=== PATIENT | female | born 1965 | race Caucasian/White ===

== ENCOUNTER 2018-06-02 18:06 | Outpatient (REF) | payer BC, SELFPAY ==
[2018-06-02 19:55] LABS: Abs Immature Grans 0.02 k/cumm (0.0-0.09); Absolute Basophil Count 0.03 k/cumm (0.0-0.2); Absolute Eosinophil Count 0.09 k/cumm (0.0-0.7); Absolute Lymphocyte Count 2.21 k/cumm (1.2-3.4); Absolute Monocyte Count 0.58 k/cumm (0.11-0.7); Absolute Neutrophil Count 5.49 k/cumm (1.2-6.7); Basophils % 0.4; Eosinophils % 1.1; HCT 37.7 % (36.0-46.0); HGB 12.3 g/dL (12.0-15.5); Immature Grans % 0.2; Lymphocytes % 26.2; Mean Corp. HGB Concentration 32.6 g/dL (32.0-36.0); Mean Corpuscular Hemoglobin 27.7 pg (27.0-33.0); Mean Corpuscular Volume 84.9 fL (80-95); Mean Platelet Volume 10.6 fL (8.0-11.0); Monocytes % 6.9; Neutrophils % 65.2; Platelet Count 277 x1000/uL (130-400); RBC 4.44 m/cumm (4.00-5.20); RBC Distribution Width 13.7 % (11.7-14.6); White Blood Cell Count 8.42 k/cumm (4.4-10.8)
[2018-06-02 20:13] LABS: ALT 19 U/L (12-78); AST 16 U/L (15-37); Albumin 4.1 g/dL (3.4-5.0); Alkaline Phosphatase 86 U/L (46-116); Anion Gap 9.4 mmol/L (3-11); BUN 19 mg/dL (7-18); Bilirubin, Total 0.3 mg/dL (0.2-1.0); CO2 28.6 mmol/L (21.0-32.0); Calcium 9.2 mg/dL (8.5-10.1); Chloride 101 mmol/L (98-107); FREE T4 1.17 ng/dL (0.76-1.46); Glucose 87 mg/dL (70-100); Sodium 139 mmol/L (136-145); TSH 3.06 uIU/mL (0.358-3.74); Total Protein 7.7 g/dL (6.4-8.2)
[2018-06-03 16:48] LABS: T3, Total 110 ng/dl (97-169)
== END 2018-06-02 18:26 ==
LOC: NCHCN 18:06
PROVIDERS: PCP Physician Assistant Medical; Visit Provider Physician Assistant Medical
DX: E04.2 Nontoxic multinodular goiter (principal); R10.32 Left lower quadrant pain
CPT/HCPCS: 80053; 84439; 84443; 84480; 85025

== ENCOUNTER 2018-06-16 01:25 | Outpatient (CLI) | payer BC, SELFPAY ==
--- NOTE | 2018-06-16 16:06 | DI.US_ITS ---
SYMPTOMS/DIAGNOSIS: MULTIPLE THYROID NODULES, E04 THYROID ULTRASOUND: Thyroid ultrasound was performed according to the usual protocol. Right thyroid lobe measures 54 x 20 x 16 mm and left thyroid lobe measures 46 x 23 x 19 mm. The thyroid parenchyma is heterogenous throughout with numerous small nodules. The largest nodule is a 12 mm in greatest diameter mixed echogenicity nodule of the lower pole of the left thyroid lobe. This shows mildly increased vascular flow on Doppler evaluation. Findings consistent with multinodular goiter, largest nodule is a 12 mm left lobe inferior pole nodule. Previous ultrasound of 03/25/17 showed the left lower pole nodule to measure about 18 mm in diameter. CONCLUSION: Stable or decreased size of left thyroid nodule. Follow-up ultrasound recommended in 12 months.
== END 2018-06-16 01:45 ==
PROVIDERS: PCP Physician Assistant Medical; Visit Provider Physician Assistant Medical
DX: E04.2 Nontoxic multinodular goiter (principal)
CPT/HCPCS: 76536

== ENCOUNTER 2018-07-22 16:39 | Outpatient (CLI) | payer BC, SELFPAY ==
--- NOTE | 2018-07-22 14:46 | DI.RAD_ITS ---
SYMPTOMS/DIAGNOSIS: COUGH, R05 PA AND LATERAL CHEST: The heart is normal in size. The lungs are clear. The mediastinal structures and pleura appear intact. CONCLUSION: Normal chest.
== END 2018-07-22 16:59 ==
PROVIDERS: PCP Physician Assistant Medical; Visit Provider Physician Assistant Medical
DX: R05 Cough (principal)
CPT/HCPCS: 71046

== ENCOUNTER 2018-12-13 11:19 | Outpatient (CLI) | payer BC, SELFPAY ==
[2018-12-13 12:22] LABS: CREATININE 0.66 mg/dL (0.55-1.02)
== END 2018-12-13 11:39 ==
PROVIDERS: PCP Physician Assistant Medical; Visit Provider Physician Assistant Medical
DX: R10.9 Unspecified abdominal pain (principal)
CPT/HCPCS: 36415; 82565

== ENCOUNTER 2018-12-15 01:09 | Outpatient (CLI) | payer BC, SELFPAY ==
[2018-12-15] MEDS: Omnipaque 350 MG/ML 50 ML BTL PO (08:21)
[2018-12-15] MEDS: Breeza Beverage 473 ML BTL PO ×2 (08:21→08:22)
[2018-12-15] MEDS: Omnipaque 350 MG/ML 100 ML BTL IJ (09:00)
--- NOTE | 2018-12-15 09:00 | DI.CT_ITS ---
SYMPTOM/DIAGNOSIS: LLQ ABD PAIN, R10.[address]: The study was carried out with an intravenous administration of 100 cc's of Omnipaque 350 and oral ingestion of dilute Omnipaque. The lung bases are unremarkable. The liver is normal. The gallbladder is intact. The pancreas and spleen are normal. The kidneys are unremarkable save for small bilateral renal cysts. The right adrenal is unremarkable. There is a small left adrenal mass measuring approximately 1.4 mm. in diameter which in retrospect was present on the prior examination of 2014 and is unchanged. There is no evidence of bowel obstruction. No localized bowel abnormality is seen. There is no evidence of an acute appendix. There is no evidence of free air or free fluid in the intraperitoneal space. The bladder is intact. The reproductive organs as visualized are intact. There is no evidence of an aortic aneurysm. Mild degenerative changes involving the lumbar spine are identified. SUMMARY: A small left adrenal nodule is demonstrated, apparently unchanged when compared with images dating back to 11/28/2014 and consistent with an adenoma. There are small bilateral renal cysts.
== END 2018-12-15 01:29 ==
PROVIDERS: PCP Physician Assistant Medical; Visit Provider Physician Assistant Medical
DX: R10.32 Left lower quadrant pain (principal); N28.1 Cyst of kidney, acquired; D35.02 Benign neoplasm of left adrenal gland
CPT/HCPCS: 74177; J3490; Q9967

== ENCOUNTER 2019-02-07 02:06 | Outpatient (CLI) | payer BC, SELFPAY ==
[2019-02-07 08:54] LABS: Anion Gap 9.2 mmol/L (3-11); BUN 13 mg/dL (7-18); CO2 28.8 mmol/L (21.0-32.0); CREATININE 0.73 mg/dL (0.55-1.02); Chloride 106 mmol/L (98-107); Glucose 78 mg/dL (70-100); Sodium 144 mmol/L (136-145)
[2019-02-08 17:39] LABS: Adrenocorticotropic Hormone, P 18 pg/mL
[2019-02-09 09:30] LABS: DHEA Sulfate 16 ug/dl (56-283)
[2019-02-09 13:05] LABS: Metanephrine, Free <0.20 nmol/L (<0.50); Normetanephrine, Free 0.42 nmol/L (<0.90)
[2019-02-09 17:17] LABS: Renin Activity, Plasma 1.3 ng/mL/h
== END 2019-02-07 02:26 ==
PROVIDERS: PCP Physician Assistant Medical; Visit Provider Internal Medicine Endocrinology, Diabetes & Metabolism
DX: E27.9 Disorder of adrenal gland, unspecified (principal)
CPT/HCPCS: 36415; 80048; 82533; 82627; 82024; 82088; 83835; 84244

== ENCOUNTER 2019-02-08 01:47 | Outpatient (CLI) | payer BC, SELFPAY ==
[2019-02-08 21:17] LABS: Dexamethasone Suppression 1 ug/dl
== END 2019-02-08 02:07 ==
PROVIDERS: PCP Physician Assistant Medical; Visit Provider Internal Medicine Endocrinology, Diabetes & Metabolism
DX: E27.9 Disorder of adrenal gland, unspecified (principal)
CPT/HCPCS: 36415; 82533

== ENCOUNTER 2019-03-16 15:22 | Outpatient (REF) | payer BC, SELFPAY | END 2019-03-16 15:42 | LOC: NCHCN 15:22 | PROVIDERS: PCP Physician Assistant Medical; Visit Provider Physician Assistant Medical | DX: J02.9 Acute pharyngitis, unspecified (principal); J20.9 Acute bronchitis, unspecified | CPT/HCPCS: 87081 ==

== ENCOUNTER 2019-08-23 01:23 | Outpatient (CLI) | payer BC, SELFPAY ==
--- NOTE | 2019-08-23 13:46 | DI.MAMMO_ITS ---
EXAM: MAMMO SCREENING CLINICAL HISTORY: SCREENING, HEALTH MAINTENANCE EXAM, Z00.8 TECHNIQUE: Mammograms were interpreted according to the usual protocol including computer analysis w [employer] CAD system, tomosynthesis and C-view imaging. COMPARISON: Current examination is compared previous examinations including June 2017 FINDINGS: The breasts are of moderate density with fairly symmetrical distribution of fibroglandular tissue. No dominant mass or clumped microcalcification. Current examination is compared previous examinations including June 2017 and there has been no gross interval change in appearance in comparison with previous studies. IMPRESSION: No specific evidence of malignancy at this time. Routine screening examinations are suggested at yea rly intervals due to the family history of breast carcinoma. Category 1, breast density category B. BI-RADS Cat 1 - Negative Breast Density - Category B - Scattered areas of fibroglandular density
== END 2019-08-23 01:43 ==
PROVIDERS: PCP Physician Assistant Medical; Visit Provider Physician Assistant Medical
DX: Z00.00 Encounter for general adult medical examination without abnormal findings (principal); Z12.31 Encounter for screening mammogram for malignant neoplasm of breast; Z80.3 Family history of malignant neoplasm of breast
CPT/HCPCS: 77063; 77067

== ENCOUNTER 2019-10-24 10:12 | Outpatient (REF) | payer BC, SELFPAY ==
[2019-10-24 20:31] LABS: Hemoglobin A1C 5.6 % (3.8-5.6)
[2019-10-24 20:41] LABS: TSH 2.58 uIU/mL (0.36-3.74)
== END 2019-10-24 10:32 ==
LOC: NCHCN 10:12
PROVIDERS: PCP Physician Assistant Medical; Visit Provider Physician Assistant Medical
DX: E06.3 Autoimmune thyroiditis (principal); Z00.00 Encounter for general adult medical examination without abnormal findings; Z13.1 Encounter for screening for diabetes mellitus
CPT/HCPCS: 83036; 84443

== ENCOUNTER 2019-10-24 10:22 | Outpatient (CLI) | payer BC, SELFPAY ==
--- NOTE | 2019-10-24 | DI.RAD_ITS ---
EXAM: XR WRIST RT COMPL NAVICULAR INDICATION: RT WRIST PAIN, M25.531. COMPARISON: RIGHT HAND COMPLETE from 10/12/2008 XR THUMB RT from 10/24/2019 TECHNIQUE: 2D digital imaging was performed. FINDINGS: There is narrowing at the radial scaphoid joint and mild lateral spurring. A cyst is seen in the sc aphoid. There is mild narrowing at the scaphoid trapezium trapezoid joints. There is mild periartic ular spurring at the interphalangeal joint of the thumb and at the 1st metacarpal phalangeal joint. More advanced degenerative changes are seen in the distal interphalangeal joints of the 2nd through 5th fingers. No bony erosions are seen. IMPRESSION: Nuic-ij-apzokcag degenerative changes. DATA REPOSITORY: RADIATION DOSE DELIVERED:
== END 2019-10-24 10:42 ==
PROVIDERS: PCP Physician Assistant Medical; Visit Provider Physician Assistant Medical
DX: M25.531 Pain in right wrist (principal); M19.031 Primary osteoarthritis, right wrist
CPT/HCPCS: 73110; 73140

== ENCOUNTER 2020-03-07 15:02 | Outpatient (REF) | payer BC, SELFPAY ==
[2020-03-14 02:55] LABS: SARS-CoV-2 RNA Undetected (Undetected); SARS-CoV-2 Specimen Source Nasopharynx
== END 2020-03-07 15:22 ==
LOC: NCHCN 15:02
PROVIDERS: PCP Physician Assistant Medical; Visit Provider Nurse Practitioner Family
DX: Z20.828 Contact with and (suspected) exposure to other viral communicable diseases (principal)
CPT/HCPCS: U0003

== ENCOUNTER 2020-10-24 17:14 | Outpatient (REF) | payer MEDICAID, SELFPAY ==
[2020-10-25 14:48] LABS: COVID-19 RT-PCR UVMMC Result Negative (Negative)
== END 2020-10-24 17:15 | disposition home or self-care (01) ==
LOC: NCHCN 17:14
PROVIDERS: PCP Physician Assistant Medical; Visit Provider Physician Assistant Medical
DX: Z20.822 Contact with and (suspected) exposure to COVID-19 (principal); R05 Cough; J06.9 Acute upper respiratory infection, unspecified
CPT/HCPCS: U0003

== ENCOUNTER 2020-11-08 02:56 | Outpatient (CLI) | payer MEDICAID, SELFPAY ==
[2020-11-08 09:58] LABS: Anion Gap 5.4 mmol/L (3-11); BUN 15 mg/dL (7-18); CO2 28.6 mmol/L (21.0-32.0); CREATININE 0.8 mg/dL (0.55-1.02); Calcium 9.1 mg/dL (8.5-10.1); Calculated LDL 136 mg/dL (<100); Chloride 105 mmol/L (98-107); Cholesterol 211 mg/dL (<200); Glucose 92 mg/dL (74-106); HDL Cholesterol 54 mg/dL (40-60); Potassium 4.5 mmol/L (3.5-5.1); Sodium 139 mmol/L (136-145); TSH 2.85 uIU/mL (0.36-3.74); Triglyceride 107 mg/dL (<150)
== END 2020-11-08 02:57 | disposition home or self-care (01) ==
LOC: LBO 02:56
PROVIDERS: PCP Physician Assistant Medical; Visit Provider Physician Assistant Medical
DX: E06.3 Autoimmune thyroiditis (principal)
CPT/HCPCS: 36415; 80048; 80061; 84443

== ENCOUNTER 2020-11-28 01:36 | Outpatient (CLI) | payer MEDICAID, SELFPAY ==
--- NOTE | 2020-11-28 08:17 | DI.MAMMO_ITS ---
EXAM: MAMMO SCREENING CLINICAL HISTORY: SCREENING, [facility],Z00.00 TECHNIQUE: Mammograms were interpreted according to the usual protocol including computer analysis w [employer] CAD system, tomosynthesis and C-view imaging. COMPARISON: 2013 through 2018 FINDINGS: The breasts are composed of scattered fibroglandular densities, Breast Density category B. No suspicious masses or suspicious microcalcifications are seen. No skin thickening or abnormal axillary lymph nodes are seen. There has been no significant change from prior exams. IMPRESSION: BI-RADS Category 1, Negative mammogram Yearly screening mammography is recommended. Breast Density - Category B, scattered fibroglandular densities. A negative radiographic report should not delay biopsy if a dominant or clinically suspicious mass is present. Up to ten percent of cancers are not identified on mammography. A negative report may reinforce clinical impression. Adenosis and dense breasts may obscure an underlying neoplasm. False positive reports average 6 to 10%. Patient will receive a letter notifying them of these results.
== END 2020-11-28 01:56 ==
PROVIDERS: PCP Physician Assistant Medical; Visit Provider Physician Assistant Medical
DX: Z12.31 Encounter for screening mammogram for malignant neoplasm of breast (principal)
CPT/HCPCS: 77063; 77067

== ENCOUNTER 2021-03-12 04:42 | Emergency (ER) | payer MEDICAID, SELFPAY ==
[2021-03-12] VITALS (7 sets, daily range): BP systolic 129–178; BP diastolic 78–86; PULSE 66–83; RESP 12–21; TEMP 36.2; O2SAT 93–98
--- NOTE | 2021-03-12 04:45 | RT.EKG_ITS ---
APPROVED REPORT Exam: Resting ECG Reason for Exam: sob Patient Location: E HR:70 bpm ECG Measurements Heart Rate 70 AXIS MT 131 P -2 QRSd 100 QRS 46 QT 437 T 56 QTc 473 Conclusion Sinus rhythm...normal P axis, V-rate 60- 99 Rate 70, sinus rhythm, intervals unremarkable, no significant ST elevation or depression. No Q waves . No T wave inversion
--- NOTE | 2021-03-12 04:45 | DI.RAD_ITS ---
Exam(s) XR CHEST 2V PA LATERAL EXAM: XR CHEST 2V PA LATERAL CLINICAL HISTORY: transient shortness of breath TECHNIQUE: 2D digital imaging was performed. COMPARISON: CR XR CHEST 2V PA LATERAL from 07/22/2018 FINDINGS: MEDIASTINUM: Normal. HEART: Normal. PULMONARY VASCULATURE: Normal. LUNGS: Clear. PLEURAL SPACE: No pleural effusion or pneumothorax. BONE:Unremarkable for age. IMPRESSION: No acute abnormality. DATA REPOSITORY: RADIATION DOSE DELIVERED:
--- NOTE | 2021-03-12 04:57 | ED.GENADUL_ITS ---
Discharge Plan Disposition Patient Disposition: HOME Condition: Good Discharge Details Clinical Impression: Shortness of breath Primary Care Provider: Nalini Riddle ED Provider: Juarez Mcconnell Home Meds and New Rx's Prescriptions: Continued levothyroxine 25 MCG tablet 88 mcg PO DAILY RF: 0 venlafaxine 375 mg DAILY RF: 0 venlafaxine 37.5 MG capsule,extended release 24hr 37.5 mg PO DAILY RF: 0 Flovent Diskus 50 MCG blister with device 1 spray Inhalation DAILY PRNRF: 0 venlafaxine [Effexor XR] 75 MG capsule,extended release 24hr 75 mg PO DAILY RF: 0 Otc Estrogen 1 cap PO DAILY RF: 0 Discharge Instructions Instructions: Dyspnea (ED) Additional Instructions: At this time your work-up shows no evidence of popped lung, heart attack, blood clot. I suspect that your symptoms are from a laryngeal spasm as we discussed together. If you notice any worsening of your symptoms, or any new symptoms such as vomiting, diarrhea, fever, chills, shortness of breath, chest pain, numbness, weakness, or fainting , please return immediately to the emergency department for reevaluation. Please follow up with your primary care provider as soon as possible for reassessment and reevaluation. As always, it was a pleasure participating in your medical care today. Referrals: Nalini Riddle PA [Primary Care Provider] - Discharge Data Discharge Date/Time-TO BE ENTERED AT DEPARTURE: 03/12/21 06:09 Medical Decision Making 55-year-old female with a past medical history of depression, endometriosis, asthma, thyroid dysfunction, presents today for evaluation of treated shortness of breath. Patient states that she woke up about 45 minutes prior to arrival with a sudden onset shortness of breath. She felt like she was gasping for air and she could not breathe. Symptoms eventually resolved on their own. Currently she denies any significant shortness of breath but does admit to a very mild chest ache under the left breast. She denies any exertional dyspnea or exertional chest pain. She denies any cough fever or chills. She denies any headache. She denies any tearing or ripping sensation or syncope. She denies any pleuritic chest pain. Denies PE risk factors such as recent long car rides, immobilization, recent surgery, prior history of DVT or PE, family history of PE or DVT, morbid obesity, and smoking, hemoptysis, history of cancer. Physical exam demonstrates no reproducible chest pain. No evidence of shingles. Patient's PERC and Wells score are both low, however she does take exogenous estrogen, and she is over the age of 50. Because of this we will get a D-dimer, evaluate for cardiac abnormality, monitor closely and reassess. I do suspect that the patient's symptoms are likely related to a laryngeal spasm as this would clinically make sense with her sudden onset of feeling like she could not breathe at all, a tight self described wheeze, and then quick resolution shortly thereafter 6 AM Patient's laboratory work-up has returned notably unremarkable. No white count, bandemia or left shift. Normal electrolytes, good renal function. Normal proBNP no evidence of right heart strain. Troponin normal, chest x-ray unremarkable. Patient feels well and has no chest pain whatsoever. No shortness of breath whatsoever. She feels well and feels comfortable going home. Symptoms at this time are inconsistent with PE, dissection, ACS, pneumothorax. Symptoms likely secondary to mild brief laryngeal spasm that o ccurred at night, with no clear evidence of significant sleep apnea or other abnormality. Discussed red flags which to return. Discussed the importance of close PCP follow-up. I have extensively reviewed the treatment plan and discharge instructions with the patient and their family. I have addressed all patient concerns at this time. The patient and family was made aware of what symptoms to monitor for that would warrant a return to the emergency department. Discussed the plan with the patient and family, they demonstrate verbal understanding and agreement with our assessment and plan at this time. The documentation in this chart was dictated using [employer] dictation software. Please excuse any dictation errors. EKG 5: 02 Rate 70, sinus rhythm, intervals unremarkable, no significant ST elevation or depression. No Q waves. No T wave inversion FINDINGS: Lungs: Unremarkable. No consolidation. Pleural spaces: Unremarkable. No pleural effusion. No pneumothorax. Heart/Mediastinum: The cardiomediastinal silhouette is fairly stable in appearance. Bones/joints: Degenerative changes again involve the spine. IMPRESSION: No evidence for acute pulmonary disease. Thank you for allowing us to participate in the care of your patient. Dictated and Authenticated by: Baldomero De Leon MD 03/12/2021 7:39 AM Eastern Time ([place] & [place]) HPI General Date/Time Provider Initiated Documentation: 03/12/21 04:43 . HPI Narrative: 55-year-old female with a past medical history of depression, endometriosis, asthma, thyroid dysfunction, presents today for evaluation of treated shortness of breath. Patient states that she woke up about 45 minutes prior to arrival with a sudden onset shortness of breath. She felt like she was gasping for air and she could not breathe. Symptoms eventually resolved on their own. Currently she denies any significant shortness of breath but does admit to a very mild chest ache under the left breast. She denies any exertional dyspnea or exertional chest pain. She denies any cough fever or chills. She denies any headache. She denies any tearing or ripping sensation or syncope. She denies any pleuritic chest pain. Denies PE risk factors such as recent long car rides, immobilization, recent surgery, prior history of DVT or PE, family history of PE or DVT, morbid obesity, exogenous estrogen and smoking, hemoptysis, history of cancer. Related Data Home Medications Medication Instructions Recorded Confirmed levothyroxine 88 mcg PO DAILY tab-cap 11/28/14 01/08/16 venlafaxine 37.5 mg PO DAILY 12/04/14 03/12/21 Flovent Diskus 1 spray INHALATION DAILY PRN 01/08/16 03/12/21 Otc Estrogen 1 cap PO DAILY 01/08/16 venlafaxine [Effexor XR] 75 mg PO DAILY 01/08/16 03/12/21 Allergies Allergy/AdvReac Type Severity Reaction Status Date / Time cephalexin [Cephalexin] AdvReac Nausea/ GI Unverified 03/12/21 04:55 upset General Stated Complaint: SOB ERNA: 3 Review of Systems All systems reviewed & are unremarkable except as noted in HPI and below PFSH Medical History Endometriosis LLQ pain Ovarian cyst Surgical History Oophrectomy, Left Had enterolisis and removal of endometriosis at the same time Social History Smoking/Tobacco Use Status: Never Smoking risk assessment performed?: Yes Alcohol Intake: never Drug use: Never Substance use type: does not use Do you feel safe at home: Yes Do you feel safe in your relationship?: Yes Exam Narrative Exam Narrative: 1.Const: Well-nourished, Well-developed, appearing stated age 2.Eyes: PERRL, no conjunctival injection, and symmetrical lids. 3.ENT: Atraumatic external nose and ears. Moist MM. Neck: Symmetric, trachea midline, No thyromegaly. 4.CVS: +S1/S2, No murmurs or gallops. Peripheral pulses 2+ and equal in all extremities. Brisk capillary refill in all extremities. No reproducible chest pain on palpation of the chest. 5.RESP: Unlabored respiratory effort. Clear to auscultation bilaterally. No wheezes rales or rhonchi 6.GI: Soft, Nontender/Nondistended, No hepatosplenomegaly. No guarding or rebound. 7.MSK: Normocephalic/Atraumatic, Extremities w/o deformity or ttp No cyanosis or clubbing, Normal movement of all extremities 8.Skin: Warm, Dry. No rashes or lesions. No evidence of shingles under the breast. 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 Sensation grossly intact, no focal neurologic deficits. 10.Psych: (AAO) x3. Appropriate mood and affect Course Vital Signs Vital signs: Vital Signs Temperature 36.2 C L 03/12/21 04:48 Pulse 83 03/12/21 04:48 Respiratory Rate 17 03/12/21 04:48 Blood Pressure 178/86 H 03/12/21 04:48 Pulse Oximetry 98 03/12/21 04:48 Temperature 36.2 C L 03/12/21 04:48 Temperature Source Temporal Artery Scan 03/12/21 04:48 Pulse 83 03/12/21 04:48 Respiratory Rate 17 03/12/21 04:48 Blood Pressure 178/86 H 03/12/21 04:48 Blood Pressure Position Sitting 03/12/21 04:48 Pulse Oximetry 98 03/12/21 04:48 Oxygen Delivery Method Room Air 03/12/21 04:48 Oxygen Flow Rate 0 03/12/21 04:48 Pain Level 0 03/12/21 04:48
[2021-03-12 05:10] LABS: Abs Immature Grans 0.01 10^3/uL (0.0-0.06); Absolute Basophil Count 0.07 10^3/uL (0.0-0.2); Absolute Eosinophil Count 0.18 10^3/uL (0.0-0.7); Absolute Monocyte Count 0.61 10^3/uL (0.1-0.8); Absolute Neutrophil Count 2.52 10^3/uL (1.2-6.7); Basophils % 1.1; Eosinophils % 2.8; HCT 38.1 % (36.0-46.0); Immature Grans % 0.2; Lymphocytes % 46.9; MCH 26.7 pg (27.0-33.0); MCHC 31.5 % (32.0-36.0); MCV 84.7 fL (80-95); MPV 9.6 fL (8.0-11.0); Monocytes % 9.5; Neutrophils % 39.5; Nucleated RBC 0 %; Platelet Count 326 10^3/uL (130-400); RDW 13.4 % (11.7-14.6); RDW-SD 41.6 fL; WBC 6.39 10^3/uL (4.4-10.8)
[2021-03-12 05:23] LABS: ALT 22 U/L (14-59); AST 13 U/L (15-37); Albumin 3.8 g/dL (3.4-5.0); Alkaline Phosphatase 99 U/L (46-116); Anion Gap 6.1 mmol/L (3-11); BUN 14 mg/dL (7-18); Bilirubin, Total 0.3 mg/dL (0.2-1.0); CO2 26.9 mmol/L (21.0-32.0); CREATININE 0.8 mg/dL (0.55-1.02); Calcium 8.7 mg/dL (8.5-10.1); Chloride 106 mmol/L (98-107); Glucose 97 mg/dL (74-106); Potassium 3.8 mmol/L (3.5-5.1); Sodium 139 mmol/L (136-145); Total Protein 7.6 g/dL (6.4-8.2)
[2021-03-12 05:32] LABS: NT-proBNP 84 pg/mL (<300); Troponin I < 0.05 ng/mL (<0.06)
[2021-03-12 05:39] LABS: D-Dimer 395 ng/mlFEU (<500)
--- NOTE | 2021-03-12 07:40 | DI.VRAD_ITS ---
PROCEDURE INFORMATION: Exam: XR Chest Exam date and time: 03/12/2021 4:56 AM Age: 55 years old Clinical indication: Patient HX: Transient shortness of breath TECHNIQUE: Imaging protocol: XR of the chest. Views: 2 views. COMPARISON: CR XR CHEST 2V PA LATERAL 07/22/2018 2:38 PM FINDINGS: Lungs: Unremarkable. No consolidation. Pleural spaces: Unremarkable. No pleural effusion. No pneumothorax. Heart/Mediastinum: The cardiomediastinal silhouette is fairly stable in appearance. Bones/joints: Degenerative changes again involve the spine. IMPRESSION: No evidence for acute pulmonary disease. Dictated and Authenticated by: Baldomero De Leon MD. Ordering:BENNIE Pizarro MD
== END 2021-03-12 06:09 | disposition home or self-care (01) ==
PROVIDERS: Emergency Provider Student in an Organized Health Care Education/Training Program; PCP Physician Assistant Medical
DX: R06.02 Shortness of breath (principal); R07.9 Chest pain, unspecified
CPT/HCPCS: 80053; 93005; 99284; 71046; 83880; 84484; 85025; 85379; 93010

== ENCOUNTER 2021-03-29 02:30 | Outpatient (CLI) | payer MEDICAID, SELFPAY ==
[2021-03-29 10:12] LABS: TSH 3.04 uIU/mL (0.36-3.74)
== END 2021-03-29 02:31 | disposition home or self-care (01) ==
LOC: LBO 02:30
PROVIDERS: PCP Physician Assistant Medical; Visit Provider Physician Assistant Medical
DX: E06.3 Autoimmune thyroiditis (principal)
CPT/HCPCS: 36415; 84443

== ENCOUNTER 2021-04-01 11:20 | Outpatient (REF) | payer MEDICAID, SELFPAY ==
[2021-04-01 20:35] LABS: ESR 28 mm/hr (0-30)
[2021-04-01 20:59] LABS: C-Reactive Protein 0.58 mg/dL (0.0-0.3)
[2021-04-02 16:23] LABS: Rheumatoid Factor <8.6 IU/mL (<12.0)
[2021-04-03 08:56] LABS: Cyclic Citrullinated Peptide <2.5 U/mL (<5.0)
[2021-04-03 13:55] LABS: ANA Interpretation Positive (Negative); ANA Titer Pattern 1:320 Homogeneous
== END 2021-04-01 11:21 | disposition home or self-care (01) ==
LOC: NCHCN 11:20
PROVIDERS: PCP Physician Assistant Medical; Visit Provider Physician Assistant Medical
DX: M25.59 Pain in other specified joint (principal)
CPT/HCPCS: 85652; 86200; 86038; 86140; 86431

== ENCOUNTER 2021-05-01 12:41 | Outpatient (REF) | payer MEDICAID, SELFPAY ==
[2021-05-01 17:11] LABS: Abs Immature Grans 0.01 10^3/uL (0.0-0.06); Absolute Basophil Count 0.06 10^3/uL (0.0-0.2); Absolute Eosinophil Count 0.13 10^3/uL (0.0-0.7); Absolute Lymphocyte Count 2.05 10^3/uL (1.2-3.4); Absolute Monocyte Count 0.48 10^3/uL (0.1-0.8); Absolute Neutrophil Count 2.69 10^3/uL (1.2-6.7); Basophils % 1.1; Eosinophils % 2.4; HCT 38.9 % (36.0-46.0); HGB 11.9 g/dL (11.2-15.7); Immature Grans % 0.2; Lymphocytes % 37.8; MCH 26.4 pg (27.0-33.0); MCHC 30.6 % (32.0-36.0); MCV 86.4 fL (80-95); MPV 10.7 fL (8.0-11.0); Monocytes % 8.9; Neutrophils % 49.6; Nucleated RBC 0 %; Platelet Count 337 10^3/uL (130-400); RDW 13.7 % (11.7-14.6); RDW-SD 43.5 fL; WBC 5.42 10^3/uL (4.4-10.8)
[2021-05-01 17:19] LABS: Uric Acid 3.5 mg/dL (2.6-6.0)
== END 2021-05-01 12:42 | disposition home or self-care (01) ==
LOC: NCHCN 12:41
PROVIDERS: PCP Physician Assistant Medical; Visit Provider Physician Assistant Medical
DX: M79.671 Pain in right foot (principal)
CPT/HCPCS: 84550; 85025

== ENCOUNTER 2021-05-21 08:51 | Outpatient (REF) | payer MEDICAID, SELFPAY ==
[2021-05-21 20:31] LABS: FREE T4 1.19 ng/dL (0.76-1.46); TSH 2.15 uIU/mL (0.36-3.74)
[2021-05-22 17:38] LABS: T3, Total 125 ng/dL (97-169)
[2021-05-22 18:41] LABS: Thyroglobulin Antibody >500 U/mL (<=60); Thyroperoxidase Antibody 180 U/mL (<=60)
== END 2021-05-21 08:52 | disposition home or self-care (01) ==
LOC: NCHCN 08:51
PROVIDERS: PCP Physician Assistant Medical; Visit Provider Physician Assistant Medical
DX: E06.3 Autoimmune thyroiditis (principal)
CPT/HCPCS: 86376; 84439; 84443; 84480

== ENCOUNTER 2021-06-24 02:23 | Outpatient (CLI) | payer MEDICAID, SELFPAY ==
[2021-06-24 11:04] LABS: Source Nasal/Nares
[2021-06-24 13:53] LABS: COVID-19 PCR Negative (Negative)
== END 2021-06-24 02:24 | disposition home or self-care (01) ==
LOC: LBO 02:24
PROVIDERS: PCP Physician Assistant Medical; Visit Provider Surgery
DX: Z20.822 Contact with and (suspected) exposure to COVID-19 (principal)
CPT/HCPCS: 87635

== ENCOUNTER 2021-06-25 00:58 | Outpatient (CLI) | payer MEDICAID, SELFPAY ==
--- NOTE | 2021-06-25 09:15 | DI.US_ITS ---
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 COMPARISON: US US thyroid from 06/16/2018 FINDINGS: Thyroid ultrasound was performed according to the usual protocol. The thyroid parenchyma is diffusel y heterogeneous. Right thyroid lobe measures 5.7 x 1.6 x 2.2 cm. Left thyroid lobe measures 5.3 x 1 .8 x 1.9 cm. Thyroid isthmus is 3 millimeters in thickness. There is an 8 millimeter in diameter hypoechoic nodule of the midportion of the right thyroid lobe wh ich is solid in echogenicity and has smooth margins without echogenic foci. No follow-up recommended . Small extrathyroidal cyst is noted on the right, nonspecific. IMPRESSION: Heterogeneous appearance of thyroid parenchyma, question mild thyromegaly. No suspicious intrathyroi andres lesion. DATA REPOSITORY:
== END 2021-06-25 01:18 ==
PROVIDERS: PCP Physician Assistant Medical; Visit Provider Physician Assistant Medical
DX: E06.3 Autoimmune thyroiditis (principal); E01.0 Iodine-deficiency related diffuse (endemic) goiter; R93.89 Abnormal findings on diagnostic imaging of other specified body structures
CPT/HCPCS: 76536

== ENCOUNTER 2021-06-26 07:57 | Day surgery (SDC) | payer MEDICAID, SELFPAY ==
--- NOTE | 2021-06-26 06:43 | W.PM.ENDDOP ---
Date of service: 06/26/21 Time of Service: 09:21 Endoscopy Report DATE OF PROCEDURE: 06/26/21 PRE-OP DIAGNOSIS: GERD POST-OP DIAGNOSIS: same PROCEDURE: EGD with biopsies SURGEON: Lashonda Cavazos ANESTHESIA TYPE: General:No Airway (Aleksandra Zapata, ARSH) ESTIMATED BLOOD LOSS: 2 PATHOLOGY: other (Antrum bx, GE junction bx) COMPLICATIONS: None DISPOSITION: same day INDICATIONS: Sylvia has a history of reflux. She was having quite a bit of reflux symptoms in February and was started on pantoprazole. This has helped quite a bit. She continues to have the shortness of breath episodes despite him not resolved. She also has a history of H. pylori infection x2 once in 2012 and once in 2015. I do think that her episodes sound more like a reactive airway/laryngeal spasms. The question is why. I feel it is reasonable to start with an upper endoscopy and look at her oropharynx and vocal cords as well as her esophagus, stomach and duodenum. I will do biopsies again for H. pylori. If the upper endoscopy is negative then she may need to be seen either by ENT or pulmonology. I did ask her to bring her albuterol inhaler to the hospital just in case we need to use it. The procedure was explained in detail including the risks, benefits and alternatives. Risks, benefits and complications have been reviewed. Complications include but are not limited to bleeding, pain, perforation, sore throat, aspiration, and adverse reaction to the medications. Questions were entertained and answered to their satisfaction and they wished to proceed. No guarantees were given or implied. Proceed with EGD under sedation and Covid testing FINDINGS: normal PROCEDURE DESCRIPTION: After informed consent was obtained the patient was take to the procedure room and placed in a supine position. Monitors were applied and a time out was done. The patients name, date of , procedure type, allergies to medications and metal in their body was reviewed. A bite block was placed and the patient was sedated. Once sedated and comfortable the gastroscope was advanced through the oropharynx which was grossly normal into the esophagus. The proximal, mid- and distal esophagus were normal. The scope was advanced into the stomach and through the pylorus into the 3rd portion of the duodenum. The duodenum was noted to be normal. The scope was retracted back into the stomach and biopsies were done to rule out H. pylori. The scope was retroflexed. The cardia and fundus were noted to be normal. There was no hiatal hernia noted. The scope was retracted back into the esophagus and biopsies were done of the GE junction to rule out Palomares's. The Z line was regular. The GE junction was at 35 cm. The scope was removed and the patient was woken up and taken back to [facility] in stable condition. Follow up: as needed
--- NOTE | 2021-06-26 06:44 | W.PM.DSUDISC ---
Discharge Plan Disposition Patient Disposition: HOME Condition: Good Discharge Details Reason For Visit: egd Attending Provider: Lashonda Cavazos Primary Care Provider: Nalini Riddle Home Meds and New Rx's Prescriptions: Continued fluticasone propionate 50 mcg/actuation spray,suspension 1 spray intranasal DAILY RF: 0 albuterol sulfate [ProAir HFA] 90 mcg/actuation HFA aerosol inhaler 2 puff inhalation Q6H PRNRF: 0 doxepin 10 mg capsule 10 mg PO QHS RF: 0 pantoprazole 40 mg tablet,delayed release (DR/EC) 40 mg PO DAILY RF: 0 venlafaxine 37.5 MG capsule,extended release 24hr 37.5 mg PO DAILY RF: 0 Flovent Diskus 50 MCG blister with device 1 spray Inhalation DAILY PRNRF: 0 levothyroxine 100 mcg tablet 100 mcg PO DAILY RF: 0 venlafaxine 75 mg Capsule,Extended Release 24hr 75 mg PO RF: 0 Probiotic 15 billion cell Capsule 15 cap PO RF: 0 Discharge Instructions Additional Instructions: Findings: normal appearing. Your reflux is controlled Vocal cords looked normal Follow up: I will discuss your case with pulmonology and see if they want me to do some testing before I refer you Please call if you develop: fevers >101.5 Nausea or Vomiting Abdominal pain that is not transient Rectal bleeding that is more then a tbsp A hard abdomen and inability to pass gas DAY SURGERY UNIT POST ENDOSCOPY INSTRUCTIONS Instructions for everyone who is given Anesthesia: For your safety, please do the following for the next 24 Hours: a. Do not drive or operate dangerous equipment b. Do not drink alcohol beverages or use any recreational drugs for the first 24 hours or while taking pain medications. The medications in your body may have a reaction that can be dangerous. c. Do not make any important decisions or sign any important papers 1. Generally there are no restrictions on your activity after a day or so has gone by, but you may feel a bit fatigued for a few days. 2. After you arrive home you may have a light meal and return to a normal diet as you can tolerate it without feeling sick to your stomach. 3. After surgery, you may feel pain or discomfort. This should be only transient, but if it persists please contact your doctor. 4. If there are any questions regarding the findings of your procedure, please feel free to contact your doctor. 6. If you are unable to contact your doctor with a problem, contact the hospital at [phone]. 7. Continue all your regular medications unless directed otherwise. I understand the above instructions and have no questions. Signature of Patient or Responsible Adult Escort Date/Time Name of Responsible Adult Escort Signature of Nurse Date/Time Activity:: Activity as Tolerated Diet:: As Tolerated Discharge Orders Discharge Orders: Discharge Order (Routine); Ordered 06/26/21 Ordered By: Lashonda Cavazos
[2021-06-26 08:33] VITALS: BP 142/89; PULSE 71; RESP 16; TEMP 36; O2SAT 98
[2021-06-26] MEDS: Lactated Ringers 1,000 ML 80 ML IV (08:45)
--- NOTE | 2021-06-26 08:49 | W.ANESPRE ---
General Info Date of Service Date Performed: 06/26/21 Height: 5 ft 8 in Weight: 93 kg Body Mass Index (BMI): 31.1 Surgical Procedure: Operation Date: 06/26/21 09:35 Proposed Procedures Side Surgeon p Gastroscopy Lashonda Cavazos MD Meds Allergies and Home Medications Allergies Allergy/AdvReac Type Severity Reaction Status Date / Time codeine Allergy Intermediate hypersensitive. Verified 06/26/21 08:25 Can't sleep. feels wired cephalexin [Cephalexin] AdvReac Nausea/ GI Unverified 06/26/21 08:25 upset Home Medication Medication Instructions Recorded venlafaxine 37.5 mg PO DAILY 12/04/14 Flovent Diskus 1 spray INHALATION DAILY PRN 01/08/16 albuterol sulfate 90 mcg/actuation 2 puff INHALATION Q6H PRN 06/04/21 aerosol inhaler doxepin 10 mg capsule 10 mg PO QHS 06/04/21 fluticasone propionate 50 1 spray INTRANASAL DAILY 06/04/21 mcg/actuation nasal spray,suspension pantoprazole 40 mg tablet,delayed 40 mg PO DAILY 06/04/21 release levothyroxine 100 mcg PO DAILY 06/24/21 L. acidophilus-L. rhamnosus 15 cap PO 06/26/21 [Probiotic] venlafaxine 75 mg PO 06/26/21 Current Visit Medications: Current Medications Generic Name Dose Route Start Last Admin Trade Name Freq PRN Reason Stop Dose Admin Hyoscyamine Sulfate 0.125 mg 06/26/21 06:45 Hyoscyamine 0.125 Mg Sl/Oral/Chew SL DIRECTED PRN Ringer's Solution 1,000 mls @ 80 mls/hr 06/26/21 06:00 IV 07/23/21 23:59 INFUSION [facility] IV Miscellaneous Supplies 1 each 06/26/21 06:00 Iv Access IV 07/23/21 23:59 DIRECTED ANGIE Ondansetron HCl 4 mg 06/26/21 06:45 Ondansetron 4 Mg/2 Ml Vial IVP Q4H PRN PRN Nausea / Vomiting Sodium Chloride 0 ml 06/26/21 06:00 Normal Saline Flush 10 Ml Syr IV 07/23/21 23:59 PRN PRN Sodium Chloride 0 ml 06/26/21 06:00 Normal Saline 10 Ml Vial IJ 07/23/21 23:59 DIRECTED PRN Sterile Water 0 ml 06/26/21 06:00 Water,Injection,Sterile 10 Ml Vial IJ 07/23/21 23:59 DIRECTED PRN PFSH Active Problems Active Problems: Problem Status Onset Code Shortness of breath R06.02 GERD (gastroesophageal reflux disease) K21.9 Laryngospasm J38.5 Thyromegaly E01.0 Abnormal cardiovascular stress test R94.39 History of Helicobacter pylori infection Z86.19 Medical History Medical History (Updated 06/26/21 @ 08:32 by Beverly Mota) Anxiety Depression Diverticulosis Endometriosis Sandeep's thyroiditis Hemorrhoids Hx of Hypertension Insomnia LLQ pain Multiple thyroid nodules Ovarian cyst Positive KEITH (antinuclear antibody) Snoring Urinary incontinence Surgical History Surgical History (Updated 06/26/21 @ 08:32 by Beverly Mota) H/O esophagogastroduodenoscopy 2016 History of hysterectomy Hx of foot surgery L big toe Oophrectomy, Left Had enterolisis and removal of endometriosis at the same time S/P colonoscopy Tobacco Smoking/Tobacco Use Status: Never Alcohol Alcohol Intake: former Substance Use Substance use: Never Substance use type: does not use Vital Signs and Lab Results Vital Signs Most Recent Vital Signs in EMR: Most Recent Vital Signs Temp Pulse Resp BP Pulse Ox 36.0 C L 71 16 142/89 H 98 06/26/21 08:33 06/26/21 08:33 06/26/21 08:33 06/26/21 08:33 06/26/21 08:33 Lab Results Blood Type / Crossmatch: No Data to Display Complete Blood Count: No Data to Display Complete Metabolic Panel: No Data to Display Liver Function Panel: No Data to Display Coagulation Panel: No Data to Display Cardiac Panel: No Data to Display Arterial Blood Gas: No Data to Display Venous Blood Gas: No Data to Display Pancreas Panel: No Data to Display Thyroid Panel: No Data to Display Infectious Disease: Coronavirus (COVID-19)(PCR) Negative (Negative) 06/24/21 10:00 06/24/21 Coronavirus 2019 Source Nasal/Nares 06/24/21 10:00 06/24/21 Blood Cultures: No Data to Display Toxicology Panel: No Data to Display Anesthesia Assessment and Plan Anesthesia History Personal History: No History of Anesthesia Complications Family History: No Family History of Anesthesia Complications Exercise Tolerance Exercise Tolerance: Metabolic Equivalents>4 Pertinent Negatives Pertinent Negatives: No Symptoms of GERD (Controlled with med), No Major Cardiovascular Symptoms or Complaints, No Major Pulmonary Symptoms or Complaints and No History of CVA/TIA Cardiac & Pulmonary Exam Cardiac Exam: Normal S1/S2 Heart Sounds Pulmonary Exam: Clear Bilateral Breath Sounds Airway Exam Known Difficult Airway: No Mallampati Class: 3 Mouth Opening: Narrow (< 3cm) Thyromental Distance: Greater than 3 cm Neck Range of Motion: Full ROM Neck Circumference: Normal Teeth Condition: Normal Dentition ASA Classification ASA Score: ASA 2 Emergency Case?: No NPO Status NPO Status: NPO Clears >2 hours, Solids >8 hours Anesthesia Plan Resuscitation Status: Full Code Anesthesia Technique: General Anesthesia Airway Planned: Natural Airway Monitors Used: Standard Monitors
[2021-06-26 08:52] VITALS: BMI 31.1
--- NOTE | 2021-06-26 09:10 | STOM_PTH ---
PATIENT: Sylvia Prince LOC: SUMEET U#:[id number] AGE/SX: 56/F ROOM: RE06/26/[address]: Lashonda Cavazos MD : 1965 BED: DIS: 06/26/2021 SPEC #: [id number] RECD: 06/26/21 12:41 STATUS: KALPANA RE #: [id number] LÓPEZ: 06/26/21 09:[address]: Lashonda Cavazos DEPT: Surgical Specimen RECD BY: Kamille Cordon ENTERED: 06/26/21 12:43 SP TYPE: STOMACH OTHR DR: Nalini Riddle Tissues: 1 - STOMACH BIOPSY 2 - ESOPHAGUS BIOPSY Procedures: GROSS AND MICRO LEVEL 4 Comments: [id number]
[2021-06-26 09:20] VITALS: BP 145/89; PULSE 72; RESP 16; TEMP 36.1; O2SAT 96
--- NOTE | 2021-06-26 09:40 | W.ANESPOSTOP ---
Postoperative Evaluation Date, Time and Location Date Performed: 06/26/21 Time Performed: 09:20 Patient Location: Day Surgery Unit Vital Signs Most Recent Imported Vital Signs: Most Recent Vital Signs Temp Pulse Resp BP Pulse Ox 36.1 C L 72 16 145/89 H 96 06/26/21 09:20 06/26/21 09:20 06/26/21 09:20 06/26/21 09:20 06/26/21 09:20 Pain Score Most Recent Pain Score: Most Recent Pain Score Pain Level 0 06/26/21 09:20 Assessment Mental Status: Awake (Alert & Oriented to Patient Baseline) Airway and Respiratory Function: Patent airway with normal (patient baseline) respiratory exam Cardiovascular Function: Hemodynamically Stable Hydration Status: Adequately Hydrated Nausea & Vomiting: No Nausea or Vomiting Pain: Pt. Denies Any Pain Peripheral Nerve Block: Patient did not receive a nerve block
[2021-06-26 09:43] VITALS: BP 156/88; PULSE 77; RESP 16; TEMP 36.1; O2SAT 98
== END 2021-06-26 10:25 | disposition home or self-care (01) ==
LOC: SUR 07:57
PROVIDERS: PCP Physician Assistant Medical; Visit Provider Surgery
PROC: 0DJ68ZZ Inspection of Stomach, Via Natural or Artificial Opening Endoscopic (ICD-10-PCS; CPT 43235; principal; 2021-06-26 09:30)
DX: K21.9 Gastro-esophageal reflux disease without esophagitis (principal); E01.0 Iodine-deficiency related diffuse (endemic) goiter; K29.50 Unspecified chronic gastritis without bleeding
CPT/HCPCS: 43239; 88305; J2001; J2405; J2704

== ENCOUNTER 2021-07-05 01:56 | Outpatient (CLI) | payer MEDICAID, SELFPAY ==
[2021-07-05] MEDS: Albuterol HFA 18 GM 200 PUFF INH IH (09:10)
[2021-07-05] MEDS: Inhaler, Assist Device 1 EACH MC (09:11)
--- NOTE | 2021-07-05 16:47 | W.PFT ---
Date of service: 07/05/21 Time of Service: 08:05 Pulmonary Function Test Result Requesting Provider Lashonda Cavazos Indications: Dyspnea Interpretation Spirometry: There is no airflow limitation. There is not a significant bronchodilator effect. Lung Volumes: Lung volumes are normal Diffusion Capacity: Diffusion is normal Airway Pressure: Airways resistance is normal Impression Normal pulmonary function testing Note: Of note the respiratory therapist heard a right lower lobe and inspiratory squeak that was present both pre and postbronchodilator. Clinical Correlation therefore is recommended.
== END 2021-07-05 01:57 | disposition home or self-care (01) ==
LOC: RT 01:56
PROVIDERS: PCP Physician Assistant Medical; Visit Provider Surgery
DX: R06.09 Other forms of dyspnea (principal)
CPT/HCPCS: 94060; 94726; 94729

== ENCOUNTER 2021-09-13 14:33 | Outpatient (REF) | payer MEDICAID, SELFPAY ==
--- OUTSIDE RECORDS SUMMARY | 2021-09-13 14:35 | XMS_ITS | Encounter Summary ---
:1965 Author Care Team Providers Name Role Phone Nalini Riddle Primary Care Provider [phone] [facility] Medical Records OTHER [phone] Reason for Visit None recorded. Assessment and Plan 1. Snoring Sylvia has loud snoring, exces sive daytime sleepiness, nocturia, night sweats and nocturnal heartburn with a [place] score of 2/3 indicating a high likelihood of CARISSA. I discussed the pathophysi ology of obstructive sleep apnea and the potential consequences of untreated CARISSA including how it relates to her symptoms and comorbidities. Her uses CPAP so she is familiar with this process. I ordered a polysomnogram and discussed w hat will take place the night of the sleep study. I will see her back to review the results as soon as they are available. Drowsy driving precautions were reviewed. I provided greater than 40 minutes in e care of this patient, more than half the time was spent in [id number] counseling. ? polysomnography, diagnosti c (PROC) ? zolpidem 5 mg tablet 2. Periodic leg movements of sle ep She has leg twitches prior to falling asleep, no RLS symptoms but she may have PLMS contributing to her excessive daytime sleepiness. Will get PSG for further evaluation. Discussion Note: None recorded.Patient educational handouts: No information available. Plan of Care Reminders Provider Appointments Office [address]nes, 11/12/2021 PRESIDENTIAL SUPPORT SPECIALIST 8:30AM Lab None recorded. ? ? Referral None recorded. ? ? Procedures ? Polysomnography, 08/06/2021 Diagnostic (PROC) Surgeries None recorded. ? ? Imaging None recorded. ? ? Medications Name Start Date ? ? Jessica-D 12 Hour 60 mg-120 mg tablet,extended release ? Take 1 tablet twice a day by oral route. Allergy Relief (fluticasone) 50 mcg/actuation nasal sp ray,suspension ? [place] 1 spray every day by intranasal route. doxepin 10 mg capsule ? Take 1 capsule twice a day by oral route as needed. Effexor XR 37.5 mg capsule,extended release ? Take 1 capsule every day by oral route. levothyroxine 100 mcg tablet ? Take 1 tablet every day by oral route. multivitamin ? pantoprazole 40 mg tablet,delayed release ? Take 1 tablet every day by oral route. Proair Digihaler 90 mcg/actuation aerosol powder breat h act, sensor ? Inhale 2 puffs every 4 hours by inhalation route. venlafaxine 75 mg tablet ? Take 1 tablet twice a day by oral route. zolpidem 5 mg tablet ? take 1-2 PO night of sleep study if needed Medications Administered None recorded. Vitals Height Weight BMI Blood Pressure 5 ft 9 in 207 lbs 30.6 kg/m2 120/80 mm[Hg] Results Lab Results None recorded. Allergies Code Code System Name Reaction Severity Onset 2230 RxNorm Cephalexin ? ? ? 2670 RxNorm Codeine ? ? ? 9099628 RxNorm Mint ? ? ? Problems Name Status Onset Date Source ? Multinodular Goiter Active 07/16/2021 ? Sandeep Thyroiditis Active 07/16/2021 ? Obese Active 07/16/2021 ? Mixed Anxiety and Depressive Disorder Active 07/16/2021 ? Insomnia Active 07/16/2021 ? Hemorrhoids Active 07/16/2021 ? Viral Upper Respiratory Tract Infection Active 07/16/20 ? Gastroesophageal Reflux Disease Active 07/16/2021 ? Diverticulitis Active 07/16/2021 ? Menopausal Flushing Active 07/16/2021 ? Skin Lesion Active 07/16/2021 ? Joint Pain Active 07/16/2021 ? Snoring Active 07/16/2021 ? Cough Active 07/16/2021 ? Urinary Incontinence Active 07/16/2021 ? Cardiovascular Stress Test Abnormal Active 07/16/2021 ? Elevated Blood Pressure Active 07/16/2021 ? Pain of Left Hip Joint Active 07/16/2021 ? Oophoropexy Active 07/16/2021 ? Hysterectomy Active 07/16/2021 ? Procedures None recorded. Vaccine List None recorded. Social History Tobacco Smoking Status Never Smoker What is your level of alcohol consumption? None Live alone or with others? with others Are you currently employed? Y What is your level of caffeine consumption? None Do you use any illicit or recreational drugs? N What is your code status? 0 Functional Status Unknown. Past Encounters 08/06/2021 Snoring; Periodic Leg Movements of Sleep Winter Haynes, PRESIDENTIAL SUPPORT SPECIALIST: [address] [place] [address], [place] [address], Ph. History of Present Illness Note: <div>Sylvia Prince is seen in consultation at the request of SHARLENE Peña for evaluation of snoring.</div><div>
</div><div>Sylvia has a medical historyto include anxiety, depression, diverticulitis, GERD, Sandeep's thyroiditis, joint pain, insomnia, obesity, and snoring.</div><div>
</div><div>{{Patient Sylvia #}} feels {{his her*}} biggest problem with sleep is {{snoring waking up a lot not feeling rested loud snoring#}}. {{He She*}} typically goes to bed at {{9 8-9#}}pm. It takes {{5 10-30#}} minutes to fall asleep. {{He She*}} wakes up {{1 2 3 3 or more#}} times a night from {{unknown reason pain bathroom snoring or to urinate#}} and it takes {{ 2-3#}} minutes to get back to sleep. {{He She*}} gets up at {{5 6* 7 8}}am to start {{his her*}} day. {{He She*}} does take naps on the weekends for 1-2 hours.{{He She*}} has ndisturbances to {{his her*}} sleep to include having {{TV lights noise children pets*}} in the bedroom at night. {{He She*}} has never had a sleep study. {{He She*}} sleeps {{alone with someone*}} in a bed.</div><div>
</div><div>SLEEP QUALITY: Feels quality of sleep most nights is {{good okay* poor}}.</div><div>
</div><div >
</div><div>DAYTIME ALERTNESS: Reports level of alertness most days to be {{alert low energy* sleepy very sleepy}}.</div><div>
</div><div>
</div><div>PSYCH SYMPTOMS: {{Has* Has not}} noted worsening memory {{and or but not#}} concentration. {{Does have* Denies current problems with}} irritability {{and* or}} anxiety but denies any current problems with depression. {{Has Has not*}} noted difficulty with calculations.</di v><div>
</div><div>INSOMNIA SYMPTOMS: {{Does have* Does not have}} an active mind at night when trying to sleep. {{Does have* Does not have}} stressful thoughts interfering with sleep. {{Does* Does not}} watch the clock throughout the night. {{Does* Does not}} worry about getting a good night's sleep. </div><div>
</div><div>BREATHING SYMPTOMS: {{Does have* Does not have}} snoring. {{Does have Does not have*}} witnessed apnea. {{Does have Does not have*}} nocturnal choking/gasping/dyspnea.{{Does have* Does not have}} mouth breathing. {{Does have Does not have*}} nasal congestion at night.</div><div>
</div& gt;<div>
</div><div>MOVEMENT SYMPTOMS: {{Does have* Does not have}} tossing & turning. {{Does have* Does not have}} messy sheets in the morning. {{Does have* Does nothave}} leg jerks prior to falling asleep. This is about once a week. {{Does Does not*}} have an aching, restless or crawling feeling in legs at night. {{Does Does not*}} have a hard time keeping legs still when trying to sleep. {{Does Does not*}} have muscle cramps or "Yoandy horses". {{Does Does not*}} have sleep walking or talking.</div><div>
</div><d iv>
</div><div>DREAM SYMPTOMS: {{Does have Does not have*}} nightmares oftenthat affect ability to sleep. {{Does have Does not have*}} dreams of suffocating/drowning. {{Does Does not*}} dream shortly after falling asleep. {{Does Does not*}} see dreams in the room even when awak e.{{Does Does not*}} see or hear things in the room when falling asleep that aren't really there. She has a room at the end of a mobile home and sometimes she thinks she hears a puppy barking or footsteps out side. {{Does Does not*}} see things in the road when driving that aren't reall y there. {{Has Has not*}} had someone see then act our their dreams. {{Has Has not*}} accidentally injured themselves while sleeping due to own movements/behaviors.</div><div>
</ div><div>CATAPLEXY SYMPTOMS: {{Does have Does not have*}} feel limp, lose strength, or fallasleep when very angry, surprised or laughing. {{Does have Does not have*}} leg, arm or face weakness when upset. {{Has Has not*}} had episodes of being unable to move when waking up which is often frig htening.</div><div>
</div><div>DRIVING: {{Has* Has not}} nearly fallen asleep driving. This is very rare but this past weekend she had to get up early and drive a couple of hours away and she was having a hard time staying awake. {{Has had Has not had*}} an accident related to drowsy driving or not paying attention. {{Does* Does not}} forget the last few miles or minutes while driving. {{Has Has not*}} driven out of hi and crossed center line or gone onto shoulder when driving. {{Has* Has not}} had a passenger tell them they look sleepy when driving.</div>&lt ;div>
</div><div>ESS today </div><div>[place] Questionnaire Score /3</div>Review of Systems: ROS as noted in the HPI Review of Systems ? Notes: <div>night sweats, wakes wit h dry mouth, scratchy throat, [place], chest pain when anxious, heartburn (is not w aking with this since starting Protonix but was waking QHS prior to that), n octuria 1-3/night, headaches, numbness and tingling to LUE and RLE, jose nt pain (hips, knees, fingers and toes), claustrophobia, </div> Physical Exam ? Notes: <div>General: A&O, well groo med, answers questions appropriately, {{over weight* obese morbidly obese normal weight thin}}. </div><div>HEAD: normocephalic & atraumatic, {{normal appearing chin* retrognathia}}. </div><div>EYES: non icteric .</div><div>NOSE: open nasal passages, septum midline, no polyps or masses . </div><div>THROAT/MOUTH: moist mucous membranes, modified mallampati score {{ 1 2 3 4*}}, tonsils without hypertrophy. Lateral wall narrowing grade {{1 2* 3}}. Tongue scalloping {{is* is not}} noted.</div><div>NECK: suppl e without palpable lymph nodes. Goiter present</div><div>LUNGS: CTA all gillis. Good air movement.</div><div>CARDIO: RRR without murmur, gallop o r thrill. </div><div>ABDOMEN: soft and non tender with positive bowel s ounds.</div><div>MS: Good ROM of all extremities. No cyanosis, clubbing or yennifer ma.</div><div>NEURO: A&O. Normal gait.</div><div>PSYCH: Sherly l mood and affect.</div><div>CUTANEOUS: no overt lesions or rashes</div>
--- OUTSIDE RECORDS SUMMARY | 2021-09-13 14:35 | XMS_ITS ---
:1965 Author Care Team Providers Name Role Phone RIGOBERTO GRAVES Primary Care Provider [phone] [facility] MED[facility] RECORDS OTHER [phone] Allergies Code Code System Name Reaction Severity Status Onset 2230 RxNorm Cephalexin ? ? Active ? 2670 RxNorm Codeine ? ? Active ? 1084046 RxNorm Mint ? ? Active ? Medications Name Status Start Date Stop Date ? ? Jessica-D 12 Hour 60 mg-120 mg tablet,extended release Active ? Not available Take 1 tablet twice a day by oral route. Allergy Relief (fluticasone) 50 mcg/actuation nasal spray,suspen kei Active ? Not available [place] 1 spray every day by intranasal route. doxepin 10 mg capsule Active ? Not availa ble Take 1 capsule twice a day by oral route as needed. Effexor XR 37.5 mg capsule,extended release Active ? Not available Take 1 capsule every day by oral route. levothyroxine 100 mcg tablet Active ? Not available Take 1 tablet every day by oral route. multivitamin Active ? Not available pantoprazole 40 mg tablet,delayed release Active ? Not available Take 1 tablet every day by oral route. Proair Digihaler 90 mcg/actuation aerosol powder breath act, sen sor Active ? Not available Inhale 2 puffs every 4 hours by inhalation route. venlafaxine 75 mg tablet Active ? Not arnaldo ilable Take 1 tablet twice a day by oral route. zolpidem 5 mg tablet Active ? Not availab le take 1-2 PO night of sleep study if needed Problems Name Status Onset Date Source ? Multinodular Goiter Active 07/16/2021 ? Sandeep Thyroiditis Active 07/16/2021 ? Obese Active 07/16/2021 ? Mixed Anxiety and Depressive Disorder Active 07/16/2021 ? Insomnia Active 07/16/2021 ? Hemorrhoids Active 07/16/2021 ? Viral Upper Respiratory Tract Infection Active 07/16/20 21 ? Gastroesophageal Reflux Disease Active 07/16/2021 ? [...] Hysterectomy Active 07/16/2021 ? Procedures None recorded. Results Lab Results None recorded. Past Encounters 08/06/2021 Snoring; Periodic Leg Movements of Sleep Winter Haynes NP: [address] [place] [phone], Ph. Social History Tobacco Smoking Status Never Smoker Vaccine List None recorded. Plan of Care Reminders Provider Appointments None ? ? recorded. Lab None ? ? recorded. Referral None ? ? recorded. Procedures None ? ? recorded. Surgeries None ? ? recorded. Imaging None ? ? recorded. Vitals Height Weight BMI Blood Pressure 175.26 cm 93.89 kg 30.6 kg/m2 120/80 mm[Hg]
[2021-09-15 15:26] LABS: COVID-19 RT-PCR UVMMC Result Negative (Negative)
== END 2021-09-13 14:34 | disposition home or self-care (01) ==
LOC: LBN 14:33
PROVIDERS: PCP Physician Assistant Medical; Visit Provider Physician Assistant Medical
DX: Z20.822 Contact with and (suspected) exposure to COVID-19 (principal); J02.9 Acute pharyngitis, unspecified
CPT/HCPCS: U0003; 87070

== ENCOUNTER 2021-11-26 05:00 | Outpatient (CLI) | payer MEDICAID, SELFPAY ==
[2021-11-26] MEDS: Methacholine 100 MG VIAL IH (16:58)
[2021-11-26] MEDS: Albuterol HFA 18 GM 200 PUFF INH IH (16:59)
[2021-11-26] MEDS: Inhaler, Assist Device 1 EACH MC (16:59)
== END 2021-11-26 05:01 | disposition home or self-care (01) ==
PROVIDERS: PCP Physician Assistant Medical; Visit Provider Student in an Organized Health Care Education/Training Program
DX: J98.8 Other specified respiratory disorders (principal); R06.09 Other forms of dyspnea; R94.2 Abnormal results of pulmonary function studies
CPT/HCPCS: 94060; 94070; J7674

== ENCOUNTER → 2022-01-11 11:11 | Outpatient (CLI) | payer MEDICAID, SELFPAY ==
--- NOTE | 2022-01-11 | DI.RAD_ITS ---
Exam(s) XR KNEE RT 3V AP,LAT,LC EXAM: XR KNEE RT 3V AP,LAT,LC CLINICAL HISTORY: RT KNEE PAIN.. TECHNIQUE: 2D digital imaging was performed of the right knee. Three views obtained. AP, lateral an d PA tunnel views were obtained. COMPARISON: CR LEFT KNEE LIMITED 1 OR 2 VIEWS from 01/01/2011 FINDINGS: BONES: No acute fracture is present. No bony destructive lesion is seen. JOINTS: The knee is normally aligned. No joint effusion is seen. There is a question of chondrocalcin osis in the femoral tibial joint seen on the lateral view posteriorly. SOFT TISSUE: Normal. IMPRESSION: No acute abnormality. DATA REPOSITORY: RADIATION DOSE DELIVERED:
--- NOTE | 2022-01-11 11:57 | DI.VRAD_ITS ---
PROCEDURE INFORMATION: Exam: XR Right Knee Exam date and time: 01/11/2022 11:38 AM Age: 56 years old Clinical indication: Pain; Knee; Right TECHNIQUE: Imaging protocol: XR Right knee. Views: 3 views. COMPARISON: No relevant prior studies available. FINDINGS: Bones/joints: No acute fracture or dislocation. Joint spaces are maintained. No suprapatellar effusion. Questionable chondrocalcinosis posterior knee joint, only seen on lateral view, versus artifact. Soft tissues: See above. IMPRESSION: No acute osseous abnormality. Questionable chondrocalcinosis posterior knee joint, only seen on lateral view, versus artifact. Dictated and Authenticated by: Padmini Calvillo MD. Ordering:CIPRIANO Barrera MD
== END ==
PROVIDERS: PCP Physician Assistant Medical; Visit Provider Physician Assistant Medical
DX: M25.561 Pain in right knee (principal)
CPT/HCPCS: 73562

== ENCOUNTER → 2022-01-13 14:02 | Outpatient (CLI) | payer MEDICAID, SELFPAY ==
--- NOTE | 2022-01-13 | DI.US_ITS ---
Exam(s) US LOWER EXTREMITY VENOUS RT EXAM: US LOWER EXTREMITY VENOUS RT CLINICAL HISTORY: RT KNEE PAIN, M25.561, PAIN/SWELLING BEHIND RT KNEE, EVAL BAKERS CYST. TECHNIQUE: Lower extremity venous ultrasound performed using grayscale, color-flow, and spectral Do ppler analysis. COMPARISON: No exams were available for comparison FINDINGS: The common femoral, femoral and popliteal veins demonstrate normal compressibility, augmentation, and color Doppler. The posterior tibial veins are patent. No saphenous vein thrombosis or other superfi cial venous thrombosis is seen. No hematoma or Good's cyst is seen. IMPRESSION: Negative lower extremity ultrasound. No evidence of DVT. DATA REPOSITORY:
== END ==
PROVIDERS: PCP Physician Assistant Medical; Visit Provider Physician Assistant Medical
DX: M25.561 Pain in right knee (principal); M79.89 Other specified soft tissue disorders
CPT/HCPCS: 93971

== ENCOUNTER 2022-01-24 17:05 | Outpatient (REF) | payer MEDICAID, SELFPAY ==
[2022-01-26 15:42] LABS: COVID-19 RT-PCR UVMMC Result Negative (Negative)
== END 2022-01-24 17:06 | disposition home or self-care (01) ==
LOC: LBN 17:05
PROVIDERS: PCP Physician Assistant Medical; Visit Provider Physician Assistant Medical
DX: Z20.822 Contact with and (suspected) exposure to COVID-19 (principal)
CPT/HCPCS: U0003

== ENCOUNTER → 2022-02-04 15:43 | Outpatient (CLI) | payer MEDICAID, SELFPAY ==
--- NOTE | 2022-02-04 | DI.RAD_ITS ---
Exam(s) XR LUMBAR SPINE COMPLETE EXAM: XR LUMBAR SPINE COMPLETE CLINICAL HISTORY: RIGHT LEG NUMBNESS--R20.0. TECHNIQUE: 2D digital imaging was performed. COMPARISON: No exams were available for comparison FINDINGS: Five views No evidence of fracture nor listhesis. Moderate scoliosis convex left. Epicenter of this scoliosis is on the right side of L3-4 disc space where there is asymmetric advanced narrowing of the right fco e of this disc space. There is moderate disc space narrowing at L4-5 and L3-4 levels and mild disc space narrowing at L5-S1 and L2-3 levels. No disc space narrowing at T12-L1 and L1-2 levels. There is only mild facet degen erative change throughout the lumbar spine. Sacroiliac joints appear age-appropriate. No osseous le sions. Bone density normal. IMPRESSION: Multilevel degenerative disc disease. Degenerative scoliosis convex left as described above. Mild f acet joint degenerative changes. DATA REPOSITORY: RADIATION DOSE DELIVERED:
--- NOTE | 2022-02-04 | DI.RAD_ITS ---
Exam(s) XR CHEST 2V PA LATERAL EXAM: XR CHEST 2V PA LATERAL CLINICAL HISTORY: COUGH--R05.8, COVID TESTING NEGATIVE 01/24/22. TECHNIQUE: 2D digital imaging was performed. COMPARISON: CR,XR XR CHEST 2V PA LATERAL from 03/12/2021 FINDINGS: 2 views: Heart size is normal. The mediastinum is not widened. Lungs are clear. No infiltrates nor pleural effusions. IMPRESSION: No acute pulmonary findings. DATA REPOSITORY: RADIATION DOSE DELIVERED:
== END ==
PROVIDERS: PCP Physician Assistant Medical; Visit Provider Physician Assistant Medical
DX: R20.0 Anesthesia of skin (principal); M51.36 Other intervertebral disc degeneration, lumbar region; M41.86 Other forms of scoliosis, lumbar region; M47.816 Spondylosis without myelopathy or radiculopathy, lumbar region; R05.9 Cough, unspecified; Z20.822 Contact with and (suspected) exposure to COVID-19
CPT/HCPCS: 71046; 72110

== ENCOUNTER → 2022-04-21 02:24 | Outpatient (CLI) | payer MEDICAID, SELFPAY ==
--- NOTE | 2022-04-21 | DI.MRI_ITS ---
Exam(s) MR LUMBAR SPINE WO EXAM: MR LUMBAR SPINE WO CLINICAL HISTORY: RT LUMBAR RADICULOPATHY,M54.16. TECHNIQUE: Multiplanar multisequence MRI of the Lumbar spine was performed. COMPARISON: CR XR LUMBAR SPINE COMPLETE from 02/04/2022 FINDINGS: Bones: The last intervertebral disc space is designated the L5/S1 level for the numbering purpose of this examination. The vertebral body heights are well maintained. There is a mild left convex curva ture of the lumbar spine. There are endplate degenerative signal changes in the lumbar spine most ma rked at L3-4, L4-5 and L5-S1. Cord: The conus tip ends at the L1 level. It is of normal size and signal intensity. T12-L1: No disc herniations or bulges are present. No central spinal canal or neural foraminal stenos is. L1-2: No disc herniations or bulges are present. No central spinal canal or neural foraminal stenosis . L2-3: There is a mild diffuse disc bulge. No significant central spinal canal stenosis is seen. No significant neural foraminal stenosis is present. L3-4: Mild degenerative changes of the facets are seen. No focal disc herniation is present. There is a mild diffuse disc bulge. There is very mild narrowing of the central spinal canal. There is mi ld right neural foraminal narrowing. No significant left neural foraminal stenosis is present. L4-5: There is a diffuse disc bulge. Hypertrophic changes of the facets are present. Twda-iu-yhosrz te central spinal canal stenosis results. No significant neural foraminal stenosis is present. L5-S1: There is a mild diffuse disc bulge. Mild degenerative changes of the facets are seen. There is no significant central spinal canal stenosis. There is mild left neural foraminal narrowing. No significant right neural foraminal stenosis. Soft tissues: The visualized SI joints and sacrum are well maintained. The paraspinal soft tissues ar e unremarkable. IMPRESSION: Multilevel degenerative changes in the lumbar spine. Please see the above discussion for complete de tails. DATA REPOSITORY:
== END ==
PROVIDERS: PCP Physician Assistant Medical; Visit Provider Physician Assistant Medical
DX: M54.16 Radiculopathy, lumbar region (principal); M51.17 Intervertebral disc disorders with radiculopathy, lumbosacral region; M47.27 Other spondylosis with radiculopathy, lumbosacral region
CPT/HCPCS: 72148

== ENCOUNTER → 2022-06-07 14:51 | Outpatient (CLI) | payer MEDICAID, SELFPAY ==
--- NOTE | 2022-06-07 15:10 | DI.RAD_ITS ---
Exam(s) XR WRIST LT COMPLETE EXAM: XR WRIST LT COMPLETE CLINICAL HISTORY: PAIN IN LEFT WRIST. TECHNIQUE: 2D digital imaging was performed of the left wrist. Three images were obtained. PA, obl ique and lateral views were obtained. COMPARISON: CR XR WRIST RT COMPL NAVICULAR from 10/24/2019 FINDINGS: BONES: No acute fracture is present. No bony destructive lesion is seen. JOINTS: The carpal bones are normally aligned. SOFT TISSUE: Normal. IMPRESSION: Unremarkable radiographs of the left wrist. DATA REPOSITORY: RADIATION DOSE DELIVERED:
--- NOTE | 2022-06-07 15:31 | DI.VRAD_ITS ---
PROCEDURE INFORMATION: Exam: XR Left Wrist Exam date and time: 06/07/2022 3:04 PM Age: 57 years old Clinical indication: Pain; Wrist; Left TECHNIQUE: Imaging protocol: Radiologic exam of the Left wrist. Views: 3 or more views. COMPARISON: No relevant prior studies available. FINDINGS: Bones/joints: There is no evidence of acute fracture. There is no evidence of joint malalignment or dislocation. Soft tissues: No focal soft tissue swelling. IMPRESSION: 1. No evidence of acute fracture. 2. No evidence of acute dislocation. Dictated and Authenticated by: Willard Denny MD. Ordering:YAMILET ABREU MD
== END ==
PROVIDERS: PCP Physician Assistant Medical; Visit Provider Nurse Practitioner Family
DX: M25.532 Pain in left wrist (principal)
CPT/HCPCS: 73110

== ENCOUNTER → 2022-06-20 00:57 | Outpatient (CLI) | payer MEDICAID, SELFPAY ==
--- OUTSIDE RECORDS SUMMARY | 2022-06-20 00:59 | XMS_ITS | Encounter Summary ---
:1965 Author Organization [facility] [place] [address] Care Team Providers Name Role Phone Nalini Riddle Primary Care Provider Reason for Visit Reason Comments Follow-up Encounter Details Date Type Department Care Team Description 10/13/2019 Office Visit Dermatology at Tenzin Devlin MD Verruca vulgaris [place] [address] [facility] [address] [facility] [place] [address] [place], [place] [phone] (Wo rk) [phone] Social History Tobacco Use Types Packs/Day Years Used Date Never Smoker Smokeless Tobacco: Never Used Alcohol Use Standard Drinks/Week Comments Not Currently 0 (1 standard drink = 0.6 oz pure alcoho l) Sex Assigned at Date Recorded Female 08/05/2021 6:15 PM EST documented as of this encounter Progress Notes Tenzin Devlin MD - 10/13/2019 4:30 PM EST Problem: 1. [place] verruca vulgaris left distal second finger, subungual 2. Follow-up paronychia/tinea unguium, left hallux Lizeth follows today and has been doing very well. The wart is almost resolved under the left distal second finger. She comes in today with her grandchildren Tali and Ivis. Physical examination confirms that most of the wart tissue has totally resolved with just a small papule remaining distally. The nail plate is reattaching to the nailbed and growing out. The skin of her left toe remains quite dry there is no paronychia and does appear that the tinea unguium is largelyimproved. Assessment and plan: Verruca vulgaris left distal second finger subungual 1. LN2 x3 applied to site aggressively 2. Patient tolerated well 3. Return to clinic another month for repeat check may cancel if doing well. Tinea unguium left hallux nail 1. Much improved. May hold on thymol applications 2. Continue to allow toenail to grow out so that the lateral corner it is beyond the lateral nail fold and does not again become ingrown 3. Keep the dry skin of the affected toe evaluated to allow the nail plate to grow out without catching. Cc: Nalini SU documented in this encounter Plan of Treatment Not on filedocumented as of this encounter Visit Diagnoses Diagnosis Verruca vulgaris Viral warts, unspecified documented in this encounter Care Teams House Cleaner Supervisor Relationship Specialty Start Date End Date Nalini Riddle PA PCP - General Family Medicine 12/28/18 04/10/20 [address] [place] [address] documented as of this encounter
--- OUTSIDE RECORDS SUMMARY | 2022-06-20 00:59 | XMS_ITS | Clinical Summary ---
:1965 Author Organization [facility] [address] Care Team Providers Name Role Phone Nalini Riddle Primary Care Provider Allergies Active Allergy Reactions Severity Noted Date Comments Cephalosporins Nausea Only 05/13/2017 Codeine Other (See Comments) 05/13/2017 Medications Medication Sig Dispensed Refills Start Date End Date Status levothyroxine 100 mcg. 0 12/14/2018 Activ e (SYNTHROID) 88 mcg Tablet venlafaxine (EFFEXOR-XR) take 1 capsule 0 12/26/2018 Active 75 mg Capsule, Sust. by mouth once Release 24 hr daily venlafaxine (EFFEXOR) 0 12/22/2018 Active 37.5 mg Tablet SHINGRIX, PF, 50 mcg/0.5 0 09/03/2018 Active mL Suspension for Reconstitution injection PROAIR HFA 90 inhale 2 puffs 0 03/28/2019 Active mcg/actuation HFA by mouth every 4 Aerosol Inhaler to 6 hours if needed fluticasone propionate instill 1 spray 0 07/12/2019 Active (FLONASE) 50 into each mcg/actuation [place], nostril daily Suspension doxepin (Sinequan) 10 mg Take by mouth. 0 06/04/2021 Active Capsule pantoprazole EC TAKE 1 TABLET BY 0 04/01/2021 Active (Protonix) 40 mg Tablet, MOUTH EVERY DAY Delayed Release (E.C.) UNABLE TO FIND Plexus bio 0 Acti ve cleanse Immunizations Name Administration Dates Next Due Hepatitis B Vaccine, unspecified formulation 06/09/2006, Influenza Vaccine, Whole 07/09/2005 Td, adult 09/22/2005 Family History Medical History Relation Comments Osteoarthritis Mother Relation Status Comments Mother Social History Tobacco Use Types Packs/Day Years Used Date Never Smoker Smokeless Tobacco: Never Used Alcohol Use Standard Drinks/Week Comments Not Currently 0 (1 standard drink = 0.6 oz pure alcoho l) Sex Assigned at Date Recorded Female 08/05/2021 6:15 PM EST Last Filed Vital Signs Vital Sign Reading Time Taken Comments Blood Pressure 135/78 08/06/2021 1:11 PM EST Pulse 81 08/06/2021 1:11 PM EST Temperature 35.9 ??C (96.7 ??F) 08/06/2021 1:11 PM EST Respiratory Rate 19 01/25/2019 5:40 PM EDT Oxygen Saturation 98% 08/06/2021 1:11 PM EST Inhaled Oxygen Concentration - - Weight 93.6 kg (206 lb 6.4 oz) 08/06/2021 1:11 PM EST Height 175.3 cm (5' 9) 08/06/2021 1:11 PM EST Body Mass Index 30.48 08/06/2021 1:11 PM EST Plan of Treatment Health Maintenance Due Date Last Done Comments Covid-19 Vaccine (#1) 1965 HIV screen 1983 Hepatitis C Screening 1983 Lipid Screening 1983 Tdap adult 1984 HPV test 1995 PAP Smear 1995 Breast Cancer Share Decision Needed 2005 Diabetes Screening (HgbA1C or Glucose) 2005 Breast Cancer screening 2015 Zoster vaccine (1 of 2) 2015 Tetanus vaccine 09/22/2015 09/22/2005 Advance Directive 2020 Influenza (Flu) vaccine (1 of 1 - 04/24/2022 07/09/2005 Influenza standard series) Colonoscopy 01/25/2029 01/25/2019, 01/25/2019 Insurance Payer Benefit Plan / Subscriber ID Effective Dates Phone Addre ss Type Group [place] [id number] 2021-Moi [phone] [address] [facility] [address] [place], [place] [address] [phone] [address] [phone] [place], ([place]) [place] [address] Care Teams Button Spindler Relationship Specialty Start Date End Date Nalini Riddle PA PCP - General Family Medicine 02/26/21 [address] [place], [place] [id number]
--- OUTSIDE RECORDS SUMMARY | 2022-06-20 00:59 | XMS_ITS | Encounter Summary ---
:1965 [place] [address] Care Team Providers Name Role Phone Shannon Bauman MD Primary Care Provider Encounter Details Date Type Department Care Team Description 12/15/2018 Ancillary Procedure Radiology Library at Boogie Kline MD [facility] [place] [address] [place] [id number] [phone] (Wo rk) Social History Tobacco Use Types Packs/Day Years Used Date Never Assessed Sex Assigned at Date Recorded Female 08/05/2021 6:15 PM EST documented as of this encounter Plan of Treatment Not on filedocumented as of this encounter Procedures Procedure Name Priority Date/Time Associated Diagnosis Comme nts FILM LIBRARY Routine 12/15/2018 12:00 AM Results for this STORAGE ONLY CT EDT procedure ar e in ABDOMEN AND PELVIS the resul ts section. documented in this encounter Results Film Library- Storage Only CT Abdomen & Pelvis (12/15/2018 12:00 AM EDT) Specimen (Source) Anatomical Location Collection Method / Collectio n Time Received Time / Laterality Volume Narrative RAD - 01/05/2019 4:52 PM EDT This exam is auto-finalizing. It's purpo se is for storage only. Boogie Kline MD IMG FILM LIBRARY ORDERABLES Performing Organization Address City/State/ZIP Code Phon e Number RAD [place], [place] documented in this encounter Visit Diagnoses Not on filedocumented in this encounter Care Teams Leather Toggler Relationship Specialty Start Date End Date Shannon Bauman MD PCP - General 07/16/10 12/27/18 [address] [place] [address] documented as of this encounter
--- OUTSIDE RECORDS SUMMARY | 2022-06-20 00:59 | XMS_ITS | Encounter Summary ---
:1965 Author Organization [facility] [place] [address] Care Team Providers Name Role Phone Nalini Riddle Primary Care Provider Reason for Visit Consultation (Routine) - Closed Specialty Diagnoses / Procedures Referred By Contact Refer red To Contact Endocrinology Diagnoses Nontoxic multinodular goiter Nalini Riddle, [facility] [address] [address] [place] [address] Referral ID Status Reason Start Date Expiration Date Visits Requ ested Visits Authorized [id number] Closed 04/01/2021 04/01/2022 1 1 Encounter Details Date Type Department Care Team Description 08/06/2021 Office Visit Endocrinology at [facility] C Reilly Braden, Hypothyroidism due to [facility] [place] [address] [facility] [phone] [place] [address] Social History Tobacco Use Types Packs/Day Years Used Date Never Smoker Smokeless Tobacco: Never Used Alcohol Use Standard Drinks/Week Comments Not Currently 0 (1 standard drink = 0.6 oz pure alcoho l) Sex Assigned at Date Recorded Female 08/05/2021 6:15 PM EST documented as of this encounter Last Filed Vital Signs Vital Sign Reading Time Taken Comments Blood Pressure 135/78 08/06/2021 1:11 PM EST Pulse 81 08/06/2021 1:11 PM EST Temperature 35.9 ??C (96.7 ??F) 08/06/2021 1:11 PM EST Respiratory Rate - - Oxygen Saturation 98% 08/06/2021 1:11 PM EST Inhaled Oxygen Concentration - - Weight 93.6 kg (206 lb 6.4 oz) 08/06/2021 1:11 PM EST Height 175.3 cm (5' 9) 08/06/2021 1:11 PM EST Body Mass Index 30.48 08/06/2021 1:11 PM EST documented in this encounter Progress Notes Reilly Braden MD - 08/06/2021 1:30 PM EST Images from the original note were not included. We are seeing this 56 year old woman to follow up on thyroid nodules seen at an outside institution in 2018 From [facility] October 2017 Nodules first noted 2017 No swallow issues No major voice change- sometimes hoarse No neck pain except submandibular nodes PMH 1) thyroid nodules 2) 3) hysterectomy 1999 4) L oophorectomy 2013 5) L foot 6) L wrist 7) hypothyroid Allergies None Does not tolerate codeine and cephalexin Non smoker No etoh Medications 08/06/21 1352 Medication Sig Taking? doxepin (Sinequan) 10 mg Capsule Take by mouth. Yes pantoprazole EC (Protonix) 40 mg Tablet, Delayed Release (E.C.) TAKE 1 TABLET BY MOUTH EVERY DAY Yes UNABLE TO FIND Plexus bio cleanse Yes PROAIR HFA 90 mcg/actuation HFA Aerosol Inhaler inhale 2 puffs by mouth every 4 to 6 hours if neededYes fluticasone propionate (FLONASE) 50 mcg/actuation [place], Suspension instill 1 spray into each nostril daily Yes levothyroxine (SYNTHROID) 88 mcg Tablet 100 mcg. Yes venlafaxine (EFFEXOR-XR) 75 mg Capsule, Sust. 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 Eyes - full eom Thyroid - the isthmus area is prominent, overall size is 1.5 x normal, smooth contour' Neuro - no tremor Outside labs TPO Neg TSI Neg Tg Neg US here (see full report) shows two very small (< 5 mm ) nodules in R lobe, no discrete nodules in L, but the gland is heterogenous and thickened, typical of hashimotos thyroiditis Recent Results (from the past 24 hour(s)) T4, free Result Value Ref Range Free T4 1.44 0.93 - 1.70 ng/dL T3 Total Result Value Ref Range T3, Total 91 75 - 170 ng/dL TSH Result Value Ref Range TSH 2.03 0.27 - 4.20 mcIU/mL 1) Hashimotos thyroiditis- the gland has the typical appearance by US. Replacement levels look good on 88 mcg a day 2) thyroid nodules - her prior reports from 2016, then 2018 from [facility] show more nodules in 2017, then the report from [facility] talks about pseudonodules. Today I see a very heterogeneous gland with no discrete nodules except the two small ones on the right- I think this is a generalized process of scarring without worrisome nodularity. Reilly Braden MD - 08/06/2021 1:30 PM EST Date:.08/06/2021 Indication: goiter Comparison reports from 2016, 2017, 2019 Thyroid US Machine used ___x____ BK 15 mHz Biosound E@saote, 12 mHz Thyroid measurements (in cm) R lobe _5.0____ saggittal long 2.1____ AP deep __2.0___ Transverse wide __x__ heterogenous ___x__ normal vascularity COMMENT: coarse echogenicity Isthmus _0.35____ AP deep COMMENT: L lobe _4.0____ saggittal long _1.4___ AP deep _1.7____ Transverse wide normal echotexure _x___ heterogenous __x___ normal vascularity hypervascular ___Hypovascular COMMENT: coarse echogenicity Nodules Right lobe ____ None #1 ___ superior __x_ Mid-lobe ___ inferior __0.4___ saggittal long _0.35___ AP deep _0.5____ Transverse wide Features: solid ___cystic _x__partially cystic __x_ hypoechoic _x__ smooth margin ____ irregular margin ___ halo margin Blood flow grade _x__ 1 ___ 2 ___ 3 ___ 4 Lymph nodes Right COMMENT: none Left COMMENT: none Central COMMENT: none Diagnostic impression : Hashimotos gland with small R nodule Recommendations: No further regular followup documented in this encounter Plan of Treatment Not on filedocumented as of this encounter Procedures Procedure Name Priority Date/Time Associated Diagnosis Comme nts HC TOTAL T3 Routine 08/06/2021 2:41 Hypothyroidism due to Res ults for this PM EST Sandeep's procedure are i n thyroiditis the results section. HC THYROID Routine 08/06/2021 2:41 Hypothyroidism due to Res ults for this STIMULATING HORMONE, PM EST Sandeep's procedu re are in SERUM thyroiditis the results section. HC VENIPUNCTURE Routine 08/06/2021 2:41 Hypothyroidism due to Results for this PM EST Sandeep's procedure are i n thyroiditis the results section. documented in this encounter Results T4, free (08/06/2021 2:41 PM EST) P athologist Signature Free T4 1.44 0.93 - 1.70 [facility] ng/dL [facility] Comment: Reference Interval (ng/dL): Females: ??First Trimester: 0.97-1.68 ??Second Trimester: 0.77-1.51 ??Third Trimester: 0.77-1.49 Specimen Anatomical Collection Method Collection Time Receive d Time (Source) Location / / Volume Laterality Blood 08/06/2021 2:41 PM 2:53 EST PM EST Resulting Agency Comment Spec In Lab Reilly Braden MD CHEMISTRY ORDERABLES Performing Organization Address City/State/[place] [address] T3 Total (08/06/2021 2:41 PM EST) P athologist Signature T3, Total 91 75 - 170 TEE JACOBSON ng/dL [facility] Specimen Anatomical Collection Method Collection Time Receive d Time (Source) Location / / Volume Laterality Blood 08/06/2021 2:41 PM 1 2:53 EST PM EST Resulting Agency Comment Spec In Lab Reilly Braden MD CHEMISTRY ORDERABLES Performing Organization Address City/[facility] [place] [address] TSH (08/06/2021 2:41 PM EST) P athologist Signature TSH 2.03 0.27 - 4.20 TEE JACOBSON mcIU/mL [facility] Comment: Reference Interval (mcIU/mL): Females: ??First Trimester: 0.23-3.88 ??Second Trimester: 0.22-3.90 ??Third Trimester: 0.44-4.66 Specimen Anatomical Collection Method Collection Time Receive d Time (Source) Location / / Volume Laterality Blood 08/06/2021 2:41 PM 1 2:53 EST PM EST Resulting Agency Comment Spec In Lab Reilly Braden MD CHEMISTRY ORDERABLES Performing Organization Address City/[facility] [place] [address] documented in this encounter Visit Diagnoses Diagnosis 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
--- OUTSIDE RECORDS SUMMARY | 2022-06-20 00:59 | XMS_ITS | Encounter Summary ---
:1965 Author Organization [facility] [place] [address] Care Team Providers Name Role Phone Nalini Riddle Primary Care Provider Reason for Visit Reason Comments Follow-up Skin Check Consultation (Routine) - Specialty Diagnoses / Procedures Referred By Contact Refer red To Contact Dermatology Diagnoses Skin lesion skin lesion Nalini Riddle PA Lit Dermatology Procedures Consult [address] [place] [address] [place] [address] Phone: Referral ID Status Reason Start Date Expiration Date Visits V isits Requested Authorized [id number] Consult, Test 04/13/2019 10/14/2019 6 6 & Treat PCP Updated and/or Approved Encounter Details Date Type Department Care Team Description 07/28/2019 Office Visit Dermatology at Tenzin Devlin [place] (act inic keratosis); Ishmael DENIS Seborrheic keratosis; [address] Verruca vulgaris; [facility] DERMATOLOGY Tinea unguium [place], [place] [phone] [phone] Social History Tobacco Use Types Packs/Day Years Used Date Never Smoker Smokeless Tobacco: Never Used Alcohol Use Standard Drinks/Week Comments Not Currently 0 (1 standard drink = 0.6 oz pure alcoho l) Sex Assigned at Date Recorded Female 08/05/2021 6:15 PM EST documented as of this encounter Progress Notes Tenzin Devlin MD - 07/28/2019 4:00 PM EST Mikel: Skin checkup Sylvia follows up after last seeing me some 12 years ago. 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 She knows number of lesions on her skin that she would like to have checked. 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 Physical examination reveals a pleasant 54-year-old woman who is blue-eyed, freckled and fair skinned who has a number of seborrheic keratoses developing many are light johnson some are flesh tone but somescattered diffusely and quite sparsely over her back and arms and legs. She has 2 actinic keratoses over the right dorsal hands and has moderate solar damage of both dorsal hands. Fortunately examination of the face does not reveal a similar photodamage. She does have a verruca vulgaris of the left second finger subungually, this has been present since the summer. She has tinea unguium of the left distal hallux toenail. Assessment plan: Verruca vulgaris left distal second finger, subungual 1. Discussed diagnosis 2. May have picked it up from working in daycare hard to say 3. Patient and I would both desire treatment and will recommend LN 2 x 3 which was performed today and tolerated well 4. Return to clinic in 1 month repeat check. 5. Patient understands it may take several visits for this to resolve. Tinea unguium subungual left hallux 1. Discussed diagnosis 2. Involvement is only the first millimeter or 2 of toenail so I do think we have a good chance to clear this with topical therapy 3. Begin thymol 3% in ethyl alcohol applying on a twice daily basis for 3 months. Seborrheic keratoses / benign skin examination 1. Patient reassured about benign seborrheic keratoses and benign skin examination 2. No treat necessary 3. Discussed the importance of sun avoidance precautions wearing a broad brimmed hat and use of sunscreen, also for the children who are her charges at daycare. Actinic keratoses right dorsal hand 1. LN 2 x 2 applied each of 2 sites. CC: Nalini SU documented in this encounter Plan of Treatment Not on filedocumented as of this encounter Visit Diagnoses Diagnosis [place] (actinic keratosis) Actinic keratosis Seborrheic keratosis Other seborrheic keratosis Verruca vulgaris Viral warts, unspecified Tinea unguium Dermatophytosis of nail documented in this encounter Care Teams Soils Analyst Relationship Specialty Start Date End Date Nalini Riddle PA PCP - General Family Medicine 12/28/18 04/10/20 [address] [place] [address] documented as of this encounter
--- OUTSIDE RECORDS SUMMARY | 2022-06-20 00:59 | XMS_ITS | Encounter Summary ---
:1965 Author Organization [facility] [place] [address] Care Team Providers Name Role Phone Nalini Riddle Primary Care Provider Reason for Visit Consultation (Routine) - Closed Specialty Diagnoses / Procedures Referred By Contact Refer red To Contact General Surgery Diagnoses LLQ ABDOMINAL PAIN Nalini Riddle, [facility] Gen Surgery 4l [facility] [address] [place] [address] [place] [address] Fax: Referral ID Status Reason Start Date Expiration Date Visits V isits Requested Authorized [id number] Closed Consult, 12/28/2018 12/28/2019 1 1 [facility] Encounter Details Date Type Department Care Team Description 01/10/2019 Office Visit General Surgery at Boogie Kline MD Left lower quadrant [facility] pain [facility] [address] GENERAL SURGERY [place], [place] [phone] Social History Tobacco Use Types Packs/Day Years Used Date Never Smoker Smokeless Tobacco: Never Used Sex Assigned at Date Recorded Female 08/05/2021 6:15 PM EST documented as of this encounter Last Filed Vital Signs Vital Sign Reading Time Taken Comments Blood Pressure 134/81 01/10/2019 7:44 AM EDT Pulse 66 01/10/2019 7:44 AM EDT Temperature 36.6 ??C (97.8 ??F) 01/10/2019 7:44 AM EDT Respiratory Rate 16 01/10/2019 7:44 AM EDT Oxygen Saturation 98% 01/10/2019 7:44 AM EDT Inhaled Oxygen Concentration - - Weight 84.8 kg (187 lb) 01/10/2019 7:44 AM EDT Height 175.3 cm (5' 9) 01/10/2019 7:44 AM EDT Body Mass Index 27.62 01/10/2019 7:44 AM EDT documented in this encounter Progress Notes Boogie Kline MD - 01/10/2019 8:00 AM EDT Sylvia Prince is a 53 y.o. female who presents to my clinic today referred by her PCP Nalini Riddle for evaluation of left lower quadrant pain. Ms. Prince reports that she has had left lower abdominalpain for about a years' time. Initially, she reports that this pain was notable with constipation and improved after bowel movements. However, since around 05/2018, the pain is more frequent and appears to occur any time she has the need to move her bowels though it still seems to improve slightly after defecation. She has been taking citricel for fiber supplementation over the last 3-4 months with at least partial amelioration in constipation - she now moves her bowels 1-2x/day without blood, no diarrhea. She denies any fevers/chills, normal appetite, weight stable. Because of adhesions noted at time of her left oophorectomy for left lower quadrant pain and resolution of the pain after the surgery, there is some concerns that this current pain could represent recurrent adhesive disease. Past Medical History Hypothyroidism Past Surgical History Hysterectomy 2000 Laparoscopic Left Oophorectomy and ALLAN 2013 Medications 01/10/19 0806 Medication Sig Taking? Black Cohosh 540 mg Capsule Take 540 mg by mouth daily. Yes calcium citrate/vitamin D3 (CITRACAL + D ORAL) Take by mouth. Yes multivitamin with minerals tablet Yes eszopiclone (LUNESTA) 3 mg Tablet Take 3 mg by mouth Daily. levothyroxine (SYNTHROID) 88 mcg Tablet venlafaxine (EFFEXOR-XR) 75 mg Capsule, Sust. Release 24 hr take 1 capsule by mouth once daily venlafaxine (EFFEXOR-XR) 37.5 mg Capsule, Sust. Release 24 hr SHINGRIX, PF, 50 mcg/0.5 mL Suspension for Reconstitution injection Allergies Allergen Reactions ??? Cephalosporins Nausea Only ??? Codeine Other (See Comments) Social History Tobacco Use ??? Smoking status: Never Smoker ??? Smokeless tobacco: Never Used Substance Use Topics ??? Alcohol use: Not on file ??? 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 ROS:A comprehensive review of systems was negative. On physical examination today, BP 134/81 (BP Location (NBP): Right arm, Patient Position: Sitting, BP Cuff Sizes: Adult (25-34 cm)) Pulse 66 Temp 36.6 ??C (97.8 ??F) (Oral) Resp 16 Ht 175.3 cm (5' 9) Wt 84.8 kg (187 lb) SpO2 98% BMI 27.62 kg/m?? Body mass index is 27.62 kg/m??. General appearance: alert, appears stated age and cooperative Head: Normocephalic, without obvious abnormality, atraumatic Lungs: clear to auscultation bilaterally Heart: regular rate and rhythm, S1, S2 normal, no murmur, click, rub or gallop Abdomen: soft, non-tender; bowel sounds normal; no masses, no organomegaly; well-healed laparoscopicscars without hernias. Extremities: extremities normal, atraumatic, no cyanosis or edema Skin: Skin color, texture, turgor normal. No rashes or lesions Lymph nodes: Cervical, supraclavicular, and axillary nodes normal. Ancillary Data: CT scan from 12/15/2018 report and images reviewed - right adrenal 1.4cm nodule. Assessment and Plan: Sylvia Prince is a 53 y.o. female. with some chronic constipation now improved with fiber supplementation and pain that is increasingly notable prior to evacuation of her bowels. I've suggested that laparoscopic lysis of adhesions is unlikely to fully resolve this symptoms complex. Instead, I've suggested we pursue colonoscopy to ensure that this constipation, pain isn't due to either neoplasm or IBD. If negative, would arrange GI evaluation thereafter to discuss treatment options for functional bowel disorder. Ms. Prince appears to understand and agree with this plan. She is provided my card. documented in this encounter Plan of Treatment Not on filedocumented as of this encounter Visit Diagnoses Diagnosis Left lower quadrant pain Abdominal pain, left lower quadrant documented in this encounter Care Teams Hosting Engineer Relationship Specialty Start Date End Date Nalini Riddle PA PCP - General Family Medicine 12/28/18 04/10/20 [address] [place] [address] documented as of this encounter
--- OUTSIDE RECORDS SUMMARY | 2022-06-20 00:59 | XMS_ITS | Encounter Summary ---
:1965 Author Organization [facility] [place] [address] Care Team Providers Name Role Phone Nalini Riddle Primary Care Provider Reason for Visit Consultation (Routine) - Closed Specialty Diagnoses / Procedures Referred By Contact Refer red To Contact Rheumatology Diagnoses Raised antibody titer Pain in unspecified joint Nalini Riddle, [facility] PA [address] [address] [place] [address] Referral ID Status Reason Start Date Expiration Date Visits V isits Requested Authorized [id number] Closed Consult, Test 04/02/2021 04/02/2022 12 12 [facility] PCP Updated and/or Approved Encounter Details Date Type Department Care Team Description 06/17/2021 Office Visit Rheumatology at [facility] Rachael Santoro II, DO [facility] [place] [address] Polyarthralgia [facility] Barber Clinton MD [facility] [place] [address] [place] [address] Social History Tobacco Use Types Packs/Day Years Used Date Never Smoker Smokeless Tobacco: Never Used Alcohol Use Standard Drinks/Week Comments Not Currently 0 (1 standard drink = 0.6 oz pure alcoho l) Sex Assigned at Date Recorded Female 08/05/2021 6:15 PM EST documented as of this encounter Last Filed Vital Signs Vital Sign Reading Time Taken Comments Blood Pressure 134/80 06/17/2021 12:04 PM EDT Pulse 86 06/17/2021 12:04 PM EDT Temperature 37.2 ??C (99 ??F) 06/17/2021 12:04 PM EDT Respiratory Rate - - Oxygen Saturation 98% 06/17/2021 12:04 PM EDT Inhaled Oxygen Concentration - - Weight 93.9 kg (207 lb) 06/17/2021 12:04 PM EDT Height 175.3 cm (5' 9.02) 06/17/2021 12:04 PM EDT Body Mass Index 30.55 06/17/2021 12:04 PM EDT documented in this encounter Progress Notes Barber Burton - 06/17/2021 12:30 PM EDT Rheumatology Outpatient Consultation Note Reason for Consult: Sylvia Prince is a 56 y.o. female who we are seeing at the request of Nalini Riddle for evaluation of suspected autoimmune disease in the setting of a positive KEITH. HPI: The patient is a 56 year old female with the PMH of hypothyroidism who has been referred to rheumatology for evaluation of suspected autoimmune disease in the setting of a positive KEITH. She has had pain and aching in her hands and the feet for almost a year now. Since the onset, the pain has been getting worse and is long-lasting nowadays. The right hand is more bothersome with the pain and stiffness. The pain in the hands and feet is worse at the end of the day and it tends to get worse with activity. She also describes feeling of tingling and shooting pain in the median nerve distribution in bothhands, worse on right side and in the night. She has pain in her hips, knees and feet sometimes whenshe has been on her feet for a long time but this is not consistent. She has had hair loss for last couple of years and also describes change in the color of her fingers when exposed to cold and this is something which she noticed in the last year or so. No h/o prolonged morning stiffness, rash, photosensitivity, red/hot/swollen joints, frequent oral/nasal ulceration, thromboembolism or spontaneous miscarriages/abortions. She has gained approximately 15-20 lbs in the last 2 years. Medical History: Past Medical History: Diagnosis Date ??? Thyroid disease Surgical History: Past Surgical History: Procedure Laterality Date ??? PRO COLONOSCOPY, DIAGNOSTIC N/A 01/25/2019 COLONOSCOPY, DIAGNOSTIC performed by Ken Lee MD at [facility] END[facility] Family Hx: Family History Problem Relation Age of Onset ??? Osteoarthritis Mother No family history of RA, SLE, OA, Sjogren's, Scleroderma, or gout Social History: Social History Tobacco Use ??? Smoking status: Never Smoker ??? Smokeless tobacco: Never Used Substance Use Topics ??? Alcohol use: Not Currently ??? Drug use: Never Allergies: Allergies Allergen Reactions ??? Cephalosporins Nausea Only ??? Codeine Other (See Comments) ROS (positive in bold): General: Fever, chills, night sweats, weight gain HEENT: Oral ulcers, dry eyes, dry mouth, red/itchy eyes Card: Chest pain, palpitations Pulm: SOB, cough GI: Abd pain, nausea, vomiting, diarrhea, dysphagia, reflux : Dysuria, urgency, hematuria, genital ulcers MS: Arthritis, arthralgia, muscle aches Neuro: Weakness, numbness, tingling, headache Skin: Raynaud's, rash, hair loss, photosensitivity, hair changes Psych: Depression, anxiety, difficulty sleeping Rheumatic history (x) means positive Iritis Dactylitis Pleuritis Pericarditis Oral / Nasal Ulcers PE/DVT Spontaneous Discoid SLE STD Raynaud???s x Psoriasis Seizures Anemia Leucopenia Thrombocytopenia Psychosis from a medical condition Physical Examination: BP 134/80 Pulse 86 Temp 37.2 ??C (99 ??F) (Temporal) Ht 175.3 cm (5' 9.02) Wt 93.9 kg (207 lb) SpO2 98% BMI 30.55 kg/m?? General: Well appearing, NAD HEENT: Mucous membranes are moist, no oral mucosal ulcerations Neck: Supple, no lymphadenopathy, full range of motion Cardiovascular: RRR, no m/r/g, normal S1/S2, 2+ pulses Lungs: CTA b/l no w/r/r Abdomen: Soft, nontender, nondistended, normal active bowel sounds, no hepatosplenomegaly Back: Nontender over the spine Neuro: Alert and oriented x3. Cranial nerves II through XII grossly intact. Strength 5/5 throughout,Sensation to light touch is grossly normal throughout. Skin: No rashes or lesions noted Nails: No nail pitting Extremities: Shoulders: FROM, non-tender to palpation Elbows:FROM Wrists: FROM, no swelling, non-tender Hands: No synovitis, bilateral Justino and Heberden nodes, no MCP compression tenderness, full clawand fist Hips: FROM, no tenderness Knees: FROM, no effusion, no tenderness Ankles: FROM, non-tender, no effusion Feet: No MTP compression tenderness Laboratory Data: RF and anti-CCP neg, CRP 0.58, ESR 20 Current Immunizations Name Date HEP B 06/09/2006 , 05/11/2006 INFLUENZA 07/09/2005 TD 09/22/2005 Assessment: 56 year old female with the PMH of hypothyroidism who has been referred to rheumatology for evaluation of suspected autoimmune disease in the setting of a positive KEITH. She has had pain and aching in her hands and the feet for almost a year now. Since the onset, the pain has been getting worse and is long-lasting nowadays. The right hand is more bothersome with the pain and stiffness. The pain in thehands and feet is worse at the end of the day and it tends to get worse with activity. She also describes feeling of tingling and shooting pain in the median nerve distribution in both hands, worse on right side and in the night. She has pain in her hips, knees and feet sometimes when she has been on h er feet for a long time but this is not consistent. She has had hair loss for last couple of years and also describes change in the color of her fingers when exposed to cold and this is something whichshe noticed in the last year or so. No h/o prolonged morning stiffness, rash, photosensitivity, red/hot/swollen joints, frequent oral/nasal ulceration, thromboembolism or spontaneous miscarriages/abortions. She has gained approximately 15-20 lbs in the last 2 years. 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 Tinel's is negative but Phalen's is positive on the right side. Her labs done from PCPs office showed negative rheumatoid factor and anti-CCP antibodies. She had mildly elevated CRP but normal ESR and a positive KEITH at 1: 320. Differential diagnosis for patient's clinical presentation includes an inflammatory arthritis such as rheumatoid arthritis or psoriatic arthritis versus osteoarthritis with carpal tunnel syndrome. Patient does not seem to have symptoms related to inflammatory arthritis at this time and her clinical pre sentation fits more with a mechanical etiology, especially osteoarthritis of hands with concomitant carpal tunnel syndrome. It is also possible her hypothyroidism might be making her joint symptoms worse. Presence of positive KEITH in this situation is of little clinical significance and this could be si mply positive and presence of autoimmune thyroid disease. This does not warrant any further work-up at this time, unless she were to develop relevant symptoms in near future. Plan: -Carpal tunnel bracing on right side -Diclofenac gel as needed for pain control. -If not successful, PCP can try scheduled for some time. Follow-up with rheumatology as needed. The patient was seen and discussed with Dr Santoro. Barber Burton MD Rheumatology Fellow Pager: [phone] CC: SHARLENE Tuttle Rachael Santoro II, DO - 06/17/2021 12:30 PM EDT Staff Addendum I have seen the patient and reviewed the above history and physical and I agree with the details as written. The assessment and plan were formulated in discussion with me and I agree with them as documented. Ms. Prince presents today for evaluation of polyarthralgias in the setting of a positive KEITH. On exam,she does not have signs or symptoms of an inflammatory arthritis but has evidence of osteoarthritis in her hands. We discussed trial of bracing, topical diclofenac gel, or scheduled oral nonsteroidals.She does not have signs or symptoms of a rheumatic disease thus the positive KEITH is likely of littleclinical significance at this point. Rachael Santoro DO, MPH Rheumatology Staff documented in this encounter Miscellaneous Notes Addendum Note - Rachael Santoro II, DO - 06/17/2021 12:30 PM EDT Addended by: RACHAEL SANTORO II on: 06/20/2021 04:11 PM Modules accepted: Level of Service documented in this encounter Plan of Treatment Not on filedocumented as of this encounter Visit Diagnoses Diagnosis Polyarthralgia Pain in joint, multiple sites documented in this encounter Care Teams Bar Host/Hostess Relationship Specialty Start Date End Date Nalini Riddle PA PCP - General Family Medicine 02/26/21 [address] [place] [address] documented as of this encounter
--- OUTSIDE RECORDS SUMMARY | 2022-06-20 00:59 | XMS_ITS | Encounter Summary ---
:1965 [place] [address] Care Team Providers Name Role Phone Nalini Riddle Primary Care Provider Encounter Details Date Type Department Care Team Description 01/19/2019 Telephone Gastroenterology at [facility] [place] [phone] Social History Tobacco Use Types Packs/Day Years Used Date Never Smoker Smokeless Tobacco: Never Used Sex Assigned at Date Recorded Female 08/05/2021 6:15 PM EST documented as of this encounter Miscellaneous Notes Telephone Encounter - Otilia Farrell - 01/19/2019 4:28 PM EDT Sylvia Prince [id number] Diagnosis: Pain with bowel movements, hx of polyps 1. Have you ever had a colonoscopy before? [x] YES [] NO If Yes, Date of Last Shock: 12/06/2012 If yes, did you have any problems with the procedure? [] YES [x] NO Explain: What type of sedation was used: IV sedation 2. Do you take any Blood Thinners? [] YES [x] NO If Yes, type: 3. Do you have a Pacemaker or Defibrillator device? [] YES [x] NO If Yes send [employer] message to [facility] END[facility] DEVICE CHECK 4. Are you a diabetic? [] YES [x] NO If yes, controlled by meds or diet? 5. Do you have any Allergies to Eggs, Latex or Medications? [x] YES [] NO If Yes, what: see E-DH 6. Do you take any Oral Iron Supplements (Including multi vitamins)? [x] YES [] NO 7. Do you have a history of three or more abdominal surgeries? [] YES [x] NO 8. Have you had a problem with sedation or anesthesia? [] YES [x] NO 9. Do you have a c-pap machine or oxygen tank? [] C-PAP [x] Oxygen [] NO 10. Do you take prescription narcotic pain medications? [] YES [x] NO 11. You must have a responsible democrat stay at the facility during your procedure and drive you home? [x] YES 12. Is there any other information you would like to give us to aid in scheduling? NO Height: 5'9 Weight 187 BMI: 27.6 Age:53 y.o. documented in this encounter Plan of Treatment Not on filedocumented as of this encounter Visit Diagnoses Not on filedocumented in this encounter Care Teams Teletype Or Varitype Keyboard Operator Relationship Specialty Start Date End Date Nalini Riddle PA PCP - General Family Medicine 12/28/18 04/10/20 [address] [place] [address] documented as of this encounter
--- OUTSIDE RECORDS SUMMARY | 2022-06-20 00:59 | XMS_ITS | Encounter Summary ---
:1965 Author Organization [facility] [place] [address] Care Team Providers Name Role Phone Nalini Riddle Primary Care Provider Reason for Visit Auth/Cert Specialty Diagnoses / Procedures Referred By Contact Refer red To Contact Diagnoses Pain with bowel movements, hx of polyps same day Procedures PRO COLONOSCOPY, DIAGNOSTIC COLONOSCOPY, DIAGNOSTIC Referral ID Status Reason Start Date Expiration Date Visits Requ ested Visits Authorized [id number] 1 1 Encounter Details Date Type Department Care Team Description 01/25/2019 Hospital Encounter Gastroenterology at [facility] Ken Lee, [facility] Sarah velás[place] [address] [facility] [phone] CENTER GASTROENTEROLOGY DEPT. [place], [place] [address] Social History Tobacco Use Types Packs/Day Years Used Date Never Smoker Smokeless Tobacco: Never Used Alcohol Use Standard Drinks/Week Comments Not Currently 0 (1 standard drink = 0.6 oz pure alcoho l) Sex Assigned at Date Recorded Female 08/05/2021 6:15 PM EST documented as of this encounter Last Filed Vital Signs Vital Sign Reading Time Taken Comments Blood Pressure 141/79 01/25/2019 5:40 PM EDT Pulse 62 01/25/2019 5:10 PM EDT Temperature 36.8 ??C (98.2 ??F) 01/25/2019 4:06 PM EDT Respiratory Rate 19 01/25/2019 5:40 PM EDT Oxygen Saturation 97% 01/25/2019 5:40 PM EDT Inhaled Oxygen Concentration - - Weight 84.8 kg (187 lb) 01/25/2019 4:06 PM EDT Height - - Body Mass Index 27.62 01/10/2019 7:44 AM EDT documented in this encounter Discharge Instructions Discharge InstructionsElena Kay RN - 01/25/2019 5:19 PM EDT Please call [phone] before 8pm Mon-Fri with problems, questions or concerns. If you call after 8pm or on weekends, call the Hospital at [phone] and ask to speak to the Mule Developer funeral professional and the pill machine operator will contact that person for you. AttachmentsThe following attachments cannot be sent through Care Everywhere. Colonoscopy: Post-op (Albanian)documented in this encounter Medications at Time of Discharge Medication Sig Dispensed Refills Start Date End Date levothyroxine (SYNTHROID) 100 mcg. 0 12/14/2018 88 mcg Tablet venlafaxine (EFFEXOR-XR) take 1 capsule by 0 12/2018 75 mg Capsule, Sust. mouth once daily Release 24 hr venlafaxine (EFFEXOR) 37.5 0 9 mg Tablet SHINGRIX, PF, 50 mcg/0.5 0 09/03/2018 mL Suspension for Reconstitution injection eszopiclone (LUNESTA) 3 mg Take 3 mg by mouth 0 08/06/2021 Tablet Daily. Black Cohosh 540 mg Take 540 mg by 0 1 10/07/2020 Capsule mouth daily. calcium citrate/vitamin D3 Take by mouth. 0 08/06/2021 (CITRACAL + D ORAL) multivitamin with minerals 0 0 08/06/2021 tablet documented as of this encounter H&P Notes Ken Lee MD - 01/25/2019 4:28 PM EDT Gastroenterology and Hepatology Pre-Procedure History and Physical Exam Procedure: Colonoscopy: Indication: LLQ pain EXAM: HEENT: Airway examined, oropharynx clear Mallampati Score: I (soft palate, uvula, fauces, tonsillar pillars visible) LUNGS: Clear to auscultation HEART: Regular rate and rhythm, normal S1, S2 ABDOMEN: Normal bowel sounds, soft, non tender, non distended, A/P Proceed with the planned endoscopic procedure. ASA 2 - Patient with mild systemic disease with no functional limitations Sedation Plan: moderate (conscious sedation) Risks and benefits of the procedure explained to the patient. Consent signed. documented in this encounter Plan of Treatment Not on filedocumented as of this encounter Procedures Procedure Name Priority Date/Time Associated Comments Diagnosis COLONOSCOPY Routine 01/25/2019 4:34 PM Results f or this EDT procedure are i n the results section. COLONOSCOPY, 01/25/2019 4:34 PM Pain with bowel DIAGNOSTIC EDT movements, hx of polyps same day documented in this encounter Results COLONOSCOPY (01/25/2019 4:34 PM EDT) [facility] Method Time Signature COLONOSCOPY [facility] Endoscopy Procedure Date: 01/25/2019 4:34 PM ? Patient Name: Sylvia Prince ? N: [id number] ? Date of : 1965 ? Age: 53 ? Order #: [id number] ? Instrument Name: [id number] ? Procedure: ? Colonoscopy Indications: ? Abdominal pain in the left lower ? quadrant; history of diminuti ve ? tubular adenoma in the rectum 1998; ? colonoscopies in 2002, 2009, 2015 ? without any polyps seen. Providers: ? Wero Lee MD, Jazmin garcía, ? RN, Mary Ann Pinedo Referring : ?SHRALENE Phillips Brent C. ? MD Eliud Medicines: ? Midazolam 5 mg IV, Fentanyl 225 ? micrograms IV Complications: ? No immediate complications. Procedure: ? Pre-Anesthesia Assessment: ? - Prior to the procedure, a H istory ? and Physical was performed, a nd ? patient medications and aller gies ? were reviewed. The patient is ? competent. The risks and bene fits of ? the procedure and the sedatio n ? options and risks were discus sed with ? the patient. All questions we re ? answered and informed consent was ? obtained. Patient identificat ion and ? proposed procedure were verif ied by ? the physician in the pre-proc edure ? area in the endoscopy suite. Mental ? Status Examination: alert and ? oriented. Airway Examination: normal ? oropharyngeal airway and neck ? mobility. Respiratory Examina tion: ? clear to auscultation. CV ? Examination: normal. ASA Grad e ? Assessment: II - A patient wi th mild ? systemic disease. After revie wing the ? risks and benefits, the patie nt was ? deemed in satisfactory condit ion to ? undergo the procedure. The an esthesia ? plan was to use moderate debbie tion / ? analgesia (conscious sedation ). ? Immediately prior to administ ration ? of medications, the patient w as ? re-assessed for adequacy to r eceive ? sedatives. The heart rate, ? respiratory rate, oxygen satu rations, ? blood pressure, adequacy of p ulmonary ? ventilation, and response to care ? were monitored throughout the ? procedure. The physical statu s of the ? patient was re-assessed after the ? procedure. ? The procedure, indications, b enefits, ? risks and alternatives were e xplained ? to the patient. Specifically ? discussed were potential ? complications including, but not ? limited to, bleeding, perfora tion, ? infection, missing a cancer, and ? adverse medication reactions. The ? patient was placed in the lef t ? lateral decubitus position, a nd a ? digital rectal exam was perfo rmed. ? The Colonoscope was inserted in the ? anus and under direct visuali zation, ? advanced to 5 cm into the ile um. ? Careful inspection was made a s the ? colonoscope was withdrawn. Th e ? colonoscopy was performed jaswinder henry ? difficulty. The patient kinjal ated the ? procedure well. The quality o f the ? bowel preparation was evaluat ed using ? the BBPS ([place] Bowel Prepar ation ? Scale) with scores of: Right Colon = ? 3 (entire mucosa seen well wi th no ? residual staining, small frag ments of ? stool or opaque liquid), Flor sverse ? Colon = 3 (entire mucosa seen well ? with no residual staining, sm all ? fragments of stool or opaque liquid) ? and Left Colon = 3 (entire mu cosa ? seen well with no residual st aining, ? small fragments of stool or o paque ? liquid). The total BBPS score equals ? 9. The quality of the bowel ? preparation was excellent. Sc ope ? withdrawal time was 15 minute s. ? Findings: ? External hemorrhoids were found. The hemorrhoids were ? small. ? The colon (entire examined portion) appeared normal. ? There were no polyps seen and no diverticula noted. ? The terminal ileum appeared normal. ? Moderate Sedation: ? I was present during the intraservice time as ? documented by the sedation RN. Impression: ?- External hemorrhoids. ? - The entire examined colon i s normal. ? - The examined portion of the ileum ? was normal. ? - No specimens collected. ? - Etiology for left lower rajni drant ? pain not seen on this exam. Recommendation: ?- Repeat colonoscopy in 10 years for ? surveillance. ? Attending Participation: ? I personally performed the entire procedure. ? L. Jesus Lee MD 01/25/2019 5:24:20 PM Number of Addenda: 0 Note Initiated On: 01/25/2019 4:34 PM Specimen (Source) Anatomical Collection Method Collection Time Re ceived Time Location / / Volume Laterality 01/25/2019 4:34 PM EDT Unknown GENERAL SURGICAL ORDERABLES Performing Organization Address City/State/ZIP Code Phon e Number PROVATION documented in this encounter Visit Diagnoses Not on filedocumented in this encounter Administered Medications Inactive Administered Medications - up to 3 most recent administrations Medication Order MAR Action Action Date Dose Rate Site lactated ringers infusion New Bag 01/25/2019 4:24 PM EDT 100 mL/hr 100 mL/hr 100 mL/hr, Intravenous, CONTINUOUS, Starting on 01/25/19 at 1630, Until 01/25/19 at 1749, Endoscopy (Day of Procedure) documented in this encounter Active and Recently Administered Medications Times are shown in EDT. Continuous Medication Order 01/23/2019 01/24/2019 01/25/2019 lactated ringers infusion (CANCELED) 1624 (New Bag - Provider: Elena Kay RN) 100 mL/hr, at 100 mL/hr, Intravenous, CO NTINUOUS, Starting 01/25/19 at 1630, Until 01/25/19 at 1749, Endo (Day of Procedure) PRN Medication Order 01/23/2019 01/24/2019 01/25/2019 fentaNYL 50 mcg/mL multi-dose injection (CANCELED) 1640 (Given - Provider: Jazmin Hernandez, ELPIDIO)1643 (Given - Provider: Jazmin Hernandez RN)1646 (Given - Provider: Jazmin Hernandez, ELPIDIO)1649 (Given - Provider: Jazmin Hernandez, RN)1653 (Given - Provider: Jazmin Hernandez, RN) ONCE PRN, Starting 6/4/19 at 1640, U ntil 01/25/19 at 2016, Intra-Operative (Intra-Procedure), Routine midazolam (PF) (VERSED) multi-dose injection (CANCELED) 1640 (Given - Provider: Jazmin Hernandez, ELPIDIO)1643 (Given - Provider: Jazmin Hernandez, ELPIDIO)1646 (Given - Provider: Jazmin Hernandez, RN)1649 (Given - Provider: Jazmin Hernandez, ELPIDIO)1652 (Given - Provider: Jazmin Hernandez, ELPIDIO) ONCE PRN, Starting 01/25/19 at 1640, U ntil 01/25/19 at 2016, Intra-Operative (Intra-Procedure), Routine 1655 (Given - Provider: Jazmin Hernandez, ELPIDIO) documented in this encounter Care Teams Maintenance Superintendent Relationship Specialty Start Date End Date Nalini Riddle PA PCP - General Family Medicine 12/28/18 04/10/20 [address] [place] [address] documented as of this encounter
--- OUTSIDE RECORDS SUMMARY | 2022-06-20 00:59 | XMS_ITS | Encounter Summary ---
:1965 Author Organization [facility] [place] [address] Care Team Providers Name Role Phone Nalini Riddle Primary Care Provider Reason for Visit Auth/Cert Specialty Diagnoses / Procedures Referred By Contact Refer red To Contact Diagnoses Pain with bowel movements, hx of polyps same day Procedures PRO COLONOSCOPY, DIAGNOSTIC COLONOSCOPY, DIAGNOSTIC Referral ID Status Reason Start Date Expiration Date Visits Requ ested Visits Authorized [id number] 1 1 Encounter Details Date Type Department Care Team Description 01/25/2019 Surgery [place] at [facility] Ken Lee, COLONOSCOPY, [facility] Sarah velás[place] [address] [facility] [phone] GASTROENTEROLOGY DEPT. [place], [place] [address] Social History Tobacco Use Types Packs/Day Years Used Date Never Smoker Smokeless Tobacco: Never Used Alcohol Use Standard Drinks/Week Comments Not Currently 0 (1 standard drink = 0.6 oz pure alcoho l) Sex Assigned at Date Recorded Female 08/05/2021 6:15 PM EST documented as of this encounter Last Filed Vital Signs Vital Sign Reading Time Taken Comments Blood Pressure 143/80 01/25/2019 4:45 PM EDT Pulse 73 01/25/2019 4:45 PM EDT Temperature 36.8 ??C (98.2 ??F) 01/25/2019 4:06 PM EDT Respiratory Rate 14 01/25/2019 4:45 PM EDT Oxygen Saturation 100% 01/25/2019 4:45 PM EDT Inhaled Oxygen Concentration - - Weight 84.8 kg (187 lb) 01/25/2019 4:06 PM EDT Height - - Body Mass Index 27.62 01/10/2019 7:44 AM EDT documented in this encounter Discharge Instructions Discharge InstructionsElena Kay RN - 01/25/2019 5:19 PM EDT Please call [phone] before 8pm Mon-Fri with problems, questions or concerns. If you call after 8pm or on weekends, call the Hospital at [phone] and ask to speak to the Automotive Window Tinter testing consultant and the piercing machine operator will contact that person for you. AttachmentsThe following attachments cannot be sent through Care Everywhere. Colonoscopy: Post-op (Chadian)documented in this encounter Medications at Time of [...] encounter Results COLONOSCOPY (01/25/2019 4:34 PM EDT) [facility] gist Method Time Signature COLONOSCOPY [facility] Endoscopy Procedure Date: 01/25/2019 4:34 PM ? Patient Name: Sylvia Prince ? N: [id number] ? Date of : 1965 ? Age: 53 ? Order #: [id number] ? Instrument Name: [id number] ? Procedure: ? Colonoscopy Indications: ? Abdominal pain in the left lower ? quadrant; history of diminuti ve ? tubular adenoma in the rectum 1998; ? colonoscopies in 2002, 2009, 2015 ? without any polyps seen. Providers: ? Wero Lee MD, Jazmin garcía, ? RN, Mary Ann Pinedo Referring : ?SHARLENE Phillips Brent C. ? MD Eliud Medicines: [...] was evaluat ed using ? the BBPS ([place] Bowel Prepar ation ? Scale) with scores [...] MAR Action Action Date Dose Rate Site fentaNYL 50 mcg/mL multi-dose Given 01/25/2019 4:53 PM EDT 25 mc g Right Arm injection ONCE PRN, Starting on Thu01/25/19 at 1640, Until Thu01/25/19 at 2016, Intra-Operative (Intra-Procedure), Routine Given 01/25/2019 4:49 PM EDT 50 mcg Right Arm Given 01/25/2019 4:46 PM EDT 50 mcg Right Arm lactated ringers infusion New Bag 01/25/2019 4:24 PM EDT 100 mL/hr 100 mL/hr 100 mL/hr, Intravenous, CONTINUOUS, Starting on Thu01/25/19 at 1630, Until Thu01/25/19 at 1749, Endoscopy (Day of Procedure) midazolam (PF) (VERSED) multi-dose Given 01/25/2019 4:55 PM EDT 0.5 mg Right Arm injection ONCE PRN, Starting on Thu01/25/19 at 1640, Until Thu01/25/19 at 2016, Intra-Operative (Intra-Procedure), Routine Given 01/25/2019 4:52 PM EDT 0.5 mg Right Arm Given 01/25/2019 4:49 PM EDT 1 mg Right Arm documented in this encounter Active and Recently Administered Medications Times are shown in EDT. Continuous Medication Order 01/23/2019 01/24/2019 01/25/2019 lactated ringers infusion (CANCELED) 1624 (New Bag - Provider: Elena Kay, ELPIDIO) 100 mL/hr, at 100 mL/hr, Intravenous, CO NTINUOUS, Starting 01/25/19 at 1630, Until 01/25/19 at 1749, Endo (Day of Procedure) PRN Medication Order 01/23/2019 01/24/2019 01/25/2019 fentaNYL 50 mcg/mL multi-dose injection (CANCELED) 1640 (Given - Provider: Jazmin Hernandez RN)1643 (Given - Provider: Jazmin Hernandez, ELPIDIO)1646 (Given - Provider: Jazmin Hernandez, ELPIDIO)1649 (Given - Provider: Jazmin Hernandez RN)1653 (Given - Provider: Jazmin Hernandez RN) ONCE PRN, Starting 01/25/19 at 1640, U ntil 01/25/19 at 2016, Intra-Operative (Intra-Procedure), Routine midazolam (PF) (VERSED) multi-dose injection (CANCELED) 1640 (Given - Provider: Jazmin Hernandez, ELPIDIO)1643 (Given - Provider: Jazmin Hernandez, ELPIDIO)1646 (Given - Provider: Jazmin Hernandez, ELPIDIO)1649 (Given - Provider: Jazmin Hernandez, ELPIDIO)1652 (Given - Provider: Jazmin Hernandez, ELPIDOI) ONCE PRN, Starting 01/25/19 at 1640, U ntil 01/25/19 at 2016, Intra-Operative (Intra-Procedure), Routine 1655 (Given - Provider: Jazmin Hernandez, ELPIDIO) documented in this encounter Care Teams General Neurologist Relationship Specialty Start Date End Date Nalini Riddle PA PCP - General Family Medicine 12/28/18 04/10/20 [address] [place] [address] documented as of this encounter
--- OUTSIDE RECORDS SUMMARY | 2022-06-20 01:00 | XMS_ITS | Encounter Summary ---
:1965 Author Organization [facility] Address [address] [place] [address] Care Team Providers Name Role Phone Nalini Riddle PA-C Primary Care Provider [phone] Encounter Details Date Type Department Care Team Description 03/24/2016 Historical Results [facility] - Sarah Riddle Only [facility] Resul jessy Rogers PA-C [address] [place] [address] [place] [phone] Social History Tobacco Use Types Packs/Day Years Used Date Never Assessed Sex Assigned at Date Recorded Not on file documented as of this encounter Plan of Treatment Not on filedocumented as of this encounter Procedures Procedure Name Priority Date/Time Associated Diagnosis Comme nts NM CARD SPECT 03/24/2016 10:53 Results fo r this NUCLEAR STRESS EDT procedure are in the results section. documented in this encounter Results NM CARD SPECT NUCLEAR STRESS (03/24/2016 10:53 EDT) Specimen Narrative [facility] - 03/26/2016 10:25 EDT ? EXAM: NUCLEAR MEDICINE/NUCLEAR STRESS PENNY EX. D/ (1053) ? CLINICAL INFORMATION: ? CHEST PAIN ? *[facility]* ? *[facility]* ? [address] ? [place] [address] ? Myocardial Perfusion Imaging - SP ECT ? Nas protocol ? Date of study: ??03/24/2016 ? *PATIENT PRESENTATION* ? Height: ? 175.3cm ((69i n) ) ? Blood Pressure: ? Weight: ? 80.9kg ((178l b) ) ? BSA: ?2m S 2 ? Ordering physician: Glenda Riddle Pa-C ? Impressions: ? - Normal perfusion by Tc99m Sesta mibi Imaging. ? - Low normal LV function, apparen t anteroseptal HK, suggest Echo ? correlation. ? - Subotimally treated HTN. ? Summary: ? 1. Myocardial perfusion imaging: Left ventricular size is normal. No ?myocardial perfusion defects noted. ? 2. The calculated left ventricula r ejection fraction after stress: ?48%. LV global systolic func tion is low normal. No left ventricular ?regional motion abnormality. There is mild hypokinesis involving ?the basal anteroseptal and m id anteroseptal wall(s) of the left ?ventricle. ? 3. Stress ECG conclusions: The st ress ECG is negative. Rare atrial ?ectopy. ? 4. Stress: There is resting hyper tension with a hypertensive response ?to stress. The patient exper ienced no chest pain during stress. ?Exercise capacity is normal for age. ? Indication: ?? 786.50 Chest Pain, Unspecified. ? History: ??SEEN IN THE ED AT [facility] IN DECEMBER 2015, FOR C/O EXERTIONAL LEFT ? SIDED CHEST PAIN, SOB AND LEFT AR M NUMBNESS. NEGATIVE CARDIAC WORKUP. ? IN JANUARY, A REGULAR STRESS TEST AT [facility] SHOWED ECG CHANGES WITHOUT ? ANGINA. CONTINUES TO HAVE INTERMI TTENT SYMPTOMS WITH EXERTION, 2-3 X A ? WEEK, AND THEY LAST A FEW MINUTES . ? NO PREVIOUS CARDIAC HISTORY. ? PAGE 1 ? Jasmyn d Report ? (CONTINUED) ? Risk factors: ??Hypertension. ? MEDS: LEVOTHYROXINE, EFFEXOR, OME PRAZOLE, LUNESTA, VENLAFAXINE, ? ESTROGEN. ? ALLERGIES: CEPHALEXIN. ? Imaging Technique: ? Protocol: ??Nas protocol. ? Acquisition: ?? Gated SPECT; 1 da y - rest/stress. ?The patient was ? imaged in the supine position. At tenuation correction used. ? Isotope administration: ? - Rest. Tc[99m]-sestamibi. Inject ion to stress time: 00:45. ? - Stress. Tc[99m]-sestamibi. 1-2 min before end of exercise ? Baseline ECG: ??NSR- 65 BPM. ? Stress protocol: ? + ---+---+ + ? !Stage ?!HR !BP (mmHg) ?! ? + ---+---+ + ? !Baseline supine ?!65 !168/100 (123)! ? + ---+---+ + ? !Baseline standing ?!67 !166/103 (124)! ? + ---+---+ + ? !Stage I; 1.7mph, 10degrees; 3 mi n ??!99 !191/108 (136)! ? + ---+---+ + ? !Stage II; 2.5mph, 12degrees; 3 m in !110!207/102 (137)! ? + ---+---+ + ? !Stage III; 3.4mph, 14degrees; 3 min!136!226/89 (135) ! ? + ---+---+ + ? !Stage IV; 4.2mph, 16degrees; 3 m in !152! ! ? + ---+---+ + ? !Peak stress ?!153! ! ? + ---+---+ + ? !Recovery; 1 min ?!115!220/88 (132) ! ? + ---+---+ + ? !Recovery; 3 min ?!89 !212/88 (129) ! ? + ---+---+ + ? !Recovery; 6 min ?!80 !156/92 (113) ! ? + ---+---+ + ? * ? Stress results: ?? Maximal heart rate during stress was 153bpm (90% of ? maximal predicted heart rate). Th e maximal predicted heart rate was ? 170bpm. There is resting hyperten kei with a hypertensive response to ? stress. The rate-pressure product for the peak heart rate and blood ? pressure was 78755mp Hg/min. ? The patient experienced no chest pain during stress. ?? Exercise ? capacity is normal for age. ? Stress ECG: ??GOOD EXERCISE CRISTINE- 12 METS( 11 MINUTES 2 SECONDS IN NAS ? PROTOCOL) ? MAX HR- 153 BPM ? PAGE 2 ? Jasmyn d Report ? (CONTINUED) ? HYPERTENSIVE- 212/88 ? NO CHEST PAIN ? RARE PAC ? NO ISCHEMIC ECG CHANGES. ??The st ress ECG is negative. ?Rare atrial ? ectopy. ? Myocardial perfusion: ?? Imaging information: gated. Left ventricular ? size is normal. No myocardial per fusion defects noted. ? Ventricular Function (Wall Motion ): ?? The calculated left ventricular ? ejection fraction after stress: 4 8%. LV global systolic function is ? low normal. No left ventricular r egional motion abnormality. There is ? mild hypokinesis involving the ba fanny anteroseptal and mid anteroseptal ? wall(s) of the left ventricle. ? Study data: ??Júnior Tam MD supervised and was readily available ? during the procedure. This study was interpreted by [facility] ? [facility]. ? Study status: Routine. ? Consent: ??The risks, benefits, a nd alternatives to the procedure were ? explained to the patient and info rm consent was obtained. ? Procedure: ??Initial setup. A bas sherly ECG was recorded. Surface ECG ? leads and manual cuff blood press ure measurements were monitored. ? Heart sounds: Normal. ? Lung sounds: Normal. ? Treadmill exercise testing was pe rformed using the Nas protocol. The ? patient exercised for 11 min 2 se c, to protocol stage 4, to a maximal ? work rate of 12mets. ? Study completion: ??All catheters inserted during the procedure were ? removed. The patient tolerated th e procedure well and was discharged ? from the lab. ? Discharge: ??The patient left the laboratory in stable condition. ? Birthdate: ? Patient birthdate: 1965. ? Sex: ??Gender: female. ? Study date: 03/24/2016. ? Study time: 08:03 AM. ? Signature Documentation: ? - The imaging portion of this miles dy was interpreted by Nuclear ? Administrative Services Director Júnior Tam MD. ? - The Stress ECG portion of this study was interpreted by Júnior ? MD Yonatan. ? Electronically signed by ? PAGE 3 ? Jasmyn d Report ? (CONTINUED) ? Júnior Tam ? 03/25/2016 17:37 ?Reported B y: JÚNIOR TAM M.D. ? CC: ? Transcribed Date/Time: 03/26/2016 (1025) ? Load Haul Dump Operator: RUI ? Printed Date/Time: 02/04/2019 (11 58) ? PAGE 4 ? Jasmyn d Report ? Procedure Note Júnior Tam MD - 06/29/2019 EXAM: NUCLEAR MEDICINE/NUCLEAR STRESS T ES EX. D/ (1053) CLINICAL INFORMATION: CHEST PAIN *[facility]* *[facility]* [address] [place] [address] Myocardial Perfusion Imaging - SPECT Nas protocol Date of study: 03/24/2016 *PATIENT PRESENTATION* Height: 175.3cm ((69in) ) Blood Pressure: Weight: 80.9kg ((178lb) ) BSA: 2m S 2 Ordering physician: Nalini Riddle Impressions: - Normal perfusion by Tc99m Sestamibi Karma soares. - Low normal LV function, apparent ante roseptal HK, suggest Echo correlation. - Subotimally treated HTN. Summary: 1. Myocardial perfusion imaging: Left v entricular size is normal. No myocardial perfusion defects noted. 2. The calculated left ventricular ejec tion fraction after stress: 48%. LV global systolic function is low normal. No left ventricular regional motion abnormality. There is m ild hypokinesis involving the basal anteroseptal and mid anterose ptal wall(s) of the left ventricle. 3. Stress ECG conclusions: The stress E CG is negative. Rare atrial ectopy. 4. Stress: There is resting hypertensio n with a hypertensive response to stress. The patient experienced no c hest pain during stress. Exercise capacity is normal for age. Indication: 786.50 Chest Pain, Unspecif ied. History: SEEN IN THE ED AT [facility] IN DECEMBER 2015, FOR C/O EXERTIONAL LEFT SIDED CHEST PAIN, SOB AND LEFT ARM NUMB NESS. NEGATIVE CARDIAC WORKUP. IN JANUARY, A REGULAR STRESS TEST AT [facility] SHOWED ECG CHANGES WITHOUT ANGINA. CONTINUES TO HAVE INTERMITTENT SYMPTOMS WITH EXERTION, 2-3 X A WEEK, AND THEY LAST A FEW MINUTES. NO PREVIOUS CARDIAC HISTORY. PAGE 1 Signed Report (CONTINUED) Risk factors: Hypertension. MEDS: LEVOTHYROXINE, EFFEXOR, OMEPRAZOL E, LUNESTA, VENLAFAXINE, ESTROGEN. ALLERGIES: CEPHALEXIN. Imaging Technique: Protocol: Nas protocol. Acquisition: Gated SPECT; 1 day - rest/ stress. The patient was imaged in the supine position. Attenuat ion correction used. Isotope administration: - Rest. Tc[99m]-sestamibi. Injection to stress time: 00:45. - Stress. Tc[99m]-sestamibi. 1-2 min be fore end of exercise Baseline ECG: NSR- 65 BPM. Stress protocol: + +-- -+ + !Stage !HR !BP (mmHg) ! + +-- -+ + !Baseline supine !65 !168/100 (123)! + +-- -+ + !Baseline standing !67 !166/103 (124)! + +-- -+ + !Stage I; 1.7mph, 10degrees; 3 min !99 !191/108 (136)! + +-- -+ + !Stage II; 2.5mph, 12degrees; 3 min !11 0!207/102 (137)! + +-- -+ + !Stage III; 3.4mph, 14degrees; 3 min!13 6!226/89 (135) ! + +-- -+ + !Stage IV; 4.2mph, 16degrees; 3 min !15 2! ! + +-- -+ + !Peak stress !153! ! + +-- -+ + !Recovery; 1 min !115!220/88 (132) ! + +-- -+ + !Recovery; 3 min !89 !212/88 (129) ! + +-- -+ + !Recovery; 6 min !80 !156/92 (113) ! + +-- -+ + * Stress results: Maximal heart rate duri ng stress was 153bpm (90% of maximal predicted heart rate). The maxi mal predicted heart rate was 170bpm. There is resting hypertension w ith a hypertensive response to stress. The rate-pressure product for t he peak heart rate and blood pressure was 92229ed Hg/min. The patient experienced no chest pain d uring stress. Exercise capacity is normal for age. Stress ECG: GOOD EXERCISE CRISTINE- 12 METS( 11 MINUTES 2 SECONDS IN NAS PROTOCOL) MAX HR- 153 BPM PAGE 2 Signed Report (CONTINUED) HYPERTENSIVE- 212/88 NO CHEST PAIN RARE PAC NO ISCHEMIC ECG CHANGES. The stress ECG is negative. Rare atrial ectopy. Myocardial perfusion: Imaging informati on: gated. Left ventricular size is normal. No myocardial perfusion defects noted. Ventricular Function (Wall Motion): The calculated left ventricular ejection fraction after stress: 48%. LV global systolic function is low normal. No left ventricular regiona l motion abnormality. There is mild hypokinesis involving the basal an teroseptal and mid anteroseptal wall(s) of the left ventricle. Study data: Júnior Tam MD supervi sed and was readily available during the procedure. This study was in terpreted by [facility]. Study status: Routine. Consent: The risks, benefits, and alter natives to the procedure were explained to the patient and informed c onsent was obtained. Procedure: Initial setup. A baseline EC G was recorded. Surface ECG leads and manual cuff blood pressure me asurements were monitored. Heart sounds: Normal. Lung sounds: Normal. Treadmill exercise testing was performe d using the Nas protocol. The patient exercised for 11 min 2 sec, to protocol stage 4, to a maximal work rate of 12mets. Study completion: All catheters inserte d during the procedure were removed. The patient tolerated the proc edure well and was discharged from the lab. Discharge: The patient left the laborat ory in stable condition. Birthdate: Patient birthdate: 1965. Sex: Gender: female. Study date: 03/24/2016. Study time: 08:03 AM. Signature Documentation: - The imaging portion of this study was interpreted by Nuclear Administrative Services Director Júnior Tam MD. - The Stress ECG portion of this study was interpreted by Júnior Tam MD. Electronically signed by PAGE 3 Signed Report (CONTINUED) Júnior Tam 03/25/2016 17:37 Reported By: JÚNIOR TAM M.D. CC: Transcribed Date/Time: 03/26/2016 (1025 ) Load Haul Dump Operator: RUI Printed Date/Time: 02/04/2019 (0040) PAGE 4 Signed Report Performing Organization Address City/State/ZIP Code Phon e Number [facility] documented in this encounter Visit Diagnoses Not on filedocumented in this encounter Care Teams Database Administration Associate Relationship Specialty Start Date End Date Nalini Riddle PA-C PCP - General 09/09/13 [address] [place] [address] documented as of this encounter
--- OUTSIDE RECORDS SUMMARY | 2022-06-20 01:00 | XMS_ITS | Encounter Summary ---
:1965 Author Organization [facility] Address [address] [place] [address] Care Team Providers Name Role Phone Janessa Nalini Rogers PA-C Primary Care Provider [phone] Encounter Details Date Type Department Care Team Description 09/14/2021 Lab Requisition [facility] Outr Resulting Lab, Pathology & Laboratory Provider [facility] [address] [place] [address] Social History Tobacco Use Types Packs/Day Years Used Date Never Assessed Sex Assigned at Date Recorded Not on file documented as of this encounter Plan of Treatment Not on filedocumented as of this encounter Procedures Procedure Name Priority Date/Time Associated Diagnosis Comme nts COVID-19 TEST [facility] Today 09/13/2021 14:20 LAB PCR EST COVID-19 TESTING Routine 09/13/2021 14:20 Results for this EST procedure are i n the results section. documented in this encounter Results COVID-19 TEST [facility] LAB PCR (09/13/2021 14:20 EST) Specimen Swab Performing Organization Address City/State/ZIP Code Phon e Number [facility] [address] [place] [address] SERVICES COVID-19 TESTING (09/13/2021 14:20 EST) COVID-19 rt-PCR Negative Negative [facility] Result Comment: [facility] This test has not been FDA c leared or approved. This test has been authorized by FDA under an EUA for use by authorized laboratories. This test has been authorized only for detection of nucleic acid fro SERVICES m 2019-nCoV, not for any oth er viruses or pathogens. This test is only authorized for the duration of the declaration that circumstances exist justifying the authorization of emergency use of in vitro d iagnostic tests for detectio n and/or diagnosis of 2019-nCoV under section 564(b)(1) of Act, 21 U.S.C ?? 360bbb-3(b) (1), unless the authorization is terminated or revoked sooner. Negative results do not prec lude 2019-nCoV infection and should not be used as the sole basis for treatment or other patient management decisions. Negative results must be combined with clinical observa tions, patient history, and epidemiological informatio n. Testing was performed using the evangelina SARS-CoV-2 assay ([employer] on the Evangelina 6800 System Performing Lab Evangelina [address] [facility] Lab [facility] SERVICES Specimen Swab Performing Organization Address City/State/ZIP Code Phon e Number [facility] [address] [place] [address] SERVICES documented in this encounter Visit Diagnoses Not on filedocumented in this encounter Care Teams Agricultural Appraiser Relationship Specialty Start Date End Date Nalini Riddle PA-C PCP - General 09/09/[address] [place] [phone] documented as of this encounter
--- OUTSIDE RECORDS SUMMARY | 2022-06-20 01:00 | XMS_ITS | Encounter Summary ---
:[address] [facility] Address [address] [place] [address] Care Team Providers Name Role Phone Nalini Riddle PA-C Primary Care Provider [phone] Encounter Details Date Type Department Care Team Description 05/08/2016 Hospital Encounter [facility] Unknown, Provider, Krishna Nevaeh DENIS [address] [facility] [phone] [place] [address] (Work) [phone] Social History Tobacco Use Types Packs/Day Years Used Date Never Assessed Sex Assigned at Date Recorded Not on file documented as of this encounter Discharge Diagnoses Diagnosis R07.9 Chest pain, unspecified-R07.9[ICD- 10-CM] documented in this encounter Discharge Disposition Disposition Code Departure Means Destination Home or Self Residential documented in this encounter Plan of Treatment Not on filedocumented as of this encounter Visit Diagnoses Not on filedocumented in this encounter Care Teams Bomb Technician Relationship Specialty Start Date End Date Nalini Riddle PA-C PCP - General 09/09/[address] [place] [phone] documented as of this encounter
--- OUTSIDE RECORDS SUMMARY | 2022-06-20 01:00 | XMS_ITS | Encounter Summary ---
:1965 Author Organization [facility] Address [address] [place] [address] Care Team Providers Name Role Phone Janessa Nalini Rogers PA-C Primary Care Provider Encounter Details Date Type Department Care Team Description 05/22/2021 Lab Requisition [facility] Outr Resulting Lab, Pathology & Laboratory Provider [facility] [address] [id number] Social History Tobacco Use Types Packs/Day Years Used Date Never Assessed Sex Assigned at Date Recorded Not on file documented as of this encounter Plan of Treatment Not on filedocumented as of this encounter Procedures Procedure Name Priority Date/Time Associated Diagnosis Comme nts T3, TOTAL Routine 05/21/2021 8:25 EDT Results for this procedure are i n the results section. THYROID ANTIBODIES Routine 05/21/2021 8:25 EDT Re sults for this procedure are i n the results section. documented in this encounter Results T3, TOTAL (05/21/2021 8:25 EDT) Pathologist Sig nature T3, Total 125 97 - 169 ng/dL [facility] Specimen Blood - Venous blood (substance) Performing Organization Address [facility] Phon e Number [facility] [address] [place] [address] SERVICES (ABNORMAL) THYROID ANTIBODIES (05/21/2021 8:25 EDT) Pathologist Sig nature Anti-Thyroglobulin >500 (H) <=60 U/mL [facility] SERVICES Thyroperoxidase Ab 180 (H) <=60 U/mL [facility] SERVICES Specimen Blood - Venous blood (substance) Performing Organization Address City/[facility] Phon e Number [facility] [address] [place] [address] SERVICES documented in this encounter Visit Diagnoses Not on filedocumented in this encounter Care Teams Melting Supervisor Relationship Specialty Start Date End Date Nalini Riddle PA-C PCP - General 09/09/[address] [place] [phone] documented as of this encounter
--- OUTSIDE RECORDS SUMMARY | 2022-06-20 01:00 | XMS_ITS | Clinical Summary ---
:1965 Author Organization [facility] Address [address] [place] [address] Care Team Providers Name Role Phone Nalini Riddle PA-C Primary Care Provider [phone] Social History Tobacco Use Types Packs/Day Years Used Date Never Assessed Sex Assigned at Date Recorded Not on file Plan of Treatment Health Maintenance Due Date Last Done Comments Hepatitis C Screen 1965 COVID-19 Vaccine (1) 1977 Insurance Payer Benefit Plan Subscriber ID Effective Phone Address Typ e / Group Dates MEDICAID ACO MEDICAID ACO [id number] 2021-Pres [phone] [address] [place] [address] [facility] [id number] Care Teams Sagger Filler Relationship Specialty Start Date End Date Nalini Riddle PA-C PCP - General 09/09/[address] [place] [phone]
--- OUTSIDE RECORDS SUMMARY | 2022-06-20 01:00 | XMS_ITS | Encounter Summary ---
:1965 Author Organization [facility] Address [address] [place] [address] Care Team Providers Name Role Phone Unknown, Provider Primary Care Provider Encounter Details Date Type Department Care Team Description 10/03/2009 Orders Only [facility] Max Carolina MD [facility] [address] [place] [address] [place] [address] [phone] Social History Tobacco Use Types Packs/Day Years Used Date Never Assessed Sex Assigned at Date Recorded Not on file documented as of this encounter Plan of Treatment Not on filedocumented as of this encounter Procedures Procedure Name Priority Date/Time Associated Diagnosis Comme [facility] SURGICAL PATHOLOGY Routine 10/03/2009 0:00 EST Re sults for this procedure are i n the results section. documented in this encounter Results SURGICAL PATHOLOGY (10/03/2009 0:00 EST) Pathology Report: SURGICAL PATHOLOGY REPORT ? DELORIS COSBY Reports generated via electr Stratopy interface contain original data; ? LAB however they are lacking the format of the original report. ? Caution should be taken when reading/interpreting unformatted reports. ? Name: ? CRUZ, SYLVIA ? Accession #: ? [id number] ? : ? 1965 (Age: 44) ??F ? Collec t Date: ? 10/03/2009 ? Location: ? [facility] ? R eceive Date: ? 10/03/2009 ? Provider: MAX WALKO MD ? Copy to: LIBORIO MAGDALENE PA ? Final Pathologic Diagnosis: ? A. ?Terminal il eum, biopsies: ? 1. ?Ileal mucos a with reactive germinal centers; no pathologic features. B. ?Colon, righ t, ascending and transverse, biopsies: ? 1. ?Colonic muc gordon with focal intraepithelial lymphocytosis. ??See ? comment. ? C. ?Colon, left , descending and sigmoid, biopsies: ? 1. ?Colonic muc gordon with patchy intraepithelial lymphocytosis. ??See ? comment. ? D. ?Rectum, ra ndom, biopsies: ? 1. ?Rectal muco sa with no pathologic features. ? Comment: ? Specimens (B) and (C) show an increase in colonic intraepithelial ? lymphocytes. ??There is no i njury to epithelial cells and no activity is ? identified. ??These findings may be associated with drug effect, infection, ? autoimmune diseases or zenon c sprue. ??Clinical correlation is recommended. ??(Dr. Green)/[facility] ? Document reviewed and electr onically signed by: ? Radhames Chinchilla, MBChB ? Report ??Date: 10/08/2009 14 :25 ? By the signature above, the attending physician certifies that he/she has ? personally conducted a gross and/or microscopic examination of the described ? specimens and rendered or co nfirmed the above diagnosis. ? Specimen(s) Received: ? A. ?Bx TI (#1) ? B. ? Bx Rt colon (ascend ing and transverse colon) (#2) ? C. ? Bx Lt colon (descen ding and sigmoid colon) (#3) ? D. ? Bx random rectum (# 4) ? Clinical History: ? LLQ pain, rectal blee ding, diarrhea ? Gross Description: ? Received in [facility] fixative labelled Cruz, Sylvia and biopsy ? terminal ileum are three pi nk-johnson irregular soft tissues ranging from 0.2 x 0.2 x 0.2 cm to 0.3 x 0.3 x 0.2 cm. ??Submitted in toto in (A). ? Received in [facility] labelled Sylvia Cruz and biopsy right colon, ascending, and transverse co merrill are five pink-johnson irregular soft tissues ? ranging from 0.2 x 0.1 x 0.1 cm to 0.5 x 0.2 x 0.1 cm. ??Submitted in toto in ? (B1) and (B2). ? Received in [facility] labelled Sylvia Cruz and biopsy left colon, descending, and sigmoid colo n are five pink-johnson irregular soft tissues ranging from 0.3 x 0.2 x 0.2 cm to 0 .5 x 0.2 x 0.2 cm. ??Submitted in toto in (C1) and ?? (C2). ? Received in [facility] fixat bere labelled Cruz, Sylvia and biopsy random ? rectum are three pink-johnson i rregular soft tissues ranging from 0.1 x 0.1 x 0.1 ?? cm to 0.3 x 0.2 x 0.1 cm. ?? Submitted in toto in (D). ??(Wero Weeks)/kmm ? End of Report ? Specimen Performing Organization Address City/State/[facility] [[email or web address]] Code Phon e Number [facility] [address] [place] [address] SERVICES [facility] [address] [place] [address] documented in this encounter Visit Diagnoses Not on filedocumented in this encounter Care Teams Powdered Metal Supervisor Relationship Specialty Start Date End Date Unknown, Provider, PCP - General 10/03/09 09/08/13 documented as of this encounter
--- OUTSIDE RECORDS SUMMARY | 2022-06-20 01:00 | XMS_ITS | Encounter Summary ---
:1965 Author Organization [facility] Address [address] [place] [address] Care Team Providers Name Role Phone Melanytessie Nalini Rogers PA-C Primary Care Provider [phone] Encounter Details Date Type Department Care Team Description 05/06/2016 Results Only [facility] Tigre Suarez MD [phone] [address] [facility] [address] [place] [address] (Wo rk) Social History Tobacco Use Types Packs/Day Years Used Date Never Assessed Sex Assigned at Date Recorded Not on file documented as of this encounter Plan of Treatment Not on filedocumented as of this encounter Procedures Procedure Name Priority Date/Time Associated Diagnosis Comme [facility] SURGICAL PATHOLOGY Routine 05/06/2016 20:24 Resul ts for this EDT procedure are i n the results section. documented in this encounter Results SURGICAL PATHOLOGY (05/06/2016 20:24 EDT) Pathology Report: SURGICAL PATHOLOGY REPORT [facility] Reports generated via electronic interface contain walter ginal data; LABORATORY however they are lacking the format of the original re port. SERVICES Caution should be taken when reading/interpreting unfo rmatted reports. Name: ? SYLVIA CRUZ ? Accession #: ? [id number] ? : ? 1965 (Age: [age]) ??F ? Collect Date: ? 05/06/2016 ? Location: ? [facility] ? Receive Date: ? 6 ? Provider: JESSEE CHACON MD Copy to: ? Final Pathologic Diagnosis: A. SMALL BOWEL, SECOND PORTION OF DUODENUM, BIOPSY: - ??Peptic duodenitis. B. STOMACH, ANTRUM AND BODY, BIOPSY: - ??Antral and oxyntic mucosa with Helicobacter pylori associated follicular gastritis. - ??Positive for intestinal metaplasia; negative for d ysplasia - ??See comment C. ESOPHAGUS, DISTAL, BIOPSY: - ??Cardia-oxyntic mucosa with Helicobacter pylori ass ociated carditis. - ??Negative for intestinal metaplasia; negative for d ysplasia. - ??No squamous epithelium is present. Comment: Positive for Helicobacter pylori gastrit is was reported to Dr. Chacon's medical assistance, Ms. Bedoya, at 1:45 PM on 05/09/2016. Due to the extent to inflammation, follow up afte r completion of Helicobacter infection treatment is recommended. Dr. Cbourn 05/09/2016 1:59 PM Document reviewed and electronically signed by: NORMA COBURN MD Report ??Date: 05/09/2016 14:01 By the signature above, the attending physician certif ies that he/she has personally conducted a gross and/or microscopic examin ation of the described specimens and rendered or confirmed the above diagnosi s. Specimen(s) Received: A. ??2nd portion duodenum bx B. ??Antrum + body bx C. ??Distal esophagus bx Clinical History: Chest pain (non-cardiac); clinical diagnosis code: R07 .9 Gross Description: A. ?Received in formalin labelled with proper p atient identification (initials C, P) and 2nd por tion duodenum bx are two johnson tissues averaging 0.2 x 0.1 x 0.1 cm. Entirely submitted in A1. B. ?Received in formalin labelled with proper p atient identification (initials C, P) and antrum + body bx are two johnson-guzmán tissues averaging 0.2 x 0.1 x 0.1 cm. Entirely submitted in B1. C. ?Received in formalin labelled with proper p atient identification (initials C, P) and distal esophageal bx is a johnson nodular tissue, 0.2 x 0.1 x 0.1 cm. Entirely submitted in C1. SHARLENE Gardner (ASCP) 05/08/2016 8:36 AM End of Report Specimen Performing Organization Address City/State/ZIP Code Phon e Number [facility] [address] [place] [id number] SERVICES documented in this encounter Visit Diagnoses Not on filedocumented in this encounter Care Teams Tile Shader Relationship Specialty Start Date End Date Nalini Riddle PA-C PCP - General 09/09/13 [address] [place] [phone] documented as of this encounter
--- OUTSIDE RECORDS SUMMARY | 2022-06-20 01:00 | XMS_ITS | Encounter Summary ---
:1965 Author Organization [facility] Address [address] [place] [address] Care Team Providers Name Role Phone Melanytessie Nalini Rogers PA-C Primary Care Provider [phone] Encounter Details Date Type Department Care Team Description 06/26/2021 Lab Requisition [facility] Joel Cavazos for other Pathology & MD Terrence general examination Laboratory Medicine [address] [place], [place] [address] [facility] [id number] [place] [id number] Social History Tobacco Use Types Packs/Day Years Used Date Never Assessed Sex Assigned at Date Recorded Not on file documented as of this encounter Plan of Treatment Not on filedocumented as of this encounter Procedures Procedure Name Priority Date/Time Associated Diagnosis Comme nts SURGICAL PATHOLOGY Today 06/26/2021 9:10 EDT Encounter for o ther Results for this general examination procedur e are in the results section. documented in this encounter Results SURGICAL PATHOLOGY (06/26/2021 9:10 EDT) Note to Patient The following [facility] pathology results have CENTER been interpreted by LABORATORY your pathologist and SERVICES may be available to you before your health provider has had the opportunity to review them. Please allow time for your provider to receive these results and explore management options, if applicable. Final Diagnosis A. STOMACH, ANTRUM, BIOPSY: [facility] - Gastric fundic mucosa with no significant diagnostic abnormalities. CENTER - Negative for Helicobacter pylori on H&E stained sect ions. LABORATORY SERVICES B. GASTROESOPHAGEAL JUNCTION, BIOPSY: - Cardiac mucosa with mild a ctive chronic gastritis and reactive foveolar hyperplasia; features consistent with reflux esophagitis. - Negative for intestinal metaplasia and dysplasia. Attestation There was significant [facility] Electr onically resident/fellow CENTER signed by birgit Judd in the LABORATORY Dejuan Conrad on diagnostic evaluation SERVICES 021 at 1154 of this case. By the signature below, the attending physician certifies that they have personally conducted a gross and/or microscopic examination of the described specimens and rendered or confirmed the above diagnosis. Clinical History GERD, laryngospasms [facility] SERVICES Gross Description A. [facility] Received in formalin gustavo d with proper patient identification (initials C, P) and antrum Bx are 3 fragments of johnson tissue ranging from 0.3-0.5 cm in greatest dimension. The specimens are submitted in A1. [facility] B. SERVICES Received in formalin gustavo d with proper patient identification (initials C, P) and GE junction Bx are 2 fragments of johnson tissue; each measuring 0.3 x 0.3 x 0.3 cm. The specimens are submitted in B1. SHARLENE KRAMER([facility]) 06/26/2021 16:06 Resident/Fellow: Deepika Tillman, [facility] SERVICES Performing Lab [facility] Scanned Images [facility] SERVICES Specimen Tissue - Entire esophago-gastric mucosal junction (body structure) Tissue specimen (specimen) - Entire esop hago-gastric mucosal junction (body structure) Performing Organization Address City/State/ZIP Code Phon e Number [facility] [address] [place] [address] SERVICES documented in this encounter Visit Diagnoses Diagnosis Encounter for other general examination documented in this encounter Care Teams Smelting Engineer Relationship Specialty Start Date End Date Nalini Riddle PA-C PCP - General 09/09/13 [address] [place] [phone] documented as of this encounter
--- OUTSIDE RECORDS SUMMARY | 2022-06-20 01:00 | XMS_ITS | Encounter Summary ---
:1965 Author Organization [facility] Address [address] [place] [address] Care Team Providers Name Role Phone Unknown, Provider Primary Care Provider Encounter Details Date Type Department Care Team Description 09/07/2013 Hospital Encounter [facility] [place] Unknown, Provider, [facility] [address] [facility] [phone] [place] [address] (Work) [phone] Social History Tobacco Use Types Packs/Day Years Used Date Never Assessed Sex Assigned at Date Recorded Not on file documented as of this encounter Discharge Disposition Disposition Code Departure Means Destination Home or Self Nursing Home documented in this encounter Plan of Treatment Not on filedocumented as of this encounter Visit Diagnoses Not on filedocumented in this encounter Care Teams Pipe Threading Machine Operator Relationship Specialty Start Date End Date Unknown, Provider, PCP - General 10/03/09 09/08/13 documented as of this encounter
--- OUTSIDE RECORDS SUMMARY | 2022-06-20 01:00 | XMS_ITS | Encounter Summary ---
:1965 Author Organization [facility] Address [address] [place] [address] Care Team Providers Name Role Phone Janessa Nalini Rogers PA-C Primary Care Provider [phone] Encounter Details Date Type Department Care Team Description 04/02/2021 Lab Requisition [facility] Outr Resulting Lab, Pathology & Laboratory Provider [facility] [address] [place], [place] [address] Social History Tobacco Use Types Packs/Day Years Used Date Never Assessed Sex Assigned at Date Recorded Not on file documented as of this encounter Plan of Treatment Not on filedocumented as of this encounter Procedures Procedure Name Priority Date/Time Associated Comments Diagnosis HOLD SST Today 04/01/2021 10:30 Results for this EDT procedure are i n the results section. HOLD SST Today 04/01/2021 10:30 Results for this EDT procedure are i n the results section. CCP ANTIBODIES Today 04/01/2021 10:30 Results f or this EDT procedure are i n the results section. RHEUMATOID FACTOR Today 04/01/2021 10:30 Result s for this EDT procedure are i n the results section. ANTI NUCLEAR AB Today 04/01/2021 10:30 Results for this (KEITH), IFA EDT procedure are i n the results section. documented in this encounter Results HOLD SST (04/01/2021 10:30 EDT) Pathologist Sig nature Hold Hold [facility] SERVICES Specimen Blood - Venous blood (substance) Performing Organization Address City/State/ZIP Code Phon e Number [facility] [address] [place] [address] SERVICES HOLD SST (04/01/2021 10:30 EDT) Pathologist Sig nature Hold Hold [facility] SERVICES Specimen Blood - Venous blood (substance) Performing Organization Address City/[facility]/ZIP Code Phon e Number [facility] [address] [place] [address] SERVICES RHEUMATOID FACTOR (04/01/2021 10:30 EDT) Pathologist Sig nature Rheumatoid Factor <8.6 <12.0 IU/mL [facility] SERVICES Specimen Blood - Venous blood (substance) Performing Organization Address [facility] Phon e Number [facility] [address] [place] [address] SERVICES (ABNORMAL) ANTI NUCLEAR AB (KEITH), IFA (04/01/2021 10:30 EDT) KEITH Interpretation Positive (A) Negative [facility] Comment: [facility] For titers greater than or e qual to 1:160 (except the centromere and nucleolar patterns) it is recommended that specific follow-up autoantibody testing ??(such as for dsDNA and Extractable Nuclear Antig SERVICES ens) be performed on all diffuse and/or speckled patterns NOTE: For add-on testing dsD NA is stable for 7 days refrigerated while Extractable Nuclear Antigens are only stable for 48 hours refrigerated. KEITH Titer and Pattern 1:[address] LABORATORY SERVICES Specimen Blood - Venous blood (substance) Narrative [facility] SERVICES - 04/03/2021 13:50 EDT Results were obtained with the INOVA NOV A Lite HEp-2 KEITH Kit by indirect immunofluorescence. Performing Organization Address City/[facility]/ZIP Code Phon e Number [facility] [address] [place] [address] SERVICES CCP ANTIBODIES (04/01/2021 10:30 EDT) Pathologist Sig nature CCP Antibodies <2.5 <5.0 U/mL [facility] ORY SERVICES Specimen Blood - Venous blood (substance) Performing Organization Address City/[facility]/ZIP Code Phon e Number [facility] [address] [place] [address] SERVICES documented in this encounter Visit Diagnoses Not on filedocumented in this encounter Care Teams Certified Phlebotomist Relationship Specialty Start Date End Date Nalini Riddle PA-C PCP - General 09/09/[address] [place] [phone] documented as of this encounter
--- OUTSIDE RECORDS SUMMARY | 2022-06-20 01:00 | XMS_ITS | Encounter Summary ---
:1965 Author Organization [facility] Address [address] [place] [address] Care Team Providers Name Role Phone Nalini Riddle PA-C Primary Care Provider [phone] Encounter Details Date Type Department Care Team Description 03/24/2016 Hospital Encounter [facility] - Unknown, Pro[facility] catalina, [facility] [phone] [place] [address] (Work) [place] [address] Social History Tobacco Use Types Packs/Day Years Used Date Never Assessed Sex Assigned at Date Recorded Not on file documented as of this encounter Discharge Disposition Disposition Code Departure Means Destination Home or Self Custodial documented in this encounter Plan of Treatment Not on filedocumented as of this encounter Visit Diagnoses Not on filedocumented in this encounter Care Teams Fry Cook Relationship Specialty Start Date End Date Nalini Riddle PA-C PCP - General 09/09/[address] [place] [phone] documented as of this encounter
--- OUTSIDE RECORDS SUMMARY | 2022-06-20 01:00 | XMS_ITS | Encounter Summary ---
:1965 Author Organization [facility] Address [address] [place] [address] Care Team Providers Name Role Phone Unknown, Provider Primary Care Provider Encounter Details Date Type Department Care Team Description 09/07/2013 Hospital Encounter [facility] [place] Unknown, Provider, [facility] 0 [facility] [phone] [place] [address] (Work) [phone] Social History Tobacco Use Types Packs/Day Years Used Date Never Assessed Sex Assigned at Date Recorded Not on file documented as of this encounter Discharge Disposition Disposition Code Departure Means Destination Home or Self Retirement documented in this encounter Plan of Treatment Not on filedocumented as of this encounter Visit Diagnoses Not on filedocumented in this encounter Care Teams Job Spotter Relationship Specialty Start Date End Date Unknown, Provider, PCP - General 10/03/09 09/08/13 documented as of this encounter
--- NOTE | 2022-06-20 10:00 | DI.RAD_ITS ---
Exam(s) XR THUMB LT EXAM: XR THUMB LT EXAM DATE/TIME: CLINICAL HISTORY: LT THUMB PAIN, M79.645. TECHNIQUE: 2D digital imaging was performed of the left finger. Three views were obtained. PA/AP, oblique, and lateral views were obtained. COMPARISON: None. FINDINGS: BONES: No acute fracture is present. No bony destructive lesion is seen. JOINTS: No dislocation is present. Mild degenerative changes are seen in the hand with joint space n arrowing and marginal osteophytes. The findings are appreciated at the interphalangeal joint of the thumb and several of the interphalangeal joints of the fingers. SOFT TISSUE: Normal. IMPRESSION: Mild degenerative changes of the hand. DATA REPOSITORY: RADIATION DOSE DELIVERED:
== END ==
PROVIDERS: PCP Physician Assistant Medical; Visit Provider Nurse Practitioner Family
DX: M19.042 Primary osteoarthritis, left hand (principal)
CPT/HCPCS: 73140

== ENCOUNTER 2022-09-03 03:20 | Outpatient (CLI) | payer MEDICAID, SELFPAY ==
[2022-09-03 13:21] LABS: TSH 2.62 uIU/mL (0.36-3.74)
== END 2022-09-03 03:21 | disposition home or self-care (01) ==
LOC: LBO 03:20
PROVIDERS: PCP Physician Assistant Medical; Visit Provider Physician Assistant Medical
DX: E06.3 Autoimmune thyroiditis (principal)
CPT/HCPCS: 36415; 84443

== ENCOUNTER 2022-10-03 09:47 | Outpatient (CLI) | payer MEDICAID, SELFPAY ==
--- NOTE | 2022-10-03 08:45 | DI.RAD_ITS ---
Exam(s) XR HAND LT COMPLETE EXAM: XR HAND LT COMPLETE CLINICAL HISTORY: eval L hand arthritis. TECHNIQUE: 2D digital imaging was performed of the left hand. Three views were obtained. AP, later al and oblique views were obtained. COMPARISON: No exams were available for comparison FINDINGS: BONES: No acute fracture is present. No bony destructive lesion is seen. JOINTS: No dislocation present. Moderate degenerative changes are seen at the distal interphalangeal joints of the fingers with joint space narrowing and bony hypertrophy. The joint spaces are otherwis e well maintained. SOFT TISSUE: Normal. IMPRESSION: Moderate degenerative changes of the left hand. DATA REPOSITORY: RADIATION DOSE DELIVERED:
--- NOTE | 2022-10-03 08:45 | DI.RAD_ITS ---
Exam(s) XR HAND RT COMPLETE EXAM: XR HAND RT COMPLETE CLINICAL HISTORY: eval R hand arthritis. TECHNIQUE: 2D digital imaging was performed of the right hand. Three images were obtained. AP, late ral and oblique views were obtained. COMPARISON: CR XR THUMB RT from 10/24/2019 FINDINGS: BONES: No acute fracture is present. No bony destructive lesion is seen. JOINTS: No dislocation present. There are marked degenerative changes seen at the distal interphalang eal joints of the fingers with marked joint space narrowing and hypertrophic changes present. The ron int spaces are otherwise well maintained. SOFT TISSUE: Normal. 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 DATA REPOSITORY: RADIATION DOSE DELIVERED:
== END 2022-10-03 09:48 | disposition home or self-care (01) ==
LOC: DIORS 09:47
PROVIDERS: PCP Physician Assistant Medical; Visit Provider Student in an Organized Health Care Education/Training Program
DX: M79.641 Pain in right hand; M79.642 Pain in left hand; M19.041 Primary osteoarthritis, right hand; M19.042 Primary osteoarthritis, left hand
CPT/HCPCS: 73130

== ENCOUNTER 2022-10-28 01:33 | Outpatient (CLI) | payer MEDICAID, SELFPAY ==
--- NOTE | 2022-10-28 15:14 | DI.RAD_ITS ---
Exam(s) XR ANKLE RT COMPLETE EXAM: XR ANKLE RT COMPLETE CLINICAL HISTORY: ANKLE PAIN RT, M25.571. TECHNIQUE: 2D digital imaging was performed. COMPARISON: No exams were available for comparison FINDINGS: 3 views No fracture nor widening of the ankle mortise. Talar dome unremarkable. Small inferior calcaneal sp ur. No osseous tarsal coalition. IMPRESSION: No acute osseous findings. DATA REPOSITORY: RADIATION DOSE DELIVERED:
== END 2022-10-28 01:53 ==
PROVIDERS: PCP Physician Assistant Medical; Visit Provider Physician Assistant Medical
DX: M25.571 Pain in right ankle and joints of right foot (principal); M77.31 Calcaneal spur, right foot
CPT/HCPCS: 73610

== ENCOUNTER 2022-10-30 12:29 | Outpatient (CLI) | payer MEDICAID, SELFPAY ==
--- NOTE | 2022-10-30 06:00 | DI.RAD_ITS ---
Exam(s) XR PAIN CLINIC LUMBAR SP 2V EXAM: XR PAIN CLINIC LUMBAR SP 2V CLINICAL HISTORY: Dx: Lumbar Radiculopathy. TECHNIQUE: Fluoroscopy was provided for the referring physician for guidance with performing pain cl inic injection procedure. COMPARISON: No exams were available for comparison FINDINGS: Please see procedure note for details. Fluoro time: 15.9 seconds RADIATION DOSE DELIVERED: Ka,r=8.76 mGy
[2022-10-30 12:44] VITALS: BP 159/88; PULSE 66; RESP 20; TEMP 36.7; O2SAT 97
[2022-10-30 13:27] VITALS: BP 138/76; PULSE 76; RESP 19; O2SAT 96
[2022-10-30] MEDS: methylPREDNISolone ACETATE 80 MG/ML VIAL IJ (13:29)
[2022-10-30] MEDS: Omnipaque 240 MG/ML 50 ML BTL IJ (13:29)
--- NOTE | 2022-11-05 13:19 | PDOC.PAIN_ITS ---
Date of service: 10/30/22 Time of Service: 13:30 Pain Clinic Procedure Note Procedure Note Procedure Note: Lumbar Epidural Steroid Injection Procedure Note COMMENTS:She was previously evaluated. Pre-procedure pain VAS was 6/10. Dx: Lumbosacral radiculopathy Sylvia Prince has been referred to the [facility] for lumbar epidural steroid injection. The patient was greeted by the nurse who verified patients name and . Patient was then taken to the fluoroscopy suite. The patient was interviewed and the medial record reviewed. There were no medical, pharmacologic, radiographic, or other structural contraindications to attempting fluoroscopically guided lumbar epidural steroid injection. Risks and expected side effects as well as potential benefits of the procedure were reviewed and voiced concerns expressed. The patient consent form was signed and witnessed. Standard patient time-out procedure was performed. The patient was placed in the prone position on the fluoroscopy table and automated blood pressure cuff and pulse oximeter applied. The skin entry point for entering/approaching the epidural space at L5-S1 and marked. Following thorough chlorhexadine preparation of the skin and draping and 1% lidocaine infiltration of the skin entry point and subcutaneous tissues, a 18 gauge Touhy needle was placed under fluoroscopic guidance and with loss of resistance technique into the epidural space. Needle tip placement and depth were aided and confirmed by fluoroscopy. There was no paresthesia or return of blood or CSF through the needle. 1 cc's of Omnipaque 240 was injected with clear epidural spread confirmed with fluoroscopy. 80mg depomedrol was injected. There was not any unusual discomfort expressed by Sylvia Prince. Patient's vital signs were stable throughout the procedure and were as recorded in nursing records. Follow up plans and appointments were discussed with patient. Post procedure instruction was given as documented in nursing records and having met discharge criteria and was discharged from the [facility] Management [facility]. COMMENTS: If this procedure is helpful, it can be completed up to 3 times per 12 months. Post-procedure pain VAS was 2/10. Ramon Tejeda DO, MPH [facility]-Pain Management [facility]
== END 2022-10-30 12:30 | disposition home or self-care (01) ==
LOC: PC 12:30
PROVIDERS: PCP Physician Assistant Medical; Visit Provider Preventive Medicine Occupational Medicine
DX: M54.17 Radiculopathy, lumbosacral region (principal)
CPT/HCPCS: 62323; 72100; J1040; Q9967

== ENCOUNTER 2022-11-04 12:02 | Day surgery (SDC) | payer MEDICAID, SELFPAY ==
--- NOTE | 2022-11-04 12:41 | W.PM.DSUDISC ---
Date of service: 11/04/22 Time of Service: 15:22 Discharge Plan Disposition Patient Disposition: Home Condition: Good Discharge Details Reason For Visit: RMF, RRF and LLF cysts Attending Provider: [place] Primary Care Provider: Nalini Riddle Home Meds and New Rx's Prescriptions: New acetaminophen 500 mg tablet 500 mg PO Q6H PRN (Reason: pain) Qty: 60 2RF ibuprofen 600 mg tablet 600 mg PO TID PRN (Reason: pain) Qty: 60 0RF hydrocodone-acetaminophen 5-325 mg tablet 1 tab PO Q6H PRN (Reason: severe pain) Qty: 4 0RF Rx Instructions: Take one tablet up to every 6 hours as needed for severe postoperative pain Continued fluticasone propionate 50 mcg/actuation spray,suspension 1 spray intranasal DAILY Rx Instructions: administer into each nostril albuterol sulfate [ProAir HFA] 90 mcg/actuation HFA aerosol inhaler 2 puff inhalation Q6H PRN doxepin 10 mg capsule 10 mg PO QHS pantoprazole 40 mg tablet,delayed release (DR/EC) 40 mg PO DAILY levothyroxine 100 mcg tablet 100 mcg PO DAILY Patient Comments: TAKE 1 TABLET BY MOUTH EVERY DAY venlafaxine 75 mg Capsule,Extended Release 24hr 75 mg PO budesonide-formoterol [Symbicort] 80-4.5 mcg/actuation HFA aerosol inhaler 2 puff inhalation BID Qty: 10.2 6RF Rx Instructions: 2 puffs twice daily and 1 puff as needed for SOB, up to 12 puffs in 24 hours Discharge Instructions Additional Instructions: Finger Cyst Discharge Instructions Activity: You should keep the hand/thumb elevated as much as possible for the first few days. You may use the other fingers as tolerated but avoid trying to do too much too soon. You may perform light activities with the dressing in place. Dressing/Cast: You may remove your dressings in 48-72 hours. You can clean the incisions and cover with band-aides. Change dressings as needed until follow-up visit. Medications: - You should take Tylenol and Ibuprofen for baseline pain control. - You have Hydrocodone for breakthrough pain. - You may apply ice over the hands Follow-up: 10-14 days Stand Alone Forms: Anesthesia Discharge Octavia Cano (DSU) Referrals: [place] P[place] MD [ [facility] STAFF PHYSICIAN] - Activity:: Elevate Remove Dressings/Wound Care:: 72 hours Shower/Bathe:: 72 hours Diet:: As Tolerated Discharge Orders Discharge Orders: Discharge Order (Routine); Ordered 11/04/22 Ordered By: Tiana Crowell DS: Diagnosis Discharge Diagnosis (1) Mucous cyst of digits of both hands: Status: Acute
[2022-11-04 12:46] VITALS: BP 140/88; PULSE 64; RESP 16; TEMP 36.1; O2SAT 97
[2022-11-04] MEDS: Sodium Bicarbonate 50 MEQ/50 ML VIAL (15:21)
[2022-11-04] MEDS: Lidocaine 1% Multi-Dose W/EPI 1/100,000 50 ML VIAL (15:21)
[2022-11-04 15:37] VITALS: BP 147/78; PULSE 72; RESP 16; TEMP 36; O2SAT 96
--- NOTE | 2022-11-04 17:37 | W.PM.OP ---
Date of service: 11/04/22 Time of Service: 15:15 Operative Note Operative Note DATE OF PROCEDURE: 11/04/22 PRE-OP DIAGNOSIS: Mucous Cysts - Right Middle and Ring Fingers, Left Little Finger POST-OP DIAGNOSIS: same PROCEDURE: Mucous Cyst Excision - Right Middle and Ring and Left Little Finger SURGEON: West Peralta ANESTHESIA TYPE: Local By Surgeon Refer to Anesthesia Record ESTIMATED BLOOD LOSS: 5 PATHOLOGY: none sent COMPLICATIONS: None Patient was transported to: same day Patient's condition: stable Indications: I have seen Lizeth in clinic for symptoms of a digital mucous cyst. The mass persisted and caused pain to direct contact and with use. The diagnosis of a mucous cyst was made involving 3 digits. The cyst have been present for some time and had not gone down and had also broken through the skin on multiple occasions. Therefore, I discussed cyst excision with the patient. I reviewed the risks of the procedure to include, but not limited to, bleeding, infection, pain, stiffness, recurrence, damage to nerves or vessels. Despite these risks, the patient elected to proceed. Findings: There was a cyst of the distal phalanx, arising from the DIP joint, of all 3 digits. The cyst and its capsule was removed and an arthrotomy at the cyst location performed in all 3 digits. Procedure Description: Sylvia was greeted in the preoperative holding area where the correct side was identified and marked. The consent was reviewed with the patient and signed. All questions were answered. She was taken back to the operating room. The patient was placed into the supine position on the operating room table with the right arm on an arm board. All bony prominences were well padded. No prophylactic antibiotics were administered since this was a clean, elective hand surgical case. The right arm was then prepped with Chloraprep and draped in a standard fashion with U drape. A timeout to confirm correct identity, side and site, procedure, allergies, anesthesia, and medical concerns was performed. A digital block of the right middle and ring fingers was then performed using 1% lidocaine with epinephrine and buffered with sodium bicarbonate. This was allowed time to set up completely and was tested before proceeding with the case. Starting with the middle finger of the right hand, a longitudinal incision was then made overlying the cyst. The skin was incised sharply. Full-thickness flaps were then elevated to expose the cyst. The cyst capsule was then removed with a rongeur and followed back towards the DIP joint. Using the rongeur and a [place] I was able to penetrate into the DIP joint creating a small arthrotomy from the origin of the mucous cyst. The finger was irrigated and once again checked to make sure that all components of the cyst were removed. The skin was then closed using a #4-0 nylon in interrupted fashion. Attention was then turned to the ring finger. A longitudinal incision was then made overlying the cyst. The skin was incised sharply. Full-thickness flaps were then elevated to expose the cyst. The cyst capsule was then removed sharply and with a rongeur and followed back towards the DIP joint. Using the rongeur and tenotomy scissor, I was able to penetrate into the DIP joint creating a small arthrotomy from the origin of the mucous cyst. The finger was irrigated and once again checked to make sure that all components of the cyst were removed. The skin was then closed using a #4-0 nylon in interrupted fashion. The fingers were dressed with Xeroform, 4 x 4, conform dressing. The back table was kept sterile and the bed was rotated for the left hand. The left hand was then prepped ChloraPrep and draped with a standard U-Drape. A digital block of the left little finger was then performed using 1% lidocaine with epinephrine and buffered with sodium bicarbonate. This was allowed time to set up completely and was tested before proceeding with the case. A longitudinal incision was then made overlying the cyst. The skin was incised sharply. Full-thickness flaps were then elevated to expose the cyst. The cyst capsule was then removed with a rongeur and followed back towards the DIP joint. Using the rongeur and a [place] I was able to penetrate into the DIP joint creating a small arthrotomy from the origin of the mucous cyst. The finger was irrigated thoroughly. The skin was then closed using a #4-0 nylon in interrupted fashion. The wound of the finger was dressed with Xeroform, 4 x 4's, conform dressing. The patient tolerated the procedure well and was returned to the Same Day Surgery area in a stable condition suffering no known complication.
== END 2022-11-04 16:16 | disposition home or self-care (01) ==
PROVIDERS: PCP Physician Assistant Medical; Visit Provider Student in an Organized Health Care Education/Training Program
PROC: (CPT 26160; principal; 2022-11-04 15:00)
DX: M67.441 Ganglion, right hand (principal); M67.442 Ganglion, left hand
CPT/HCPCS: 26160 ×3

== ENCOUNTER 2023-01-27 06:12 | Day surgery (SDC) | payer MEDICAID, SELFPAY ==
[2023-01-27 06:25] VITALS: BP 135/81; PULSE 76; RESP 16; TEMP 36.6; O2SAT 95
--- NOTE | 2023-01-27 07:16 | W.PM.DSUDISC ---
Date of service: 01/27/23 Time of Service: 07:19 Discharge Plan Disposition Patient Disposition: Home Condition: Good Discharge Details Reason For Visit: RMF Cyst Attending Provider: West Peralta Primary Care Provider: Nalini Riddle Home Meds and New Rx's Prescriptions: New acetaminophen 500 mg tablet 500 mg PO Q6H PRN (Reason: pain) Qty: 60 2RF ibuprofen 600 mg tablet 600 mg PO TID PRN (Reason: pain) Qty: 60 0RF hydrocodone-acetaminophen 5-325 mg tablet 1 tab PO Q6H PRN (Reason: severe pain) Qty: 4 0RF Rx Instructions: Take one tablet up to every 6 hours as needed for severe postoperative pain Continued acetylcysteine [NAC] 600 mg capsule 1,200 mg PO QAM fluticasone propionate [Flonase Allergy Relief] 50 mcg/actuation spray,suspension 1 spray intranasal DAILY Rx Instructions: administer into each nostril albuterol sulfate [ProAir HFA] 90 mcg/actuation HFA aerosol inhaler 2 puff inhalation Q6H PRN doxepin 10 mg capsule 30 mg PO QHS pantoprazole 40 mg tablet,delayed release (DR/EC) 40 mg PO DAILY levothyroxine 100 mcg tablet 100 mcg PO DAILY Patient Comments: TAKE 1 TABLET BY MOUTH EVERY DAY venlafaxine 75 mg Capsule,Extended Release 24hr 75 mg PO DAILY budesonide-formoterol [Symbicort] 80-4.5 mcg/actuation HFA aerosol inhaler 2 puff inhalation BID PRN Rx Instructions: 2 puffs twice daily and 1 puff as needed for SOB, up to 12 puffs in 24 hours Discharge Instructions Additional Instructions: Finger Cyst Discharge Instructions Activity:?You should keep the hand/thumb elevated as much as possible for the first few days.? You may use the other fingers as tolerated but avoid trying to do too much too soon.? You may perform light activities with the dressing in place. Dressing/Cast:?You may remove your dressings in 48-72 hours. You can clean the incisions and cover with band-aides. Change dressings as needed until follow-up visit. Medications: - You should take Tylenol and Ibuprofen for baseline pain control. - You have Hydrocodone for breakthrough pain. - You may apply ice over the hands Follow-up:?10-14 days Referrals: [place] Peralta MD [ [facility] STAFF PHYSICIAN] - Activity:: Elevate Remove Dressings/Wound Care:: 72 hours Shower/Bathe:: 72 hours Diet:: As Tolerated Discharge Orders Discharge Orders: Discharge Order (Routine); Ordered 01/27/23 Ordered By: Tiana Crowell
[2023-01-27] MEDS: Sodium Bicarbonate 50 MEQ/50 ML VIAL (07:37)
[2023-01-27] MEDS: Lidocaine 1% Pres-Free W/EPI 1/200,000 30 ML VIAL (07:38)
[2023-01-27 08:10] VITALS: BP 141/82; PULSE 69; RESP 16; TEMP 36.2; O2SAT 96
--- NOTE | 2023-01-27 21:24 | W.PM.OP ---
Date of service: 01/27/23 Time of Service: 08:00 Operative Note Operative Note DATE OF PROCEDURE: 01/27/23 PRE-OP DIAGNOSIS: Recurrent Right Middle Finger Mucous Cyst POST-OP DIAGNOSIS: same PROCEDURE: Excision of RMF Mucous Cyst with Osteophyte Excision from DIP joint SURGEON: [place] P[place]ta ANESTHESIA TYPE: Local By Surgeon Refer to Anesthesia Record ESTIMATED BLOOD LOSS: 5 PATHOLOGY: none sent TOURNIQUET TIME: 0 COMPLICATIONS: None Patient was transported to: same day Patient's condition: stable Indications: I have seen Lizeth in clinic for symptoms of a digital mucous cyst. She underwent excision of multiple digital mucous cyst but unfortunately had a a quick return. It was thinning the skin and thus I recommended repeat cyst excision with the patient. I reviewed the risks of the procedure to include, but not limited to, bleeding, infection, pain, stiffness, recurrence, damage to nerves or vessels. Despite these risks, the patient elected to proceed. Findings: There was a small cyst with notable scarring around it. Large osteophytes of the DIP joint were removed. Procedure Description: Lizeth was greeted in the preoperative holding area where the correct side was identified and marked. The consent was reviewed with the patient and signed. All questions were answered. Lizeth was taken back to the operating room. The patient was placed into the supine position on the operating room table with the right arm on an arm board. All bony prominences were well padded. No prophylactic antibiotics were administered since this was a clean, elective hand surgical case. The right arm was then prepped with Chloraprep and draped in a standard fashion with stockinette and extremity drape. A timeout to confirm correct identity, side and site, procedure, allergies, anesthesia, and medical concerns was performed. A digital block was then performed using 1% lidocaine with epinephrine and buffered with sodium bicarbonate. This was allowed time to set up completely and was tested before proceeding with the case. A longitudinal incision was then made overlying the cyst. The skin was incised sharply. Full-thickness flaps were then elevated to expose the cyst. The cyst capsule was then removed with a rongeur and followed back towards the DIP joint. There was minimal cyst seen here but there was significant amount of scarring around the area. I did extend the incision slightly more distal and proximal for better visualization. Then, using the rongeur and a [place] I was able to penetrate into the DIP joint creating a small arthrotomy from the origin of the mucous cyst. There was significant release of fluid in doing this. I used a rongeur to remove osteophytes from the DIP joint, both proximal phalanx and distal phalanx. The finger was then irrigated and once again checked to make sure that all components of the cyst were removed. The skin was then closed using a #4-0 nylon in interrupted fashion. The finger was dressed with Xeroform, 4 x 4, conform dressing. The patient tolerated the procedure well and was returned to the Same Day Surgery area in a stable condition suffering no known complication.
== END 2023-01-27 08:37 | disposition home or self-care (01) ==
PROVIDERS: PCP Physician Assistant Medical; Visit Provider Student in an Organized Health Care Education/Training Program
PROC: (CPT 26160; principal; 2023-01-27 07:30)
DX: M25.841 Other specified joint disorders, right hand (principal); M25.741 Osteophyte, right hand
CPT/HCPCS: 26160

== ENCOUNTER → 2023-07-07 00:46 | Outpatient (CLI) | payer MEDICAID, SELFPAY ==
--- NOTE | 2023-07-07 | DI.MAMMO_ITS ---
Exam(s) MAMMO SCREENING EXAM: MAMMO SCREENING CLINICAL HISTORY: Screening Z12.31 TECHNIQUE: Mammograms were interpreted according to the usual protocol including computer analysis w [employer] CAD system, tomosynthesis and C-view imaging. COMPARISON: 2013 through 2020 FINDINGS: The breasts are composed of scattered fibroglandular densities, Breast Density category B. No suspicious masses or suspicious microcalcifications are seen. No skin thickening or abnormal axillary lymph nodes are seen. There has been no significant change from prior exams. IMPRESSION: BI-RADS Category 1, Negative mammogram Yearly screening mammography is recommended. Breast Density - Category B, scattered fibroglandular densities. A negative radiographic report should not delay biopsy if a dominant or clinically suspicious mass is present. Up to ten percent of cancers are not identified on mammography. A negative report may reinforce clinical impression. Adenosis and dense breasts may obscure an underlying neoplasm. False positive reports average 6 to 10%. Patient will receive a letter notifying them of these results.
== END ==
PROVIDERS: PCP Physician Assistant Medical; Visit Provider Physician Assistant Medical
DX: Z12.31 Encounter for screening mammogram for malignant neoplasm of breast (principal)
CPT/HCPCS: 77063; 77067

== ENCOUNTER → 2023-12-17 00:42 | Outpatient (CLI) | payer MEDICAID, SELFPAY ==
--- NOTE | 2023-12-17 | ETT_ITS ---
APPROVED REPORT Exam: Exercise Treadmill Patient Location: Out-Patient Room/Bed: Stress Nurse: Dhara Jameson RN Ordering Provider:TAMEKABULLMimi GRAVES, Contact Number: [phone] BMI: 34.13 Baseline Rhythm: Sinus Rhythm Comment: PAC's bigeminy Indications: Chest pain Medical History Medical History: CARISSA, GERD, hashimotos thyroiditis, anxiety/depression, OA, hypothyroid Cardiac Medications: None Allergies: Plant extracts, cephalexin, codeine Cardiac Risk Factors: Asthma Previous Cardiac Procedures: None Pretest Chest Pain Characteristics: None Exercise History: Sedentary Physical Disabilities: None Lung Sounds: Clear to auscultation Heart Sounds: Regular Stress Test Details Test: Exercise stress testing was performed using a Nas protocol. Rest Stress HR Resting HR Supine: 76 bpm Max Heart Rate (APMHR): 162 bpm Resting HR Standin bpm Target HR (85% APMHR): 138 bpm Max HR Achieved: 136 bpm % of APMHR: 84 Recovery HR: 84 bpm HR response to stress: Normal HR response to stress BP Resting BP Supine: 142/90 mmHg Resting BP Standin/92 mmHg Max BP: 184/88 mmHg Recovery BP: 152/88 mmHg BP response to stress: Normal blood pressure response to stress. ECG Resting ECG: Sinus Rhythm Ectopy: PAC's, bigeminy Stress ECG: Sinus Tachycardia ST Change: Nondiagnostic low heart rate Arrhythmia: PVC's, bigeminy Recovery ECG: Sinus Rhythm Recovery ST Change: Nondiagnostic low heart rate Recovery Arrhythmia: PAC's, PVC's, bigeminy Clinical Reason for Termination: Dizziness, SOB Stress Symptoms: SOB, Dizziness Exercise duration: 03 min59 sec Highest Stage Reached: Stage 2: 2.5 mph at 12% grade. Exercise capacity: 5.82 METs Angina Score: None Cervantes Treadmill Score: 2.2 Rate Pressure Product: 02321 Stress ECG Conclusion 1. Resting EKG showed sinus rhythm, atrial premature beat, within normal limits 2. Patient exercised on the Nas protocol and completed a workload of 5.82 METS 3. Peak heart rate achieved was 85% of maximal predicted for age 4. Bigeminy was noted. This was either atrial bigeminy with aberrancy or ventricular bigeminy 5. The electrocardiographic portion of the test was uninterpretable to ectopy Cervantes Treadmill Score is 2.2 which is Moderate risk. Stress Test Summary STAGE Time (mins) Speed (mph) Grade (%) HR BP SpO2 SYMPTOMS METS Supine 76 142/90 Standing 78 144/92 1 3 1.7 10 121 154/86 4.5 2 6 2.5 12 130 7 1 min recovery 113 182/70 3 min recovery 94 184/88 6 min recovery 84 152/88
== END ==
PROVIDERS: PCP Physician Assistant Medical; Visit Provider Physician Assistant Medical
DX: R07.89 Other chest pain (principal); I51.7 Cardiomegaly; I25.10 Atherosclerotic heart disease of native coronary artery without angina pectoris
CPT/HCPCS: 93017

== ENCOUNTER 2023-12-17 16:51 | Emergency (ER) | payer MEDICAID, SELFPAY ==
[2023-12-17] VITALS (15 sets, daily range): BP systolic 110–169; BP diastolic 71–106; PULSE 76–91; RESP 14–27; TEMP 36.6; O2SAT 95–97
--- NOTE | 2023-12-17 16:45 | RT.EKG_ITS ---
APPROVED REPORT Exam: Resting ECG Reason for Exam: Chest Pain Patient Location: E HR:90 bpm ECG Measurements Heart Rate 90 AXIS HI 133 P 79 QRSd 98 QRS 55 QT 391 T 73 QTc 478 Conclusion Sinus rhythm...normal P axis, V-rate 60- [address] depression, diffuse leads...ST <-0.03mV, ant/lat/inf sinus rhythm, normal axis, normal intervals, consider inferior lateral ST depressoons
--- NOTE | 2023-12-17 17:15 | DI.CT_ITS ---
Exam(s) CT THORAX ABD/PEL CTA EXAM: CT THORAX ABD/PEL CTA CLINICAL HISTORY: chest pain going to back, new murmur. TECHNIQUE: Imaging Protocol: Axial CT angiography was performed with multi-slice acquisition and mu lti-planar and/or 3D reconstructions. CONTRAST MATERIAL: Intravenous: Omnipaque 350 Contrast volume:100 ml COMPARISON: CT CT ABDOMEN PELVIS W from 12/15/2018 FINDINGS: CHEST: Pulmonary Arteries: Not well evaluated. Exam performed for the arterial system. No gross filling de fects. Tracheobronchial tree: No bronchiectasis or mucus plugging. Mediastinum and Ester: No dominant adenopathy or fluid collection. Pulmonary parenchyma: No consolidation or dominant measurable mass. Pleura: No effusion. No pneumothorax. Heart: The heart is mildlydilated. No coronary artery calcifications are seen. Aorta: Thoracic aorta non-dilated. No significant atherosclerotic changes. No evidence of dissection . Bones: Unremarkable for age. Tubes, Catheters, and Lines: None. Soft tissues: Unremarkable. ABDOMEN and PELVIS: Liver: Normal size. Normal density. No suspicious measurable mass. Portal, Superior Mesenteric, and Splenic Veins: Unremarkable. Gallbladder and Biliary Tract: No radiodense calculus. No biliary dilatation. Pancreas: Normal density, no abnormal calcifications or inflammatory process. Spleen: Normal. Adrenals: Stable small left adrenal adenoma. No follow-up recommended. Kidneys: Normal size, contour and axis. No radiodense stones. No obstructive uropathy. 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 No masses seen. Vasculature: Abdominal aorta non-dilated. No dissection. Minimal atherosclerotic changes. Some sma ll focus of plaque seen at the origin of the celiac axis without significant stenosis. Beading of th e bilateral renal arteries could indicate fibromuscular hyperplasia. Multiple accessory renal arteri es on the right. Single accessory renal artery on the left. The femoral veins show no significant a therosclerotic change. Incidental circumaortic left renal vein. Bowel: No obstruction or bowel wall thickening. Appendix is unremarkable. Peritoneal Cavity: No ascites, collection or mesenteric inflammatory response. Lymph Nodes: Within normal limits. Soft Tissues: Unremarkable. Bladder: Symmetric distention, no gross wall thickening. Reproductive Organs: Status post hysterectomy. Bones: Unremarkable for age.. IMPRESSION: 1. No evidence of aortic dissection or other acute abnormality in the chest. Heart is mildly enlarge d.. 2. No acute abdominal or pelvic process. Minimal atherosclerotic changes. 3. Beading of the bilateral renal arteries could indicate fibromuscular dysplasia. RADIATION DOSE DELIVERED: 1,211.44mGy.cm Total DLP DATA REPOSITORY: All CT scans at this facility are submitted to the National Radiology Data Registry (NRDR) Dose Index Registry (DIR) with the [employer] (ACR). RADIATION OPTIMIZATION: All CT scans at this facility use at least one of these dose optimization te chniques: automated exposure control; mA and/or kV adjustment per patient size (includes targeted exa ms where dose is matched to clinical indication); or iterative reconstruction.
[2023-12-17 17:25] LABS: Abs Immature Grans 0.01 10^3/uL (0.0-0.06); Absolute Basophil Count 0.06 10^3/uL (0.0-0.2); Absolute Eosinophil Count 0.14 10^3/uL (0.0-0.7); Absolute Lymphocyte Count 2.93 10^3/uL (1.2-3.4); Absolute Monocyte Count 0.59 10^3/uL (0.1-0.8); Absolute Neutrophil Count 3.15 10^3/uL (1.2-6.7); Basophils % 0.9; HCT 37.9 % (36.0-46.0); HGB 11.8 g/dL (11.2-15.7); Immature Grans % 0.1; Lymphocytes % 42.6; MCH 26.3 pg (27.0-33.0); MCHC 31.1 % (32.0-36.0); MCV 84 fL (80-95); MPV 10.4 fL (8.0-11.0); Monocytes % 8.6; Neutrophils % 45.8; Platelet Count 287 10^3/uL (130-400); RBC 4.49 10^6/uL (3.93-5.22); RDW 13.9 % (11.7-14.6); RDW-SD 42.7 fL; WBC 6.88 10^3/uL (4.4-10.8)
[2023-12-17 17:38] LABS: INR 1.1 (0.9-1.1); PTT Activated 27.7 sec (23.6-32.8)
--- NOTE | 2023-12-17 17:41 | ED.GENADUL_ITS ---
Discharge Plan Disposition Patient Disposition: Home Condition: Improving Discharge Details Chief Complaint: Chest Pain Clinical Impression: Chest pain Primary Care Provider: Nalini Riddle ED Provider: Saw Murray Home Meds and New Rx's Prescriptions: No Action fluticasone propionate [Flonase Allergy Relief] 50 mcg/actuation spray,suspension 1 spray intranasal DAILY Rx Instructions: administer into each nostril albuterol sulfate [ProAir HFA] 90 mcg/actuation HFA aerosol inhaler 2 puff inhalation Q6H PRN pantoprazole 40 mg tablet,delayed release (DR/EC) 40 mg PO DAILY levothyroxine 100 mcg tablet 100 mcg PO DAILY Patient Comments: TAKE 1 TABLET BY MOUTH EVERY DAY venlafaxine 75 mg Capsule,Extended Release 24hr 75 mg PO DAILY trazodone 50 mg tablet 50 mg PO DAILY Patient Comments: TAKE 1 TABLET BY MOUTH EVERY DAY hydroxyzine HCl 25 mg tablet 25 mg PO BID Patient Comments: TAKE 1 TABLET BY MOUTH TWICE DAILY FOR ACUTE ANXIETY budesonide-formoterol [Symbicort] 80-4.5 mcg/actuation HFA aerosol inhaler 2 puff inhalation BID PRN Rx Instructions: 2 puffs twice daily and 1 puff as needed for SOB, up to 12 puffs in 24 hours Discharge Instructions Instructions: Chest Pain (ED) Additional Instructions: Please follow-up closely with your primary care physician as well as cardiology HPI General Date/Time Provider Initiated Documentation: 12/17/23 17:07 . HPI Narrative: 58-year-old female presents with intermittent chest pain over the last couple of weeks to months, worsening this evening chest pain anterior rating to her shoulder blades, denies shortness of breath denies history of coronary disease or thromboembolic disease. Recently had a stress test. Related Data Home Medications Medication Instructions Recorded Confirmed albuterol sulfate 90 mcg/actuation 2 puff inhalation Q6H PRN 06/04/21 12/17/23 aerosol inhaler (ProAir HFA) fluticasone propionate 50 1 spray intranasal DAILY 06/04/21 12/17/23 mcg/actuation nasal spray,suspension (Flonase Allergy Relief) pantoprazole 40 mg tablet,delayed 40 mg PO DAILY 06/04/21 12/17/23 release levothyroxine 100 mcg tablet 100 mcg PO DAILY 06/24/21 12/17/23 venlafaxine 75 mg capsule,extended 75 mg PO DAILY 06/26/21 12/17/23 release 24 hr budesonide-formoterol HFA 80 2 puff inhalation BID PRN 01/27/23 12/17/23 mcg-4.5 mcg/actuation aerosol inhaler (Symbicort) hydroxyzine HCl 25 mg tablet 25 mg PO BID 12/17/23 12/17/23 trazodone 50 mg tablet 50 mg PO DAILY 12/17/23 12/17/23 Allergies Allergy/AdvReac Type Severity Reaction Status Date / Time codeine Allergy Intermediate hypersensitive. Verified 12/17/23 19:03 Can't sleep. feels wired mint AdvReac Mild Skin Rash Verified 12/17/23 19:03 cephalexin [Cephalexin] AdvReac Nausea/ GI Unverified 12/17/23 19:03 upset General Stated Complaint: Chest Pain ERNA: 2 Review of Systems Narrative: Review of Systems Constitutional: negative Eyes: negative ENT: negative Cardiovascular: Chest pain Respiratory: negative Gastrointestinal: negative : negative Musculoskeletal: negative Skin: negative Neurologic: negative Psych: negative Exam Narrative Exam Narrative: Physical Examination General: alert, awake, cooperative, resting comfortably, no acute distress HEENT: normocephalic, atraumatic; PERRL, EOM intact, conjunctiva normal; no nasal discharge; moist mucous membranes, oral and pharyngeal mucosa normal, tolerating secretions Neck: supple, trachea midline; full ROM Chest: normal to inspection Respiratory: normal respiratory effort, speaking in full sentences, clear to auscultation, no wheezing, rales or rhonchi Cardiac: regular rate, regular rhythm, S1S2 intact, heart murmur appreciated, normal pulses bilaterally equal GI: abdomen soft, non-tender, non-distended; no palpable mass or hepatosplenomegaly Skin: no lesions, rashes or trauma appreciated Neuro: AAOx3, normal speech, moving all extremities Psych: Appropriate mood and affect Course Vital Signs Vital signs: Vital Signs Temperature 36.6 C 12/17/23 16:54 Pulse 91 H 12/17/23 16:54 Respiratory Rate 17 12/17/23 16:54 Blood Pressure 168/106 H 12/17/23 16:54 Pulse Oximetry 97 12/17/23 16:54 Temperature 36.6 C 12/17/23 16:54 Temperature Source Skin 12/17/23 16:54 Pulse 91 H 12/17/23 16:54 Respiratory Rate 17 12/17/23 16:54 Respiratory Effort Normal 12/17/23 17:10 Respiratory Depth Normal 12/17/23 17:10 Respiratory Pattern Normal 12/17/23 17:10 Blood Pressure 168/106 H 12/17/23 16:54 Pulse Oximetry 97 12/17/23 16:54 Oxygen Delivery Method Room Air 12/17/23 16:54 Oxygen Flow Rate 0 12/17/23 16:54 Pain Level 4 12/17/23 16:54 Comment shoulder 12/17/23 16:54 Lab/Test Results Lab/Test Results: Laboratory Tests Range/Units 12/17/23 17:00 WBC (4.4-10.8) 10^3/uL 6.88 RBC (3.93-5.22) 10^6/uL 4.49 Hgb (11.2-15.7) g/dL 11.8 Hct (36.0-46.0) % 37.9 MCV (80-95) fL 84 MCH (27.0-33.0) pg 26.3 L MCHC (32.0-36.0) % 31.1 L RDW (11.7-14.6) % 13.9 Plt Count (130-400) 10^3/uL 287 MPV (8.0-11.0) fL 10.4 Immature Gran % 0.1 Neutrophils % 45.8 Lymphocytes % 42.6 Monocytes % 8.6 Eosinophils % 2.0 Basophils % 0.9 Nucleated RBC % (0.0-0.3) % 0.0 Absolute Neutrophils (1.2-6.7) 10^3/uL 3.15 Absolute Lymphocytes (1.2-3.4) 10^3/uL 2.93 Absolute Monocytes (0.1-0.8) 10^3/uL 0.59 Absolute Eosinophils (0.0-0.7) 10^3/uL 0.14 Absolute Basophils (0.0-0.2) 10^3/uL 0.06 PT (9.1-11.1) sec 11.0 INR (0.9-1.1) 1.1 APTT (23.6-32.8) sec 27.7 Medical Decision Making 58-year-old female history of hypertension, presents with several weeks of intermittent anterior chest pain now rating to her back, worse with exertion this evening denies shortness of breath nausea vomiting diaphoresis or presyncope. EKG showing inferior lateral ST depressions. Will review patient's recent stress test. Consider ACS versus aortic pathology as patient does have a murmur in the setting of chest pain going to her back versus less likely PE lower suspicion for pneumothorax or pneumonia muscles consider musculoskeletal discomfort. Will hold aspirin until CT angio results as negative for aortic dissection or aneurysm, labs close reassessment 18: 12 review of patient's exercise stress test shows bigeminy interpreted as either atrial bigeminy with a Kyle C or ventricular bigeminy. Blood pressure and heart rate improved since arrival. Resting comfortably no acute distress. Awaiting CTA chest abdomen pelvis, if negative will load with aspirin. Serial troponin to determine disposition 21: 10 patient resting comfortably no acute distress. Labs and imaging unremarkable. 2 troponin negative CTA chest negative for aortic pathology. Patient to follow-up close with cardiology team given recent stress test. Home care instructions and return precautions given Quality:SDOH Health Related Social Needs: Health related social needs risk of homeless, personal safety PFSH All Active Problems (Updated 12/17/23 @ 21:11 by Saw Murray MD) Chest pain (Acute) GERD (gastroesophageal reflux disease) (Chronic) Laryngospasm (Acute) Thyromegaly (Acute) Abnormal cardiovascular stress test (Acute) History of Helicobacter pylori infection (Acute) Asthma (Chronic) Pain of left thumb (Acute) Leg numbness (Acute) Lumbar radiculopathy (Acute) Arthritis of hand, left (Acute) Arthritis of right hand (Acute) Mucous cyst of digits of both hands (Acute) Excision of RMF Mucous Cyst with Osteophyte Excision from DIP joint DOS: 01/27/23 s/p RMF, RRF and LLF cyst excisions DOS: 11/04/22 Right hip impingement syndrome (Acute) Medical History Anxiety and depression Diverticulosis Elevated blood pressure reading Endometriosis Exposure to COVID-19 virus Sandeep's thyroiditis Hemorrhoids Hx of Hypertension Hypothyroidism Insomnia Multiple thyroid nodules Ovarian cyst Overweight Positive KEITH (antinuclear antibody) Right knee pain Snoring Urinary incontinence Surgical History H/O esophagogastroduodenoscopy 2016 History of hysterectomy History of left oophorectomy Hx of foot surgery L big toe S/P colonoscopy S/P wrist surgery Family History Father Hypertension Hyperlipidemia Diabetes Brother Hypertension Mother Stroke Social History Smoking/Tobacco Use Status: Never Smoking risk assessment performed?: Yes Alcohol Intake: former Drug use: Never Substance use type: does not use Household members: spouse Housing: house Number of Children: 3 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
[2023-12-17 18:02] LABS: ALT 24 U/L (14-59); AST 13 U/L (15-37); Albumin 4.1 g/dL (3.4-5.0); Alkaline Phosphatase 97 U/L (46-116); Anion Gap 9.3 mmol/L (3-11); BUN 14 mg/dL (7-18); Bilirubin, Total 0.4 mg/dL (0.2-1.0); CO2 27.7 mmol/L (21.0-32.0); CREATININE 0.8 mg/dL (0.55-1.02); Calcium 8.5 mg/dL (8.5-10.1); Chloride 106 mmol/L (98-107); Estimated GFR 85.35 (mL/min/1.73m2); Glucose 99 mg/dL (74-106); NT-proBNP 586 pg/mL (<300); Potassium 3.8 mmol/L (3.5-5.1); Sodium 143 mmol/L (136-145)
[2023-12-17 18:06] LABS: Troponin I < 50 ng/L (< or =60)
[2023-12-17] MEDS: Normal Saline - Diluent 50 ML VIAL IJ (18:15)
[2023-12-17] MEDS: Omnipaque 350 MG/ML 100 ML BTL IJ (18:16)
[2023-12-17] MEDS: Normal Saline Flush 10 ML SYR IVP (18:18)
[2023-12-17 18:40] LABS: *AMPHETAMINES SCREEN URINE Negative (Negative); *BARBITURATES SCREEN URINE Negative (Negative); *BENZODIAZEPINES SCREEN URINE Negative (Negative); Cannabinoids THC Negative (Negative); Cocaine Screen,Urine Negative (Negative); METHADONE URINE SCREEN Negative (Negative); OPIATES URINE SCREEN Negative (Negative)
[2023-12-17 18:42] LABS: Tricyclic Antidepressants Negative (Negative)
[2023-12-17 18:44] LABS: FREE T4 1.15 ng/dL (0.76-1.46)
[2023-12-17] MEDS: Aspirin 81 MG CHEW 324 MG CH (19:01)
--- NOTE | 2023-12-17 20:39 | NUR.NOTE ---
PT wounds cleansed and wound on R wrist closed with 3 steri strips and covered w/ xeroform and no-stick gauze covered in cling wrap, secured w/ tape. Wound on R upper arm and R ring finger also covered in xeroform and no-stick gauze covered in cling wrap, secured w/ tape. Pt tolerated procedure well. Nursing Note:
[2023-12-17 20:47] LABS: Troponin I < 50 ng/L (< or =60)
== END 2023-12-17 21:15 | disposition home or self-care (01) ==
PROVIDERS: Emergency Provider Emergency Medicine; PCP Physician Assistant Medical
DX: R07.9 Chest pain, unspecified (principal); I10 Essential (primary) hypertension
CPT/HCPCS: 36415; 71275; 80053; 80307; 93005; 99285; 74174; 83880; 84439; 84443; 84484; 85025; 85610; 85730; 93010; 99284; J3490

== ENCOUNTER 2023-12-30 16:09 | Outpatient (REF) | payer MEDICAID, SELFPAY ==
[2023-12-30 20:19] LABS: Calculated LDL 127 mg/dL (<100); Cholesterol 208 mg/dL (<200); HDL Cholesterol 45 mg/dL (40-60); TSH (W/Ref FT4) 1.75 uIU/mL (0.36-3.74); Triglyceride 184 mg/dL (<150)
== END 2023-12-30 16:10 | disposition home or self-care (01) ==
LOC: NCHCN 16:09
PROVIDERS: PCP Physician Assistant Medical; Visit Provider Physician Assistant Medical
DX: R07.9 Chest pain, unspecified (principal); E03.9 Hypothyroidism, unspecified
CPT/HCPCS: 80061; 84443

== ENCOUNTER 2024-05-25 17:25 | Outpatient (REF) | payer MEDICAID, SELFPAY ==
--- OUTSIDE RECORDS SUMMARY | 2024-05-25 17:27 | XMS_ITS | Encounter Summary ---
Author Organization [place] [address] Care Team Providers Care Optician Apprentice Dispensing Name Role Phone Nalini Riddle Primary Care Provider [phone]- [phone] Reason for Visit * Reason Comments Follow-up Skin Check * Consultation (Routine) - Specialty Diagnoses / Procedures Referred By Contmauro salas Referred To Contact Dermatology Diagnoses Skin lesion skin lesion Procedures Consult Nalini Riddle PA [address] [place] [address] [facility] Dermatology [address] [place] [id number] Referral ID Status Reason Start Date Expiration Date V isits Requested Visits Authorized [id number] Consult, Test & Treat PCP Updated and/or Approved 04/13/2019 10/14/2019 6 6 Encounter Details Date Type Department Care Team (Late st Contact Info) Description 07/28/2019 4:00 PM EST Office Visit Dermatology at [address] [phone] Tenzin Devlin MD [address] [facility] [place] [address] [place] (actinic keratosis); Seborrheic keratosis; Verruca vulgaris; Tinea unguium Social History Tobacco Use Types Packs/Day Years Used Date Smoking Tobacco: Never Smokeless Tobacco: Never Alcohol Use Standard Drinks/Week Comments Not Currently 0 (1 standard drink = 0.6 oz pur e alcohol) Sex and Gender Information Value Date Recorded Sex Assigned at Female 08/05/2021 6:15 PM EST Gender Identity Female 08/05/2021 6:15 PM EST Sexual Orientation Straight 08/05/2021 6: 15 PM EST documented as of this encounter Progress Notes * Tenzin Devlin MD - 07/28/2019 4:00 PM [...] light johnson some are flesh tone but some scattered diffusely and quite sparsely over her back [...] documented in this encounter Plan of Treatment Upcoming Encounters Date Type Department Care Team (Late st Contact Info) Description 08/10/2024 11:00 AM EST Office Visit Cardiology at [address] [place] [address] Chiara Maldonado MD [address] [place] [address] [place], [place] [id number] documented as of this encounter Visit Diagnoses Diagnosis AK (actinic keratosis) Actinic keratosis Seborrheic keratosis Other seborrheic keratosis Verruca vulgaris Viral warts, unspecified Tinea unguium Dermatophytosis of nail documented in this encounter Care Teams Optician Apprentice Dispensing Relationship Specialty Start Date End Date Nalini Riddle PA [address] [place] [address] PCP - General Family Medicine 12/28/18 04/10/20 documented as of this encounter
--- OUTSIDE RECORDS SUMMARY | 2024-05-25 17:27 | XMS_ITS | Encounter Summary ---
[place] [address] Care Team Providers Care Lunchroom Worker Name Role Phone Nalini Riddle Primary Care Provider +1- [phone] Encounter Details Date Type Department Care Team (Latest Contact Info) Description 02/17/2024 Travel Social History Tobacco Use Types Packs/Day Years [...] as of this encounter Plan of Treatment Upcoming Encounters Date Type Department Care Team (Late st Contact Info) Description 08/10/2024 11:00 AM EST Office Visit Cardiology at [address] [phone] Chiara Maldonado MD [address] [place] [address] DR CARDIOLOGY [place], [place] [id number] documented as of this encounter Visit Diagnoses Not on filedocumented in this encounter Care Teams Lunchroom Worker Relationship Specialty Start Date End Date Nalini Riddle PA [address] [place], [place] [address] PCP - General Family Medicine 02/26/21 documented as of this encounter
--- OUTSIDE RECORDS SUMMARY | 2024-05-25 17:27 | XMS_ITS | Encounter Summary ---
Author Organization [facility] [place] [address] Care Team Providers Care Engineer Remote Control Diesel Name Role Phone Nalini Riddle Primary Care Provider +1- [phone] Encounter Details Date Type Department Care Team (Late st Contact Info) Description 01/05/2024 Telephone Cardiology at [address] [place] [address] Lizzie Kenny, RN Social History Tobacco Use Types Packs/Day Years [...] documented as of this encounter Miscellaneous Notes * Telephone Encounter - Lizzie Kenny RN - 01/05/2024 12:02 PM EDT Images from the original note were not included. [facility] [address] [facility], [place] [address] Sylvia was referred to this Cardiology clinic by PCP SHARLENE Peña She presented to ER in [facility] for chest pain over several weeks. Abnormal stress test - bigeminy, PACS, . Active Ambulatory Problems Diagnosis Date Noted Abnormal cardiovascular stress test 01/05/2024 Acquired hypothyroidism 05/13/2017 Adrenal nodule 11/16/2019 GERD (gastroesophageal reflux disease) 01/05/2024 Laryngospasm 01/05/2024 Multiple thyroid nodules 05/13/2017 Shortness of breath 01/05/2024 Thyromegaly 01/05/2024 Chest pain 01/05/2024 Hyperlipidemia 01/05/2024 Resolved Ambulatory Problems Diagnosis Date Noted No Resolved Ambulatory Problems Past Medical History: Diagnosis Date Asthma Cyst of ovary Endometriosis Insomnia Thyroid disease Urine incontinence Past Surgical History: Procedure Laterality Date HYSTERECTOMY PRO COLONOSCOPY, DIAGNOSTIC N/A 01/25/2019 COLONOSCOPY, DIAGNOSTIC performed by Ken Lee MD at [facility] ENDOSCOPY SALPINGO-OOPHORECTOMY Left TOE SURGERY Left UPPER GASTROINTESTINAL ENDOSCOPY 2015 Current medications: levothyroxine (Synthroid) 100 mcg tablet traZODone (Desyrel) 50 mg tablet hydrOXYzine (Atarax) 25 mg tablet budesonide-formoteroL (Symbicort) 80-4.5 mcg/actuation inhaler (HFA) pantoprazole EC (Protonix) 40 mg Tablet, Delayed Release (E.C.) PROAIR HFA 90 mcg/actuation HFA Aerosol Inhaler fluticasone propionate (FLONASE) 50 mcg/actuation [place], Suspension venlafaxine (EFFEXOR-XR) 75 mg Capsule, Sust. Release 24 hr * Telephone Encounter - Lizzie Kenny RN - 01/05/2024 11:23 AM EDT ----- Message from Melissa Kline sent at 01/05/2024 10:54 AM EDT ----- Referral and records scanned documented in this encounter Plan of Treatment Upcoming Encounters Date Type Department Care Team (Late st Contact Info) Description 08/10/2024 11:00 AM EST Office Visit Cardiology at [address] [phone] Chiara Maldonado MD [address] [place] [address] [place] [address] documented as of this encounter Visit Diagnoses Not on filedocumented in this encounter Care Teams Engineer Remote Control Diesel Relationship Specialty Start Date End Date Nalini Riddle PA [address] [place] [address] PCP - General Family Medicine 02/26/21 documented as of this encounter
--- OUTSIDE RECORDS SUMMARY | 2024-05-25 17:27 | XMS_ITS | Encounter Summary ---
Author Organization [facility] [place] [address] Care Team Providers Care Cafeteria Server Name Role Phone Nalini Riddle Primary Care Provider +1- [phone] Encounter Details Date Type Department Care Team (Late Contact Info) Description 01/05/2024 Abstract Cardiology at [address] [phone] Lizzie Kenny, RN Social History Tobacco Use Types Packs/Day Years Used Date Smoking Tobacco: Never Smokeless Tobacco: Never Tobacco Cessation:Counseling Given: Not Answered Alcohol Use Standard Drinks/Week Comments Not Currently [...] 11:00 AM EST Office Visit Cardiology at [address] [phone] Chiara Maldonado MD [address] [place] [address] [place] [address] documented as of this encounter Visit Diagnoses Not on filedocumented in this encounter Care Teams Cafeteria Server Relationship Specialty Start Date End Date Nalini Riddle PA [address] [place] [address] PCP - General Family Medicine 02/26/21 documented as of this encounter
--- OUTSIDE RECORDS SUMMARY | 2024-05-25 17:27 | XMS_ITS | Encounter Summary ---
Author Organization [facility] [place] [address] Care Team Providers Care Chemistry Teacher Name Role Phone Nalini Riddle Primary Care Provider +1- [phone] Reason for Referral * Diagnostic Test (Routine) - New Request Specialty Diagnoses / Procedures Referred By Charles salas Referred To Contact Cardiology Diagnoses Aortic valve disease Procedures Echocardiogram Transthoracic Chiara Maldonado MD [address] [place] [address] [place] [address] Referral ID Status Reason Start Date Expiration Date Visits Requested Visits Authorized [id number] New Request Specialty Service Requested 02/17/2024 08/15/2024 1 1 Reason for Visit * Reason Comments Chest Pain Encounter Details Date Type Department Care Team (Late st Contact Info) Description 02/17/2024 9:40 AM EDT Office Visit Cardiology at [address] [phone] Chiara Maldonado MD [address] [place] [address] CARDIOLOGY [place], [place] [id number] Shortness of breath; Abnormal cardiovascular stress test; Aortic valve disease Social History Tobacco Use Types Packs/Day Years [...] as of this encounter Progress Notes * Chiara Maldonado MD - 02/17/2024 9:40 AM EDT CARDIOLOGY OUTPATIENT NEW PATIENT NOTE PRIMARY CARE PROVIDER: SHARLENE Tuttle REFERRING PROVIDER: Nalini Riddle PROBLEM LIST: Patient Active Problem List Diagnosis Abnormal cardiovascular stress test GERD (gastroesophageal reflux disease) Laryngospasm Shortness of breath Thyromegaly Chest pain Hyperlipidemia Adrenal nodule Acquired hypothyroidism Multiple thyroid nodules MEDICATIONS: Current Outpatient Medications Medication Sig Dispense Refill doxepin (SINEquan) 50 mg capsule Take 1 capsule by mouth Daily at Noon. LORazepam (Ativan) 0.5 mg tablet Take 0.5 mg by mouth every 6 hours as needed. One tab am and additional if afternoon as needed Acetylcysteine (NAC) 600 mg capsule Take 2 capsules by mouth daily. levothyroxine (Synthroid) 100 mcg tablet Take 100 mcg by mouth daily. budesonide-formoteroL (Symbicort) 80-4.5 mcg/actuation inhaler (HFA) Inhale 2 puffs into the lungs 2 times daily as needed (shortness of breath). pantoprazole EC (Protonix) 40 mg Tablet, Delayed Release (E.C.) TAKE 1 TABLET BY MOUTH EVERY DAY PROAIR HFA 90 mcg/actuation HFA Aerosol Inhaler inhale 2 puffs by mouth every 4 to 6 hours if needed 0 fluticasone propionate (FLONASE) 50 mcg/actuation [place], Suspension instill 1 spray into each nostril daily 0 venlafaxine (EFFEXOR-XR) 75 mg Capsule, Sust. Release 24 hr take 1 capsule by mouth once daily 0 No current facility-administered medications for this visit. Subjective: Patient ID: Sylvia Prince is a 58 y.o. female. HPI This 58-year-old woman presents for cardiac evaluation. She reports that back in August she began to note exertional chest discomfort and difficulty breathing. This would cause her to stop and rest when she was doing something. Her symptoms would improve but not resolve. At 1 point she carried a case of bottled water and became extremely short of breath and had severe chest pain. She ended up pre senting to the emergency room at [facility] where no obvious abnormality was found. She was referred for an exercise treadmill test. She was able to exercise on the Nas protocol for approximately 4 minutes, stopping due to dizziness and dyspnea. She did achieve 85% of predicted heart rate for age. A bigeminal rhythm was noted throughout which made the electrocardiographic portion of the test uninterpretable. It appeared they were PVCs, atrial premature beats with aberrancy less likely. Patient is no longer experiencing much in the way of exertional chest discomfort. She has palpitations when she is lying in bed at night. She is still short of breath with activity She was recently told she had a heart murmur and an echocardiogram has probably been ordered, it may be in [facility], not in [facility]. Review of System Review of Systems Cardiovascular: Positive for dyspnea on exertion and palpitations. Negative for chest pain, near-syncope and syncope. Respiratory: Positive for shortness of breath. All other systems reviewed and are negative. 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 Constitutional: Comments: Well-developed well-nourished no acute distress Neck: Comments: Carotid pulsations are palpable with bilateral transmitted murmurs No neck vein distention Cardiovascular: Comments: Heart is regular there is a harsh 3/6 systolic ejection quality murmur no diastolic murmur no gallop Pulmonary: Effort: Pulmonary effort is normal. Breath sounds: Normal breath sounds. Musculoskeletal: Comments: No peripheral edema Skin: General: Skin is warm and dry. EKG today shows sinus rhythm at 77 and is within normal limits Assessment and Plan: #1. Aortic valve disease. Patient's exam is concerning for aortic stenosis. I would like to start with an echocardiogram to evaluate further. Depending on findings, we will have follow-up to discuss next steps which may or may not include repeat exercise testing with imaging The echocardiogram request will be sent to [facility] as discussed with the patient Thank you for the opportunity to participate in this patient's cardiovascular care. All questions were answered and I look forward to the next visit. documented in this encounter Plan of Treatment Upcoming Encounters Date Type Department Care Team (Late st Contact Info) Description 08/10/2024 11:00 AM EST Office Visit Cardiology at [facility] [address] [place] [phone] Chiara Maldonado MD [address] [place] [address] DR CARDIOLOGY [place], [place] [id number] Scheduled Orders Name Type Priority Associated Diagnoses Order Schedule Echocardiogram Transthoracic Echocardiography Routine Aortic valve disease Expected: 03/02/2024, Expires: 05/19/2024 documented as of this encounter Procedures Procedure Name Priority Date/Time Associated Diagnosis Comments ECG SCAN 02/17/2024 12:00 AM EDT documented in this encounter Results * Scan Doc: ECG (02/17/2024 12:00 AM EDT) Narrative 02/17/2024 12:00 AM EDT Ordered by an unspecified provider. Scanning Provider MEDIA MGR SCAN EXT O RDR/RSLT documented in this encounter Visit Diagnoses Diagnosis Shortness of breath Abnormal cardiovascular stress test Other nonspecific abnormal cardiovascular system function study Aortic valve disease Aortic valve disorders documented in this encounter Care Teams Chemistry Teacher Relationship Specialty Start Date End Date Nalini Riddle PA [address] [place] [address] PCP - General Family Medicine 02/26/21 documented as of this encounter
--- OUTSIDE RECORDS SUMMARY | 2024-05-25 17:27 | XMS_ITS | Encounter Summary ---
Author Organization [facility] [place] [address] Care Team Providers Care Street Worker Name Role Phone Nalini Riddle Primary Care Provider +1- [phone] Encounter Details Date Type Department Care Team (Late st Contact Info) Description 03/04/2024 Telephone Cardiology at [address] [place] [address] Chiara Maldonado MD [address] [place] [address] DR CARDIOLOGY [place], [place] [id number] Social History Tobacco Use Types Packs/Day Years [...] encounter Miscellaneous Notes * Telephone Encounter - Nhi Iniguez RN - 03/08/2024 3:23 PM EDT Prior auth information received and order sent to scheduling at [facility]. * Telephone Encounter - Lizzie Kenny RN - 03/05/2024 2:56 PM EDT PUBLIC STATE OF EMERGENCY starting overnight March 02 - interfering with power and telephone and cellular services in [facility], and [facility]. Try again to call her week of March 07 * Telephone Encounter - Nhi Iniguez RN - 03/04/2024 2:38 PM EDT Sylvia calls in to ask about her echocardiogram order. She was made aware attempts had been made toverify if procedure needed a prior-auth. Unable to get through to her insurance company at this time. She was told when [facility] calls to schedule the echocardiogram if the time frame was not soon enough for her we could send order to another facility. Lizeth verbalized understanding. documented in this encounter Plan of Treatment Upcoming Encounters Date Type Department Care Team (Late st Contact Info) Description 08/10/2024 11:00 AM EST Office Visit Cardiology at [address] [place] [address] Chiara Maldonado MD [address] [place] [address] DR CARDIOLOGY [place], [place] [address] documented as of this encounter Visit Diagnoses Not on filedocumented in this encounter Care Teams Street Worker Relationship Specialty Start Date End Date Nalini Riddle PA [address] [place] [address] PCP - General Family Medicine 02/26/21 documented as of this encounter
--- OUTSIDE RECORDS SUMMARY | 2024-05-25 17:27 | XMS_ITS | Encounter Summary ---
Author Organization [facility] [place] [address] Care Team Providers Care Vice President Of Software Development Name Role Phone Nalini Riddle Primary Care Provider +1- [phone] Reason for Visit * Consultation (Routine) - Closed Specialty Diagnoses / Procedures Referred By Charles t Referred To Contact Rheumatology Diagnoses Raised antibody titer Pain in unspecified joint Nalini Riddle PA [address] [place] [address] [facility] [address] [place] [id number] Referral ID Status Reason Start Date Expiration Date V isits Requested Visits Authorized [id number] Closed Consult, Test & Treat [facility] PCP Updated and/or Approved 04/02/2021 04/02/2022 12 12 Encounter Details Date Type Department Care Team (Late st Contact Info) Description 06/17/2021 12:30 PM EDT Office [place] [address] Rachael Santoro II, DO [facility] [place] [address] Barber Burton MD [facility] [place] [address] Polyarthralgia Social History Tobacco Use Types Packs/Day Years [...] 175.3 cm (5' 9.02) 06/17/2021 12:04 PM E DT Body Mass Index 30.55 06/17/2021 12:04 PM EDT documented in this encounter Progress Notes * Barber Burton - 06/17/2021 12:30 PM EDT [...] feet sometimes when she has been on her feet for a [...] red/hot/swollen joints, frequent oral/nasal ulceration, thromboembolism or spo ntaneous miscarriages/abortions. She has gained approximately 15-20 lbs in the last 2 years. Medical History: Past Medical History: Diagnosis Date ??? Thyroid disease Surgical History: Past Surgical History: Procedure Laterality Date ??? PRO COLONOSCOPY, DIAGNOSTIC N/A 01/25/2019 COLONOSCOPY, DIAGNOSTIC performed by Ken Lee MD at [facility] ENDOSCOPY Family Hx: Family History Problem Relation [...] 175.3 cm (5' 9.02) Wt 93.9 kg (207lb) SpO2 98% BMI 30.55 kg/m?? General: Well [...] II through XII grossly intact. Strength 5/5 throughout, Sensation to light touch is grossly normal throughout. Skin: No rashes or lesions noted Nails: No nail pitting Extremities: Shoulders: FROM, non-tender to palpation Elbows:FROM Wrists: FROM, no swelling, non-tender Hands: No synovitis, bilateral Justino and [place] nodes, no MCP compression tenderness, full claw and fist Hips: FROM, no tenderness Knees: FROM, [...] KEITH. She has had pain and aching inher hands and the feet for almost a year now. Since the onset, the pain has been getting worse and is long-lasting nowadays. The right hand is more bothersome with the pain and stiffness. The pain inthe hands and feet is worse at the end of the day and it tends to get worse with activity. She alsodescribes feeling of tingling and shooting pain in the median nerve distribution in both hands, worse on right side and in the night. She has pain in her hips, knees and feet sometimes when she has been on her feet for a long time but this is not consistent. She has had hair loss for last couple ofyears and also describes change in the color of her fingers when exposed to cold and this is something which she noticed in the last year or so. No h/o prolonged morning stiffness, rash, photosensitivity, red/hot/swollen joints, frequent oral/nasal ulceration, thromboembolism or spontaneous miscarri ages/abortions. She has gained approximately 15-20 lbs in [...] arthritis at this time and her clinical presentation fits more with a mechanical etiology, especially osteoarthritis of hands with concomitant carpal tunnel syndrome. It is also possible her hypothyroidism might be making her joint symptoms worse. Presence of positive KEITH in this situation is of little clinical significance and this could be simply positive and presence of autoimmune thyroid disease. [...] Santoro. Barber Burton MD Rheumatology Fellow Pager: [phone] CC: SHARLENE Tuttle * Rachael Santoro II, DO - 06/17/2021 12:30 PM EDT Staff Addendum I have seen the patient and reviewed the above history and physical and I agree with the details aswritten. The assessment and plan were formulated in discussion with me and I agree with them as documented. Ms. Prince presents today for evaluation of polyarthralgias in the setting of a positive KEITH. On exam, she does not have signs or symptoms of an inflammatory arthritis but has evidence of osteoarthritis in her hands. We discussed trial of bracing, topical diclofenac gel, or scheduled oral nonsteroidals. She does not have signs or symptoms of a rheumatic disease thus the positive KEITH is likely of little clinical significance at this point. Rachael Santoro DO, MPH Rheumatology Staff documented in this encounter Miscellaneous Notes * Addendum Note - Rachael Santoro II, DO - 06/17/2021 12:30 PM EDTAddended by: RACHAEL SANTORO II on: 06/20/2021 04:11 PM Modules accepted: Level of Service documented in this encounter Plan of Treatment Upcoming Encounters Date Type Department Care Team (Late st Contact Info) Description 08/10/2024 11:00 AM EST Office Visit Cardiology at [address] [phone] Chiara Maldonado MD [address] [place] [address] [place] [address] documented as of this encounter Visit Diagnoses Diagnosis Polyarthralgia Pain in joint, multiple sites documented in this encounter Care Teams Vice President Of Software Development Relationship Specialty Start Date End Date Nalini Riddle PA [address] [place] [address] PCP - General Family Medicine 02/26/21 documented as of this encounter
--- OUTSIDE RECORDS SUMMARY | 2024-05-25 17:27 | XMS_ITS | Encounter Summary ---
[place] [address] Care Team Providers Care Rn Concurrent Review Name Role Phone Nalini Riddle Primary Care Provider +1- [phone] Reason for Visit * Reason Comments Follow-up Encounter Details Date Type Department Care Team ([facility] st Contact Info) Description 05/11/2024 3:40 PM EDT Office Visit Cardiology at [address] [phone] Chiara Maldonado MD [address] [place] [address] [place] [address] Mitral regurgitation due to cusp prolapse Social History Tobacco Use Types Packs/Day Years [...] Sign Reading Time Taken Comments Blood Pressure 142/88 05/11/2024 4:03 PM EDT Pulse 74 05/11/2024 4:03 PM EDT Temperature - - Respiratory Rate - - Oxygen Saturation - - Inhaled Oxygen Concentration - - Weight 88.9 kg (196 lb) 05/11/2024 4:03 PM EDT Height 175.3 cm (5' 9) 05/11/2024 4:03 PM EDT Body Mass Index 28.94 05/11/2024 4:03 PM EDT documented in this encounter Progress Notes * Chiara Maldonado MD - 05/11/2024 3:40 PM EDT CARDIOLOGY OUTPATIENT FOLLOW-UP NOTE PRIMARY CARE PROVIDER: SHARLENE Tuttle REFERRING PROVIDER: Nalini Riddle PROBLEM LIST: Patient Active Problem List Diagnosis Mitral regurgitation due to cusp prolapse Abnormal cardiovascular stress test GERD (gastroesophageal reflux disease) Laryngospasm Shortness of breath Thyromegaly Chest pain Hyperlipidemia Adrenal nodule Acquired hypothyroidism Multiple thyroid nodules MEDICATIONS: Current Outpatient Medications Medication Sig Dispense Refill venlafaxine XR (Effexor-XR) 37.5 mg ER 24 hr capsule Take 1 capsule by mouth Daily at Noon. doxepin (SINEquan) 50 mg capsule Take 1 capsule by mouth Daily at Noon. LORazepam (Ativan) 0.5 mg tablet Take 0.5 mg by mouth every 6 hours as needed. One tab am and additional if afternoon as needed levothyroxine (Synthroid) 100 mcg tablet Take 100 mcg by mouth daily. pantoprazole EC (Protonix) 40 mg Tablet, Delayed Release (E.C.) TAKE 1 TABLET BY MOUTH EVERY DAY PROAIR HFA 90 mcg/actuation HFA Aerosol Inhaler inhale 2 puffs by mouth every 4 to 6 hours if needed 0 No current facility-administered medications for this visit. Subjective: Patient ID: Sylvia Prince is a 59 y.o. female. HPI This 59-year-old woman presents for cardiac follow-up and to review results of testing, specifically a recent echocardiogram. This was performed on April 27. It showed an ejection fraction of 55 to 60%. There is late systolic mitral valve prolapse with moderate to severe mitral regurgitation. The left atrium was enlarged. Estimated right ventricular systolic pressure was elevated at 44 mmHg. Patient is still experiencing exertional shortness of breath. She notes that when she tries to walk up a hill she has to stop and rest. Review of System Review of Systems Cardiovascular: Positive for chest pain and dyspnea on exertion. Respiratory: Positive for shortness of breath. 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 Constitutional: Comments: Patient was not examined today. Previous exam showed a prominent systolic murmur. She is currently in no acute distress Assessment and Plan: #1. Mitral valve prolapse with significant mitral regurgitation. I explained to the patient that her mitral valve leaks, and this is most likely responsible for her exertional symptoms. I recommendedthat she have additional evaluation to see if mitral valve repair would be indicated and feasible. The first step would be a transesophageal echocardiogram. Patient is expressing that she would like her evaluation to be performed at [facility] in [place]. We will try and send referrals there. In the meantime I prescribed furosemide 40 mg daily as this may help somewhat with her exertional dyspnea, lower pressures inside her heart, reduce degree of regurgitation Thank you for the opportunity to participate in this patient's cardiovascular care. All questions were answered and I look forward to the next visit. documented in this encounter Plan of Treatment Upcoming Encounters Date Type Department Care Team (Late st Contact Info) Description 08/10/2024 11:00 AM EST Office Visit Cardiology at [address] [place] [phone] Chiara Maldonado MD [address] [place] [address] [place] [address] documented as of this encounter Visit Diagnoses Diagnosis Mitral regurgitation due to cusp prolapse Mitral valve disorders documented in this encounter Care Teams Rn Concurrent Review Relationship Specialty Start Date End Date Nalini Riddle PA [address] [place] [address] PCP - General Family Medicine 02/26/21 documented as of this encounter
--- OUTSIDE RECORDS SUMMARY | 2024-05-25 17:27 | XMS_ITS | Encounter Summary ---
Author Organization [facility] [place] [address] Care Team Providers Care Purchase Order Checker Name Role Phone Nalini Riddle Primary Care Provider +1- [phone] Reason for Referral * Consultation (Routine) - Authorized Specialty Diagnoses / Procedures Referred By Charles t Referred To Contact Cardiology Diagnoses Mitral regurgitation due to cusp prolapse Chiara Maldonado MD [address] [place] [address] [place] [address] Cardiology, [address] [address] Referral ID Status Reason Start Date Expiration Date Visits Requested Visits Authorized [id number] Authorized Consult, Test & Treat 05/18/2024 11/14/2024 1 1 Encounter Details Date Type Department Care Team (Late st Contact Info) Description 05/18/2024 Orders Only Cardiology at [address] [phone] Chiara Maldonado MD [address] [place] [address] CARDIOLOGY [place], [place] [id number] Mitral regurgitation due to cusp prolapse Social [...] 11:00 AM EST Office Visit Cardiology at [address] [place] [phone] Chiara Maldonado MD [address] [place] [address] [place] [address] Scheduled Referrals Name Type Priority Associated Diagnoses Orde r Schedule Referral to Cardiology Outpatient Referral Routine Mitral regurgitation due to cusp prolapse Ordered: 05/18/2024 documented as of this encounter Visit Diagnoses Diagnosis Mitral regurgitation due to cusp prolapse Mitral valve disorders documented in this encounter Care Teams Purchase Order Checker Relationship Specialty Start Date End Date Nalini Riddle PA [address] [place] [address] PCP - General Family Medicine 02/26/21 documented as of this encounter
--- OUTSIDE RECORDS SUMMARY | 2024-05-25 17:27 | XMS_ITS | Encounter Summary ---
[place] [address] Care Team Providers Care Astronomy Instructor Name Role Phone Nalini Riddle Primary Care Provider +1- [phone] Reason for Visit * Auth/Cert Specialty Diagnoses / Procedures Referred By Contac t Referred To Contact Diagnoses Pain with bowel movements, hx of polyps same day Procedures PRO COLONOSCOPY, DIAGNOSTIC COLONOSCOPY, DIAGNOSTIC Referral ID Status Reason Start Date Expiration Date Visits Re quested Visits Authorized [id number] 1 1 Encounter Details Date Type Department Care Team (Late st Contact Info) Description 01/25/2019 4:00 PM EDT - 01/25/2019 4:45 PM EDT Surgery [place] [phone] Ken Lee MD [facility] [place] [address] COLONOSCOPY, DIAGNOSTIC (WRVU 3.26) Social History Tobacco Use Types Packs/Day Years [...] 36.8 ??C (98.2 ??F) 01/25/2019 4:06 PM ED T Respiratory Rate 14 01/25/2019 4:45 PM EDT Oxygen Saturation 100% 01/25/2019 4:45 PM EDT Inhaled Oxygen Concentration - - Weight 84.8 kg (187 lb) 01/25/2019 4:06 PM EDT Height - - Body Mass Index 27.62 01/10/2019 7:44 AM EDT documented in this encounter Discharge Instructions * Discharge Instructions* Elena Kay RN - 01/25/2019 5:19 PM EDT Please call [phone] before 8pm Mon-Fri with problems, questions or concerns. If you call after 8pm or on weekends, call the Hospital at [phone] and ask to speak to the Field Consultant allied health professional and the glycerine plant operator will contact that person for you. * Attachments The following attachments cannot be sent through Care Everywhere. * Colonoscopy: Post-op (Salvadorean) documented in this encounter Medications at Time of Discharge Medication Sig Dispensed Refills Start Date End Date eszopiclone (LUNESTA) 3 mg Tablet Take 3 mg by mouth Daily. 08/06/2021 levothyroxine (SYNTHROID) 88 mcg Tablet 100 mcg. 0 12/14/2018 01/05/2024 venlafaxine (EFFEXOR-XR) 75 mg Capsule, Sust. Release 24 hr take 1 capsule by mouth once daily 0 12/26/2018 05/11/2024 venlafaxine (EFFEXOR) 37.5 mg Tablet 0 12/22/2018 01/05/2024 SHINGRIX, PF, 50 mcg/0.5 mL Suspension for Reconstitution injection 0 09/03/2018 Black Cohosh 540 mg Capsule Take 540 mg by mouth daily. 08/06/2021 calcium citrate/vitamin D3 (CITRACAL + D ORAL) Take by mouth. 2020 multivitamin with minerals tablet 11/28/2009 08/06/2021 documented as of this encounter H&P Notes * Ken Lee MD - 01/25/2019 4:28 PM [...] 11:00 AM EST Office Visit Cardiology at [address] [address] Chiara Maldonado MD [address] [place] [address] [place] [address] documented as of this encounter Procedures Procedure Name Priority Date/Time Associated Diagnosis Comments COLONOSCOPY Routine 01/25/2019 4:34 PM EDT COLONOSCOPY, DIAGNOSTIC (WRVU 3.26) 01/25/2019 4:34 PM EDT Pain with bowel movements, hx of polyps same day documented in this encounter Results * COLONOSCOPY (01/25/2019 4:34 PM EDT) COLONOSCOPY [facility] Endoscopy Procedure Date: 01/25/2019 4:34 PM ? Patient Name: Sylvia Prince ? Date of : 1965 ? Age: 53 ? Order #: [id number] ? Instrument Name: [id number] ? Procedure: ? Colonoscopy Indications: ? Abdominal pain in the left lower ? quadrant; history of diminutive ? tubular adenoma in the rectum 1998; ? colonoscopies in 2002, 2009, 2015 ? without any polyps seen. Providers: ? LGrey Lee MD, Jazmin Hernandez, ? ELPIDIO, Mary Ann Pinedo Referring : ?SHARLENE Phillips Brent C. ? MD Eliud Medicines: ? Midazolam 5 mg IV, Fentanyl 225 ? micrograms IV Complications: ? No immediate complications. Procedure: ? Pre-Anesthesia Assessment: ? - Prior to the procedure, a History ? and Physical was performed, and ? patient medications and allergies ? were reviewed. The patient is ? competent. The risks and benefits of ? the procedure and the sedation ? options and risks were discussed with ? the patient. All questions were ? answered and informed consent was ? obtained. Patient identification and ? proposed procedure were verified by ? the physician in the pre-procedure ? area in the endoscopy suite. Mental ? Status Examination: alert and ? oriented. Airway Examination: normal ? oropharyngeal airway and neck ? mobility. Respiratory Examination: ? clear to auscultation. CV ? Examination: normal. ASA Grade ? Assessment: II - A patient with mild ? systemic disease. After reviewing the ? risks and benefits, the patient was ? deemed in satisfactory condition to ? undergo the procedure. The anesthesia ? plan was to use moderate sedation / ? analgesia (conscious sedation). ? Immediately prior to administration ? of medications, the patient was ? re-assessed for adequacy to receive ? sedatives. The heart rate, ? respiratory rate, oxygen saturations, ? blood pressure, adequacy of pulmonary ? ventilation, and response to care ? were monitored throughout the ? procedure. The physical status of the ? patient was re-assessed after the ? procedure. ? The procedure, indications, benefits, ? risks and alternatives were explained ? to the patient. Specifically ? discussed were potential ? complications including, but not ? limited to, bleeding, perforation, ? infection, missing a cancer, and ? adverse medication reactions. The ? patient was placed in the left ? lateral decubitus position, and a ? digital rectal exam was performed. ? The Colonoscope was inserted in the ? anus and under direct visualization, ? advanced to 5 cm into the ileum. ? Careful inspection was made as the ? colonoscope was withdrawn. The ? colonoscopy was performed without ? difficulty. The patient tolerated the ? procedure well. The quality of the ? bowel preparation was evaluated using ? the BBPS ([place] Bowel Preparation ? Scale) with scores of: Right Colon = ? 3 (entire mucosa seen well with no ? residual staining, small fragments of ? stool or opaque liquid), Transverse ? Colon = 3 (entire mucosa seen well ? with no residual staining, small ? fragments of stool or opaque liquid) ? and Left Colon = 3 (entire mucosa ? seen well with no residual staining, ? small fragments of stool or opaque ? liquid). The total BBPS score equals ? 9. The quality of the bowel ? preparation was excellent. Scope ? withdrawal time was 15 minutes. ? Findings: ? External hemorrhoids were found. [...] hemorrhoids. ? - The entire examined colon is normal. ? - The examined portion of the ileum ? was normal. ? - No specimens collected. ? - Etiology for left lower quadrant ? pain not seen on this exam. Recommendation: ?- Repeat colonoscopy in 10 years for ? surveillance. ? Attending Participation: ? I personally performed the entire procedure. ? __ L. Jesus Lee MD 01/25/2019 5:24:20 PM Number of Addenda: 0 Note Initiated On: 01/25/2019 4:34 PM PROVATION 01/25/2019 4:34 PM EDT Unknown GENERAL SURGICAL ORD ERABLES Performing Organization Address City/State/[facility] Co de Phone Number PROVATION documented in this encounter Visit Diagnoses Not on filedocumented in this encounter Administered Medications Inactive Administered Medications - up to 3 most recent administrations Medication Order MAR Action Action Date Dose Rate Site fentaNYL 50 mcg/mL multi-dose injection ONCE PRN, Starting on Thu01/25/19 at 1640, Until Thu01/25/19 at 2016, Intra-Operative (Intra-Procedure), Routine Given 01/25/2019 4:53 PM EDT 25 mcg Right Arm Given 01/25/2019 4:49 PM EDT 50 mcg Ri ght Arm Given 01/25/2019 4:46 PM EDT 50 mcg Ri ght Arm lactated ringers infusion 100 mL/hr, Intravenous, CONTINUOUS, Starting on Thu01/25/19 at 1630, Until Thu01/25/19 at 1749, Endoscopy (Day of Procedure) New Bag 01/25/2019 4:24 PM EDT 100 mL/hr 100 mL/hr midazolam (PF) (VERSED) multi-dose injection ONCE PRN, Starting on Thu01/25/19 at 1640, Until Thu01/25/19 at 2016, Intra-Operative (Intra-Procedure), Routine Given 01/25/2019 4:55 PM EDT 0.5 mg Right Arm Given 01/25/2019 4:52 PM EDT 0.5 mg Ri ght Arm Given 01/25/2019 4:49 PM EDT 1 mg Ri ght Arm documented in this encounter Active and Recently Administered Medications Times are shown in EDT. Continuous Medication Order 01/23/2019 01/24/2019 01/25/2019 lactated ringers infusion (CANCELED) 100 mL/hr, Intravenous, CONTINUOUS, Starting on Thu01/25/19 at 1630, Until Thu01/25/19 at 1749, Endoscopy (Day of Procedure) 1624 (New Bag - Prov ider: Elena Kay RN) PRN Medication Order 01/23/2019 01/24/2019 01/25/2019 fentaNYL 50 mcg/mL multi-dose injection (CANCELED) ONCE PRN, Starting on e 01/25/19 at 1640, Until e 01/25/19 at 2016, Intra-Operative (Intra-Procedure), Routine 1640 (Given - Provid er: Jazmin Hernandez RN)1643 (Given - Provider: Jazmin Hernandez RN)1646 (Given - Provider: Jazmin Hernandez RN)1649 (Given - Provider: Jazmin Hernandez RN)1653 (Given - Provider: Jazmin Hernandez RN) midazolam (PF) (VERSED) multi-dose injection (CANCELED) ONCE PRN, Starting on Thu01/25/19 at 1640, Until Thu01/25/19 at 2016, Intra-Operative (Intra-Procedure), Routine 1640 (Given - Provid er: Jazmin Hernandez RN)1643 (Given - Provider: Jazmin Hernandez RN)1646 (Given - Provider: Jazmin Hernandez RN)1649 (Given - Provider: Jazmin Hernandez RN)1652 (Given - Provider: Jazmin Hernandez RN)1655 (Given - Provider: Jazmin Hernandez RN) documented in this encounter Care Teams Astronomy Instructor Relationship Specialty Start Date End Date Nalini Riddle PA [address] [place] [address] PCP - General Family Medicine 12/28/18 04/10/20 documented as of this encounter
--- OUTSIDE RECORDS SUMMARY | 2024-05-25 17:27 | XMS_ITS | Continuity of Care Document ---
Author Organization [facility] Address [address] [place] [phone] Care Team Providers Care Regroover Name Role Phone RIGOBERTO GRAVES PA-C Primary Care Mary ling Encounter [facility] NBR [id number] Date(s): 04/27/24 - 04/27/[address] [address] [place] Discharge Disposition: Home or Self Care Attending Physician: TEE ORTEGA MD Admitting Physician: TEE ORTEGA MD Referring Physician: TEE ORTEGA MD Patient Care team information Care Team Personnel Name: RIGOBERTO GRAVES PA-C Position: No Access Member Role: Primary Care Physician Address: [address] Care Team Related Persons Name: OLIVIA CRUZ Name: STEFFEN MORGAN Name: NIRAV LUIS Insurance Providers Guarantor name: ESTELA CRUZ Health Plan Information #: 1 Payer: [place] Member Number: [id number] Policy Number: NA Health Plan Information #: 2 Payer: [place] Member Number: [id number] Policy Number: NA Health Plan Information #: 3 Payer: [place] Member Number: [id number] Policy Number: NA
--- OUTSIDE RECORDS SUMMARY | 2024-05-25 17:27 | XMS_ITS | Encounter Summary ---
[place] [address] Care Team Providers Care Eviction Specialist Name Role Phone Nalini Riddle Primary Care Provider +1- [phone] Encounter Details Date Type Department Care Team (Late st Contact Info) Description 05/16/2024 Telephone Cardiology at [address] [place] [address] Chiara Maldonado MD [address] [place] [address] DR CARDIOLOGY [place], [place] [id number] Social History Tobacco Use Types Packs/Day Years [...] Telephone Encounter - Lizzie Kenny RN - 05/18/2024 3:52 PM EDT Referral was sent electronically and by fax today. * Telephone Encounter - Melissa Kline - 05/18/2024 1:25 PM EDT Patient left a message on the answering service at 12:43 pm today. She called about the referral going to [facility]. She said their fax number was: [phone] Please call her @ [phone] * Telephone Encounter - Ella Portillo RN - 05/16/2024 9:32 AM EDT Patient was seen by Dr. Maldonado last week, she said the she was going to send a referral to [facility] for her Mitral Valve Prolapse. Patient is eager to have this sent. documented in this encounter Plan of Treatment Upcoming Encounters Date Type Department Care Team (Late st Contact Info) Description 08/10/2024 11:00 AM EST Office Visit Cardiology at [address] [address] Chiara Maldonado MD [address] [place] [address] DR CARDIOLOGY [place], [place] [address] documented as of this encounter Visit Diagnoses Not on filedocumented in this encounter Care Teams Eviction Specialist Relationship Specialty Start Date End Date Nalini Riddle PA [address] [place] [address] PCP - General Family Medicine 02/26/21 documented as of this encounter
--- OUTSIDE RECORDS SUMMARY | 2024-05-25 17:27 | XMS_ITS | Encounter Summary ---
[place] [address] Care Team Providers Care Transfusion Aide Name Role Phone Nalini Riddle Primary Care Provider +1- [phone] Reason for Visit * Reason Onset Date Comments Results 04/29/2024 Encounter Details Date Type Department Care Team (Late st Contact Info) Description 04/29/2024 Telephone Cardiology at [address] [address] Chiara Maldonado MD [address] [place] [address] DR CARDIOLOGY [place], [place] [address] Results Social History Tobacco Use Types Packs/Day Years [...] Telephone Encounter - Lizzie Kenny RN - 04/29/2024 1:15 PM EDT Sylvia Prince called in to ask for results of echocardiogram study completed yesterday. A read-through was done for Sylvia and I clarified: this was a first echocardiogram and no other tocompare for changes. Advised: time discussing the results and the impact the dilation of atria has needs to be done withher branch service specialist. Sylvia agrees. Her next appointment with Dr. Maldonado is June - Lizeth accepts a sooner appointment May 11 to reviewthose results documented in this encounter Plan of Treatment Upcoming Encounters Date Type Department Care Team (Late st Contact Info) Description 08/10/2024 11:00 AM EST Office Visit Cardiology at [address] [place] [address] Chiara Maldonado MD [address] [place] [address] DR CARDIOLOGY [place], [place] [address] documented as of this encounter Visit Diagnoses Not on filedocumented in this encounter Care Teams Transfusion Aide Relationship Specialty Start Date End Date Nalini Riddle PA [address] [place], [place] [address] PCP - General Family Medicine 02/26/21 documented as of this encounter
--- OUTSIDE RECORDS SUMMARY | 2024-05-25 17:27 | XMS_ITS | Encounter Summary ---
[place] [address] Care Team Providers Care Supervisor Color Making Name Role Phone Nalini Riddle Primary Care Provider +1- [phone] Reason for Visit * Reason Comments Follow-up Encounter Details Date Type Department Care Team (Late st Contact Info) Description 10/13/2019 4:30 PM EST Office Visit Dermatology at [place] [place] [phone] Tenzin Devlin MD [address] [facility] [place] [address] Verruca vulgaris Social History Tobacco Use Types Packs/Day Years [...] Progress Notes * Tenzin Devlin MD - 10/13/2019 4:30 PM EST Problem: 1. Jachin verruca vulgaris left distal second finger, subungual [...] does appear that the tinea unguium is largely improved. Assessment and plan: Verruca vulgaris left distal [...] 11:00 AM EST Office Visit Cardiology at [address] [place] [phone] Chiara Maldonado MD [address] [place] [address] DR CARDIOLOGY [place], [place] [id number] documented as of this encounter Visit Diagnoses Diagnosis Verruca vulgaris Viral warts, unspecified documented in this encounter Care Teams Supervisor Color Making Relationship Specialty Start Date End Date Nalini Riddle PA [address] [place] [address] PCP - General Family Medicine 12/28/18 04/10/20 documented as of this encounter
--- OUTSIDE RECORDS SUMMARY | 2024-05-25 17:27 | XMS_ITS | Encounter Summary ---
[place] [address] Care Team Providers Care Tire Beader Maker Name Role Phone Nalini Riddle Primary Care Provider +1- [phone] Reason for Visit * Consultation (Routine) - Closed Specialty Diagnoses / Procedures Referred By Charles t Referred To Contact Endocrinology Diagnoses Nontoxic multinodular goiter Nalini Riddle PA [address] [place] [address] [facility] [place] [place] Endocrinology [address] [place] [phone] Referral ID Status Reason Start Date Expiration Date Visits Re quested Visits Authorized [id number] Closed 04/01/2021 04/01/2022 1 1 Encounter Details Date Type Department Care Team (Latest Contact Info) Description 08/06/2021 1:30 PM EST Office [place] [address] Reilly Braden MD [facility] [place] [address] 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 Replacement levels look goodon 88 mcg a day 2) thyroid nodules - her prior reports from 2017, then 2018 from [facility] show more nodules in 2017, then the report from [facility] talks about pseudonodules. Today I see a very heterogeneous gland with no discrete nodules except the two small ones on the right- I think this is a generalized process of scarring without worrisome nodularity. 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 HC VENIPUNCTURE Routine 08/06/2021 2:41 PM EST 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 documented in this encounter Results * T4, free (08/06/2021 2:41 PM EST) Free T4 1.44 0.93 - 1.70 ng/dL [facility] Comment: Reference Interval (ng/dL): Females: ??First Trimester: 0.97-1.68 ??Second Trimester: 0.77-1.51 ??Third Trimester: 0.77-1.49 Blood 08/06/2021 2:41 PM EST 08/06/2021 2:53 PM EST Narrative Resulting Agency Comment Spec In Lab Reilly Braden MD CHEMISTRY ORDERABLES Performing Organization Address [facility] Co de Phone Number [facility] [place] [address] * T3 Total (08/06/2021 2:41 PM EST) T3 Total 91 75 - 170 ng/dL [facility] Blood 08/06/2021 2:41 PM EST 08/06/2021 2:53 PM EST Narrative Resulting Agency Comment Spec In Lab Reilly Braden MD CHEMISTRY ORDERABLES Performing Organization Address [facility] de Phone Number [facility] [place] [address] * TSH (08/06/2021 2:41 PM EST) Thyroid Stimulating Hormone 2.03 0.27 - 4.20 mcIU/mL [facility] Comment: Reference Interval (mcIU/mL): Females: ??First Trimester: 0.23-3.88 ??Second Trimester: 0.22-3.90 ??Third Trimester: 0.44-4.66 Blood 08/06/2021 2:41 PM EST 08/06/2021 2:53 PM EST Narrative Resulting Agency Comment Spec In Lab Reilly Braden MD CHEMISTRY ORDERABLES Performing Organization Address [facility] Phone Number [facility] [place] [address] documented in this encounter Visit Diagnoses Diagnosis 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
--- OUTSIDE RECORDS SUMMARY | 2024-05-25 17:27 | XMS_ITS | Encounter Summary ---
[place] [address] Care Team Providers Care Pourer Bull Ladle Name Role Phone Nalini Riddle Primary Care Provider +1- [phone] Encounter Details Date Type Department Care Team (Latest Contact Info) Description 04/27/2024 4:20 PM EDT Ext Surgery or Single Event [facility] [address] [place] [address] Chiara Maldonado MD [address] [place] [address] DR CARDIOLOGY [place], [place] [id number] Nonrheumatic mitral valve regurgitation Social History Tobacco Use Types Packs/Day Years [...] 11:00 AM EST Office Visit Cardiology at [place] [address] [place] [phone] Chiara Maldonado MD [address] [place] [address] DR CARDIOLOGY [place], [place] [id number] documented as of this encounter Procedures Procedure Name Priority Date/Time Associated Diagnosis Comments ECHO SCAN (SCAN) 04/27/2024 12:0 0 AM EDT documented in this encounter Results * Scan Doc: Echo (04/27/2024 12:00 AM EDT) Anatomical Region Laterality Modality Cardiac Other Narrative 04/27/2024 12:00 AM EDT Ordered by an unspecified provider. Scanning Provider MEDIA MGR SCAN EXT O RDR/RSLT documented in this encounter Visit Diagnoses Diagnosis Nonrheumatic mitral valve regurgitation documented in this encounter Care Teams Pourer Bull Ladle Relationship Specialty Start Date End Date Nalini Riddle PA [address] [place] [address] PCP - General Family Medicine 02/26/21 documented as of this encounter
--- OUTSIDE RECORDS SUMMARY | 2024-05-25 17:27 | XMS_ITS | Encounter Summary ---
[place] [address] Care Team Providers Care Licensed Mortician Name Role Phone Nalini Riddle Primary Care Provider +1- [phone] Encounter Details Date Type Department Care Team (Latest Contact Info) Description 02/10/2024 Travel Social History Tobacco Use Types Packs/Day [...] 11:00 AM EST Office Visit Cardiology at [address] [phone] Chiara Maldonado MD [address] [place] [address] DR CARDIOLOGY [place], [place] [address] documented as of this encounter Visit Diagnoses Not on filedocumented in this encounter Care Teams Licensed Mortician Relationship Specialty Start Date End Date Nalini Riddle PA [address] [place], [place] [address] PCP - General Family Medicine 02/26/21 documented as of this encounter
--- OUTSIDE RECORDS SUMMARY | 2024-05-25 17:27 | XMS_ITS | Encounter Summary ---
[place] [address] Care Team Providers Care Title One Teacher Name Role Phone Nalini Riddle Primary Care Provider +1- [phone] Reason for Visit * Reason Comments Skin Check Encounter Details Date Type Department Care Team (Late st Contact Info) Description 09/12/2019 9:45 AM EST Office Visit Dermatology at [address] [phone] Tenzin Devlin MD [address] [facility] [place] [address] Verruca vulgaris Social History Tobacco Use Types [...] Progress Notes * Tenzin Devlin MD - 09/12/2019 9:45 AM EST Problem: Follow-up through verruca vulgaris left distal second finger subungual Lizeth follows up for second treatment visit Physical examination reveals that the wart appears to be smaller but is still present. Assessment and plan: Verruca vulgaris left distal second finger subungual 1. LN2 x3 applied to site aggressively 2. Patient tolerated well 3. Return to clinic another month for repeat check patient understands it may take several visits for this to resolve. CC: Nalini SU documented in this encounter Plan of Treatment Upcoming Encounters Date Type Department Care Team (Late st Contact Info) Description 08/10/2024 11:00 AM EST Office Visit Cardiology at [address] [place] [address] Chiara Maldonado MD [address] [place] [address] DR CARDIOLOGY [place], [place] [address] documented as of this encounter Visit Diagnoses Diagnosis Verruca vulgaris Viral warts, unspecified documented in this encounter Care Teams Title One Teacher Relationship Specialty Start Date End Date Nalini Riddle PA [address] [place] [address] PCP - General Family Medicine 12/28/18 04/10/20 documented as of this encounter
--- OUTSIDE RECORDS SUMMARY | 2024-05-25 17:27 | XMS_ITS | Clinical Summary ---
Author Organization [facility] [place] [address] Care Team Providers Care House Wrecker Name Role Phone Nalini Riddle Primary Care Provider +1- [phone] Allergies Active Allergy Reactions Criticality Noted Date Comments Cephalosporins Nausea Only Medium 05/13/2017 Codeine Other (See Comments) Medium 05/13/2017 Hallucinations, nausea Medications Medication Sig Dispensed Refills Start Date End Date Status PROAIR HFA 90 mcg/actuation HFA Aerosol Inhaler inhale 2 puffs by mouth every 4 to 6 hours if needed 0 03/28/2019 Active pantoprazole EC (Protonix) 40 mg Tablet, Delayed Release (E.C.) TAKE 1 TABLET BY MOUTH EVERY DAY 04/01/2021 Active levothyroxine (Synthroid) 100 mcg tablet Take 100 mcg by mouth daily. Active doxepin (SINEquan) 50 mg capsule Take 1 capsule by mouth Daily at Noon. 02/01/2024 Active LORazepam (Ativan) 0.5 mg tablet Take 0.5 mg by mouth every 6 hours as needed. One tab am and additional if afternoon as needed 02/09/2024 Active venlafaxine XR (Effexor-XR) 37.5 mg ER 24 hr capsule Take 1 capsule by mouth Daily at Noon. 04/29/2024 Active furosemide (Lasix) 40 mg tablet Take 1 tablet by mouth daily. 90 tablet 3 05/11/2024 Active Active Problems Problem Noted Date Diagnosed Date Mitral regurgitation due to cusp prolapse 2023 Abnormal cardiovascular stress test 01/05/2024 GERD (gastroesophageal reflux disease) Laryngospasm 01/05/2024 Shortness of breath 01/05/2024 Thyromegaly 01/05/2024 Chest pain 01/05/2024 Hyperlipidemia 01/05/2024 Adrenal nodule 11/16/2019 Acquired hypothyroidism 05/13/2017 Multiple thyroid nodules 05/13/2017 Resolved Problems Problem Noted Date Diagnosed Date Resolved Date Aortic valve disease 02/17/2024 024 Encounters Date Type Department Care Team Description 05/18/2024 Orders Only Cardiology at [address] [phone] Chiara Maldonado MD Mitral regurgitation due to cusp prolapse 05/16/2024 Telephone Cardiology at [address] [phone] Chiara Maldonado MD 05/11/2024 3:40 PM EDT Office Visit Cardiology at [address] [phone] Chiara Maldonado MD Mitral regurgitation due to cusp prolapse 04/29/2024 Telephone Cardiology at [address] [phone] Chiara Maldonado MD Results 04/27/2024 4:20 PM EDT Ext Surgery or Single Event [facility] [address] [place] [address] Chiara Maldonado MD Nonrheumatic mitral valve regurgitation 03/04/2024 Telephone Cardiology at [address] [phone] Chiara Maldonado MD from Last 3 Months Immunizations Name Administration Dates Next Due Hepatitis B Unspecified Formulation 06/09/2006,0 05/11/2006 Influenza Vaccine, Whole 07/09/2005 TD Adult 09/22/2005 Family History Medical History Relation Comments Hypertension Brother Diabetes Father Hyperlipidemia Father Hypertension Father Cerebrovascular Accident Mother Osteoarthritis Mother Relation Status Comments Brother Father Alive Mother Social History Tobacco Use Types Packs/Day [...] Orientation Straight 08/05/2021 6: 15 PM EST Last Filed Vital Signs Vital Sign Reading Time Taken Comments Blood Pressure 142/88 05/11/2024 4:03 PM EDT Pulse 74 05/11/2024 4:03 PM EDT Temperature 35.9 ??C (96.7 ??F) 08/06/2021 1:11 PM ES T Respiratory Rate 19 01/25/2019 5:40 PM EDT Oxygen Saturation 98% 08/06/2021 1:11 PM EST Inhaled Oxygen Concentration - - Weight 88.9 kg (196 lb) 05/11/2024 4:03 PM EDT Height 175.3 cm (5' 9) 05/11/2024 4:03 PM EDT Body Mass Index 28.94 05/11/2024 4:03 PM EDT Plan of Treatment Upcoming Encounters Date Type Department Care Team (Late st Contact Info) Description 08/10/2024 11:00 AM EST Office Visit Cardiology at [address] [place] [phone] Chiara Maldonado MD [address] [place] [address] DR CARDIOLOGY [place], [place] [id number] Health Maintenance Due Date Last Done Comments CT Colonography 1965 FIT DNA 1965 FIT 1965 Sigmoidoscopy 1965 HIV screen 1983 Hepatitis C Screening 1983 HPV test 1995 PAP Smear 1995 Breast Cancer Share Decision Needed 2005 Breast Cancer screening 2005 Diabetes Screening (HgbA1C or Glucose) 2005 Tetanus/Diphtheria/Pertussis Vaccines (1 - Tdap) 09/23/2005 09/22/2005 Hepatitis B vaccine (0-59 yrs) (3) 11/08/20062005, 05/11/2006 Zoster vaccine (1 of 2) 2015 Advance Directive 2020 Covid-19 Vaccine (1 - 2022- season) 2024 Influenza (Flu) vaccine (1 o f 1 - Influenza standard series) 04/24/2024 07/09/2005 Colonoscopy 01/25/2029 01/25/2019, 01/25/2019 Colorectal Cancer Screening 01/25/2029 Sigmoidoscopy (10 year) with FIT yearly 01/25/2029 0 01/25/2019, 01/25/2019 Procedures Procedure Name Priority Date/Time Associated Diagnosis Comments ECHO SCAN (SCAN) 04/27/2024 12:0 0 AM EDT COLONOSCOPY Routine 01/25/2019 4:34 PM EDT from Last 3 Months or Most Recently Relevant to Health Maintenance Results * Scan Doc: Echo (04/27/2024 12:00 AM EDT) Anatomical Region Laterality Modality Cardiac Other Narrative 04/27/2024 12:00 AM EDT Ordered by an unspecified provider. Scanning Provider MEDIA MGR SCAN EXT O RDR/RSLT * COLONOSCOPY (01/25/2019 4:34 PM EDT) COLONOSCOPY [facility] Procedure Date: 01/25/2019 4:34 PM ? Patient Name: Sylvia Prince ? Date of : 1965 ? Age: 53 ? Order #: [id number] ? Instrument Name: [id number] ? Procedure: ? Colonoscopy Indications: ? Abdominal pain in the left lower ? quadrant; history of diminutive ? tubular adenoma in the rectum 1998; ? colonoscopies in 2002, 2009, 2015 ? without any polyps seen. Providers: ? LGrey Lee MD, Jazmin Hernandez, ? RN, Mary Ann Pinedo Referring : [...] preparation was evaluated using ? the BBPS ([place] Bowel Preparation ? Scale) with scores of: [...] PM EDT Unknown GENERAL SURGICAL ORD ERABLES PROVATION from Last 3 Months or Most Recently Relevant to Health Maintenance Care Teams House Wrecker Relationship Specialty Start Date End Date Nalini Riddle PA [address] [place], [place] [address] PCP - General Family Medicine 02/26/21
--- OUTSIDE RECORDS SUMMARY | 2024-05-25 17:28 | XMS_ITS | Encounter Summary ---
Author Organization [facility] Address [address] [place] [address] Care Team Providers Care Customer Account Coordinator Name Role Phone Nalini Riddle PA-C Primary Care Provider + Encounter Details Date Type Department Care Team ([facility] st Contact Info) Description 03/24/2016 Historical Results Only [facility] Radiology Results [address] [place] [address] Nalini Riddle PA-C [address] [place] [phone] Social History Tobacco Use Types Packs/Day Years Used Date Smoking Tobacco: Never Assessed Sex and Gender Information Value Date Recorded Sex Assigned at Not on file Gender Identity Not on file Sexual Orientation Not on file documented as of this encounter Plan of Treatment Not on file documented as of this encounter Procedures Procedure Name Priority Date/Time Associated Diagnosis Comments NM CARD SPECT NUCLEAR STRESS 03/24/2016 10:53 EDT documented in this encounter Results * NM CARD SPECT NUCLEAR STRESS (03/24/2016 10:53 EDT) Anatomical Region Laterality Modality Chest Nuclear Stress 03/24/2016 10:5 3 EDT Narrative 03/26/2016 10:25 EDT ? EXAM: NUCLEAR MEDICINE/NUCLEAR STRESS PENNY EX. D/ (1053) ? CLINICAL INFORMATION: ? CHEST PAIN ? *[facility]* ? *[facility]* ? [address] ? [place] [address] ? Myocardial Perfusion Imaging - SPECT ? Nas protocol ? Date of study: ??03/24/2016 ? *PATIENT PRESENTATION* ? Height: ? 175.3cm ((69in) ) ? Blood Pressure: ? Weight: ? 80.9kg ((178lb) ) ? BSA: ?2m S 2 ? Ordering physician: Nalini Riddle Pa-C ? Impressions: ? - Normal perfusion by Tc99m Sestamibi Imaging. ? - Low normal LV function, apparent anteroseptal HK, suggest Echo ? correlation. ? - Subotimally treated HTN. ? Summary: ? 1. Myocardial perfusion imaging: Left ventricular size is normal. No ?myocardial perfusion defects noted. ? 2. The calculated left ventricular ejection fraction after stress: ?48%. LV global systolic function is low normal. No left ventricular ?regional motion abnormality. There is mild hypokinesis involving ?the basal anteroseptal and mid anteroseptal wall(s) of the left ?ventricle. ? 3. Stress ECG conclusions: The stress ECG is negative. Rare atrial ?ectopy. ? 4. Stress: There is resting hypertension with a hypertensive response ?to stress. The patient experienced no chest pain during stress. ?Exercise capacity is normal for age. ? Indication: ?? 786.50 Chest Pain, Unspecified. ? History: ??SEEN IN THE ED AT [facility] IN DECEMBER 2015, FOR C/O EXERTIONAL LEFT ? SIDED CHEST PAIN, SOB AND LEFT ARM NUMBNESS. NEGATIVE CARDIAC WORKUP. ? IN JANUARY, A REGULAR STRESS TEST AT [facility] SHOWED ECG CHANGES WITHOUT ? ANGINA. CONTINUES TO HAVE INTERMITTENT SYMPTOMS WITH EXERTION, 2-3 X A ? WEEK, AND THEY LAST A FEW MINUTES. ? NO PREVIOUS CARDIAC HISTORY. ? PAGE 1 ? Signed Report ? (CONTINUED) ? Risk factors: ??Hypertension. ? MEDS: LEVOTHYROXINE, EFFEXOR, OMEPRAZOLE, LUNESTA, VENLAFAXINE, ? ESTROGEN. ? ALLERGIES: CEPHALEXIN. ? Imaging Technique: ? Protocol: ??Nas protocol. ? Acquisition: ?? Gated SPECT; 1 day - rest/stress. ?The patient was ? imaged in the supine position. Attenuation correction used. ? Isotope administration: ? - Rest. Tc[99m]-sestamibi. Injection to stress time: 00:45. ? - Stress. Tc[99m]-sestamibi. 1-2 min before end of exercise ? Baseline ECG: ??NSR- 65 BPM. ? Stress protocol: ? + +---+ + ? !Stage ?!HR !BP (mmHg) ?! ? + +---+ + ? !Baseline supine ?!65 !168/100 (123)! ? + +---+ + ? !Baseline standing ?!67 !166/103 (124)! ? + +---+ + ? !Stage I; 1.7mph, 10degrees; 3 min ??!99 !191/108 (136)! ? + +---+ + ? !Stage II; 2.5mph, 12degrees; 3 min !110!207/102 (137)! ? + +---+ + ? !Stage III; 3.4mph, 14degrees; 3 min!136!226/89 (135) ! ? + +---+ + ? !Stage IV; 4.2mph, 16degrees; 3 min !152! ! ? + +---+ + ? !Peak stress ?!153! ! ? + +---+ + ? !Recovery; 1 min ?!115!220/88 (132) ! ? + +---+ + ? !Recovery; 3 min ?!89 !212/88 (129) ! ? + +---+ + ? !Recovery; 6 min ?!80 !156/92 (113) ! ? + +---+ + ? * ? Stress results: ?? Maximal heart rate during stress was 153bpm (90% of ? maximal predicted heart rate). The maximal predicted heart rate was ? 170bpm. There is resting hypertension with a hypertensive response to ? stress. The rate-pressure product for the peak heart rate and blood ? pressure was 23443zx Hg/min. ? The patient experienced no chest pain during stress. ?? Exercise ? capacity is normal for age. ? Stress ECG: ??GOOD EXERCISE CRISTINE- 12 METS( 11 MINUTES 2 SECONDS IN NAS ? PROTOCOL) ? MAX HR- 153 BPM ? PAGE 2 ? Signed Report ? (CONTINUED) ? HYPERTENSIVE- 212/88 ? NO CHEST PAIN ? RARE PAC ? NO ISCHEMIC ECG CHANGES. ??The stress ECG is negative. ?Rare atrial ? ectopy. ? Myocardial perfusion: ?? Imaging information: gated. Left ventricular ? size is normal. No myocardial perfusion defects noted. ? Ventricular Function (Wall Motion): ?? The calculated left ventricular ? ejection fraction after stress: 48%. LV global systolic function is ? low normal. No left ventricular regional motion abnormality. There is ? mild hypokinesis involving the basal anteroseptal and mid anteroseptal ? wall(s) of the left ventricle. ? Study data: ??Júnior Tam MD supervised and was readily available ? during the procedure. This study was interpreted by [facility] [place] [facility] Cardiology. ? Study status: Routine. ? Consent: ??The risks, benefits, and alternatives to the procedure were ? explained to the patient and informed consent was obtained. ? Procedure: ??Initial setup. A baseline ECG was recorded. Surface ECG ? leads and manual cuff blood pressure measurements were monitored. ? Heart sounds: Normal. ? Lung sounds: Normal. ? Treadmill exercise testing was performed using the Nas protocol. The ? patient exercised for 11 min 2 sec, to protocol stage 4, to a maximal ? work rate of 12mets. ? Study completion: ??All catheters inserted during the procedure were ? removed. The patient tolerated the procedure well and was discharged ? from the lab. ? Discharge: ??The patient left the laboratory in stable condition. ? Birthdate: ? Patient birthdate: 1965. ? Sex: ??Gender: female. ? Study date: 03/24/2016. ? Study time: 08:03 AM. ? Signature Documentation: ? - The imaging portion of this study was interpreted by Nuclear ? Poleyard Supervisor Júnior Tam MD. ? - The Stress ECG portion of this study was interpreted by Júnior ? MD Yonatan. ? Electronically signed by ? PAGE 3 ? Signed Report ? (CONTINUED) ? Júnior Tam ? 03/25/2016 17:37 ?Reported By: JÚNIOR TAM M.D. ? CC: ? Transcribed Date/Time: 03/26/2016 (1025) ? Computer Aided Drafter: RUI ? Printed Date/Time: 02/04/2019 (1098) ? PAGE 4 ? Signed Report ? Procedure Note Júnior Tam MD - 06/29/2019 EXAM: NUCLEAR MEDICINE/NUCLEAR STRESS PENNY EX. D/ (1053) CLINICAL INFORMATION: CHEST PAIN *[facility]* *[facility]* [address] [place] [address] Myocardial Perfusion Imaging - SPECT Nas protocol Date of study: 03/24/2016 *PATIENT PRESENTATION* Height: 175.3cm ((69in) ) Blood Pressure: Weight: 80.9kg ((178lb) ) BSA: 2m S 2 Ordering physician: Nalini Riddle Pa-C Impressions: - Normal perfusion by Tc99m Sestamibi Imaging. - Low normal LV function, apparent anteroseptal HK, suggest Echo correlation. - Subotimally treated HTN. Summary: 1. Myocardial perfusion imaging: Left ventricular size is normal.No myocardial perfusion defects noted. 2. The calculated left ventricular ejection fraction after stress: 48%. LV global systolic function is low normal. No leftventricular regional motion abnormality. There is mild hypokinesis involving the basal anteroseptal and mid anteroseptal wall(s) of the left ventricle. 3. Stress ECG conclusions: The stress ECG is negative. Rare atrial ectopy. 4. Stress: There is resting hypertension with a hypertensiveresponse to stress. The patient experienced no chest pain during stress. Exercise capacity is normal for age. Indication: 786.50 Chest Pain, Unspecified. History: SEEN IN THE ED AT [facility] IN DECEMBER 2015, FOR C/O EXERTIONALLEFT SIDED CHEST PAIN, SOB AND LEFT ARM NUMBNESS. NEGATIVE CARDIACWORKUP. IN JANUARY, A REGULAR STRESS TEST AT [facility] SHOWED ECG CHANGES WITHOUT ANGINA. CONTINUES TO HAVE INTERMITTENT SYMPTOMS WITH EXERTION, 2-3 XA WEEK, AND THEY LAST A FEW MINUTES. NO PREVIOUS CARDIAC HISTORY. PAGE 1 Signed Report (CONTINUED) Risk factors: Hypertension. MEDS: LEVOTHYROXINE, EFFEXOR, OMEPRAZOLE, LUNESTA, VENLAFAXINE, ESTROGEN. ALLERGIES: CEPHALEXIN. Imaging Technique: Protocol: Nas protocol. Acquisition: Gated SPECT; 1 day - rest/stress. The patient was imaged in the supine position. Attenuation correction used. Isotope administration: - Rest. Tc[99m]-sestamibi. Injection to stress time: 00:45. - Stress. Tc[99m]-sestamibi. 1-2 min before end of exercise Baseline ECG: NSR- 65 BPM. Stress protocol: + +---+ + !Stage !HR !BP (mmHg) ! + +---+ + !Baseline supine !65 !168/100 (123)! + +---+ + !Baseline standing !67 !166/103 (124)! + +---+ + !Stage I; 1.7mph, 10degrees; 3 min !99 !191/108 (136)! + +---+ + !Stage II; 2.5mph, 12degrees; 3 min !110!207/102 (137)! + +---+ + !Stage III; 3.4mph, 14degrees; 3 min!136!226/89 (135) ! + +---+ + !Stage IV; 4.2mph, 16degrees; 3 min !152! ! + +---+ + !Peak stress !153! ! + +---+ + !Recovery; 1 min !115!220/88 (132) ! + +---+ + !Recovery; 3 min !89 !212/88 (129) ! + +---+ + !Recovery; 6 min !80 !156/92 (113) ! + +---+ + * Stress results: Maximal heart rate during stress was 153bpm (90%of maximal predicted heart rate). The maximal predicted heart rate was 170bpm. There is resting hypertension with a hypertensive responseto stress. The rate-pressure product for the peak heart rate and blood pressure was 34965nn Hg/min. The patient experienced no chest pain during stress. Exercise capacity is normal for age. Stress ECG: GOOD EXERCISE CRISITNE- 12 METS( 11 MINUTES 2 SECONDS INBRUCE PROTOCOL) MAX HR- 153 BPM PAGE 2 Signed Report (CONTINUED) HYPERTENSIVE- 212/88 NO CHEST PAIN RARE PAC NO ISCHEMIC ECG CHANGES. The stress ECG is negative. Rareatrial ectopy. Myocardial perfusion: Imaging information: gated. Leftventricular size is normal. No myocardial perfusion defects noted. Ventricular Function (Wall Motion): The calculated leftventricular ejection fraction after stress: 48%. LV global systolic function is low normal. No left ventricular regional motion abnormality. Thereis mild hypokinesis involving the basal anteroseptal and midanteroseptal wall(s) of the left ventricle. Study data: Júnior Tam MD supervised and was readilyavailable during the procedure. This study was interpreted by [facility] Cardiology. Study status: Routine. Consent: The risks, benefits, and alternatives to the procedurewere explained to the patient and informed consent was obtained. Procedure: Initial setup. A baseline ECG was recorded. Surface ECG leads and manual cuff blood pressure measurements were monitored. Heart sounds: Normal. Lung sounds: Normal. Treadmill exercise testing was performed using the Ans protocol.The patient exercised for 11 min 2 sec, to protocol stage 4, to amaximal work rate of 12mets. Study completion: All catheters inserted during the procedure were removed. The patient tolerated the procedure well and wasdischarged from the lab. Discharge: The patient left the laboratory in stable condition. Birthdate: Patient birthdate: 1965. Sex: Gender: female. Study date: 03/24/2016. Study time: 08:03 AM. Signature Documentation: - The imaging portion of this study was interpreted by Nuclear Pole[employer] Supervisor Júnior Tam MD. - The Stress ECG portion of this study was interpreted by Júnior Tam MD. Electronically signed by PAGE 3 Signed Report (CONTINUED) Júnior Tam 03/25/2016 17:37 Reported By: JÚNIOR TAM M.D. CC: Transcribed Date/Time: 03/26/2016 (1025) Computer Aided Drafter: RUI Printed Date/Time: 02/04/2019 (5496) PAGE 4 Signed Report Nalini Riddle PA-C CARDIAC NM ORDER LIZY documented in this encounter Visit Diagnoses Not on filedocumented in this encounter Care Teams Customer Account Coordinator Relationship Specialty Start Date End Date Nalini Riddle PA-C [address] [place] [phone] PCP - General 09/09/13 documented as of this encounter
--- OUTSIDE RECORDS SUMMARY | 2024-05-25 17:28 | XMS_ITS | Encounter Summary ---
Author Organization [facility] Address [address] [place] [address] Care Team Providers Care Dolly Operator Name Role Phone Nalini Riddle PA-C Primary Care Provider + Encounter Details Date Type Department Care Team (Late st Contact Info) Description 01/24/2022 Lab Requisition [facility] Pathology & Laboratory Medicine - [address] [address] Outr Resulting Lab, Provider Social History Tobacco Use Types Packs/Day Years Used Date Smoking Tobacco: Never Assessed Sex and Gender Information Value Date Recorded Sex Assigned at Not on file Gender Identity Not on file Sexual Orientation Not on file documented as of this encounter Plan of Treatment Not on file documented as of this encounter Procedures Procedure Name Priority Date/Time Associated Diagnosis Comments ZZCOVID-19 TEST UVC LAB PCR Today 01/24/2022 17:00 EDT COVID-19 TESTING Routine 01/24/2022 17:0 0 EDT documented in this encounter Results * COVID-19 TEST [facility]C LAB PCR (01/24/2022 17:00 EDT) Swab 01/24/2022 17:0 0 EDT 01/25/2022 21:31 EDT Provider Outr Resulting Lab MICROBIOLOGY - GENERAL ORDERABLES [facility] [address] [place] [address] * COVID-19 TESTING (01/24/2022 17:00 EDT) COVID-19 rt-PCR Result Negative Negative 01/26/2022 15:37 EDT [facility] Comment: This test has not been FDA cleared or approved. This test has been authorized by FDA under an EUA for use by authorized laboratories. This test has been authorized only for detection of nucleic acid from 2019-nCoV, not for any other viruses or pathogens. This test is only authorized for the duration of the declaration that circumstances exist justifying the authorization of emergency use of in vitro diagnostic tests for detection and/or diagnosis of 2019-nCoV under section 564(b)(1) of Act, 21 U.S.C ?? 360bbb-3(b) (1), unless the authorization is terminated or revoked sooner. Negative results do not preclude 2019-nCoV infection and should not be used as the sole basis for treatment or other patient management decisions. Negative results must be combined with clinical observations, patient history, and epidemiological information. Testing was performed using the endy SARS-CoV-2 assay ([employer] on the Endy 6800 System Performing Lab Endy 6800 [facility] 01/26/2022 15:37 EDT [facility] Swab 01/24/2022 17:0 0 EDT 01/25/2022 21:31 EDT Provider Outr Resulting Lab MICROBIOLOGY - GENERAL ORDERABLES [facility] [address] [place] [address] documented in this encounter Visit Diagnoses Not on filedocumented in this encounter Care Teams Dolly Operator Relationship Specialty Start Date End Date Nalini Riddle PA-C [address] [place] [address] PCP - General 09/09/13 documented as of this encounter
--- OUTSIDE RECORDS SUMMARY | 2024-05-25 17:28 | XMS_ITS | Encounter Summary ---
Author Organization [facility] Address [address] [place] [address] Care Team Providers Care Green Building Materials Distributor Name Role Phone Nalini Riddle PA-C Primary Care Provider + Encounter Details Date Type Department Care Team (Late st Contact Info) Description 06/26/2021 Lab Requisition [facility] Pathology & Laboratory Medicine - [address] [address] Terrence Cavazos MD [address] [place] [address] [address] [place], [place] [address] Encounter for other general examination Social History Tobacco Use Types Packs/Day Years Used Date Smoking Tobacco: Never Assessed Sex and Gender Information Value Date Recorded Sex Assigned at Not on file Gender Identity Not on file Sexual Orientation Not on file documented as of this encounter Plan of Treatment Not on file documented as of this encounter Procedures Procedure Name Priority Date/Time Associated Diagnosis Comments SURGICAL PATHOLOGY Today 06/26/2021 9: 10 EDT Encounter for other general examination documented in this encounter Results * SURGICAL PATHOLOGY (06/26/2021 9:10 EDT) Note to Patient The following pathology results have been interpreted by your pathologist and may be available to you before your health provider has had the opportunity to review them. Please allow time for your provider to receive these results and explore management options, if applicable. 06/27/2021 11:54 EDT [facility] Final Diagnosis A. STOMACH, ANTRUM, BIOPSY: - Gastric fundic mucosa with no significant diagnostic abnormalities. - Negative for Helicobacter pylori on H&E stained sections. B. GASTROESOPHAGEAL JUNCTION, BIOPSY: - Cardiac mucosa with mild active chronic gastritis and reactive foveolar hyperplasia; features consistent with reflux esophagitis. - Negative for intestinal metaplasia and dysplasia. 06/27/2021 11:54 [facility] Attestation There was significant resident/fellow involvement in the diagnostic evaluation of this case. By the signature below, the attending physician certifies that they have personally conducted a gross and/or microscopic examination of the described specimens and rendered or confirmed the above diagnosis. 06/27/2021 11:54 [facility] at 1154 Clinical History GERD, laryngospasms 06/27/2021 11:54 [facility] Gross Description A. Received in formalin labelled with proper patient identification (initials C, P) and antrum Bx are 3 fragments of johnson tissue ranging from 0.3-0.5 cm in greatest dimension. The specimens are submitted in A1. B. Received in formalin labelled with proper patient identification (initials C, P) and GE junction Bx are 2 fragments of johnson tissue; each measuring 0.3 x 0.3 x 0.3 cm. The specimens are submitted in B1. SHARLENE KRAMER(ASCP) 06/26/2021 16:06 06/27/2021 11:54 [facility] Resident/Stephen w: Deepika Tillman MD 06/27/2021 11:54 T [facility] Performing Lab [facility] 11:54 T [facility] Scanned Images 06/27/2021 11:54 T [facility] Tissue ENTIRE ESOPHAGO-FREDERICK BILLY MUCOSAL JUNCTION / Unknown 06/26/2021 9:10 EDT 06/26/2021 15:42 EDT Tissue specimen (specimen) CARDIOESOPHAGEAL JUNCTION STRUCTURE / Unknown 06/26/2021 9:10 EDT 06/26/2021 15:42 EDT Terrence Cavazos MD PATHOLOGY ORDERA BLES [facility] [address] [place] [address] documented in this encounter Visit Diagnoses Diagnosis Encounter for other general examination documented in this encounter Care Teams Green Building Materials Distributor Relationship Specialty Start Date End Date Nalini Riddle PA-C [address] [place] [phone] PCP - General 09/09/13 documented as of this encounter
--- OUTSIDE RECORDS SUMMARY | 2024-05-25 17:28 | XMS_ITS | Encounter Summary ---
Author Organization [facility] [place] [address] Care Team Providers Care Fermenter Champagne Name Role Phone Nalini Riddle Primary Care Provider +1- [phone] Reason for Visit * Consultation (Routine) - Closed Specialty Diagnoses / Procedures Referred By Charles salas Referred To Contact General Surgery Diagnoses LLQ ABDOMINAL PAIN Nalini Riddle PA [address] [place] [address] [facility] Gen Surgery [address] [place] [address] Referral ID Status Reason Start Date Expiration Date V isits Requested Visits Authorized [id number] Closed Consult, Test & Treat Connection [facility] 12/28/2018 12/28/2019 1 1 Encounter Details Date Type Department Care Team (Late st Contact Info) Description 01/10/2019 8:00 AM EDT Office [place] [address] Boogie Kline MD [facility] [place] [address] Left lower quadrant pain Social History Tobacco Use Types Packs/Day Years Used Date Smoking Tobacco: Never Smokeless Tobacco: Never Sex and Gender Information Value Date Recorded [...] 36.6 ??C (97.8 ??F) 01/10/2019 7:44 AM ED T Respiratory Rate 16 01/10/2019 7:44 AM EDT Oxygen Saturation 98% 01/10/2019 7:44 AM EDT Inhaled Oxygen Concentration - - Weight 84.8 kg (187 lb) 01/10/2019 7:44 AM EDT Height 175.3 cm (5' 9) 01/10/2019 7:44 AM EDT Body Mass Index 27.62 01/10/2019 7:44 AM EDT documented in this encounter Progress Notes * Boogie Kline MD - 01/10/2019 8:00 AM EDT Sylvia Prince is a 53 y.o. female who presents to my clinic today referred by her PCP Nalini Riddle for evaluation of left lower quadrant pain. Ms. Prince reports that she has had left lower abdominal pain for about a years' time. Initially, she reports that this pain was notable with constipationand improved after bowel movements. However, since around [...] Medical History Hypothyroidism Past Surgical History Hysterectomy 1999 Laparoscopic Left Oophorectomy and ALLAN 2013 Medications [...] Drug use: Not on file Works in [employer] Family History is negative for GI disease [...] sounds normal; no masses, no organomegaly; well-healed laparoscopic scars without hernias. Extremities: extremities normal, atraumatic, no cyanosis or edema Skin: Skin color, texture, turgor normal. No rashes or lesions Lymph nodes: Cervical, supraclavicular, and axillary nodes normal. Ancillary Data: CT scan from 12/15/2018 report and images reviewed - right adrenal 1.4cm nodule. Assessment and Plan: Sylvia Prince is a 53 y.o. female. with some chronic constipation now improvedwith fiber supplementation and pain that is increasingly notable prior to evacuation of her bowels.I've suggested that laparoscopic lysis of adhesions is unlikely to fully resolve this symptoms compl ex. Instead, I've suggested we pursue colonoscopy to [...] 11:00 AM EST Office Visit Cardiology at [address] [place] [address] Chiara Maldonado MD [address] [place] [address] DR CARDIOLOGY [place], [place] [id number] documented as of this encounter Visit Diagnoses Diagnosis Left lower quadrant pain Abdominal pain, left lower quadrant documented in this encounter Care Teams Fermenter Champagne Relationship Specialty Start Date End Date Nalini Riddle PA [address] [place], [place] [id number] PCP - General Family Medicine 12/28/18 04/10/20 documented as of this encounter
--- OUTSIDE RECORDS SUMMARY | 2024-05-25 17:28 | XMS_ITS | Encounter Summary ---
Author Organization [facility] Address [address] [place] [address] Care Team Providers Care Chart Picker Name Role Phone Nalini Riddle PA-C Primary Care Provider + Encounter Details Date Type Department Care Team (Late st Contact Info) Description 04/02/2021 Lab Requisition [facility] Pathology & Laboratory Medicine - [address] [address] Outr Resulting Lab, Provider Social History Tobacco [...] Procedure Name Priority Date/Time Associated Diagnosis Comments HOLD SST Today 04/01/2021 10:30 EDT HOLD SST Today 04/01/2021 10:30 EDT CCP ANTIBODIES Today 04/01/2021 10:30 EDT RHEUMATOID FACTOR Today 04/01/2021 10: 30 EDT ANTI NUCLEAR AB (KEITH), IFA Today 04/01/2021 10:30 EDT documented in this encounter Results * HOLD SST (04/01/2021 10:30 EDT) Hold Hold 04/02/2021 17:01 EDT [facility] Blood VENOUS BLOOD / Unknown 04/01/2021 10:30 EDT 04/02/2021 15:50 EDT Provider Outr Resulting Lab LAB INFO SER VICE AND SUPPORT & PHONE RESULT Performing Organization Address [facility]/ZIP Co de Phone Number [facility] [address] [place] [address] * HOLD SST (04/01/2021 10:30 EDT) Hold Hold 04/02/2021 17:01 EDT [facility] Blood VENOUS BLOOD / Unknown 04/01/2021 10:30 EDT 04/02/2021 15:49 EDT Provider Outr Resulting Lab LAB INFO SER VICE AND SUPPORT & PHONE RESULT Performing Organization Address [facility] Co de Phone Number [facility] [address] [place] [address] * RHEUMATOID FACTOR (04/01/2021 10:30 EDT) [facility] Rheumatoid Factor <8.6 <12.0 IU/mL 04/02/2021 16:18 EDT [facility] Blood VENOUS BLOOD / Unknown 04/01/2021 10:30 EDT 04/02/2021 15:39 EDT Provider Outr Resulting Lab CHEMISTRY & BLOOD GAS ORDERABLES Performing Organization Address [facility] Co de Phone Number [facility] [address] [place] [address] * (ABNORMAL) ANTI NUCLEAR AB (KEITH), IFA (04/01/2021 10:30 EDT) Pathologist [facility] KEITH Interpretation Positive(A) Negative 04/03/2021 13:50 EDT [facility] Comment: For titers greater than or equal to 1:160 (except the centromere and nucleolar patterns) it is recommended that specific follow-up autoantibody testing ??(such as for dsDNA and Extractable Nuclear Antigens) be performed on all diffuse and/or speckled patterns NOTE: For add-on testing dsDNA is stable for 7 days refrigerated while Extractable Nuclear Antigens are only stable for 48 hours refrigerated. KEITH Titer and Pattern 1 1:320 Homogeneous 04/03/2021 13:50 EDT [facility] Blood VENOUS BLOOD / Unknown 04/01/2021 10:30 EDT 04/02/2021 15:39 EDT Narrative [facility] - 04/03/2021 13:50 EDT Results were obtained with the INOVA NOVA Lite HEp-2 KEITH Kit by indirect immunofluorescence. Provider Outr Resulting Lab IMMUNOLOGY A ND SEROLOGY ORDERABLES Performing Organization Address City/[facility]/ZIP Co de Phone Number [facility] [address] [place] [address] * CCP ANTIBODIES (04/01/2021 10:30 EDT) CCP Antibodies <2.5 <5.0 U/mL 04/03/2021 8:52 EDT [facility] Blood VENOUS BLOOD / Unknown 04/01/2021 10:30 EDT 04/02/2021 15:39 EDT Provider Outr Resulting Lab IMMUNOLOGY A ND SEROLOGY ORDERABLES Performing Organization Address City/[facility]/ZIP Co de Phone Number [facility] [address] [place] [address] documented in this encounter Visit Diagnoses Not on filedocumented in this encounter Care Teams Chart Picker Relationship Specialty Start Date End Date Nalini Riddle PA-C [address] [place] [phone] PCP - General 09/09/13 documented as of this encounter
--- OUTSIDE RECORDS SUMMARY | 2024-05-25 17:28 | XMS_ITS | Encounter Summary ---
Author Organization [facility] [place] [address] Care Team Providers Care Yield Clerk Name Role Phone Nalini Riddle Primary Care Provider +1- [phone] Encounter Details Date Type Department Care Team (Late st Contact Info) Description 01/19/2019 Telephone [place] [address] Otilia Farrell Social History Tobacco Use Types Packs/Day Years Used Date Smoking Tobacco: Never Smokeless Tobacco: Never Sex and Gender Information Value Date Recorded Sex Assigned at Female 08/05/2021 6:15 PM EST Gender Identity Female 08/05/2021 6:15 PM EST Sexual Orientation Straight 08/05/2021 6: 15 PM EST documented as of this encounter Miscellaneous Notes * Telephone Encounter - Otilia Farrell - 01/19/2019 4:28 PM EDT Sylvia Prince [id number] Diagnosis: Pain with bowel movements, hx of polyps 1. Have you ever had a colonoscopy before? [x] YES [] NO If Yes, Date of Last [place]: 12/06/2012 If yes, did you have any problems with the procedure? [] YES [x] NO Explain: What type of sedation was used: IV sedation 2. Do you take any Blood Thinners? [] YES [x] NO If Yes, type: 3. Do you have a Pacemaker or Defibrillator device? [] YES [x] NO If Yes send inAthlettes Productionset message to [facility] DEVICE CHECK 4. Are you a [...] NO 11. You must have a responsible republican stay at the facility during your procedure [...] AM EST Office Visit Cardiology at [address] [place] [address] Chiara Maldonado MD [address] [place] [address] DR CARDIOLOGY [place], [place] [phone] documented as of this encounter Visit Diagnoses Not on filedocumented in this encounter Care Teams Yield Clerk Relationship Specialty Start Date End Date Nalini Riddle PA [address] [place] [address] PCP - General Family Medicine 12/28/18 04/10/20 documented as of this encounter
--- OUTSIDE RECORDS SUMMARY | 2024-05-25 17:28 | XMS_ITS | Encounter Summary ---
Author Organization [facility] Address [address] [place] [address] Care Team Providers Care Project Portfolio Analyst Name Role Phone Nalini Riddle PA-C Primary Care Provider + Encounter Details Date Type Department Care Team (Late st Contact Info) Description 09/14/2021 Lab Requisition [facility] Pathology & Laboratory Medicine - [address] [address] Outr Resulting Lab, Provider Social History Tobacco [...] Priority Date/Time Associated Diagnosis Comments ZZCOVID-19 TEST [facility] PCR Today 09/13/2021 14:20 EST COVID-19 TESTING Routine 09/13/2021 14:2 0 EST documented in this encounter Results * COVID-19 TEST [facility] PCR (09/13/2021 14:20 EST) Swab 09/13/2021 14:2 0 EST 09/14/2021 22:52 EST Provider Outr Resulting Lab MICROBIOLOGY - GENERAL ORDERABLES [facility] [address] [place] [address] * COVID-19 TESTING (09/13/2021 14:20 EST) COVID-19 rt-PCR Result Negative Negative 09/15/2021 15:19 EST [facility] Comment: This test has not [...] was performed using the endy SARS-CoV-2 assay ([employer] on the Endy 6800 System Performing Lab Endy 6800 [facility] 09/15/2021 15:19 EST [facility] Swab 09/13/2021 14:2 0 EST 09/14/2021 22:52 EST Provider Outr Resulting Lab MICROBIOLOGY - GENERAL ORDERABLES [facility] [address] [place] [address] documented in this encounter Visit Diagnoses Not on filedocumented in this encounter Care Teams Project Portfolio Analyst Relationship Specialty Start Date End Date Nalini Riddle PA-C [address] [place] [address] PCP - General 09/09/13 documented as of this encounter
--- OUTSIDE RECORDS SUMMARY | 2024-05-25 17:28 | XMS_ITS | Referral Summary ---
Author Organization [facility] Address [address] [place] [address] Care Team Providers Care Orbitread Operator Name Role Phone Nalini Riddle PA-C Primary Care Provider + Social History Tobacco Use Types Packs/Day Years Used Date Smoking Tobacco: Never Assessed Sex and Gender Information Value Date Recorded Sex Assigned at Not on file Gender Identity Not on file Sexual Orientation Not on file Plan of Treatment Not on file Care Teams Orbitread Operator Relationship Specialty Start Date End Date Nalini Riddle PA-C [address] [place] [address] PCP - General 09/09/13
--- OUTSIDE RECORDS SUMMARY | 2024-05-25 17:28 | XMS_ITS | Encounter Summary ---
Author Organization [facility] Address [address] [place] [address] Care Team Providers Care Safety Compliance Specialist Name Role Phone Nalini Riddle PA-C Primary Care Provider + Encounter Details Date Type Department Care Team (Late st Contact Info) Description 10/24/2020 Lab Requisition [facility] Pathology & Laboratory Medicine - [address] [address] Outr Resulting Lab, Provider Social History Tobacco [...] Priority Date/Time Associated Diagnosis Comments ZZCOVID-19 TEST [facility] PCR Today 10/24/2020 9:40 EST COVID-19 TESTING Routine 10/24/2020 9:40 EST documented in this encounter Results * COVID-19 TEST [facility] (10/24/2020 9:40 EST) Swab ENTIRE NASOPHARYNX / Unknown 10/24/2020 9:40 EST 10/24/2020 21:59 EST Provider Outr Resulting Lab MICROBIOLOGY - GENERAL ORDERABLES [facility] [address] [place] [address] * COVID-19 TESTING (10/24/2020 9:40 EST) COVID-19 rt-PCR Result Negative Negative 10/25/2020 14:43 EST [facility] Comment: This test has not [...] was performed using the endy SARS-CoV-2 assay ([employer] on the Endy 6800 System Performing Lab Endy 6800 [facility] 10/25/2020 14:43 EST [facility] Swab 10/24/2020 9:40 EST 10/24/2020 21:59 EST Provider Outr Resulting Lab MICROBIOLOGY - GENERAL ORDERABLES [facility] [address] [place] [address] documented in this encounter Visit Diagnoses Not on filedocumented in this encounter Care Teams Safety Compliance Specialist Relationship Specialty Start Date End Date Nalini Riddle PA-C [address] [place] [address] PCP - General 09/09/13 documented as of this encounter
--- OUTSIDE RECORDS SUMMARY | 2024-05-25 17:28 | XMS_ITS | Encounter Summary ---
Author Organization [facility] Address [address] [place] [address] Care Team Providers Care Financial Director Name Role Phone Nalini Riddle PA-C Primary Care Provider + Encounter Details Date Type Department Care Team (Late st Contact Info) Description 05/22/2021 Lab Requisition [facility] Pathology & Laboratory Medicine - [address] [phone] Outr Resulting Lab, Provider Social History Tobacco [...] Procedure Name Priority Date/Time Associated Diagnosis Comments T3, TOTAL Routine 05/21/2021 8:25 EDT THYROID ANTIBODIES Routine 05/21/2021 8:25 EDT documented in this encounter Results * T3, TOTAL (05/21/2021 8:25 EDT) T3, Total 125 97 - 169 ng/dL 05/22/2021 17:[address] [facility] Blood VENOUS BLOOD / Unknown 05/21/2021 8:25 EDT 05/22/2021 16:41 EDT Provider Outr Resulting Lab CHEMISTRY & BLOOD GAS ORDERABLES [facility] [address] [place] [address] * (ABNORMAL) THYROID ANTIBODIES (05/21/2021 8:25 EDT) Anti-Thyroglobulin >500(H) <=60 U/mL 2020 18:[address] [facility] Thyroperoxidase Ab 180(H) <=60 U/mL 2020 18:[address] [facility] Blood VENOUS BLOOD / Unknown 05/21/2021 8:25 EDT 05/22/2021 16:41 EDT Provider Outr Resulting Lab CHEMISTRY & BLOOD GAS ORDERABLES [facility] [address] [place] [address] documented in this encounter Visit Diagnoses Not on filedocumented in this encounter Care Teams Financial Director Relationship Specialty Start Date End Date Nalini Riddle PA-C [address] [place] [phone] PCP - General 09/09/13 documented as of this encounter
--- OUTSIDE RECORDS SUMMARY | 2024-05-25 17:28 | XMS_ITS | Encounter Summary ---
Author Organization [facility] Address [address] [place] [address] Care Team Providers Care Environmental Projects Advisor Name Role Phone Unknown, Provider Primary Care Provider [phone] Encounter Details Date Type Department Care Team (Late st Contact Info) Description 10/03/2009 Orders Only [facility] Medicine - [address] [address] Max Walker MD [address] [place], [place] [id number] Social History Tobacco Use Types Packs/Day Years Used Date Smoking Tobacco: Never Assessed Sex and Gender Information Value Date Recorded Sex Assigned at Not on file Gender Identity Not on file Sexual Orientation Not on file documented as of this encounter Plan of Treatment Not on file documented as of this encounter Procedures Procedure Name Priority Date/Time Associated Diagnosis Comments SURGICAL PATHOLOGY Routine 10/03/2009 0:00 EST documented in this encounter Results * SURGICAL PATHOLOGY (10/03/2009 0:00 EST) Pathology Report: SURGICAL PATHOLOGY REPORT ? Reports generated via electronic interface contain original data; ? however they are lacking the format of the original report. ? Caution should be taken when reading/interpreti ng unformatted reports. ? Name: ? CRUZ, SYLVIA ? Accession #: ? [id number] ? : ? 1965 (Age: 44) ??F ? Collect Date: ? 10/03/2009 ? Location: ? [facility] ? Receive Date: ? 10/03/2009 ? Provider: MAX WALKO MD ? Copy to: LIBORIO MAGDALENE PA ? Final Pathologic Diagnosis: ? A. ?Terminal ileum, biopsies: ? 1. ?Ileal mucosa with reactive germinal centers; no pathologic features. B. ?Colon, right, ascending and transverse, biopsies: ? 1. ?Colonic mucosa with focal intraepithelial lymphocytosis. ??See ? comment. ? C. ?Colon, left, descending and sigmoid, biopsies: ? 1. ?Colonic mucosa with patchy intraepithelial lymphocytosis. ??See ? comment. ? D. ?Rectum, random, biopsies: ? 1. ?Rectal mucosa with no pathologic features. ? Comment: ? Specimens (B) and (C) show an increase in colonic intraepithelial ? lymphocytes. ??There is no injury to epithelial cells and no activity is ? identified. ??These findings may be associated with drug effect, infection, ? autoimmune diseases or celiac sprue. ??Clinical correlation is recommended. ??(Dr. Green)/[facility] ? Document reviewed and electronically signed by: ? Radhames Chinchilla, CALIhB ? Report ??Date: 10/08/2009 14:25 ? By the signature above, the attending physician certifies that he/she has ? personally conducted a gross and/or microscopic examination of the described ? specimens and rendered or confirmed the above diagnosis. ? Specimen(s) Received: ? A. ?Bx TI (#1) ? B. ? Bx Rt colon (ascending and transverse colon) (#2) ? C. ? Bx Lt colon (descending and sigmoid colon) (#3) ? D. ? Bx random rectum (#4) ? Clinical History: ? LLQ pain, rectal bleeding, diarrhea ? Gross Description: ? Received in Papa's fixative labelled Cruz, Sylvia and biopsy ? terminal ileum are three pink-johnson irregular soft tissues ranging from 0.2 x 0.2 x 0.2 cm to 0.3 x 0.3 x 0.2 cm. ??Submitted in toto in (A). ? Received in Scientific Revenuef[employer]here's fixative labelled CruzSylvia and biopsy right colon, ascending, and transverse colon are five pink-johnson irregular soft tissues ? ranging from 0.2 x 0.1 x 0.1 cm to 0.5 x 0.2 x 0.1 cm. ??Submitted in toto in ? (B1) and (B2). ? Received in Billdeske's fixative labelled CruzSylvia and biopsy left colon, descending, and sigmoid colon are five pink-johnson irregular soft tissues ranging from 0.3 x 0.2 x 0.2 cm to 0.5 x 0.2 x 0.2 cm. ??Submitted in toto in (C1) and ?? (C2). ? Received in Hollande's fixative labelled Cruz, Sylvia and biopsy random ? rectum are three pink-johnson irregular soft tissues ranging from 0.1 x 0.1 x 0.1 ?? cm to 0.3 x 0.2 x 0.1 cm. ??Submitted in toto in (D). ??(Wero Weeks)/kmm ? End of Report ? [facility] 10/03/2009 10/03/2009 16: 52 EST Max Walker MD PATHOLOGY ORDERABLES Performing Organization Address City/State/[facility] Co de Phone Number [facility]OR[facility] [address] [place] [address] documented in this encounter Visit Diagnoses Not on filedocumented in this encounter Care Teams Environmental Projects Advisor Relationship Specialty Start Date End Date Unknown, Provider, PCP - General 10/03/09 09/08/13 documented as of this encounter
--- OUTSIDE RECORDS SUMMARY | 2024-05-25 17:28 | XMS_ITS | Clinical Summary ---
Author Organization [facility] Address [address] [place] [address] Care Team Providers Care Manager Pacu Name Role Phone Nalini Riddle PA-C Primary Care Provider + Social History Tobacco Use Types Packs/Day Years Used Date Smoking Tobacco: Never Assessed Sex and Gender Information Value Date Recorded Sex Assigned at Not on file Gender Identity Not on file Sexual Orientation Not on file Plan of Treatment Health Maintenance Due Date Last Done Comments Hepatitis C Screen 1965 Hepatitis B Vaccine (1 of 3 - 19+ 3-dose series) 04/14 COVID-19 Vaccine (2022- season) 2023 Care Teams Manager Pacu Relationship Specialty Start Date End Date Nalini Riddle PA-C [address] [place] [address] PCP - General 09/09/13
--- OUTSIDE RECORDS SUMMARY | 2024-05-25 17:28 | XMS_ITS | Encounter Summary ---
Author Organization [facility] Address [address] [place] [address] Care Team Providers Care Patrol Sergeant Sheriff'[employer] Office Name Role Phone Nalini Riddle PA-C Primary Care Provider + Encounter Details Date Type Department Care Team (Late st Contact Info) Description 05/06/2016 Results Only [facility] [phone] Tigre Chacon MD [address] [facility] [address] [place] [address] Social History Tobacco Use Types Packs/Day Years Used Date Smoking Tobacco: Never Assessed Sex and Gender Information Value Date Recorded Sex Assigned at Not on file Gender Identity Not on file Sexual Orientation Not on file documented as of this encounter Plan of Treatment Not on file documented as of this encounter Procedures Procedure Name Priority Date/Time Associated Diagnosis Comments SURGICAL PATHOLOGY Routine 05/06/2016 20 :24 EDT documented in this encounter Results * SURGICAL PATHOLOGY (05/06/2016 20:24 EDT) Pathology Report: SURGICAL PATHOLOGY REPORT Reports generated via electronic interface contain original data; however they are lacking the format of the original report. Caution should be taken when reading/interpret ing unformatted reports. Name: ? SYLVIA CRUZ ? Accession #: ? [id number] ? : ? 1965 (Age: 51) ??F ? Collect Date: ? 05/06/2016 ? Location: ? [facility] ? Receive Date: ? 05/07/2016 ? Provider: JESSEE CHACON MD Copy to: ? Final Pathologic Diagnosis: A. SMALL BOWEL, SECOND PORTION OF DUODENUM, BIOPSY: - ??Peptic duodenitis. B. STOMACH, ANTRUM AND BODY, BIOPSY: - ??Antral and oxyntic mucosa with Helicobacter pylori associated follicular gastritis. - ??Positive for intestinal metaplasia; negative for dysplasia - ??See comment C. ESOPHAGUS, DISTAL, BIOPSY: - ??Cardia-oxyntic mucosa with Helicobacter pylori associated carditis. - ??Negative for intestinal metaplasia; negative for dysplasia. - ??No squamous epithelium is present. Comment: Positive for Helicobacter pylori gastritis was reported to Dr. Chacon's medical assistance, Ms. Bedoya, at 1:45 PM on 05/09/2016. Due to the extent to inflammation, follow up after completion of Helicobacter infection treatment is recommended. Dr. Coburn 05/09/2016 1:59 PM Document reviewed and electronically signed by: NORMA COBURN MD Report ??Date: 05/09/2016 14:01 By the signature above, the attending physician certifies that he/she has personally conducted a gross and/or microscopic examination of the described specimens and rendered or confirmed the above diagnosis. Specimen(s) Received: A. ??2nd portion duodenum bx B. ??Antrum + body bx C. ??Distal esophagus bx Clinical History: Chest pain (non-cardiac); clinical diagnosis code: R07.9 Gross Description: A. ?Received in formalin labelled with proper patient identification (initials C, P) and 2nd portion duodenum bx are two johnson tissues averaging 0.2 x 0.1 x 0.1 cm. Entirely submitted in A1. B. ?Received in formalin labelled with proper patient identification (initials C, P) and antrum + body bx are two johnson-guzmán tissues averaging 0.2 x 0.1 x 0.1 cm. Entirely submitted in B1. C. ?Received in formalin labelled with proper patient identification (initials C, P) and distal esophageal bx is a johnson nodular tissue, 0.2 x 0.1 x 0.1 cm. Entirely submitted in C1. SHARLENE Gardner (ASCP) 05/08/2016 8:36 AM End of Report [facility] 05/06/2016 20:2 4 EDT 05/07/2016 20:24 EDT Tigre Chacon MD PATHOLOGY ORDERABLES [facility] [address] [place] [address] documented in this encounter Visit Diagnoses Not on filedocumented in this encounter Care Teams Patrol Sergeant Sheriff'S Office Relationship Specialty Start Date End Date Nalini Riddle PA-C [address] [place] [phone] PCP - General 09/09/13 documented as of this encounter
--- OUTSIDE RECORDS SUMMARY | 2024-05-25 17:28 | XMS_ITS | Encounter Summary ---
[place] [address] Care Team Providers Care School Bus Attendant Name Role Phone Nalini Riddle Primary Care Provider [phone] Reason for Visit * Auth/Cert Specialty Diagnoses / Procedures Referred By Contmauro t Referred To Contact Diagnoses Pain with bowel movements, hx of polyps same day Procedures PRO COLONOSCOPY, DIAGNOSTIC COLONOSCOPY, DIAGNOSTIC Referral ID Status Reason Start Date Expiration Date Visits Re quested Visits Authorized [id number] 1 1 Encounter Details Date Type Department Care Team (Latest Contact Info) Description 01/25/2019 2:51 PM EDT - 01/25/2019 6:16 PM EDT Hospital En[place] [phone] Ken Lee MD [facility] [place] [address] Discharge Disposition: Home Social History Tobacco Use Types Packs/Day Years [...] 01/25/2019 4:06 PM ED T Respiratory Rate 19 01/25/2019 5:40 PM EDT Oxygen Saturation 97% 01/25/2019 5:40 PM EDT Inhaled Oxygen Concentration - - Weight 84.8 kg (187 lb) 01/25/2019 4:06 PM EDT Height - - Body Mass Index 27.62 01/10/2019 7:44 AM EDT documented in this encounter Discharge Instructions * Discharge Instructions* Elena Kay RN - 01/25/2019 5:19 PM EDT Please call [phone] before 8pm Mon-Fri with problems, questions or concerns. If you call after 8pm or on weekends, call the Hospital at [phone] and ask to speak to the Metalizing Supervisor patient consumer marketer and the cement gun operator will contact that person for you. * Attachments The following attachments cannot be sent through Care Everywhere. * Colonoscopy: Post-op (Vietnamese) documented in this encounter Medications at Time [...] 11:00 AM EST Office Visit Cardiology at [address] [address] Chiara Maldonado MD [address] [place] [address] [place] [address] documented as of this encounter Procedures Procedure Name Priority Date/Time Associated Diagnosis Comments COLONOSCOPY Routine 01/25/2019 4:34 PM EDT COLONOSCOPY, DIAGNOSTIC (WRVU 3.26) 01/25/2019 4:34 PM EDT Pain with bowel movements, hx of polyps same day documented in this encounter Results * COLONOSCOPY (01/25/2019 4:34 PM EDT) COLONOSCOPY [facility] Endoscopy Procedure Date: 01/25/2019 4:34 PM ? Patient Name: Sylvia Prince ? Date of : 1965 ? Age: 53 ? Order #: [id number] ? Instrument Name: [id number] ? Procedure: ? Colonoscopy Indications: ? Abdominal pain in the left lower ? quadrant; history of diminutive ? tubular adenoma in the rectum 1998; ? colonoscopies in 2002, 2009, 2015 ? without any polyps seen. Providers: ? LGrey Lee MD, Jazmin Hernandez, ? RN, Mary Ann Pinedo Referring MD: ?SHARLENE Phillips Brent C. ? MD Eliud [...] preparation was evaluated using ? the BBPS ([place] Bowel Preparation ? Scale) with scores of: [...] EDT Unknown GENERAL SURGICAL ORD ERABLES [employer] documented in this encounter Visit Diagnoses Not on filedocumented in this encounter Administered Medications Inactive Administered Medications - up to 3 most recent administrations Medication Order MAR Action Action Date Dose Rate Site lactated ringers infusion 100 mL/hr, Intravenous, CONTINUOUS, Starting on Thu01/25/19 at 1630, Until Thu01/25/19 at 1749, Endoscopy (Day of Procedure) New Bag 01/25/2019 4:24 PM EDT 100 mL/hr 100 mL/hr documented in this encounter Active and Recently [...] RN) documented in this encounter Care Teams School Bus Attendant Relationship Specialty Start Date End Date Nalini Riddle PA [address] [place] [address] PCP - General Family Medicine 12/28/18 04/10/20 documented as of this encounter
--- OUTSIDE RECORDS SUMMARY | 2024-05-25 17:28 | XMS_ITS | Encounter Summary ---
Author Organization [facility] Address [address] [place] [address] Care Team Providers Care Pest Control Technician Name Role Phone Nalini Riddle PA-C Primary Care Provider + Encounter Details Date Type Department Care Team (Latest Contact Info) Description 03/24/2016 9:39 EDT - 03/24/2016 23:59 EDT Hospital Encounter [facility] [address] [place] [address] Unknown, Provider, Discharge Disposition: Home or Self Care Social History Tobacco Use Types Packs/Day Years Used Date Smoking Tobacco: Never Assessed Sex and Gender Information Value Date Recorded Sex Assigned at Not on file Gender Identity Not on file Sexual Orientation Not on file documented as of this encounter Discharge Disposition Disposition Code Departure Means Destination Home or Self Shelter documented in this encounter Plan of Treatment Not on file documented as of this encounter Visit Diagnoses Not on filedocumented in this encounter Care Teams Pest Control Technician Relationship Specialty Start Date End Date Nalini Riddle PA-C [address] [place] [phone] PCP - General 09/09/13 documented as of this encounter
--- OUTSIDE RECORDS SUMMARY | 2024-05-25 17:28 | XMS_ITS | Encounter Summary ---
Author Organization [facility] [address] [place] [address] Care Team Providers Care Guard Captain Name Role Phone Shannon Bauman MD Primary Care Provider [phone] Encounter Details Date Type Department Care Team (Late st Contact Info) Description 12/15/2018 Ancillary Procedure Radiology Library at [facility] [place] [address] Boogie Kline MD [facility] [place] [address] Social History Tobacco Use Types Packs/Day Years [...] 11:00 AM EST Office Visit Cardiology at [address] [address] Chiara Maldonado MD [address] [place] [address] [place] [address] documented as of this encounter Procedures Procedure Name Priority Date/Time Associated Diagnosis Comments FILM LIBRARY STORAGE ONLY CT ABDOMEN AND PELVIS Routine 12/15/2018 12:00 AM EDT documented in this encounter Results * Film Library- Storage Only CT Abdomen & Pelvis (12/15/2018 12:00 AM EDT) Narrative RAD - 01/05/2019 4:52 PM EDT This exam is auto-finalizing. It's purpose is for storage only. Boogie Kline MD IMG FILM LIBRARY ORD ERABLES [place], [place] documented in this encounter Visit Diagnoses Not on filedocumented in this encounter Care Teams Guard Captain Relationship Specialty Start Date End Date Shannon Bauman MD [address] [place] [address] PCP - General 07/16/10 12/27/18 documented as of this encounter
--- OUTSIDE RECORDS SUMMARY | 2024-05-25 17:28 | XMS_ITS | Encounter Summary ---
Author Organization [facility] Address [address] [place] [address] Care Team Providers Care Business Applications Analyst Name Role Phone Unknown, Provider Primary Care Provider Encounter Details Date Type Department Care Team (Latest Contact Info) Description 09/07/2013 10:04 EST - 09/07/2013 23:59 EST Hospital Encounter [address] [address] Unknown, Provider, Discharge Disposition: Home or Self Care Social History Tobacco Use Types Packs/Day Years Used Date Smoking Tobacco: Never Assessed Sex and Gender Information Value Date Recorded Sex Assigned at Not on file Gender Identity Not on file Sexual Orientation Not on file documented as of this encounter Discharge Disposition Disposition Code Departure Means Destination Home or Self [facility] documented in this encounter Plan of Treatment Not on file documented as of this encounter Visit Diagnoses Not on filedocumented in this encounter Care Teams Business Applications Analyst Relationship Specialty Start Date End Date Unknown, Provider, PCP - General 10/03/09 09/08/13 documented as of this encounter
--- OUTSIDE RECORDS SUMMARY | 2024-05-25 17:28 | XMS_ITS | Encounter Summary ---
Author Organization [facility] [address] [place] [address] Care Team Providers Care Sales Account Director Name Role Phone Nalini Riddle Primary Care Provider [phone] Encounter Details Date Type Department Care Team (Late st Contact Info) Description 10/18/2009 Orders [place] [address] King Arthur MD [facility] [place] [address] Social History Tobacco Use Types Packs/Day Years [...] 11:00 AM EST Office Visit Cardiology at [address] [address] Chiara Maldonado MD [address] [place] [address] DR CARDIOLOGY [place], [place] [phone] documented as of this encounter Procedures Procedure Name Priority Date/Time Associated Diagnosis Comments SURGICAL PATHOLOGY REPORT Routine 10/18/2009 7:47 AM EST documented in this encounter Results * Surgical Pathology Report (10/18/2009 7:47 AM EST) Surgical Pathology Report [id number] ? Location: W The signing pathologist has (i) examined the relevant preparation(s) for the specimen(s) and (ii) rendered or confirmed the diagnosis(es). . ?Pathology Surgical Pathology Final Report Clinical Information Specimen Submitted: CONSULTATION CASE A - 6 slides labeled [id number], collection date 10/03/09. [id number] Report to: [facility] Surgical Pathology [address] ??[address] Phone - [phone] Fax - [phone] Gross Description [facility]'s pathology slide(s) are reviewed. ??Refer to Diagnosis and Specimen Submitted for specific case information. For the full text of the FA report(s) please refer to Non-DH Documentation Pathology in the Clinical Information System (CIS). Microscopic Description Slides reviewed, microscopic description not recorded. Diagnosis CONSULTATION CASE Endoscopic biopsies ([id number], collection date 10/03/09): A. Terminal ileum - ?? Ileal mucosa within normal limits. B and C. Right colon (ascending and transverse colon) and Left colon (descending and sigmoid colon) - Mildly active nonspecific colitis with increase in intraepithelial lymphocytes. The differential diagnoses include lymphocytic colitis, drug-induced colitis, and infectious colitis. Early idiopathic inflammatory bowel disease cannot be entirely excluded. Clinical and endoscopic correlation are required. D. Rectum - ??Rectal mucosa within normal limits. 10/19/09 AAS 10/22/09 Verified by: ? Rosalind Evans MD ?Pathologist ?(Electronic Signature) The attending pathologist whose signature appears on this report has reviewed all diagnostic slides and has edited the gross and/or microscopic portion of the report in rendering the final pathologic diagnosis. JASS OBRIEN 10/18/2009 7:47 AM EST King Arthur MD PATHOLOGY/CYTOLOGY [facility] documented in this encounter Visit Diagnoses Not on filedocumented in this encounter Care Teams Sales Account Director Relationship Specialty Start Date End Date Nalini Riddle PA [address] [place] [address] PCP - General Family Medicine 02/26/21 documented as of this encounter
--- OUTSIDE RECORDS SUMMARY | 2024-05-25 17:28 | XMS_ITS | Encounter Summary ---
Author Organization [facility] Address [address] [place] [address] Care Team Providers Care Bean Snapper Name Role Phone Unknown, Provider Primary Care Provider Encounter Details Date Type Department Care Team (Late st Contact Info) Description 09/07/2013 Results Only [facility] [phone] Skip Hammonds MD [address] [place] [address] Social History Tobacco Use Types Packs/Day Years Used Date Smoking Tobacco: Never Assessed Sex and Gender Information Value Date Recorded Sex Assigned at Not on file Gender Identity Not on file Sexual Orientation Not on file documented as of this encounter Plan of Treatment Not on file documented as of this encounter Procedures Procedure Name Priority Date/Time Associated Diagnosis Comments SURGICAL PATHOLOGY Routine 09/07/2013 23 :05 EST CYTOPATHOLOGY Routine 09/07/2013 0:00 EST documented in this encounter Results * SURGICAL PATHOLOGY (09/07/2013 23:05 EST) Pathology Report: SURGICAL PATHOLOGY REPORT Reports generated via electronic interface contain original data; however they are lacking the format of the original report. Caution should be taken when reading/interpreti ng unformatted reports. Name: ? ANTHONY SYLVIA ? Accession #: ? [id number] ? : ? 1965 (Age: 48) ??F ? Collect Date: ? 09/07/2013 ? Location: ? [facility] ? Receive Date: ? 09/07/2013 ? Provider: SKIP HAMMONDS MD Copy to: RIGOBERTO SU ? Final Pathologic Diagnosis: OVARY AND FALLOPIAN TUBE, LEFT, SALPINGO-OOPHORECT GRACY: - ??Ovary: ? - ??Benign simple cyst with hemosiderin pigment deposits. See comment. ? - ??Follicular cyst. ? - ??Hemorrhagic corpus luteum. - ??Fallopian tube: ? - ??Small paratubal cyst. ? - ??Fibrous tubo-ovarian adhesions. Comment: The largest cyst in the ovary lacks definitive epithelial lining. The presence of hemosiderin deposits in the wall raises the possibility of a benign hemorrhagic cyst. Dr. Garcia 09/12/2013 10:29 AM Document reviewed and electronically signed by: Shefali Gibbons MD Report ??Date: 09/12/2013 14:58 By the signature above, the attending physician certifies that he/she has personally conducted a gross and/or microscopic examination of the described specimens and rendered or confirmed the above diagnosis. Specimen(s) Received: Left ovary and fallopian tube Clinical History: Not listed Gross Description: ? Received in formalin labelled with proper patient identification (initials C, P) and left ovary and tube is an intact ovary (3.7 x 2.0 x 1.2 cm) with a partially detached fimbriated fallopian tube (4.0 cm in length x 0.4 cm in diameter). ??The specimen has a combined weight of a 9.08 g. ??The ovary has a smooth, white, and intact capsule. ??Sectioning reveals a johnson-white cut surface with two eccentric smooth walled cystic structures present measuring 0.8 and 1.4 cm in greatest dimension. ??The cysts exude a clear fluid, with no excrescences present. The fallopian tube has pink-johnson serosa and sectioning reveals a white cut surface with a pinpoint lumen throughout. The fimbria is partially adherent to the ovary. Claims Consultant sections are submitted as follows: 1- ??ovary with larger cyst 2- ??ovary with smaller cyst 3- ??apprenticeship representative ovary 4- ??fallopian tube Nallely Watkins 09/08/2013 10:56 AM End of Report [facility] 09/07/2013 23:0 5 EST 09/07/2013 23:05 EST Skip Hammonds MD PATHOLOGY ORDERABLES [facility] [address] [place] [address] * CYTOPATHOLOGY (09/07/2013 0:00 EST) Pathology Report: CYTOPATHOLOGY REPORT Reports generated via electronic interface contain original data; however they are lacking the format of the original report. Caution should be taken when reading/interpreti ng unformatted reports. Name: ? ANTHONY SYLVIA ? Accession #: ? [id number] : ? 1965 (Age: 48) ??F ?Collect Date: ? 09/07/2013 Location: ? [facility] ? Receive Date: ? 09/08/2013 Provider: ? SKIP HAMMONDS MD Copy to: ?RIGOBERTO SU ? CYTOLOGIC DIAGNOSIS: PERITONEAL WASHING, CYTOLOGIC EVALUATION: - No malignant cells identified. - Reactive mesothelial cells and histiocytes. ?? Document reviewed and electronically signed by: ? BABATUNDE BLAND MD Report Date: ??09/08/2013 12:26 By the signature above, the attending physician certifies that he/she has personally conducted a gross and/or microscopic examination of the described specimens and rendered or confirmed the above diagnosis. Specimen Type: ? Peritoneal Washing Clinical History: ? Not listed ? Gross Description: ? 120 cc of cloudy white fluid (saline added) were received and processed by selective cellular enhancement technique. ? End of Report [facility] 09/07/2013 09/08/2013 8:3 7 EST Skip Hammonds MD PATHOLOGY ORDERABLES Performing Organization Address City/State/[facility] Co de Phone Number [facility] [address] [place] [address] documented in this encounter Visit Diagnoses Not on filedocumented in this encounter Care Teams Bean Snapper Relationship Specialty Start Date End Date Unknown, Provider, PCP - General 10/03/09 09/08/13 documented as of this encounter
--- OUTSIDE RECORDS SUMMARY | 2024-05-25 17:28 | XMS_ITS | Encounter Summary ---
Author Organization [facility] Address [address] [place] [id number] Care Team Providers Care Appraiser Personal Property Name Role Phone Nalini Riddle PA-C Primary Care Provider + Encounter Details Date Type Department Care Team (Latest Contact Info) Description 05/08/2016 9:34 EDT - 05/08/2016 23:59 EDT Hospital Encounter [address] [address] Unknown, Provider, Discharge Disposition: Home or Self Care Social History Tobacco Use Types Packs/Day Years Used Date Smoking Tobacco: Never Assessed Sex and Gender Information Value Date Recorded Sex Assigned at Not on file Gender Identity Not on file Sexual Orientation Not on file documented as of this encounter Discharge Diagnoses Diagnosis R07.9 Chest pain, unspecified-R07.9[ICD-10-CM] documented in this encounter Discharge Disposition Disposition Code Departure Means Destination Home or Self Assisted documented in this encounter Plan of Treatment Not on file documented as of this encounter Visit Diagnoses Not on filedocumented in this encounter Care Teams Appraiser Personal Property Relationship Specialty Start Date End Date Nalini Riddle PA-C [address] [place] [address] PCP - General 09/09/13 documented as of this encounter
--- OUTSIDE RECORDS SUMMARY | 2024-05-25 17:28 | XMS_ITS | Encounter Summary ---
Author Organization [facility] Address [address] [place] [id number] Care Team Providers Care Staff Trainer Name Role Phone Unknown, Provider Primary Care Provider Encounter Details Date Type Department Care Team (Latest Contact Info) Description 09/07/2013 14:58 EST - 09/07/2013 23:59 [facility] Hospital Encounter [address] [address] Unknown, Provider, Discharge Disposition: Home or Self [...] on filedocumented in this encounter Care Teams Staff Trainer Relationship Specialty Start Date End Date Unknown, Provider, PCP - General 10/03/09 09/08/13 documented as of this encounter
[2024-05-25 20:25] LABS: Abs Immature Grans 0.02 10^3/uL (0.0-0.06); Absolute Basophil Count 0.07 10^3/uL (0.0-0.2); Absolute Eosinophil Count 0.17 10^3/uL (0.0-0.7); Absolute Lymphocyte Count 3.15 10^3/uL (1.2-3.4); Absolute Monocyte Count 0.69 10^3/uL (0.1-0.8); Absolute Neutrophil Count 3.51 10^3/uL (1.2-6.7); Basophils % 0.9 %; Eosinophils % 2.2 %; HCT 40.1 % (36.0-46.0); HGB 12.7 g/dL (11.2-15.7); Immature Grans % 0.3 %; Lymphocytes % 41.4 %; MCH 26.5 pg (27.0-33.0); MCHC 31.7 % (32.0-36.0); MCV 84 fL (80-95); MPV 11.1 fL (8.0-11.0); Monocytes % 9.1 %; Neutrophils % 46.1 %; Platelet Count 290 10^3/uL (130-400); RDW-SD 42.8 fL; WBC 7.61 10^3/uL (4.4-10.8)
[2024-05-25 20:47] LABS: Anion Gap 3.3 mmol/L (3-11); BUN 19 mg/dL (7-18); CO2 32.7 mmol/L (21.0-32.0); CREATININE 0.9 mg/dL (0.55-1.02); Calcium 9.3 mg/dL (8.5-10.1); Chloride 100 mmol/L (98-107); Estimated GFR 73.64 (mL/min/1.73m2); Glucose 93 mg/dL (74-106); NT-proBNP 200 pg/mL (<300); Potassium 4.2 mmol/L (3.5-5.1); Sodium 136 mmol/L (136-145)
== END 2024-05-25 17:26 | disposition home or self-care (01) ==
LOC: NCHCN 17:25
PROVIDERS: PCP Physician Assistant Medical; Visit Provider Physician Assistant Medical
DX: I34.0 Nonrheumatic mitral (valve) insufficiency (principal)
CPT/HCPCS: 80048; 83880; 85025

== ENCOUNTER 2024-08-05 01:14 | Outpatient (CLI) | payer MEDICAID, SELFPAY ==
[2024-08-05 10:23] LABS: HCT 39.7 % (36.0-46.0); HGB 12.5 g/dL (11.2-15.7); MCH 26.5 pg (27.0-33.0); MCHC 31.5 % (32.0-36.0); MCV 84 fL (80-95); MPV 10.1 fL (8.0-11.0); Platelet Count 314 10^3/uL (130-400); RBC 4.71 10^6/uL (3.93-5.22); RDW 14.6 % (11.7-14.6); RDW-SD 44.8 fL; WBC 5.54 10^3/uL (4.4-10.8)
[2024-08-05 10:33] LABS: INR 1.1 (0.9-1.1)
[2024-08-05 10:40] LABS: ALT 19 U/L (14-59); AST 14 U/L (15-37); Albumin 4.3 g/dL (3.4-5.0); Alkaline Phosphatase 99 U/L (46-116); Anion Gap 8.5 mmol/L (3-11); BUN 14 mg/dL (7-18); Bilirubin, Total 0.64 mg/dL (0.2-1.0); CO2 30.5 mmol/L (21.0-32.0); Calcium 9.3 mg/dL (8.5-10.1); Calculated LDL 144 mg/dL (<100); Chloride 103 mmol/L (98-107); Cholesterol 219 mg/dL (<200); Glucose 97 mg/dL (74-106); HDL Cholesterol 54 mg/dL (40-60); Sodium 142 mmol/L (136-145); Total Protein 8.5 g/dL (6.4-8.2); Triglyceride 106 mg/dL (<150)
== END 2024-08-05 01:15 | disposition home or self-care (01) ==
LOC: LBO 01:14
PROVIDERS: PCP Physician Assistant Medical; Visit Provider Physician Assistant Medical
DX: I34.0 Nonrheumatic mitral (valve) insufficiency (principal)
CPT/HCPCS: 36415; 80053; 80061; 85027; 85610

== ENCOUNTER 2024-10-27 11:13 | Emergency (ER) | payer MEDICAID, SELFPAY ==
[2024-10-27] VITALS (253 sets, daily range): BP systolic 82–145; BP diastolic 44–98; PULSE 63–136; RESP 10–30; O2SAT 93–100
--- NOTE | 2024-10-27 11:15 | DI.RAD_ITS ---
Exam(s) XR PORTABLE CHEST AP EXAM: XR PORTABLE CHEST AP CLINICAL HISTORY: central chest pain, recent mitral valve replacemen. TECHNIQUE: 2D digital imaging was performed. COMPARISON: CR XR CHEST 2V PA LATERAL from 02/04/[address] THORAX ABD/PEL CTA from 12/17/2023 FINDINGS: Single AP portable view. There are now sternotomy wires evident. Heart size is normal. There appears to be a prosthetic card iac valve. Lungs are clear. No infiltrates nor obvious pleural effusions. No evidence of pulmonary edema. No fractures evident. IMPRESSION: No acute pulmonary findings on this single AP portable view of the chest. There has been interval sternotomy since prior images of November 2023. DATA REPOSITORY: RADIATION DOSE DELIVERED:
--- NOTE | 2024-10-27 11:15 | RT.EKG_ITS ---
APPROVED REPORT Exam: Resting ECG Reason for Exam: elevated hr Patient Location: E HR:122 bpm ECG Measurements Heart Rate 122 AXIS KS 146 P -90 QRSd 89 QRS 36 QT 346 T 141 QTc 493 Conclusion Ectopic atrial tachycardia, unifocal...abnormal P axis, V-rate> 99 Repol abnrm suggests ischemia, diffuse leads...ST-T neg, ant/lat/inf Physician: appears to represent underlying fluttervs less likely afib
--- NOTE | 2024-10-27 11:15 | DI.CT_ITS ---
Exam(s) CT CHEST PE CTA EXAM: CT CHEST PE CTA CLINICAL HISTORY: recent MVRepair, sob, tachy, eval for PE. TECHNIQUE: Imaging Protocol: CT angiography of the chest was performed using pulmonary embolus jordan col. Multi planar reconstructions were performed. CONTRAST MATERIAL: Intravenous: Omnipaque 350 Contrast volume: 80 cc COMPARISON: CT CT THORAX ABD/PEL CTA from 12/17/2023 FINDINGS: CHEST: PULMONARY ARTERIES: There are no intraluminal filling defects to suggest acute pulmonary emboli. LUNGS: There are no infiltrates nor evidence of pulmonary infarction.. There is a small 2-3 mm subple ural nodule in the lateral segment of the right middle lobe, unchanged from CT scan of November 2023.. No pleural effusions. MEDIASTINUM: There is no hilar nor mediastinal adenopathy. There is sternotomy wires. There is some density in the anterior mediastinal fat which is possibly postoperative or remnant thymus. Does not have the appearance of typical adenopathy. There is also no hilar adenopathy and there is no subcar inal adenopathy nor paratracheal adenopathy CARDIAC: There is sternotomy wires. Heart size upper normal. There is a prosthetic mitral valve. N o pericardial effusion.Caliber of the thoracic aorta is within normal limits. There is no significan t shift of the interventricular septum. PARTIALLY VISUALIZED UPPERMOST ABDOMEN: Right adrenal gland unremarkable. Small hypodense nodule in the left adrenal gland noted measuring 1.5 x 1.0 cm. This is unchanged in size from CT scan of November 2023. Most probably a E benign adenoma. OSSEOUS: No significant osseous lesions.Fractures.. IMPRESSION: 1. No evidence of acute pulmonary emboli. No evidence of pulmonary infarction.No pleural effusions. No new infiltrates. Stable small right middle lobe nodule measuring 2-3 mm. 2. There has been interval sternotomy and mitral valve prosthesis placement. 3. Other findings as above Findings discussed by myself with ER physician 10/27/2024 at 1:35 RADIATION DOSE DELIVERED: 318.34mGy.cm Total DLP DATA REPOSITORY: All CT scans at this facility are submitted to the National Radiology Data Registry (NRDR) Dose Index Registry (DIR) with the [employer] ([employer]). RADIATION OPTIMIZATION: All CT scans at this facility use at least one of these dose optimization te chniques: automated exposure control; mA and/or kV adjustment per patient size (includes targeted exa ms where dose is matched to clinical indication); or iterative reconstruction.
[2024-10-27] MEDS: Normal Saline 500 ML IV (11:34)
[2024-10-27 11:37] LABS: Abs Immature Grans 0.01 10^3/uL (0.0-0.06); Absolute Basophil Count 0.07 10^3/uL (0.0-0.2); Absolute Eosinophil Count 0.13 10^3/uL (0.0-0.7); Absolute Lymphocyte Count 1.56 10^3/uL (1.2-3.4); Absolute Monocyte Count 0.56 10^3/uL (0.1-0.8); Absolute Neutrophil Count 3.71 10^3/uL (1.2-6.7); Basophils % 1.2 %; Eosinophils % 2.2 %; HGB 11.8 g/dL (11.2-15.7); Immature Grans % 0.2 %; Lymphocytes % 25.8 %; MCH 26.7 pg (27.0-33.0); MCHC 31.1 % (32.0-36.0); MCV 86 fL (80-95); MPV 9.3 fL (8.0-11.0); Monocytes % 9.3 %; Neutrophils % 61.3 %; Platelet Count 435 10^3/uL (130-400); RBC 4.42 10^6/uL (3.93-5.22); RDW 13.1 % (11.7-14.6); RDW-SD 41.2 fL; WBC 6.04 10^3/uL (4.4-10.8)
[2024-10-27] MEDS: nitroGLYcerin 0.4 MG TAB SL (11:43)
[2024-10-27 11:51] LABS: INR 1.1 (0.9-1.1); PTT Activated 26.6 sec (20.6-30.2); Prothrombin Time 10.6 sec (9.1-11.1)
[2024-10-27 12:04] LABS: ALT 18 U/L (14-59); AST 12 U/L (15-37); Albumin 3.7 g/dL (3.4-5.0); Alkaline Phosphatase 131 U/L (46-116); Anion Gap 9.5 mmol/L (3-11); BUN 15 mg/dL (7-18); Bilirubin, Total 0.28 mg/dL (0.2-1.0); CO2 27.5 mmol/L (21.0-32.0); CREATININE 0.8 mg/dL (0.55-1.02); Calcium 8.7 mg/dL (8.5-10.1); Chloride 106 mmol/L (98-107); Estimated GFR 84.82 (mL/min/1.73m2); Glucose 101 mg/dL (74-106); NT-proBNP 441 pg/mL (<300); Sodium 143 mmol/L (136-145); Total Protein 7.8 g/dL (6.4-8.2)
[2024-10-27 12:07] LABS: Troponin I 94 ng/L (<or=51)
[2024-10-27] MEDS: ACETAMINOPHEN 1,000 MG/100 ML BAG 400 MG IVPB (12:14)
[2024-10-27] MEDS: fentaNYL 100 MCG/2 ML VIAL 50 MCG IVP ×4 (12:30→21:45)
[2024-10-27] MEDS: Omnipaque 350 MG/ML 100 ML BTL 80 ML IJ (12:43)
[2024-10-27] MEDS: Normal Saline - Diluent 50 ML VIAL IJ (12:45)
--- NOTE | 2024-10-27 13:30 | RT.EKG_ITS ---
APPROVED REPORT Exam: Resting ECG Reason for Exam: chest pain Patient Location: E HR:121 bpm ECG Measurements Heart Rate 121 AXIS UT 261 P -70 QRSd 84 QRS 25 QT 294 T 249 QTc 417 Conclusion Sinus or ectopic atrial tachycardia...P axis (-45,135), rate> 99 Prolonged UT interval...UT >200, V-rate 121-300 Repol abnrm suggests ischemia, diffuse leads...ST-T neg, ant/lat/inf Physician: appears to represent underlying fluttervs less likely afib
--- NOTE | 2024-10-27 13:41 | ED.GENADUL_ITS ---
Discharge Plan Disposition Patient Disposition: Transfer-Acute Inpatient Care Specific Acute Inpt Facility: Other Condition: Good Discharge Details Chief Complaint: Palpitatns Clinical Impression: Atrial flutter, Dehydration, Chest discomfort Primary Care Provider: Nalini Riddle ED Provider: Juarez Mcconnell Home Meds and New Rx's Prescriptions: No Action albuterol sulfate [ProAir HFA] 90 mcg/actuation HFA aerosol inhaler 2 puff inhalation Q6H PRN pantoprazole 40 mg tablet,delayed release (DR/EC) 40 mg PO DAILY levothyroxine 100 mcg tablet 100 mcg PO DAILY Patient Comments: TAKE 1 TABLET BY MOUTH EVERY DAY venlafaxine 75 mg Capsule,Extended Release 24hr 75 mg PO DAILY doxepin 50 mg capsule 50 mg PO HS Patient Comments: TAKE ONE CAPSULE BY MOUTH EVERY DAY metoprolol tartrate 25 mg tablet 25 mg PO BID Patient Comments: TAKE ONE TABLET BY MOUTH EVERY 12 HOURS furosemide 40 mg tablet 40 mg PO DAILY Patient Comments: TAKE ONE TABLET BY MOUTH EVERY DAY lorazepam 0.5 mg tablet 0.5 mg PO TID PRN Patient Comments: TAKE ONE TABLET BY MOUTH THREE TIMES A DAY NEEDED FOR ACUTE ANXIETY HPI General Date/Time Provider Initiated Documentation: 10/27/24 11:14 . HPI Narrative: This is a 59-year-old female with a past medical history of hypothyroidism, mitral valve disease with replacement 3 weeks ago at [facility] in [place], GERD, hypertension, who presents today for evaluation of cardiac dysrhythmia. Lightheadedness. Patient had her surgery 3 weeks ago, she had been doing well, yesterday she felt slightly off, and then today when she woke up this morning she felt extremely lightheaded and unwell around 9 AM. EMS on arrival reports a heart rate between 2 40-60. She was given a dose of 6 of adenosine followed by 12 of adenosine which transition the patient per EMS report to an atrial fibrillation. She was then given 20 mg of Cardizem and a 500 cc bolus. She was also given a 325 aspirin. She tolerated this well. She was brought into the ER for further assessment. She also had notable chest pain, which was slightly improved with treatment. She denies any history of atrial fibrillation or flutter in the past. No other complaints at this time. She denies any new medications. Related Data Home Medications ?Medication ?Instructions ?Recorded ?Confirmed albuterol sulfate 90 mcg/actuation 2 puff inhalation Q6H PRN 06/04/21 10/27/24 aerosol inhaler (ProAir HFA) pantoprazole 40 mg tablet,delayed 40 mg PO DAILY 06/04/21 10/27/24 release levothyroxine 100 mcg tablet 100 mcg PO DAILY 06/24/21 10/27/24 venlafaxine 75 mg capsule,extended 75 mg PO DAILY 06/26/21 10/27/24 release 24 hr doxepin 50 mg capsule 50 mg PO HS 10/27/24 10/27/24 furosemide 40 mg tablet 40 mg PO DAILY 10/27/24 10/27/24 lorazepam 0.5 mg tablet 0.5 mg PO TID PRN 10/27/24 10/27/24 metoprolol tartrate 25 mg tablet 25 mg PO BID 10/27/24 10/27/24 Allergies Allergy/AdvReac Type Severity Reaction Status Date / Time codeine Allergy Intermediate hypersensitive. Verified 10/27/24 11:26 Can't sleep. feels wired mint AdvReac Mild Skin Rash Verified 10/27/24 11:26 cephalexin (Cephalexin) AdvReac Nausea/ GI Unverified 10/27/24 11:26 upset General Stated Complaint: Palpitatns ERNA: 2 Exam Narrative Exam Narrative: 1.Const: Well-nourished, Well-developed, appearing stated age 2.Eyes: PERRL, no conjunctival injection, and symmetrical lids. 3.ENT: Atraumatic external nose and ears. Dry MM. Neck: Symmetric, trachea midline, No thyromegaly. 4.CVS: +S1/S2, Peripheral pulses 2+ and equal in all extremities. Brisk capillary refill in all extremities. 5.RESP: Unlabored respiratory effort. Clear to auscultation bilaterally. No wheezes rales or rhonchi 6.GI: Soft, Nontender/Nondistended, No hepatosplenomegaly. No guarding or rebound. 7.MSK: Normocephalic/Atraumatic, Extremities w/o deformity or ttp No cyanosis or clubbing, Normal movement of all extremities 8.Skin: Warm, Dry. No rashes or lesions. 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 Sensation grossly intact, no focal neurologic deficits. 10.Psych: (AAO) x3. Appropriate mood and affect Course Vital Signs Vital signs: Vital Signs Respiratory Rate 19 10/27/24 11:18 Pulse 96 H 10/27/24 13:01 Pulse 103 H 10/27/24 13:10 Respiratory Rate 13 10/27/24 13:10 Respiratory Effort Short of Breath 10/27/24 11:57 Blood Pressure 103/68 10/27/24 13:01 Blood Pressure Mean 79 10/27/24 13:01 Blood Pressure Position Sitting 10/27/24 11:22 Pulse Oximetry 98 10/27/24 13:10 Oxygen Delivery Method Room Air 10/27/24 11:22 Oxygen Flow Rate 0 10/27/24 11:22 Pain Level 5 10/27/24 13:12 Lab/Test Results Lab/Test Results: Laboratory Tests Range/Units 10/27/24 11:31 WBC (4.4-10.8) 10^3/uL 6.04 RBC (3.93-5.22) 10^6/uL 4.42 Hgb (11.2-15.7) g/dL 11.8 Hct (36.0-46.0) % 38.0 MCV (80-95) fL 86 MCH (27.0-33.0) pg 26.7 L MCHC (32.0-36.0) % 31.1 L RDW (11.7-14.6) % 13.1 Plt Count (130-400) 10^3/uL 435 H MPV (8.0-11.0) fL 9.3 Immature Gran % % 0.2 Neutrophils % % 61.3 Lymphocytes % % 25.8 Monocytes % % 9.3 Eosinophils % % 2.2 Basophils % % 1.2 Nucleated RBC % (0.0-0.3) % 0.0 Absolute Neutrophils (1.2-6.7) 10^3/uL 3.71 Absolute Lymphocytes (1.2-3.4) 10^3/uL 1.56 Absolute Monocytes (0.1-0.8) 10^3/uL 0.56 Absolute Eosinophils (0.0-0.7) 10^3/uL 0.13 Absolute Basophils (0.0-0.2) 10^3/uL 0.07 PT (9.1-11.1) sec 10.6 INR (0.9-1.1) 1.1 APTT (20.6-30.2) sec 26.6 Sodium (136-145) mmol/L 143 Potassium (3.5-5.1) mmol/L 4.0 Chloride (98-107) mmol/L 106 Carbon Dioxide (21.0-32.0) mmol/L 27.5 Anion Gap (3-11) mmol/L 9.5 BUN (7-18) mg/dL 15 Creatinine (0.55-1.02) mg/dL 0.8 Est GFR (CKD-EPI 2020) (mL/min/1.73m2) 84.82 Glucose (74-106) mg/dL 101 Calcium (8.5-10.1) mg/dL 8.7 Total Bilirubin (0.2-1.0) mg/dL 0.28 AST (15-37) U/L 12 L ALT (14-59) U/L 18 Alkaline Phosphatase (46-116) U/L 131 H Troponin I (<or=51) ng/L 94 H* NT-Pro-B Natriuret Pep (<300) pg/mL 441 H Total Protein (6.4-8.2) g/dL 7.8 Albumin (3.4-5.0) g/dL 3.7 TSH (0.36-3.74) uIU/mL 4.70 H Medical Decision Making This is a 59-year-old female with a past medical history of hypothyroidism, mitral valve disease with replacement 3 weeks ago at [facility] in [place], GERD, hypertension, who presents today for evaluation of cardiac dysrhythmia. Lightheadedness. Patient had her surgery 3 weeks ago, she had been doing well, yesterday she felt slightly off, and then today when she woke up this morning she felt extremely lightheaded and unwell around 9 AM. EMS on arrival reports a heart rate between 2 40-60. She was given a dose of 6 of adenosine followed by 12 of adenosine which transition the patient per EMS report to an atrial fibrillation. She was then given 20 mg of Cardizem and a 500 cc bolus. She was also given a 325 aspirin. She tolerated this well. She was brought into the ER for further assessment. She also had notable chest pain, which was slightly improved with treatment. She denies any history of atrial fibrillation or flutter in the past. No other complaints at this time. She denies any new medications. Exam demonstrates the patient and current chest discomfort. Blood pressure is stable enough at this time, and I do feel that she may benefit from nitroglycerin. Uncertain as to the initial cause of her symptomatology, ACS is certainly on the differential, but also includes thyroid dysfunction, electrolyte abnormality, or ectopic hyperactivity secondary to her recent previous surgery. I suspect her initial episode may have been SVT versus flutter. However with the recent surgery, PE is certainly on the differential with her chest pain heaviness and shortness of breath. We will rehydrate out of concern for dehydration as a potential component of the her symptomatology. Will monitor closely and reassess. 4:25 PM Laboratory workup returned, no white count bandemia or left shift. CTA shows no evidence of pulmonary embolism dissection or other abnormality. There is a small right middle lobe nodule but no other significant abnormality. Laboratory workup shows normal electrolytes, proBNP benign at 400, TSH elevated at 4.7, pending free T4, currently her machine is down. Initial troponin was 94, and then went down to 88 and then went back up to 111. Patient's heart rate came down from the 130s to the low 100s after fluid bolus, however she still remained tachycardic. EKG still appears to be combination of A-fib versus a flutter, however I am most concerned that there is an underlying a flutter component. Patient was given 15 mg of IV Cardizem and this converted her almost immediately to the 70s. After about an hour her rate went back up to the 120s again. She is then transition to be a Cardizem drip was started at 5 mg. Patient stabilized at a relatively normal rate with this therapy. We do not have cardiology here. Additionally family requested transfer to [facility]. I spoke with Dr. Aguilar and Dr. San, they both agree with the plan and transfer. Currently there is not a bed available but they do believe 1 will become available this evening. Patient will remain here in the ED until bed becomes available. I have extensively reviewed the treatment plan with the patient. I have addressed all patient concerns at this time. I have also discussed the plan with the admitting physician and they agree with the current assessment and plan and have agreed to assume responsibility for the patient. All parties demonstrate verbal understanding and agreement with our assessment and plan at this time. The documentation in this chart was dictated using [employer] dictation software. Please excuse any dictation errors. Of note EKG does not show any evidence of significant ST elevation. No evidence to suggest STEMI. She no longer has any significant chest pain, and does not have evidence to suggest dissection. FINDINGS: CHEST: PULMONARY ARTERIES: There are no intraluminal filling defects to suggest acute pulmonary emboli. LUNGS: There are no infiltrates nor evidence of pulmonary infarction.. There is a small 2-3 mm subpleural nodule in the lateral segment of the right middle lobe, unchanged from CT scan of November 2023.. No pleural effusions. MEDIASTINUM: There is no hilar nor mediastinal adenopathy. There is sternotomy wires. There is some density in the anterior mediastinal fat which is possibly postoperative or remnant thymus. Does not have the appearance of typical adenopathy. There is also no hilar adenopathy and there is no subcarinal adenopathy nor paratracheal adenopathy CARDIAC: There is sternotomy wires. Heart size upper normal. There is a prosthetic mitral valve. No pericardial effusion.Caliber of the thoracic aorta is within normal limits. There is no significant shift of the interventricular septum. PARTIALLY VISUALIZED UPPERMOST ABDOMEN: Right adrenal gland unremarkable. Small hypodense nodule in the left adrenal gland noted measuring 1.5 x 1.0 cm. This is unchanged in size from CT scan of November 2023. Most probably a E benign adenoma. OSSEOUS: No significant osseous lesions.Fractures.. IMPRESSION: 1. No evidence of acute pulmonary emboli. No evidence of pulmonary infarction.No pleural effusions. No new infiltrates. Stable small right middle lobe nodule measuring 2-3 mm. 2. There has been interval sternotomy and mitral valve prosthesis placement. 3. Other findings as above Findings discussed by myself with ER physician 10/27/2024 at 1:35 Quality:SDOH Health Related Social Needs: No Data to Display Critical Care Time Critical Care Time Critical Care Time: Yes Total Critical Care Time: 110 Attestation: Upon my evaluation, this patient had a high probability of imminent or life- threatening deterioration, which required my direct attention, intervention, and personal management. I have personally provided 110 minutes of critical care time exclusive of time spent on separately billable procedures. Time includes review of laboratory data, radiology results, discussion with consultants, and monitoring for potential decompensation. Interventions were performed as documented. PFSH All Active Problems (Updated 10/27/24 @ 16:37 by Juarez Mcconnell DO) Chest discomfort (Acute) Dehydration (Acute) Atrial flutter (Acute) GERD (gastroesophageal reflux disease) (Chronic) Laryngospasm (Acute) Thyromegaly (Acute) Abnormal cardiovascular stress test (Acute) History of Helicobacter pylori infection (Acute) Asthma (Chronic) Pain of left thumb (Acute) Leg numbness (Acute) Lumbar radiculopathy (Acute) Arthritis of hand, left (Acute) Arthritis of right hand (Acute) Mucous cyst of digits of both hands (Acute) Excision of RMF Mucous Cyst with Osteophyte Excision from DIP joint DOS: 01/27/23 s/p RMF, RRF and LLF cyst excisions DOS: 11/04/22 Right hip impingement syndrome (Acute) Medical History Anxiety and depression Diverticulosis Elevated blood pressure reading Endometriosis Exposure to COVID-19 virus Sandeep's thyroiditis Hemorrhoids Hx of Hypertension Hypothyroidism Insomnia Multiple thyroid nodules Ovarian cyst Overweight Positive KEITH (antinuclear antibody) Right knee pain Snoring Urinary incontinence Surgical History H/O esophagogastroduodenoscopy 2016 History of hysterectomy History of left oophorectomy Hx of foot surgery L big toe S/P colonoscopy S/P wrist surgery Family History Father Hypertension Hyperlipidemia Diabetes Brother Hypertension Mother Stroke Social History Smoking/Tobacco Use Status: Never Smoking risk assessment performed?: Yes Alcohol Intake: former Drug use: Never Substance use type: does not use Household members: spouse Housing: house Number of Children: 3 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
[2024-10-27 14:05] LABS: Troponin I 88 ng/L (<or=51)
[2024-10-27] MEDS: dilTIAZem 25 MG/5 ML VIAL 15 MG IVP (14:44)
[2024-10-27 15:44] LABS: Troponin I 111 ng/L (<or=51)
[2024-10-27] MEDS: dilTIAZem 25 MG/5 ML VIAL 10 MG IVP (15:50)
[2024-10-27] MEDS: dilTIAZem 125 MG in Normal Saline 100 ML IV (15:54)
[2024-10-27 18:02] LABS: T4, Free 1.5 ng/dL (0.8-2.2)
[2024-10-27 20:53] LABS: COVID-19 PCR Negative (Negative); Influenza A PCR Negative (Negative); Influenza B PCR Negative (Negative); RSV PCR Negative (Negative)
[2024-10-27 20:57] LABS: Source Nasopharynx
--- NOTE | 2024-10-27 21:15 | RT.EKG_ITS ---
APPROVED REPORT Exam: Resting ECG Reason for Exam: arrythmia Patient Location: E HR:65 bpm ECG Measurements Heart Rate 65 AXIS [place] [id number] P [id number] QRSd 87 QRS 70 QT 420 T [id number] QTc 440 Conclusion Atrial flutter with predominant 4:1 AV block...A-rate 263, multiple Ps Repol abnrm suggests ischemia, diffuse leads...ST-T neg, ant/lat/inf Physician: a flutter
[2024-10-27] MEDS: Normal Saline 1,000 ML 1000 ML IV (21:34)
--- NOTE | 2024-10-27 21:39 | ED.PROG_ITS ---
Date of service: 10/27/24 Time of Service: 18:00 Medical Decision Making 59-year-old female awaiting transfer to [facility] after episode of rapid atrial flutter/fibrillation today. Currently on Cardizem drip. 1829-patient with episode of diaphoresis and pain. Rapid influenza, COVID, RSV screening was ordered. Patient given a dose of IV fentanyl. Patient is symptoms resolved with IV fentanyl. Rapid influenza, COVID, RSV were negative. 2129-nursing concerned that patient had significant increase in heart rate and low blood pressure. On monitor does appear to be in a significantly increased rapid heart rate. Repeat EKG, Cardizem bolus, and IV fluids were ordered. At time of EKG being obtained it was determined that patient was actually attempting to have a bowel movement at the time. After the bowel movement her heart rate and blood pressure improved to baseline. The repeat EKG was done which shows atrial flutter at 65 bpm. IV fluids will be given slowly. Will hold on Cardizem bolus. Quality:SDOH Health Related Social Needs: No Data to Display Discharge Plan Disposition Patient Disposition: Transfer-Acute Inpatient Care Specific Acute Inpt Facility: Other Condition: Good Discharge Details Clinical Impression: Atrial flutter, Dehydration, Chest discomfort Primary Care Provider: Nalini Riddle ED Provider: Liya Wu Meds and New Rx's Prescriptions: No Action albuterol sulfate [ProAir HFA] 90 mcg/actuation HFA aerosol inhaler 2 puff inhalation Q6H PRN pantoprazole 40 mg tablet,delayed release (DR/EC) 40 mg PO DAILY levothyroxine 100 mcg tablet 100 mcg PO DAILY Patient Comments: TAKE 1 TABLET BY MOUTH EVERY DAY venlafaxine 75 mg Capsule,Extended Release 24hr 75 mg PO DAILY doxepin 50 mg capsule 50 mg PO HS Patient Comments: TAKE ONE CAPSULE BY MOUTH EVERY DAY metoprolol tartrate 25 mg tablet 25 mg PO BID Patient Comments: TAKE ONE TABLET BY MOUTH EVERY 12 HOURS furosemide 40 mg tablet 40 mg PO DAILY Patient Comments: TAKE ONE TABLET BY MOUTH EVERY DAY lorazepam 0.5 mg tablet 0.5 mg PO TID PRN Patient Comments: TAKE ONE TABLET BY MOUTH THREE TIMES A DAY NEEDED FOR ACUTE ANXIETY
[2024-10-27] MEDS: HYDROmorphone 2 MG/ML SYR 0.5 MG IVP (22:53)
[2024-10-28] VITALS (260 sets, daily range): BP systolic 100–149; BP diastolic 53–97; PULSE 44–130; RESP 6–25; O2SAT 96–100
[2024-10-28] MEDS: dilTIAZem 125 MG in Normal Saline 100 ML 10 MG IV ×2 (01:27→13:00)
[2024-10-28] MEDS: Acetaminophen 500 MG TAB 1000 MG PO (01:28)
[2024-10-28] MEDS: HYDROmorphone 2 MG/ML SYR 0.5 MG IVP (03:30)
[2024-10-28] MEDS: HYDROmorphone 2 MG/ML SYR 1 MG IVP (09:26)
[2024-10-28] MEDS: ACETAMINOPHEN 1,000 MG/100 ML BAG 400 MG IVPB (12:31)
[2024-10-28] MEDS: Levothyroxine 100 MCG TAB PO (12:59)
[2024-10-28] MEDS: Venlafaxine 75 MG CAPCR PO (12:59)
--- NOTE | 2024-10-28 13:23 | NUR.NOTE ---
Nursing Note: this RN helped PT to [facility] heart rate increased to 130s PT stated I feel fine denied dizziness at that time. She was able to transfer [facility] back to [facility]. Heart rate currently 65 on moniter
== END 2024-10-28 13:28 | disposition short-term general hospital (02) ==
PROVIDERS: Emergency Medicine Emergency Medical Services; Emergency Provider Student in an Organized Health Care Education/Training Program; PCP Physician Assistant Medical
DX: R07.89 Other chest pain (principal); I48.92 Unspecified atrial flutter; E86.0 Dehydration
CPT/HCPCS: 00123; 36415; 71275; 80053; 87637; 93005; 96361; 96365; 96366; 96375; 96376; 99291; 99292; 71045; 83880; 84439; 84443; 84484; 85025; 85610; 85730; 93010; J0131; J1171; J3010; J3490

== ENCOUNTER 2024-11-11 16:10 | Outpatient (REF) | payer MEDICAID, SELFPAY ==
[2024-11-11 16:23] LABS: Anion Gap 7.3 mmol/L (3-11); BUN 21 mg/dL (7-18); CO2 30.7 mmol/L (21.0-32.0); CREATININE 0.8 mg/dL (0.55-1.02); Calcium 9.1 mg/dL (8.5-10.1); Chloride 103 mmol/L (98-107); Estimated GFR 84.82 (mL/min/1.73m2); Glucose 106 mg/dL (74-106); Potassium 3.9 mmol/L (3.5-5.1); Sodium 141 mmol/L (136-145)
== END 2024-11-11 16:11 | disposition home or self-care (01) ==
LOC: NCHCN 16:10
PROVIDERS: PCP Physician Assistant Medical; Visit Provider Physician Assistant Medical
DX: I50.9 Heart failure, unspecified
CPT/HCPCS: 80048

== ENCOUNTER 2024-11-21 09:43 | Inpatient (IN) | payer MEDICAID, SELFPAY ==
--- NOTE | 2024-11-21 09:45 | RT.EKG_ITS ---
APPROVED REPORT Exam: Resting ECG Reason for Exam: palipations/afib Patient Location: E HR:105 bpm ECG Measurements Heart Rate 105 AXIS MD 147 P 62 QRSd 93 QRS 46 QT 362 T 107 QTc 480 Conclusion Sinus tachycardia...rate> 99 Nonspecific repol abnormality, diffuse leads...ST dep, T flat/neg, ant/lat/inf
[2024-11-21 09:58] VITALS: BP 124/86; PULSE 104; RESP 14; TEMP 36.9; O2SAT 96
[2024-11-21 10:07] VITALS: RESP 17
--- NOTE | 2024-11-21 10:15 | DI.RAD_ITS ---
Exam(s) XR CHEST 2V PA LATERAL EXAM: XR CHEST 2V PA LATERAL CLINICAL HISTORY: chest tightness TECHNIQUE: 2D digital imaging was performed of the chest. Two images were obtained. PA and lateral views were obtained. COMPARISON: CR XR CHEST 2V PA LATERAL from 02/04/2022 CR XR PORTABLE CHEST AP from 10/27/2024 FINDINGS: MEDIASTINUM: Normal. HEART: Normal. There is a mitral valve replacement again noted. PULMONARY VASCULATURE: Normal. LUNGS: Clear. PLEURAL SPACE: No pleural effusion or pneumothorax. BONE:Within normal limits for the patient's age. Sternal wires are in place. OTHER FINDINGS:Normal. IMPRESSION: No acute pulmonary findings. DATA REPOSITORY: RADIATION DOSE DELIVERED:
[2024-11-21 10:36] LABS: Abs Immature Grans 0.01 10^3/uL (0.0-0.06); Absolute Basophil Count 0.06 10^3/uL (0.0-0.2); Absolute Eosinophil Count 0.07 10^3/uL (0.0-0.7); Absolute Lymphocyte Count 2.06 10^3/uL (1.2-3.4); Absolute Monocyte Count 0.45 10^3/uL (0.1-0.8); Absolute Neutrophil Count 2.05 10^3/uL (1.2-6.7); Basophils % 1.3 %; Eosinophils % 1.5 %; HCT 37.9 % (36.0-46.0); HGB 11.9 g/dL (11.2-15.7); Immature Grans % 0.2 %; Lymphocytes % 43.8 %; MCH 26.7 pg (27.0-33.0); MCHC 31.4 % (32.0-36.0); MCV 85 fL (80-95); MPV 9.6 fL (8.0-11.0); Monocytes % 9.6 %; Neutrophils % 43.6 %; Platelet Count 320 10^3/uL (130-400); RBC 4.46 10^6/uL (3.93-5.22); RDW 13.2 % (11.7-14.6)
[2024-11-21 10:48] LABS: INR 2.5 (0.9-1.1); Prothrombin Time 23.5 sec (9.1-11.1)
[2024-11-21 11:03] LABS: ALT 24 U/L (14-59); AST 14 U/L (15-37); Alkaline Phosphatase 109 U/L (46-116); Anion Gap 8.6 mmol/L (3-11); BUN 14 mg/dL (7-18); Bilirubin, Total 0.3 mg/dL (0.2-1.0); CO2 31.4 mmol/L (21.0-32.0); CREATININE 0.9 mg/dL (0.55-1.02); Calcium 9.6 mg/dL (8.5-10.1); Chloride 103 mmol/L (98-107); Estimated GFR 73.64 (mL/min/1.73m2); Glucose 99 mg/dL (74-106); Sodium 143 mmol/L (136-145); TSH (W/Ref FT4) 1.07 uIU/mL (0.36-3.74); Total Protein 7.9 g/dL (6.4-8.2); Troponin I 42 ng/L (<or=51)
[2024-11-21 11:05] LABS: NT-proBNP 229 pg/mL (<300)
[2024-11-21] MEDS: Lactated Ringers 500 ML 1000 ML IV (11:24)
[2024-11-21 11:47] LABS: Troponin I 38 ng/L (<or=51)
--- NOTE | 2024-11-21 11:55 | ED.GENADUL_ITS ---
Discharge Plan Disposition Patient Disposition: Transfer-Acute Inpatient Care Specific Acute Inpt Facility: Other Condition: Serious Discharge Details Clinical Impression: Chest pain Primary Care Provider: Nalini Riddle ED Provider: Paul Edge Home Meds and New Rx's Prescriptions: No Action albuterol sulfate [ProAir HFA] 90 mcg/actuation HFA aerosol inhaler 2 puff inhalation Q6H PRN pantoprazole 40 mg tablet,delayed release (DR/EC) 40 mg PO DAILY levothyroxine 100 mcg tablet 100 mcg PO DAILY Patient Comments: TAKE 1 TABLET BY MOUTH EVERY DAY venlafaxine 75 mg Capsule,Extended Release 24hr 75 mg PO DAILY doxepin 50 mg capsule 50 mg PO HS Patient Comments: TAKE ONE CAPSULE BY MOUTH EVERY DAY metoprolol tartrate 25 mg tablet 25 mg PO BID Patient Comments: TAKE ONE TABLET BY MOUTH EVERY 12 HOURS furosemide 40 mg tablet 40 mg PO DAILY Patient Comments: TAKE ONE TABLET BY MOUTH EVERY DAY lorazepam 0.5 mg tablet 0.5 mg PO TID PRN Patient Comments: TAKE ONE TABLET BY MOUTH THREE TIMES A DAY NEEDED FOR ACUTE ANXIETY tramadol 50 mg tablet 50 mg PO Q6H PRN Patient Comments: take 1 tablet by mouth every 6 hours if needed for severe pain nitroglycerin 0.4 mg tablet, sublingual 0.4 mg sublingual PRN Patient Comments: PLACE ONE TABLET UNDER THE TONGUE EVERY 5 MINUTES FOR UP TO 3 DOSES NEEDED FOR CHEST PAIN. IF CHEST PAIN STILL PERSISTS CONTACT 911 colchicine 0.6 mg tablet 0.6 mg PO BID Patient Comments: TAKE ONE TABLET BY MOUTH TWICE A DAY losartan 25 mg tablet 25 mg PO DAILY Patient Comments: TAKE ONE TABLET BY MOUTH EVERY DAY spironolactone 25 mg tablet 25 mg PO DAILY Patient Comments: TAKE ONE TABLET BY MOUTH EVERY DAY warfarin 5 mg tablet 5 mg PO DAILY Patient Comments: TAKE ONE TABLET BY MOUTH EVERY DAY HPI General Mode of arrival: ambulatory . Date/Time Provider Initiated Documentation: 11/21/24 10:04 . Limitations to Documentation: no limitations . Information obtained by: patient . HPI Narrative: HISTORY OF PRESENT ILLNESS The patient presents with chest tightness. She underwent mitral valve repair on 10/05/2024. Three weeks post-procedure, she experienced atrial fibrillation (A-Fib) with a heart rate of 256, necessitating cardioversion after 5 days of unsuccessful medication management. Post- cardioversion, her heart rate stabilized at 86, then increased to 113, prompting an escalation in metoprolol dosage. Her heart rate has since remained in the 80s, occasionally spiking to 96 or 98 during ambulation. This morning, she reported a resting heart rate of 120 upon standing and walking to the bathroom, monitored using home health telehealth equipment. She also reported chest tightness, rated 4/10. She is uncertain if this symptom was present during her A-Fib episode due to intense pain on and Thursday, localized to the left side of her chest, both anteriorly and posteriorly. She reports no history of myocardial infarction or other cardiac conditions apart from her mitral valve issue. Recent catheterization revealed patent arteries. She reports no leg swelling or abdominal pain. She maintains daily fluid intake of 60 to 90 ounces and is working towards reducing sodium intake to below 2000 mg, currently at 2200 to 2300 mg. She felt well yesterday and has not engaged in strenuous activities. She is under the care of Dr. Verduzco Daily at [facility]. She also reported feeling winded after walking uphill from the lower parking lot. Related Data Home Medications ?Medication ?Instructions ?Recorded ?Confirmed albuterol sulfate 90 mcg/actuation 2 puff inhalation Q6H PRN 06/04/21 11/21/24 aerosol inhaler (ProAir HFA) pantoprazole 40 mg tablet,delayed 40 mg PO DAILY 06/04/21 11/21/24 release levothyroxine 100 mcg tablet 100 mcg PO DAILY 06/24/21 11/21/24 venlafaxine 75 mg capsule,extended 75 mg PO DAILY 06/26/21 11/21/24 release 24 hr doxepin 50 mg capsule 50 mg PO HS 10/27/24 11/21/24 furosemide 40 mg tablet 40 mg PO DAILY 10/27/24 11/21/24 lorazepam 0.5 mg tablet 0.5 mg PO TID PRN 10/27/24 11/21/24 metoprolol tartrate 25 mg tablet 25 mg PO BID 10/27/24 11/21/24 tramadol 50 mg tablet 50 mg PO Q6H PRN 10/28/24 11/21/24 colchicine 0.6 mg tablet 0.6 mg PO BID 11/21/24 11/21/24 losartan 25 mg tablet 25 mg PO DAILY 11/21/24 11/21/24 nitroglycerin 0.4 mg sublingual 0.4 mg sublingual PRN 11/21/24 11/21/24 tablet spironolactone 25 mg tablet 25 mg PO DAILY 11/21/24 11/21/24 warfarin 5 mg tablet 5 mg PO DAILY 11/21/24 11/21/24 Allergies Allergy/AdvReac Type Severity Reaction Status Date / Time codeine Allergy Intermediate hypersensitive. Verified 11/21/24 11:18 Can't sleep. feels wired mint AdvReac Mild Skin Rash Verified 11/21/24 11:18 cephalexin (Cephalexin) AdvReac Nausea/ GI Unverified 11/21/24 11:18 upset General Stated Complaint: Chest Pain ERNA: 3 Review of Systems All systems reviewed & are unremarkable except as noted in HPI and below Constitutional Constitutional: Denies fever(s) Cardiovascular Cardiovascular: Reports as per HPI Exam Narrative Exam Narrative: PHYSICAL EXAM General Appearance: Normal. Vital signs: Within normal limits. HEENT: Lips and tongue are dry. Neck: thyroid enlarged, no nodules Respiratory: Lungs are clear. Cardiovascular: Heart has regular rate and rhythm, no murmur. Gastrointestinal: Abdomen is soft and nontender. Extremities: No leg swelling, calves nontender. Skin: Warm and dry, no rash. Neurological: Normal. Course Vital Signs Vital signs: Vital Signs Temperature 36.9 C 11/21/24 09:58 Pulse 104 H 11/21/24 09:58 Respiratory Rate 14 11/21/24 09:58 Blood Pressure 124/86 11/21/24 09:58 Pulse Oximetry 96 11/21/24 09:58 Temperature 36.9 C 11/21/24 09:58 Pulse 104 H 11/21/24 09:58 Respiratory Rate 17 11/21/24 10:07 Respiratory Effort Normal 11/21/24 10:07 Respiratory Depth Normal 11/21/24 10:07 Respiratory Pattern Normal 11/21/24 10:07 Blood Pressure 124/86 11/21/24 09:58 Pulse Oximetry 96 11/21/24 09:58 Oxygen Delivery Method Room Air 11/21/24 09:58 Oxygen Flow Rate 0 11/21/24 09:58 End Tidal Co2 4 11/21/24 09:58 Lab/Test Results Lab/Test Results: Laboratory Tests Range/Units 11/21/24 11/21/24 10:30 11:13 WBC (4.4-10.8) 10^3/uL 4.70 RBC (3.93-5.22) 10^6/uL 4.46 Hgb (11.2-15.7) g/dL 11.9 Hct (36.0-46.0) % 37.9 MCV (80-95) fL 85 MCH (27.0-33.0) pg 26.7 L MCHC (32.0-36.0) % 31.4 L RDW (11.7-14.6) % 13.2 Plt Count (130-400) 10^3/uL 320 MPV (8.0-11.0) fL 9.6 Immature Gran % % 0.2 Neutrophils % % 43.6 Lymphocytes % % 43.8 Monocytes % % 9.6 Eosinophils % % 1.5 Basophils % % 1.3 Nucleated RBC % (0.0-0.3) % 0.0 Absolute Neutrophils (1.2-6.7) 10^3/uL 2.05 Absolute Lymphocytes (1.2-3.4) 10^3/uL 2.06 Absolute Monocytes (0.1-0.8) 10^3/uL 0.45 Absolute Eosinophils (0.0-0.7) 10^3/uL 0.07 Absolute Basophils (0.0-0.2) 10^3/uL 0.06 PT (9.1-11.1) sec 23.5 H INR (0.9-1.1) 2.5 H Sodium (136-145) mmol/L 143 Potassium (3.5-5.1) mmol/L 4.0 Chloride (98-107) mmol/L 103 Carbon Dioxide (21.0-32.0) mmol/L 31.4 Anion Gap (3-11) mmol/L 8.6 BUN (7-18) mg/dL 14 Creatinine (0.55-1.02) mg/dL 0.9 Est GFR (CKD-EPI 2020) (mL/min/1.73m2) 73.64 Glucose (74-106) mg/dL 99 Calcium (8.5-10.1) mg/dL 9.6 Magnesium (1.8-2.4) mg/dL 2.0 Total Bilirubin (0.2-1.0) mg/dL 0.3 AST (15-37) U/L 14 L ALT (14-59) U/L 24 Alkaline Phosphatase (46-116) U/L 109 Troponin I (<or=51) ng/L 42 38 NT-Pro-B Natriuret Pep (<300) pg/mL 229 Total Protein (6.4-8.2) g/dL 7.9 Albumin (3.4-5.0) g/dL 4.0 TSH (0.36-3.74) uIU/mL 1.07 Medical Decision Making ASSESSMENT AND PLAN Initial Assessment: Patient presents with chest tightness rated 4/10, developed over the day. History of mitral valve repair on 10/05/2024 and subsequent A-Fib requiring cardioversion. Today, heart rate increased to 120 bpm upon minimal exertion. Concern for ACS versus arrhythmia versus pericardial fusion versus other. Patient saturating well in no respiratory distress. Unlikely pulmonary embolism given compliance with Coumadin but will check INR. ED Course: - EKG reviewed and interpreted by me: sinus tachycardia at 105 bpm with nonspecific repolarization abnormalities. - Cardiac ultrasound performed by me: no pericardial effusion. - Initial and delta troponin levels at 1 hour: negative. - Patient reassessed: continues to have pressure sensation in left chest. - Monitored on cardiac cath rn. - Echocardiogram not available today. - IV fluids (500 mL of Lactated Ringer's) administered due to dry lips and tongue. -Diagnostic labs were performed. Initial and delta 1 hour troponin negative. Considered CHF and BNP is normal. INR is therapeutic at 2.5. - Chest x-ray reviewed and interpreted by radiology: no acute pulmonary findings. 1329 --I spoke with crystallography teacher at [facility] and hospitalist Dr. Dupont, discussed ED presentation course, Dr. Dupont will accept the patient in transfer. Awaiting bed availability. Final Assessment: Patient with chest tightness and increased heart rate upon minimal exertion. Sinus tachycardia noted on EKG. Cardiac ultrasound shows no pericardial effusion. Troponin levels negative. Patient continues to have pressure sensation in left chest. Monitoring and further diagnostic tests planned. Clinical Impression: - Chest tightness - Sinus tachycardia Disposition: - Patient to be transferred to [facility]. This document was written with the assistance of HEIDI Arredondo. The patient consented to its use. Lab Data Lab results reviewed: Yes I reviewed the patient's lab results. Labs: Laboratory Tests Range/Units 11/21/24 11/21/24 10:30 11:13 WBC (4.4-10.8) 10^3/uL 4.70 RBC (3.93-5.22) 10^6/uL 4.46 Hgb (11.2-15.7) g/dL 11.9 Hct (36.0-46.0) % 37.9 MCV (80-95) fL 85 MCH (27.0-33.0) pg 26.7 L MCHC (32.0-36.0) % 31.4 L RDW (11.7-14.6) % 13.2 Plt Count (130-400) 10^3/uL 320 MPV (8.0-11.0) fL 9.6 Immature Gran % % 0.2 Neutrophils % % 43.6 Lymphocytes % % 43.8 Monocytes % % 9.6 Eosinophils % % 1.5 Basophils % % 1.3 Nucleated RBC % (0.0-0.3) % 0.0 Absolute Neutrophils (1.2-6.7) 10^3/uL 2.05 Absolute Lymphocytes (1.2-3.4) 10^3/uL 2.06 Absolute Monocytes (0.1-0.8) 10^3/uL 0.45 Absolute Eosinophils (0.0-0.7) 10^3/uL 0.07 Absolute Basophils (0.0-0.2) 10^3/uL 0.06 PT (9.1-11.1) sec 23.5 H INR (0.9-1.1) 2.5 H Sodium (136-145) mmol/L 143 Potassium (3.5-5.1) mmol/L 4.0 Chloride (98-107) mmol/L 103 Carbon Dioxide (21.0-32.0) mmol/L 31.4 Anion Gap (3-11) mmol/L 8.6 BUN (7-18) mg/dL 14 Creatinine (0.55-1.02) mg/dL 0.9 Est GFR (CKD-EPI 2020) (mL/min/1.73m2) 73.64 Glucose (74-106) mg/dL 99 Calcium (8.5-10.1) mg/dL 9.6 Magnesium (1.8-2.4) mg/dL 2.0 Total Bilirubin (0.2-1.0) mg/dL 0.3 AST (15-37) U/L 14 L ALT (14-59) U/L 24 Alkaline Phosphatase (46-116) U/L 109 Troponin I (<or=51) ng/L 42 38 NT-Pro-B Natriuret Pep (<300) pg/mL 229 Total Protein (6.4-8.2) g/dL 7.9 Albumin (3.4-5.0) g/dL 4.0 TSH (0.36-3.74) uIU/mL 1.07 Quality:SDOH Health Related Social Needs: No Data to Display PFSH All Active Problems (Updated 11/21/24 @ 13:30 by Paul Edge MD) Chest pain (Acute) Chest discomfort (Acute) Dehydration (Acute) Atrial flutter (Acute) GERD (gastroesophageal reflux disease) (Chronic) Laryngospasm (Acute) Thyromegaly (Acute) Abnormal cardiovascular stress test (Acute) History of Helicobacter pylori infection (Acute) Asthma (Chronic) Pain of left thumb (Acute) Leg numbness (Acute) Lumbar radiculopathy (Acute) Arthritis of hand, left (Acute) Arthritis of right hand (Acute) Mucous cyst of digits of both hands (Acute) Excision of RMF Mucous Cyst with Osteophyte Excision from DIP joint DOS: 01/27/23 s/p RMF, RRF and LLF cyst excisions DOS: 11/04/22 Right hip impingement syndrome (Acute) Medical History Hypothyroidism Anxiety and depression Overweight Elevated blood pressure reading Exposure to COVID-19 virus Right knee pain Hx of Diverticulosis Hemorrhoids Multiple thyroid nodules Hypertension Insomnia Urinary incontinence Snoring Positive KEITH (antinuclear antibody) Sandeep's thyroiditis Endometriosis Ovarian cyst Surgical History S/P wrist surgery History of left oophorectomy Hx of foot surgery L big toe H/O esophagogastroduodenoscopy 2015 S/P colonoscopy History of hysterectomy Family History Father Hypertension Hyperlipidemia Diabetes Brother Hypertension Mother Stroke Social History Smoking/Tobacco Use Status: Never Smoking risk assessment performed?: Yes Alcohol Intake: former Drug use: Never Substance use type: does not use Household members: spouse Housing: house Number of Children: 3 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
--- NOTE | 2024-11-21 16:38 | W.PM.HP.N ---
Date of service: 11/21/24 Time of Service: 16:38 Assessment and Plan Assessment and plan (1) Paroxysmal A-fib: Status: Acute Assessment and plan: - Patient initially developed atrial fibrillation about 3 weeks after her mitral valve surgery -This would mean that her last hospitalization at [facility] and initiation of anticoagulation would have been on October 26, 2024 -Therefore, given the patient has not been anticoagulated long enough, she is being transferred to [facility] where she has had her previous procedures where they will be able to perform WALE cardioversion -Will allow patient to eat, but will be n.p.o. at midnight, and will allow for home medications with sips of water in the morning -Rate currently in the low 100s, not necessitating any additional intervention at this time -Troponins were negative in the emergency department -Continue home metoprolol (2) S/P mitral valve repair: Status: Acute Assessment and plan: - Status post repair on October 05, 2024 -Continue home Lasix and spironolactone (3) Hypothyroidism: Status: Chronic Assessment and plan: - Continue home Synthroid (4) Anxiety and depression: Assessment and plan: - Continue home venlafaxine and as needed lorazepam History of Present Illness History of Present Illness Chief Complaint: Chest tightness Narrative: 59-year-old female with recent mitral valve repair on 10/05/2024 who 3 weeks postprocedure experienced A-fib RVR with rates up to the mid 200s that required cardioversion after unsuccessful medication management at [facility] who presents to the emergency department today with complaints of chest tightness. Since her cardioversion her heart rates had been stable but earlier in the day she noticed that her resting heart rate was up to 120 with standing and walking to the bathroom and was associated with some chest tightness rated as a 4 out of 10. She has had prior cardiac catheterization that did not show any coronary artery disease. She denies any headache, lightheadedness, dizziness, nausea vomiting or diarrhea. In the emergency department the patient was noted to have a heart rate of 104, with otherwise normal vitals and physical exam. Her CBC and CMP were unremarkable, and she was noted as having 2 negative troponins. EKG did show atrial fibrillation, POCUS done by emergency room provider did not show any pericardial effusion, patient was given 500 mL of LR. Emergency room provider spoke with [facility] hospitalist Dr. Dupont who agreed to accept the patient for transfer for cardioversion. However, upon discussing with her transfer center, it is unlikely that they will have a bed available this evening. Therefore, emergency room provider paged hospitalist for admission for patient with atrial fibrillation and has been accepted to [facility] once a bed is available for WALE cardioversion as patient has not been on anticoagulation long enough for transcutaneous cardioversion. Review of Systems All systems reviewed & are unremarkable except as noted in HPI and below PFSH All Active Problems (Updated 11/21/24 @ 17:37 by KAMINI OMALLEY) Hypothyroidism (Chronic) S/P mitral valve repair (Acute) Hx of mitral valve repair (Acute) Paroxysmal A-fib (Acute) Chest pain (Acute) Chest discomfort (Acute) Dehydration (Acute) Atrial flutter (Acute) GERD (gastroesophageal reflux disease) (Chronic) Laryngospasm (Acute) Thyromegaly (Acute) Abnormal cardiovascular stress test (Acute) History of Helicobacter pylori infection (Acute) Asthma (Chronic) Pain of left thumb (Acute) Leg numbness (Acute) Lumbar radiculopathy (Acute) Arthritis of hand, left (Acute) Arthritis of right hand (Acute) Mucous cyst of digits of both hands (Acute) Excision of RMF Mucous Cyst with Osteophyte Excision from DIP joint DOS: 01/27/23 s/p RMF, RRF and LLF cyst excisions DOS: 11/04/22 Right hip impingement syndrome (Acute) Medical History Hypothyroidism Anxiety and depression Overweight Elevated blood pressure reading Exposure to COVID-19 virus Right knee pain Hx of Diverticulosis Hemorrhoids Multiple thyroid nodules Hypertension Insomnia Urinary incontinence Snoring Positive KEITH (antinuclear antibody) Sandeep's thyroiditis Endometriosis Ovarian cyst Surgical History S/P wrist surgery History of left oophorectomy Hx of foot surgery L big toe H/O esophagogastroduodenoscopy 2015 S/P colonoscopy History of hysterectomy Family History Father Hypertension Hyperlipidemia Diabetes Brother Hypertension Mother Stroke Social History Smoking/Tobacco Use Status: Never Smoking risk assessment performed?: Yes Alcohol Intake: former Drug use: Never Substance use type: does not use Household members: spouse Housing: house Number of Children: 3 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 Verified 11/21/24 11:18 Can't sleep. feels wired mint AdvReac Mild Skin Rash Verified 11/21/24 11:18 cephalexin (Cephalexin) AdvReac Nausea/ GI Unverified 11/21/24 11:18 upset Home Medications ?Medication ?Instructions ?Recorded ?Confirmed ?Type albuterol sulfate 90 mcg/actuation 2 puff inhalation Q6H PRN 06/04/21 11/21/24 History aerosol inhaler (ProAir HFA) pantoprazole 40 mg tablet,delayed 40 mg PO DAILY 06/04/21 11/21/24 History release levothyroxine 100 mcg tablet 100 mcg PO DAILY 06/24/21 11/21/24 History venlafaxine 75 mg capsule,extended 75 mg PO DAILY 06/26/21 11/21/24 History release 24 hr doxepin 50 mg capsule 50 mg PO HS 10/27/24 11/21/24 History furosemide 40 mg tablet 40 mg PO DAILY 10/27/24 11/21/24 History lorazepam 0.5 mg tablet 0.5 mg PO TID PRN 10/27/24 11/21/24 History metoprolol tartrate 25 mg tablet 25 mg PO BID 10/27/24 11/21/24 History tramadol 50 mg tablet 50 mg PO Q6H PRN 10/28/24 11/21/24 History colchicine 0.6 mg tablet 0.6 mg PO BID 11/21/24 11/21/24 History losartan 25 mg tablet 25 mg PO DAILY 11/21/24 11/21/24 History nitroglycerin 0.4 mg sublingual 0.4 mg sublingual PRN 11/21/24 11/21/24 History tablet spironolactone 25 mg tablet 25 mg PO DAILY 11/21/24 11/21/24 History warfarin 5 mg tablet 5 mg PO DAILY 11/21/24 11/21/24 History Exam Narrative Exam Narrative: Well-appearing female sitting up in the bed in no acute distress, ANO x 4, heart irregularly irregular with rates in the low 100s, lungs clear to auscultation bilaterally, abdomen soft, nontender, nondistended Results Labs 11/21/24 10:30 11/21/24 10:30 Labs: Laboratory Results - last 24 hr 11/21/24 11/21/24 10:30 11:13 WBC 4.70 RBC 4.46 Hgb 11.9 Hct 37.9 MCV 85 MCH 26.7 L MCHC 31.4 L RDW 13.2 Plt Count 320 MPV 9.6 Immature Gran % 0.2 Neutrophils % 43.6 Lymphocytes % 43.8 Monocytes % 9.6 Eosinophils % 1.5 Basophils % 1.3 Nucleated RBC % 0.0 Absolute Neutrophils 2.05 Absolute Lymphocytes 2.06 Absolute Monocytes 0.45 Absolute Eosinophils 0.07 Absolute Basophils 0.06 PT 23.5 H INR 2.5 H Sodium 143 Potassium 4.0 Chloride 103 Carbon Dioxide 31.4 Anion Gap 8.6 BUN 14 Creatinine 0.9 Est GFR (CKD-EPI 2020) 73.64 Glucose 99 Calcium 9.6 Magnesium 2.0 Total Bilirubin 0.3 AST 14 L ALT 24 Alkaline Phosphatase 109 Troponin I 42 38 NT-Pro-B Natriuret Pep 229 Total Protein 7.9 Albumin 4.0 TSH 1.07 Last Vital Signs Temp 98.4 F 11/21/24 09:58 Pulse 104 H 11/21/24 09:58 Resp 17 11/21/24 10:07 BP 124/86 11/21/24 09:58 Pulse Ox 96 11/21/24 09:58 Time Spent Time spent with Patient: >75 minutes Time was spent: preparing to see the patient(eg.review tests), obtaining and/or reviewing separately otained hiistory, ordering medications,tests, procedures, referring, communicating with other health ambulatory care, indepentently interpreting results, counseling the patient and care coordination
[2024-11-21 16:40] LABS: Troponin I 43 ng/L (<or=51)
--- NOTE | 2024-11-21 17:31 | W.PC.ACHO ---
Registration Status: Primary Language: Preferred Language: ED Information & Data Chief Complaint Chest Pain 11/21/24 11:56 Triage Note Recent mitral valve repair 11/21/24 09:58 on October 05, 2024 at [facility] . This morning patient reported that her HR went up into the 120s she is report chest tightness, denies dizziness but she is having SOB which started today. she advised by her renovator machine operator to be assessed. Patient state 3 weeks post her surgery she went into Afib and her HR was in the 200s and she was transfered to [facility]. Medical / Surgical History (Last Reviewed 11/21/24 @ 12:14 by Paul Edge MD) Anxiety and depression Overweight Elevated blood pressure reading Exposure to COVID-19 virus Right knee pain Hx of Diverticulosis Hemorrhoids Multiple thyroid nodules Hypertension Insomnia Urinary incontinence Snoring Positive KEITH (antinuclear antibody) Sandeep's thyroiditis Endometriosis Ovarian cyst (Last Reviewed 11/21/24 @ 12:14 by Paul Edge MD) S/P wrist surgery History of left oophorectomy Hx of foot surgery H/O esophagogastroduodenoscopy S/P colonoscopy History of hysterectomy Most Recent Vital Signs Temperature 36.9 C 11/21/24 09:58 Pulse 104 H 11/21/24 09:58 Respiratory Rate 17 11/21/24 10:07 Respiratory Effort Normal 11/21/24 10:07 Respiratory Depth Normal 11/21/24 10:07 Respiratory Pattern Normal 11/21/24 10:07 Blood Pressure 124/86 11/21/24 09:58 Pulse Oximetry 96 11/21/24 09:58 Oxygen Delivery Method Room Air 11/21/24 09:58 Oxygen Flow Rate 0 11/21/24 09:58 End Tidal Co2 4 11/21/24 09:58 Allergies codeine Allergy (Intermediate, Verified 11/21/24 11:18) hypersensitive. Can't sleep. feels wired mint Adverse Reaction (Mild, Verified 11/21/24 11:18) Skin Rash cephalexin (Cephalexin) Adverse Reaction (Unverified 11/21/24 11:18) Nausea/ GI upset IV IV Catheter Type [Left Saline Lock Antecubital] IV Catheter Gauge [Left 18 Antecubital] Diet Orders Category Date Time Status Heart Healthy Eating [DIET] Nutrition 11/21/24 Dinner Active Nothing Per Oral [DIET] Nutrition 11/22/24 Breakfast Ordered Diagnostics 11/21/24 11/21/24 11/21/24 Range/Units 16:05 11:13 10:30 WBC 4.70 (4.4-10.8) 10^3/uL RBC 4.46 (3.93-5.22) 10^6/uL Hgb 11.9 (11.2-15.7) g/dL Hct 37.9 (36.0-46.0) % MCV 85 (80-95) fL MCH 26.7 L (27.0-33.0) pg MCHC 31.4 L (32.0-36.0) % RDW 13.2 (11.7-14.6) % Plt Count 320 (130-400) 10^3/uL MPV 9.6 (8.0-11.0) fL Immature Gran % 0.2 % Neutrophils % 43.6 % Lymphocytes % 43.8 % Monocytes % 9.6 % Eosinophils % 1.5 % Basophils % 1.3 % Nucleated RBC % 0.0 (0.0-0.3) % Absolute Neutrophils 2.05 (1.2-6.7) 10^3/uL Absolute Lymphocytes 2.06 (1.2-3.4) 10^3/uL Absolute Monocytes 0.45 (0.1-0.8) 10^3/uL Absolute Eosinophils 0.07 (0.0-0.7) 10^3/uL Absolute Basophils 0.06 (0.0-0.2) 10^3/uL PT 23.5 H (9.1-11.1) sec INR 2.5 H (0.9-1.1) Sodium 143 (136-145) mmol/L Potassium 4.0 (3.5-5.1) mmol/L Chloride 103 (98-107) mmol/L Carbon Dioxide 31.4 (21.0-32.0) mmol/L Anion Gap 8.6 (3-11) mmol/L BUN 14 (7-18) mg/dL Creatinine 0.9 (0.55-1.02) mg/dL Est GFR (CKD-EPI 2020) 73.64 (mL/min/1.73m2) Glucose 99 (74-106) mg/dL Calcium 9.6 (8.5-10.1) mg/dL Magnesium 2.0 (1.8-2.4) mg/dL Total Bilirubin 0.3 (0.2-1.0) mg/dL AST 14 L (15-37) U/L ALT 24 (14-59) U/L Alkaline Phosphatase 109 (46-116) U/L Troponin I 43 38 42 (<or=51) ng/L NT-Pro-B Natriuret Pep 229 (<300) pg/mL Total Protein 7.9 (6.4-8.2) g/dL Albumin 4.0 (3.4-5.0) g/dL TSH 1.07 (0.36-3.74) uIU/mL Intake and Output - 24 Hour Total 11/21/24 09:43 thru 11/21/24 09:58 Weight 88.451 kg Problems (Last Reviewed 11/21/24 @ 12:14 by Paul Edge MD) Hypothyroidism (Chronic) S/P mitral valve repair (Acute) Paroxysmal A-fib (Acute) v v v v v v v v v Sending and/or Receiving Nurses: Please use comment section below to note any information pertinent to the patient hand-off not included above. Information / Comments: Report received from:Kenyon Lewis, RN, ED all questions answered.
[2024-11-21 17:51] VITALS: BP 127/73; PULSE 102; RESP 16; TEMP 36.3; O2SAT 99
[2024-11-21] MEDS: Warfarin 5 MG TAB PO (18:04)
[2024-11-21 19:34] VITALS: BP 159/93; PULSE 103; RESP 17; TEMP 36; O2SAT 100
[2024-11-21] MEDS: Metoprolol 25 MG TAB PO (20:24)
[2024-11-21] MEDS: Colchicine 0.6 MG TAB PO (20:24)
[2024-11-21] MEDS: Normal Saline Flush 10 ML SYR IVP (20:25)
[2024-11-21] MEDS: Docusate Sodium 100 MG CAP PO (20:30)
[2024-11-21] MEDS: Doxepin 50 MG CAP PO (20:56)
[2024-11-21 23:24] VITALS: BP 103/73; PULSE 78; RESP 19; TEMP 36; O2SAT 99
[2024-11-22 03:11] VITALS: BP 116/74; PULSE 82; RESP 19; TEMP 36.3; O2SAT 99
[2024-11-22] MEDS: Acetaminophen 325 MG TAB PO (03:20)
[2024-11-22] MEDS: Levothyroxine 100 MCG TAB PO (06:16)
[2024-11-22 06:44] LABS: HCT 37.3 % (36.0-46.0); HGB 11.8 g/dL (11.2-15.7); MCH 26.7 pg (27.0-33.0); MCHC 31.6 % (32.0-36.0); MCV 84 fL (80-95); MPV 10.3 fL (8.0-11.0); Platelet Count 315 10^3/uL (130-400); RBC 4.42 10^6/uL (3.93-5.22); RDW 13.3 % (11.7-14.6); RDW-SD 41.3 fL; WBC 4.96 10^3/uL (4.4-10.8)
[2024-11-22 06:53] LABS: INR 2.2 (0.9-1.1); Prothrombin Time 20.9 sec (9.1-11.1)
[2024-11-22 07:01] LABS: Anion Gap 7.2 mmol/L (3-11); BUN 21 mg/dL (7-18); CO2 28.8 mmol/L (21.0-32.0); CREATININE 0.8 mg/dL (0.55-1.02); Calcium 9.3 mg/dL (8.5-10.1); Chloride 105 mmol/L (98-107); Estimated GFR 84.82 (mL/min/1.73m2); Glucose 92 mg/dL (74-106); Magnesium 2.1 mg/dL (1.8-2.4); Sodium 141 mmol/L (136-145)
[2024-11-22 07:42] VITALS: BP 121/82; PULSE 88; RESP 18; TEMP 36.1; O2SAT 98
--- NOTE | 2024-11-22 08:14 | DSE_ITS ---
Date of service: 11/22/24 Time of Service: 08:14 DS: Diagnosis Discharge Diagnosis (1) Paroxysmal A-fib: Status: Acute (2) S/P mitral valve repair: Status: Acute (3) Hypothyroidism: Status: Chronic (4) Anxiety and depression: Discharge Plan Disposition Patient Disposition: Home Condition: Good Discharge Details Reason For Visit: Palpatations/afib history Admit Date/Time: 11/21/24 17:36 Admit Provider: Alejandro Maxwell Attending Provider: Alejandro Maxwell Primary Care Provider: Nalini Riddle Hospital Course Hospital Course: Patient initially presented to the hospital with chest tightness that was determined to be secondary to conversion into A-fib with rates in the low 100s. She seeks her cardiac care at [facility] and given that she had only been on anticoagulation for about 3 weeks after her first onset of A-fib and she was accepted for transfer to [facility] for cardioversion. However, overnight the patient converted to normal sinus rhythm which is since been confirmed by EKG. Given that the patient is asymptomatic and back in normal sinus rhythm it was determined that she was stable for discharge home. Home Meds and New Rx's Prescriptions: Continued albuterol sulfate [ProAir HFA] 90 mcg/actuation HFA aerosol inhaler 2 puff inhalation Q6H PRN pantoprazole 40 mg tablet,delayed release (DR/EC) 40 mg PO DAILY levothyroxine 100 mcg tablet 100 mcg PO DAILY Patient Comments: TAKE 1 TABLET BY MOUTH EVERY DAY venlafaxine 75 mg Capsule,Extended Release 24hr 75 mg PO DAILY doxepin 50 mg capsule 50 mg PO HS Patient Comments: TAKE ONE CAPSULE BY MOUTH EVERY DAY metoprolol tartrate 25 mg tablet 25 mg PO BID Patient Comments: TAKE ONE TABLET BY MOUTH EVERY 12 HOURS furosemide 40 mg tablet 40 mg PO DAILY Patient Comments: TAKE ONE TABLET BY MOUTH EVERY DAY lorazepam 0.5 mg tablet 0.5 mg PO TID PRN Patient Comments: TAKE ONE TABLET BY MOUTH THREE TIMES A DAY NEEDED FOR ACUTE ANXIETY nitroglycerin 0.4 mg tablet, sublingual 0.4 mg sublingual PRN Patient Comments: PLACE ONE TABLET UNDER THE TONGUE EVERY 5 MINUTES FOR UP TO 3 DOSES NEEDED FOR CHEST PAIN. IF CHEST PAIN STILL PERSISTS CONTACT 911 colchicine 0.6 mg tablet 0.6 mg PO BID Patient Comments: TAKE ONE TABLET BY MOUTH TWICE A DAY losartan 25 mg tablet 25 mg PO DAILY Patient Comments: TAKE ONE TABLET BY MOUTH EVERY DAY spironolactone 25 mg tablet 25 mg PO DAILY Patient Comments: TAKE ONE TABLET BY MOUTH EVERY DAY warfarin 5 mg tablet 5 mg PO DAILY Patient Comments: TAKE ONE TABLET BY MOUTH EVERY DAY Discontinued tramadol 50 mg tablet 50 mg PO Q6H PRN Patient Comments: take 1 tablet by mouth every 6 hours if needed for severe pain Discharge Instructions Activity:: Activity as Tolerated Equipment/Supplies:: No Equipment Needed Diet:: As Tolerated DS: Summary Time Spent with Patient providing and/or coordinating discharge services: Greater than 30 minutes Status at Discharge Functional status at discharge: independent ambulation Overall status at discharge: patient is back to baseline Mental Status: mental status grossly normal Speech and Movement: speech and movement normal Mood: congruent mood Affect: normal affect Quality:SDOH Health Related Social Needs: No Data to Display Exam Narrative Exam Narrative: Well-appearing female sitting up in the bed in no acute distress, ANO x 4, heart RRR, lungs clear to auscultation bilaterally, abdomen soft, nontender, nondistended Psych Mental Status: mental status grossly normal Speech and Movement: speech and movement normal Mood: congruent mood Affect: normal affect DS: Data Vitals/I&O Vitals and I&O: Vital Signs Temperature 97.0 F L 11/22/24 07:42 Temperature Source Temporal Artery Scan 11/22/24 07:42 Pulse 88 11/22/24 07:42 Pulse Rhythm Regular 11/21/24 17:51 Respiratory Rate 18 11/22/24 07:42 Respiratory Effort Normal, Non-Labored 11/21/24 17:51 Respiratory Depth Normal 11/21/24 17:51 Respiratory Pattern Normal 11/21/24 17:51 Blood Pressure 121/82 11/22/24 07:42 Pulse Oximetry 98 11/22/24 07:42 Oxygen Delivery Method Nasal Cannula 11/22/24 07:42 Oxygen Flow Rate 2 11/22/24 07:42 End Tidal Co2 4 11/21/24 09:58 Pain Level 0 11/21/24 17:51 Intake & Output 11/21/24 11/22/24 11/22/24 17:59 05:59 17:59 Intake Total 855 / 855 Output Total 300 / 300 300 / 300 Balance 555 / 555 -300 / -300 Weight 193 lb 5.526 oz Intake: IV 515 / 515 Oral 340 / 340 Output: Urine 300 / 300 300 / 300 Other: Urine Color Yellow Yellow Urine Appearance Clear Clear Clear Urine Odor Normal Data Completed and Pending Labs on day of discharge: Labs from last 24 hours 11/22/24 11/21/24 11/21/24 06:00 16:05 11:13 WBC 4.96 RBC 4.42 Hgb 11.8 Hct 37.3 MCV 84 MCH 26.7 L MCHC 31.6 L RDW 13.3 Plt Count 315 MPV 10.3 Immature Gran % Neutrophils % Lymphocytes % Monocytes % Eosinophils % Basophils % Nucleated RBC % Absolute Neutrophils Absolute Lymphocytes Absolute Monocytes Absolute Eosinophils Absolute Basophils PT 20.9 H INR 2.2 H Sodium 141 Potassium 4.0 Chloride 105 Carbon Dioxide 28.8 Anion Gap 7.2 BUN 21 H Creatinine 0.8 Est GFR (CKD-EPI 2020) 84.82 Glucose 92 Calcium 9.3 Magnesium 2.1 Total Bilirubin AST ALT Alkaline Phosphatase Troponin I 43 38 NT-Pro-B Natriuret Pep Total Protein Albumin TSH 11/21/24 10:30 WBC 4.70 RBC 4.46 Hgb 11.9 Hct 37.9 MCV 85 MCH 26.7 L MCHC 31.4 L RDW 13.2 Plt Count 320 MPV 9.6 Immature Gran % 0.2 Neutrophils % 43.6 Lymphocytes % 43.8 Monocytes % 9.6 Eosinophils % 1.5 Basophils % 1.3 Nucleated RBC % 0.0 Absolute Neutrophils 2.05 Absolute Lymphocytes 2.06 Absolute Monocytes 0.45 Absolute Eosinophils 0.07 Absolute Basophils 0.06 PT 23.5 H INR 2.5 H Sodium 143 Potassium 4.0 Chloride 103 Carbon Dioxide 31.4 Anion Gap 8.6 BUN 14 Creatinine 0.9 Est GFR (CKD-EPI 2020) 73.64 Glucose 99 Calcium 9.6 Magnesium 2.0 Total Bilirubin 0.3 AST 14 L ALT 24 Alkaline Phosphatase 109 Troponin I 42 NT-Pro-B Natriuret Pep 229 Total Protein 7.9 Albumin 4.0 TSH 1.07 PFSH All Active Problems (Updated 11/21/24 @ 17:37 by KAMINI OMALLEY) Hypothyroidism (Chronic) S/P mitral valve repair (Acute) Hx of mitral valve repair (Acute) Paroxysmal A-fib (Acute) Chest pain (Acute) Chest discomfort (Acute) Dehydration (Acute) Atrial flutter (Acute) GERD (gastroesophageal reflux disease) (Chronic) Laryngospasm (Acute) Thyromegaly (Acute) Abnormal cardiovascular stress test (Acute) History of Helicobacter pylori infection (Acute) Asthma (Chronic) Pain of left thumb (Acute) Leg numbness (Acute) Lumbar radiculopathy (Acute) Arthritis of hand, left (Acute) Arthritis of right hand (Acute) Mucous cyst of digits of both hands (Acute) Excision of RMF Mucous Cyst with Osteophyte Excision from DIP joint DOS: 01/27/23 s/p RMF, RRF and LLF cyst excisions DOS: 11/04/22 Right hip impingement syndrome (Acute) Medical History Hypothyroidism Anxiety and depression Overweight Elevated blood pressure reading Exposure to COVID-19 virus Right knee pain Hx of Diverticulosis Hemorrhoids Multiple thyroid nodules Hypertension Insomnia Urinary incontinence Snoring Positive KEITH (antinuclear antibody) Sandeep's thyroiditis Endometriosis Ovarian cyst Surgical History S/P wrist surgery History of left oophorectomy Hx of foot surgery L big toe H/O esophagogastroduodenoscopy 2016 S/P colonoscopy History of hysterectomy Family History Father Hypertension Hyperlipidemia Diabetes Brother Hypertension Mother Stroke Social History Smoking/Tobacco Use Status: Never Smoking risk assessment performed?: Yes Alcohol Intake: former Drug use: Never Substance use type: does not use Household members: spouse Housing: house Number of Children: 3 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
[2024-11-22 09:00] VITALS: PULSE 88
[2024-11-22] MEDS: Furosemide 40 MG TAB PO (09:37)
[2024-11-22] MEDS: Spironolactone 25 MG TAB PO (09:38)
[2024-11-22] MEDS: Losartan 25 MG TAB PO (09:38)
[2024-11-22] MEDS: Pantoprazole 40 MG TABCR PO (09:38)
[2024-11-22] MEDS: Normal Saline Flush 10 ML SYR IVP (09:39)
[2024-11-22] MEDS: Colchicine 0.6 MG TAB PO (09:39)
[2024-11-22] MEDS: Metoprolol 25 MG TAB 50 MG PO (10:05)
[2024-11-22] MEDS: Aspirin 81 MG CHEW PO (10:05)
[2024-11-22] MEDS: Venlafaxine 75 MG CAPCR 150 MG PO (10:38)
--- NOTE | 2024-11-22 15:17 | PDOC.CMDIS ---
Date of service: 11/22/24 Time of Service: 13:00 LACE Index Scoring Tool Questions: Length of Stay (in days): 1 Was the patient admitted via the E.D.?: Yes Comorbidities: Chronic Pulmonary Disease E.D. Visits: 2 Answers: Total Score: 8 Risk of Readmission: Low Risk Care Management Discharge Plan Reason for Hospitalization: tacchycardia and chest pain- paroxysmal A-fib Discharge Plan: Sylvia was admitted just yesterday with c/o CP and tacchycardia. She was found to be in afib. It was intended that she would transfer to [facility], where she receives her cardiac care, but she converted to NS rhythm overnight, and it was determined that she was stable for discharge home. She was discharged home with resumption of RN and PT through [facility]. Lizeth will f/u with her PCP and her cloth spreader, and continue per her plan of care. She was transported home by her , Edwin. Patient/Family Education Needs: Review of discharge instructions, activity, limitations, f/u plan and discuss Ask me 3. Services Needed at Discharge: Home Health Care Services (resumption of SN and PT.) [facility] Health Related Social Needs: No Data to Display
== END 2024-11-22 13:14 | disposition home or self-care (01) | DRG 310 ==
LOC: ER 17:36 → MS 17:37
PROVIDERS: Student in an Organized Health Care Education/Training Program; Admitting Provider Family Medicine; Emergency Provider Physician Assistant; PCP Physician Assistant Medical; Responsible Provider Family Medicine; Visit Provider Family Medicine
DX: I48.0 Paroxysmal atrial fibrillation (principal); Z95.818 Presence of other cardiac implants and grafts; R07.89 Other chest pain; F41.8 Other specified anxiety disorders; Z79.01 Long term (current) use of anticoagulants; E86.0 Dehydration; I48.92 Unspecified atrial flutter; K21.9 Gastro-esophageal reflux disease without esophagitis; J45.909 Unspecified asthma, uncomplicated; M54.16 Radiculopathy, lumbar region; M25.851 Other specified joint disorders, right hip; E06.3 Autoimmune thyroiditis; R32 Unspecified urinary incontinence; G47.00 Insomnia, unspecified; I10 Essential (primary) hypertension; Z68.28 Body mass index [BMI] 28.0-28.9, adult; E66.3 Overweight
CPT/HCPCS: 00123; 36415; 80048; 80053; 85027; 93005; 93308; 96360; 96361; 99285; 71046; 83735; 83880; 84443; 84484; 85025; 85610; 93010; 99223; 99239

== ENCOUNTER 2024-11-28 14:41 | Outpatient (REF) | payer MEDICAID, SELFPAY ==
[2024-11-28 16:13] LABS: Anion Gap 6.9 mmol/L (3-11); BUN 16 mg/dL (7-18); CO2 29.1 mmol/L (21.0-32.0); CREATININE 0.9 mg/dL (0.55-1.02); Calcium 9.3 mg/dL (8.5-10.1); Chloride 106 mmol/L (98-107); Estimated GFR 73.64 (mL/min/1.73m2); Glucose 111 mg/dL (74-106); Potassium 4.2 mmol/L (3.5-5.1); Sodium 142 mmol/L (136-145)
== END 2024-11-28 14:42 | disposition home or self-care (01) ==
LOC: NCHCN 14:41
PROVIDERS: PCP Physician Assistant Medical; Visit Provider Physician Assistant Medical
DX: I50.9 Heart failure, unspecified (principal); I48.91 Unspecified atrial fibrillation
CPT/HCPCS: 80048

== ENCOUNTER 2024-12-09 18:47 | Outpatient (REF) | payer MEDICAID, SELFPAY ==
[2024-12-09 16:20] LABS: Abs Immature Grans 0.01 10^3/uL (0.0-0.06); Absolute Basophil Count 0.06 10^3/uL (0.0-0.2); Absolute Eosinophil Count 0.15 10^3/uL (0.0-0.7); Absolute Lymphocyte Count 1.89 10^3/uL (1.2-3.4); Absolute Monocyte Count 0.48 10^3/uL (0.1-0.8); Absolute Neutrophil Count 2.75 10^3/uL (1.2-6.7); Basophils % 1.1 %; Eosinophils % 2.8 %; HCT 37.8 % (36.0-46.0); Immature Grans % 0.2 %; Lymphocytes % 35.4 %; MCH 26.9 pg (27.0-33.0); MCHC 31.7 % (32.0-36.0); MCV 85 fL (80-95); MPV 10.8 fL (8.0-11.0); Neutrophils % 51.5 %; Platelet Count 315 10^3/uL (130-400); RBC 4.46 10^6/uL (3.93-5.22); RDW 13.6 % (11.7-14.6); RDW-SD 42.1 fL; WBC 5.34 10^3/uL (4.4-10.8)
== END 2024-12-09 18:48 | disposition home or self-care (01) ==
LOC: NCHCN 18:47
PROVIDERS: PCP Physician Assistant Medical; Visit Provider Physician Assistant Medical
DX: I48.19 Other persistent atrial fibrillation (principal)
CPT/HCPCS: 85025

== ENCOUNTER 2024-12-14 12:51 | Outpatient (CLI) | payer MEDICAID, SELFPAY ==
[2024-12-14 13:07] LABS: Anion Gap 7.3 mmol/L (3-11); BUN 21 mg/dL (7-18); CO2 29.7 mmol/L (21.0-32.0); CREATININE 0.9 mg/dL (0.55-1.02); Calcium 9.2 mg/dL (8.5-10.1); Chloride 104 mmol/L (98-107); Estimated GFR 73.64 (mL/min/1.73m2); Glucose 95 mg/dL (74-106); Potassium 4.1 mmol/L (3.5-5.1); Sodium 141 mmol/L (136-145)
== END 2024-12-14 12:52 | disposition home or self-care (01) ==
LOC: LBO 12:51
PROVIDERS: PCP Physician Assistant Medical; Visit Provider Physician Assistant Medical
DX: I48.91 Unspecified atrial fibrillation (principal); I50.9 Heart failure, unspecified
CPT/HCPCS: 36415; 80048

== ENCOUNTER 2024-12-16 11:04 | Outpatient (RCR) | payer MEDICAID, SELFPAY ==
--- NOTE | 2024-12-16 11:00 | RT.EKG_ITS ---
APPROVED REPORT Exam: Resting ECG Reason for Exam: cardiac rehab intake Patient Location: O HR:83 bpm ECG Measurements Heart Rate 83 AXIS OH 136 P 78 QRSd 109 QRS 72 QT 440 T 88 QTc 517 Conclusion Sinus rhythm...normal P axis, V-rate 50- [address] depression, diffuse leads...ST <-0.03mV, ant/lat/inf Prolonged QT interval...QTc >510mS
== END 2024-12-21 23:59 | disposition home or self-care (01) ==
LOC: CR 11:04
PROVIDERS: PCP Physician Assistant Medical; Visit Provider Internal Medicine Cardiovascular Disease
DX: I50.22 Chronic systolic (congestive) heart failure (principal); I34.0 Nonrheumatic mitral (valve) insufficiency; Z51.89 Encounter for other specified aftercare
CPT/HCPCS: S9472

== ENCOUNTER 2025-01-18 10:37 | Outpatient (RCR) | payer MEDICAID, SELFPAY ==
--- NOTE | 2025-01-09 08:45 | RT.EKG_ITS ---
APPROVED REPORT Exam: Resting ECG Reason for Exam: S/P episode of CP and tachycardia Patient Location: O HR:85 bpm ECG Measurements Heart Rate 85 AXIS SD 126 P -16 QRSd 106 QRS 53 QT 411 T 68 QTc 489 Conclusion Sinus rhythm...normal P axis, V-rate 50- [address] depression, diffuse leads...ST <-0.07mV, ant/lat/inf
--- NOTE | 2025-01-09 09:07 | NUR.NOTE ---
Nursing Note: Patient presented to this am stating her HR was 178 this morning around 0600. Stated that at this time she had 8/10 discomfort in her sternal area which radiated to her back and left shoulder blade. States she sat down and rested for awhile and her symptoms were completely resolved by 0620. VS noted to be 117/78, HR 83 and EKG WNL at . Patient instructed to been seen in ER urgently if symptoms reoccur. Patient sent home to call her PCP COTY as well as her [place] Hand. This RN called patients PCP and spoke with the triage nurse relaying all above info who stated she would let patients PCP know. Also notified cardiology at [facility] and faxed EKG.
== END 2025-01-21 23:59 | disposition home or self-care (01) ==
LOC: CR 10:37
PROVIDERS: PCP Physician Assistant Medical; Visit Provider Internal Medicine Cardiovascular Disease
DX: I50.21 Acute systolic (congestive) heart failure (principal); I34.0 Nonrheumatic mitral (valve) insufficiency; Z51.89 Encounter for other specified aftercare
CPT/HCPCS: S9472

== ENCOUNTER 2025-01-20 08:48 | Emergency (ER) | payer MEDICAID, SELFPAY ==
[2025-01-20 08:54] VITALS: BP 122/78; PULSE 81; RESP 17; O2SAT 96
--- NOTE | 2025-01-20 09:00 | DI.CT_ITS ---
Exam(s) CT BRAIN NECK CTA EXAM: CT BRAIN NECK CTA CLINICAL HISTORY: head ache, on coumadin. TECHNIQUE: Imaging Protocol: Axial CT angiography was performed with multi-slice acquisition and mu lti-planar and/or 3D reconstructions. CONTRAST MATERIAL: Intravenous: Omnipaque 350 Contrast volume:70 mL COMPARISON: No exams were available for comparison FINDINGS: CTA Neck W: Aortic arch anatomy: Sternotomy wires are noted. The aortic arch anatomy is conventional and there is no significant stenosis at the origin of the gre at vessels off of the aortic arch. No intimal flap evident. Anterior circulation: Both common carotid arteries ascend with normal luminal diameters. At the level the carotid bulbs and proximal internal carotid arteries there is no significant plaque no hemodynamically significant stenosis evident. Posterior circulation: Both vertebral arteries originate in conventional fashion off of the subclavian arteries and there is no obvious stenosis at the origin of the vertebral arteries. Both vertebral arteries exhibit normal luminal diameters within the foramen transversarium. Left lizeth tebral artery is dominant. No evidence of vertebral artery stenosis, thrombosis, nor vertebral artery dissection. Both vertebral arteries contribute to the formation of the basilar artery at the skull base. CTA Brain W: Anterior circulation: Both internal carotid arteries are patent in the skull base-carotid canals as well as within the cave rnous sinuses. The supraclinoid aspects of the ICAs are patent. Both A1 segments are patent as are the anterior cer ebral arteries and there is no evidence of aneurysm at the level of the anterior communicating artery . Both middle cerebral arteries are patent with no evidence of significant stenosis nor intraluminal th rombus. There also no aneurysms of these vessels. Posterior circulation: Basilar artery is patent without significant stenosis. Distally gives off superior cerebellar arteri es and above this level terminates as patent bilateral posterior cerebral arteries. There is no evidence of aneurysm at the tip of the basilar artery nor elsewhere in the [id number] is. CT BRAIN: There is no evidence of intracranial hemorrhage, mass effect, or shift of midline structures. There are no extra-axial fluid collections. Ventricles are not enlarged or shifted. There are no ring enh ancing lesions in the brain and no abnormal meningeal enhancement. IMPRESSION: 1. Patent carotid arteries in the neck. No hemodynamically significant stenosis. No dissection 2. Patent vertebral arteries. No stenosis, thrombosis, nor dissection. 3. Patent intracranial arteries. No aneurysms 4. No acute intracranial findings. Report called by myself to ER physician 01/20/2025 following completion of the study. RADIATION DOSE DELIVERED: Total DLP DATA REPOSITORY: All CT scans at this facility are submitted to the National Radiology Data Registry (NRDR) Dose Index Registry (DIR) with the [employer] (A[employer]). RADIATION OPTIMIZATION: All CT scans at this facility use at least one of these dose optimization te chniques: automated exposure control; mA and/or kV adjustment per patient size (includes targeted exa ms where dose is matched to clinical indication); or iterative reconstruction.
[2025-01-20 09:34] VITALS: BP 122/78; PULSE 81; RESP 17; O2SAT 96
[2025-01-20] MEDS: Normal Saline - Diluent 50 ML VIAL IJ (09:40)
[2025-01-20] MEDS: Omnipaque 350 MG/ML 500 ML BTL-Imaging package 70 ML IJ (09:41)
[2025-01-20 09:44] LABS: Absolute Basophil Count 0.05 10^3/uL (0.0-0.2); Absolute Lymphocyte Count 1.83 10^3/uL (1.2-3.4); Absolute Monocyte Count 0.39 10^3/uL (0.1-0.8); Absolute Neutrophil Count 1.75 10^3/uL (1.2-6.7); Basophils % 1.2 %; Eosinophils % 2.4 %; HCT 40.1 % (36.0-46.0); HGB 12.4 g/dL (11.2-15.7); Lymphocytes % 44.4 %; MCH 25.9 pg (27.0-33.0); MCHC 30.9 % (32.0-36.0); MCV 84 fL (80-95); MPV 10.2 fL (8.0-11.0); Monocytes % 9.5 %; Neutrophils % 42.5 %; Platelet Count 304 10^3/uL (130-400); RBC 4.79 10^6/uL (3.93-5.22); RDW 14.5 % (11.7-14.6); RDW-SD 44.6 fL; WBC 4.12 10^3/uL (4.4-10.8)
[2025-01-20 09:50] LABS: INR 2.2 (0.9-1.1); Prothrombin Time 21.3 sec (9.1-11.1)
[2025-01-20 10:02] LABS: ALT 18 U/L (14-59); AST 16 U/L (15-37); Albumin 3.8 g/dL (3.4-5.0); Alkaline Phosphatase 97 U/L (46-116); Anion Gap 8.6 mmol/L (3-11); BUN 21 mg/dL (7-18); Bilirubin, Total 0.3 mg/dL (0.2-1.0); CO2 29.4 mmol/L (21.0-32.0); Calcium 8.9 mg/dL (8.5-10.1); Chloride 104 mmol/L (98-107); Glucose 84 mg/dL (74-106); Magnesium 2.1 mg/dL (1.8-2.4); Potassium 3.9 mmol/L (3.5-5.1); Sodium 142 mmol/L (136-145); Total Protein 7.7 g/dL (6.4-8.2)
--- NOTE | 2025-01-20 11:04 | W.ED.GENAD ---
Discharge Plan Disposition Patient Disposition: Home Condition: Stable Discharge Details Clinical Impression: Intermittent headache Primary Care Provider: Nalini Riddle ED Provider: Paul Edge Home Meds and New Rx's Prescriptions: Continued albuterol sulfate [ProAir HFA] 90 mcg/actuation HFA aerosol inhaler 2 puff inhalation Q6H PRN pantoprazole 40 mg tablet,delayed release (DR/EC) 40 mg PO DAILY levothyroxine 100 mcg tablet 100 mcg PO DAILY Patient Comments: TAKE 1 TABLET BY MOUTH EVERY DAY doxepin 50 mg capsule 50 mg PO HS Patient Comments: TAKE ONE CAPSULE BY MOUTH EVERY DAY furosemide 40 mg tablet 40 mg PO DAILY Patient Comments: TAKE ONE TABLET BY MOUTH EVERY DAY lorazepam 0.5 mg tablet 0.5 mg PO TID PRN Patient Comments: TAKE ONE TABLET BY MOUTH THREE TIMES A DAY NEEDED FOR ACUTE ANXIETY nitroglycerin 0.4 mg tablet, sublingual 0.4 mg sublingual PRN Patient Comments: PLACE ONE TABLET UNDER THE TONGUE EVERY 5 MINUTES FOR UP TO 3 DOSES NEEDED FOR CHEST PAIN. IF CHEST PAIN STILL PERSISTS CONTACT 911 colchicine 0.6 mg tablet 0.6 mg PO BID Patient Comments: TAKE ONE TABLET BY MOUTH TWICE A DAY losartan 25 mg tablet 25 mg PO DAILY Patient Comments: TAKE ONE TABLET BY MOUTH EVERY DAY spironolactone 25 mg tablet 25 mg PO DAILY Patient Comments: TAKE ONE TABLET BY MOUTH EVERY DAY warfarin 5 mg tablet 5 mg PO DAILY Patient Comments: Take 7.5 mg Tues, Th, Sat and 5 mg the other days venlafaxine 75 mg Capsule,Extended Release 24hr 150 mg PO DAILY Qty: 0 0RF metoprolol tartrate 25 mg tablet 50 mg PO BID Qty: 0 0RF Patient Comments: Takes 50 mg in the AM and 100 mg at HS aspirin [Children's Aspirin] 81 mg Tablet,Chewable 81 mg PO DAILY Qty: 90 0RF Discharge Instructions Instructions: Headache, Adult ED Additional Instructions: Please follow-up with your primary care physician. Call today to arrange timely follow-up for reassessment early next week. Please take it easy over the weekend. No exertional activities. Return to the emergency department immediately for any worsening or new concerning symptoms. Referrals: Nalini Riddle PA [Primary Care Provider] - [facility] General Mode of arrival: ambulatory. Date/Time Provider Initiated Documentation: 01/20/25 09:03. Limitations to Documentation: no limitations. Information obtained by: patient. HPI Narrative: HISTORY OF PRESENT ILLNESS The patient presents to the ED for evaluation of headaches. She experienced 3 episodes of sudden, intense right-sided headaches during the night, with additional episodes this morning and upon arrival at the hospital. The headaches are short-lived, lasting only a few minutes, with the longest episode during a blood draw. The first episode occurred after midnight following her dog's need to go outside. She experienced lightheadedness upon standing but had normal BP readings. She was awakened 3 more times between midnight and 0630 hours due to headaches, with an additional episode around 0700 hours during breakfast. No current pain or other symptoms such as numbness, tingling, weakness, visual changes, or speech alterations. No recent tick bites. Frequent sweats and chills but no fevers. No leg weakness. No history of stroke or blood clots. Given her history of cardiac issues and current anticoagulant therapy, she is concerned. She is on Coumadin following a mitral valve repair and undergoes weekly INR checks, with the most recent one on Thursday. Her target INR range is 2-3, with last week's reading at 1.9. Related Data Home Medications ?Medication ?Instructions ?Recorded ?Confirmed albuterol sulfate 90 mcg/actuation 2 puff inhalation Q6H PRN 06/04/21 01/20/25 aerosol inhaler (ProAir HFA) pantoprazole 40 mg tablet,delayed 40 mg PO DAILY 06/04/21 01/20/25 release levothyroxine 100 mcg tablet 100 mcg PO DAILY 06/24/21 01/20/25 doxepin 50 mg capsule 50 mg PO HS 10/27/24 01/20/25 furosemide 40 mg tablet 40 mg PO DAILY 10/27/24 01/20/25 lorazepam 0.5 mg tablet 0.5 mg PO TID PRN 10/27/24 01/20/25 colchicine 0.6 mg tablet 0.6 mg PO BID 11/21/24 01/20/25 losartan 25 mg tablet 25 mg PO DAILY 11/21/24 01/20/25 nitroglycerin 0.4 mg sublingual 0.4 mg sublingual PRN 11/21/24 01/20/25 tablet spironolactone 25 mg tablet 25 mg PO DAILY 11/21/24 01/20/25 warfarin 5 mg tablet 5 mg PO DAILY 11/21/24 01/20/25 aspirin 81 mg chewable tablet 81 mg PO DAILY #90 tabs 11/22/24 01/20/25 (Children's Aspirin) metoprolol tartrate 25 mg tablet 50 mg (2 x 25 mg) PO BID #0 tabs 11/22/24 01/20/25 venlafaxine 75 mg capsule,extended 150 mg (2 x 75 mg) PO DAILY #0 caps 11/22/24 01/20/25 release 24 hr Previous Rx's ?Medication ?Instructions ?Recorded aspirin 81 mg chewable tablet 81 mg PO DAILY #90 tabs 11/22/24 (Children's Aspirin) metoprolol tartrate 25 mg tablet 50 mg (2 x 25 mg) PO BID #0 tabs 11/22/24 venlafaxine 75 mg capsule,extended 150 mg (2 x 75 mg) PO DAILY #0 caps 11/22/24 release 24 hr Allergies Allergy/AdvReac Type Severity Reaction Status Date / Time codeine Allergy Intermediate hypersensitive. Verified 01/20/25 08:58 Can't sleep. feels wired mint AdvReac Mild Skin Rash Verified 01/20/25 08:58 cephalexin (Cephalexin) AdvReac Nausea/ GI Unverified 01/20/25 08:58 upset General Stated Complaint: Headache ERNA: 3 Exam Const General: cooperative and no acute distress [facility] Head: normocephalic and atraumatic Mouth: moist mucous membranes Eyes Conjunctivae: normal conjunctivae Sclera: normal sclerae EOM: EOM intact bilaterally Neck Neck: trachea midline and supple Resp Auscultation: clear to auscultation bilaterally, no rales, no rhonchi and no wheezes Cardio Rate: regular rate and not tachycardic Rhythm: regular rhythm GI Palpation: soft, not firm, no guarding, no masses, not rigid and nontender Skin General skin exam: no rashes or lesions noted Neuro General: patient alert, patient awake, patient oriented x3 and tone normal Cranial Nerves: CN's II-XI intact bilaterally Cognition: normal cognition Speech: speech normal Gait: normal gait Motor: strength 5/5 throughout Sensory Exam: no sensory deficits noted Extrem General: no edema Psych Appearance: grossly normal Mental Status: mental status grossly normal Course Vital Signs Vital signs: Vital Signs Pulse 81 01/20/25 08:54 Respiratory Rate 17 01/20/25 08:54 Blood Pressure 122/78 01/20/25 08:54 Pulse Oximetry 96 01/20/25 08:54 Pulse 81 01/20/25 09:34 Respiratory Rate 17 01/20/25 09:34 Blood Pressure 122/78 01/20/25 09:34 Blood Pressure Position Sitting 01/20/25 09:34 Pulse Oximetry 96 01/20/25 09:34 Oxygen Delivery Method Room Air 01/20/25 09:34 Oxygen Flow Rate 0 01/20/25 09:34 Pain Level 0 01/20/25 09:34 Lab/Test Results Lab/Test Results: Laboratory Tests Range/Units 01/20/25 09:30 WBC (4.4-10.8) 10^3/uL 4.12 L RBC (3.93-5.22) 10^6/uL 4.79 Hgb (11.2-15.7) g/dL 12.4 Hct (36.0-46.0) % 40.1 MCV (80-95) fL 84 MCH (27.0-33.0) pg 25.9 L MCHC (32.0-36.0) % 30.9 L RDW (11.7-14.6) % 14.5 Plt Count (130-400) 10^3/uL 304 MPV (8.0-11.0) fL 10.2 Immature Gran % % 0.0 Neutrophils % % 42.5 Lymphocytes % % 44.4 Monocytes % % 9.5 Eosinophils % % 2.4 Basophils % % 1.2 Nucleated RBC % (0.0-0.3) % 0.0 Absolute Neutrophils (1.2-6.7) 10^3/uL 1.75 Absolute Lymphocytes (1.2-3.4) 10^3/uL 1.83 Absolute Monocytes (0.1-0.8) 10^3/uL 0.39 Absolute Eosinophils (0.0-0.7) 10^3/uL 0.10 Absolute Basophils (0.0-0.2) 10^3/uL 0.05 PT (9.1-11.1) sec 21.3 H INR (0.9-1.1) 2.2 H Sodium (136-145) mmol/L 142 Potassium (3.5-5.1) mmol/L 3.9 Chloride (98-107) mmol/L 104 Carbon Dioxide (21.0-32.0) mmol/L 29.4 Anion Gap (3-11) mmol/L 8.6 BUN (7-18) mg/dL 21 H Creatinine (0.55-1.02) mg/dL 1.0 Est GFR (CKD-EPI 2020) (mL/min/1.73m2) 64.90 Glucose (74-106) mg/dL 84 Calcium (8.5-10.1) mg/dL 8.9 Magnesium (1.8-2.4) mg/dL 2.1 Total Bilirubin (0.2-1.0) mg/dL 0.3 AST (15-37) U/L 16 ALT (14-59) U/L 18 Alkaline Phosphatase (46-116) U/L 97 Total Protein (6.4-8.2) g/dL 7.7 Albumin (3.4-5.0) g/dL 3.8 Medical Decision Making ASSESSMENT AND PLAN Initial Assessment: Patient presents with intense, short-lasting right-sided headaches multiple times during the night and once in the morning. No associated symptoms such as numbness, tingling, weakness, visual changes, or speech changes. History of mitral valve repair and on Coumadin. ED Course: - CT head interpreted by radiology as normal. - CTA brain and neck interpreted by radiology: Patent carotid arteries, no significant stenosis, no dissection. Patent vertebral arteries, no stenosis, thrombosis, nor dissection. Patent intracranial arteries, no aneurysms, no acute intracranial findings. - Labs nondiagnostic. No leukocytosis. INR 2.2. - INR within therapeutic range. - Patient reassessed after ED observation, no recurrent headache, feeling well, remains neurologically intact. Patient requesting discharge. Final Assessment: Patient's headache etiology remains unclear. Diagnostic imaging and blood work are normal. No recurrent headache during ED observation. Patient is feeling well and remains neurologically intact. Clinical Impression: - Headache - Anticoagulation management Disposition: - Discharge with close outpatient follow-up with PCP. Patient was instructed to return immediately for any worsening or new concerning symptoms. MDM Components Evaluation: - Number of Differential Diagnoses or Management Options: Headache, Anticoagulation management - Amount and Complexity of Data Reviewed: CT head, CTA brain and neck, basic blood work, INR levels - Risk of Complication and Morbidity or Mortality: Low risk given normal diagnostic imaging and therapeutic INR levels. Continued monitoring required due to anticoagulation therapy. This document was written with the assistance of HEIDI Arredondo. The patient consented to its use. Quality:SDOH Health Related Social Needs: No Data to Display PFSH All Active Problems Intermittent headache (Acute) Hypothyroidism (Chronic) S/P mitral valve repair (Acute) Hx of mitral valve repair (Acute) Paroxysmal A-fib (Acute) Chest discomfort (Acute) Dehydration (Acute) Atrial flutter (Acute) GERD (gastroesophageal reflux disease) (Chronic) Laryngospasm (Acute) Thyromegaly (Acute) Abnormal cardiovascular stress test (Acute) History of Helicobacter pylori infection (Acute) Asthma (Chronic) Pain of left thumb (Acute) Leg numbness (Acute) Lumbar radiculopathy (Acute) Arthritis of hand, left (Acute) Arthritis of right hand (Acute) Mucous cyst of digits of both hands (Acute) Excision of RMF Mucous Cyst with Osteophyte Excision from DIP joint DOS: 01/27/23 s/p RMF, RRF and LLF cyst excisions DOS: 11/04/22 Right hip impingement syndrome (Acute) Medical History Anxiety and depression Overweight Elevated blood pressure reading Exposure to COVID-19 virus Right knee pain Hx of Diverticulosis Hemorrhoids Multiple thyroid nodules Hypertension Insomnia Urinary incontinence Snoring Positive KEITH (antinuclear antibody) Sandeep's thyroiditis Endometriosis Ovarian cyst Surgical History S/P wrist surgery History of left oophorectomy Hx of foot surgery L big toe H/O esophagogastroduodenoscopy 2016 S/P colonoscopy History of hysterectomy Family History Father Hypertension Hyperlipidemia Diabetes Brother Hypertension Mother Stroke Social History Smoking/Tobacco Use Status: Never Smoking risk assessment performed?: Yes Alcohol Intake: former Drug use: Never Substance use type: does not use Household members: spouse Housing: house Number of Children: 3 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
[2025-01-20] MEDS: Acetaminophen 325 MG TAB 650 MG PO (11:10)
[2025-01-20 11:16] VITALS: BP 120/63; PULSE 68; RESP 16; TEMP 36.6; O2SAT 99
== END 2025-01-20 11:18 | disposition home or self-care (01) ==
PROVIDERS: Emergency Provider Student in an Organized Health Care Education/Training Program; PCP Physician Assistant Medical
DX: G44.89 Other headache syndrome (principal); I10 Essential (primary) hypertension; E06.3 Autoimmune thyroiditis; I48.91 Unspecified atrial fibrillation; Z79.01 Long term (current) use of anticoagulants; Z79.82 Long term (current) use of aspirin
CPT/HCPCS: 36415; 70496; 70498; 80053; 99285; 83735; 85025; 85610; 99284

== ENCOUNTER 2025-02-17 09:00 | Outpatient (RCR) | payer MEDICAID, SELFPAY | END 2025-02-20 23:59 | disposition home or self-care (01) | LOC: CR 09:00 | PROVIDERS: PCP Physician Assistant Medical; Visit Provider Internal Medicine Cardiovascular Disease | DX: I50.21 Acute systolic (congestive) heart failure (principal); Z51.89 Encounter for other specified aftercare | CPT/HCPCS: S9472 ==

== ENCOUNTER 2025-03-08 10:08 | Emergency (ER) | payer MEDICAID, SELFPAY ==
[2025-03-08 10:16] VITALS: BP 144/87; PULSE 86; RESP 20; TEMP 36.7; O2SAT 98
--- NOTE | 2025-03-08 10:42 | W.ED.GENAD ---
Discharge Plan Disposition Patient Disposition: Home Discharge Details Clinical Impression: Depression Primary Care Provider: Nalini Riddle ED Provider: Diana Osborne Home Meds and New Rx's Prescriptions: Continued albuterol sulfate [ProAir HFA] 90 mcg/actuation HFA aerosol inhaler 2 puff inhalation Q6H PRN pantoprazole 40 mg tablet,delayed release (DR/EC) 40 mg PO DAILY levothyroxine 100 mcg tablet 100 mcg PO DAILY Patient Comments: TAKE 1 TABLET BY MOUTH EVERY DAY doxepin 50 mg capsule 50 mg PO HS Patient Comments: TAKE ONE CAPSULE BY MOUTH EVERY DAY furosemide 40 mg tablet 40 mg PO DAILY Patient Comments: TAKE ONE TABLET BY MOUTH EVERY DAY lorazepam 0.5 mg tablet 0.5 mg PO TID PRN Patient Comments: TAKE ONE TABLET BY MOUTH THREE TIMES A DAY NEEDED FOR ACUTE ANXIETY nitroglycerin 0.4 mg tablet, sublingual 0.4 mg sublingual PRN Patient Comments: PLACE ONE TABLET UNDER THE TONGUE EVERY 5 MINUTES FOR UP TO 3 DOSES NEEDED FOR CHEST PAIN. IF CHEST PAIN STILL PERSISTS CONTACT 911 colchicine 0.6 mg tablet 0.6 mg PO BID Patient Comments: TAKE ONE TABLET BY MOUTH TWICE A DAY losartan 25 mg tablet 25 mg PO DAILY Patient Comments: TAKE ONE TABLET BY MOUTH EVERY DAY spironolactone 25 mg tablet 25 mg PO DAILY Patient Comments: TAKE ONE TABLET BY MOUTH EVERY DAY warfarin 5 mg tablet 5 mg PO DAILY Patient Comments: Take 7.5 mg , , Sat and 5 mg the other days venlafaxine 75 mg Capsule,Extended Release 24hr 150 mg PO DAILY Qty: 0 0RF metoprolol tartrate 25 mg tablet 50 mg PO BID Qty: 0 0RF Patient Comments: Takes 50 mg in the AM and 100 mg at HS aspirin [Children's Aspirin] 81 mg Tablet,Chewable 81 mg PO DAILY Qty: 90 0RF Jardiance 10 mg tablet 10 mg PO DAILY Patient Comments: TAKE ONE TABLET BY MOUTH EVERY DAY Discharge Instructions Instructions: Suicide Prevention Additional Instructions: Please follow-up with [facility] as discussed. You have a check-in call on Thursday. I encourage you to follow-up with counseling/therapy. Return to emergency care if you develop thoughts of self-harm, feel unsafe at home, worsening depression/suicidal ideation, thoughts of harming others, or if you are very worried you need to be rechecked again immediately Referrals: [facility] [Other] [facility] [Outside] Nalini Riddle PA [Primary Care Provider, Medicine] Discharge Data Discharge Date/Time-TO BE ENTERED AT DEPARTURE: 03/08/25 12:30 HPI General Date/Time Provider Initiated Documentation: 03/08/25 10:12. HPI Narrative: Sylvia is a 59 year old female who presents to the emergency department today for evaluation of depression/SI. Denies active plan, self-harm, HI, hallucinations. Reports she has been under a lot of stress recently with her sons (one incarcerated, one using drugs) and feels overwhelmed, today did not feel like getting out of bed. She did get up to go to cardiac rehab, disclosed to nurse passive SI. Admits to taking her evening doxepin and 3 melatonin on Thursday night (said this was to help her sleep, but also didn't care if she woke up in the morning). Does take lorazepam multiple times a day for anxiety. Past medical history is significant for MV replacement in Sep 2024, hypothyroidism, paroxysmal A-fib on anticoagulation with warfarin Physical exam reassuring. Patient is alert and oriented, occasionally tearful during exam. Easy work of breathing, lung sounds clear bilaterally. Normal heart sounds. Abdomen soft, nondistended, nontender to palpation. Moving all extremities equally. History and presentation consistent with depression/anxiety with suicidal ideation. Patient is voluntary, does not endorse active suicidal ideation or plan. I independently interpreted the following tests: CBC, CMP, TSH, UA, UDS, EtOH, APAP, ASA all unremarkable. Patient medically cleared for crisis evaluation While in the emergency department, Sylvia declined anxiolytic, says she is feeling okay at this time. Sylvia was evaluated by Felicia, qualified mental health professional with [facility]. Patient is appropriate for safety plan home, accepted referrals fourth therapy and psychiatry. A check-in call on Thursday at 9 AM as scheduled. Discharge instructions provided to patient, including safety plan details and red flags indicating need for return to emergency care. Related Data Home Medications ?Medication ?Instructions ?Recorded ?Confirmed albuterol sulfate 90 mcg/actuation 2 puff inhalation Q6H PRN 06/04/21 03/08/25 aerosol inhaler (ProAir HFA) pantoprazole 40 mg tablet,delayed 40 mg PO DAILY 10/12/21 07/16/25 release levothyroxine 100 mcg tablet 100 mcg PO DAILY 06/24/21 03/08/25 doxepin 50 mg capsule 50 mg PO HS 10/27/24 03/08/25 furosemide 40 mg tablet 40 mg PO DAILY 10/27/24 03/08/25 lorazepam 0.5 mg tablet 0.5 mg PO TID PRN 10/27/24 03/08/25 colchicine 0.6 mg tablet 0.6 mg PO BID 11/21/24 03/08/25 losartan 25 mg tablet 25 mg PO DAILY 11/21/24 03/08/25 nitroglycerin 0.4 mg sublingual 0.4 mg sublingual PRN 11/21/24 03/08/25 tablet spironolactone 25 mg tablet 25 mg PO DAILY 11/21/24 03/08/25 warfarin 5 mg tablet 5 mg PO DAILY 11/21/24 03/08/25 aspirin 81 mg chewable tablet 81 mg PO DAILY #90 tabs 11/22/24 03/08/25 (Children's Aspirin) metoprolol tartrate 25 mg tablet 50 mg (2 x 25 mg) PO BID #0 tabs 11/22/24 03/08/25 venlafaxine 75 mg capsule,extended 150 mg (2 x 75 mg) PO DAILY #0 caps 11/22/24 03/08/25 release 24 hr empagliflozin 10 mg tablet 10 mg PO DAILY 03/08/25 03/08/25 (Jardiance) Previous Rx's ?Medication ?Instructions ?Recorded aspirin 81 mg chewable tablet 81 mg PO DAILY #90 tabs 11/22/24 (Children's Aspirin) metoprolol tartrate 25 mg tablet 50 mg (2 x 25 mg) PO BID #0 tabs 11/22/24 venlafaxine 75 mg capsule,extended 150 mg (2 x 75 mg) PO DAILY #0 caps 11/22/24 release 24 hr Allergies Allergy/AdvReac Type Severity Reaction Status Date / Time codeine Allergy Intermediate hypersensitive. Verified 03/08/25 10:15 Can't sleep. feels wired mint AdvReac Mild Skin Rash Verified 03/08/25 10:15 cephalexin (Cephalexin) AdvReac Nausea/ GI Verified 03/08/25 10:15 upset General Stated Complaint: PsychEval ERNA: 2 Exam Const General: cooperative, healthy appearing and comfortable Nutritional Appearance: average body habitus and well nourished Orientation: alert and oriented x3 HENMT Head: normal to inspection Mouth: moist mucous membranes Resp Effort & Inspection: normal respiratory effort and able to speak in complete sentences Auscultation: clear to auscultation bilaterally Cardio Rate: regular rate Rhythm: regular rhythm GI Inspection: normal to inspection and non-distended Palpation: soft, no guarding, not rigid and nontender Skin General skin exam: no rashes or lesions noted Trauma: no lacerations or abrasions Neuro General: patient alert, patient oriented x3, tone normal and moves all extremities Cognition: normal cognition Speech: speech normal Psych Appearance: grossly normal Mental Status: mental status grossly normal Speech and Movement: speech and movement normal Mood: anxious mood and dysthymic mood Affect: dysphoric affect Thought Content: no hallucinations, no homicidality and suicidality (passive) Course Vital Signs Vital signs: Vital Signs Temperature 36.7 C 03/08/25 10:16 Pulse 86 03/08/25 10:16 Respiratory Rate 20 03/08/25 10:16 Blood Pressure 144/87 H 03/08/25 10:16 Pulse Oximetry 98 03/08/25 10:16 Temperature 36.7 C 03/08/25 10:16 Temperature Source Oral 03/08/25 10:16 Pulse 86 03/08/25 10:16 Respiratory Rate 20 03/08/25 10:16 Blood Pressure 144/87 H 03/08/25 10:16 Blood Pressure Position Sitting 03/08/25 10:16 Pulse Oximetry 98 03/08/25 10:16 Oxygen Delivery Method Room Air 03/08/25 10:16 Oxygen Flow Rate 0 03/08/25 10:16 Pain Level 0 03/08/25 10:16 PFSH All Active Problems (Updated 03/08/25 @ 12:07 by Diana Huffman) Depression (Chronic) Hypothyroidism (Chronic) S/P mitral valve repair (Acute) Hx of mitral valve repair (Acute) Paroxysmal A-fib (Acute) Chest discomfort (Acute) Dehydration (Acute) Atrial flutter (Acute) GERD (gastroesophageal reflux disease) (Chronic) Laryngospasm (Acute) Thyromegaly (Acute) Abnormal cardiovascular stress test (Acute) History of Helicobacter pylori infection (Acute) Asthma (Chronic) Pain of left thumb (Acute) Leg numbness (Acute) Lumbar radiculopathy (Acute) Arthritis of hand, left (Acute) Arthritis of right hand (Acute) Mucous cyst of digits of both hands (Acute) Excision of RMF Mucous Cyst with Osteophyte Excision from DIP joint DOS: 01/27/23 s/p RMF, RRF and LLF cyst excisions DOS: 11/04/22 Right hip impingement syndrome (Acute) Medical History Anxiety and depression Overweight Elevated blood pressure reading Exposure to COVID-19 virus Right knee pain Hx of Diverticulosis Hemorrhoids Multiple thyroid nodules Hypertension Insomnia Urinary incontinence Snoring Positive KEITH (antinuclear antibody) Sandeep's thyroiditis Endometriosis Ovarian cyst Surgical History S/P wrist surgery History of left oophorectomy Hx of foot surgery L big toe H/O esophagogastroduodenoscopy 2015 S/P colonoscopy History of hysterectomy Family History Father Hypertension Hyperlipidemia Diabetes Brother Hypertension Mother Stroke Social History Smoking/Tobacco Use Status: Never Smoking risk assessment performed?: Yes Alcohol Intake: former Drug use: Never Substance use type: does not use Household members: spouse Housing: house Number of Children: 3 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
[2025-03-08 11:15] LABS: Abs Immature Grans 0.01 10^3/uL (0.0-0.06); HCT 42.1 % (36.0-46.0); HGB 13.3 g/dL (11.2-15.7); Immature Grans % 0.2 %; MCH 26.8 pg (27.0-33.0); MCHC 31.6 % (32.0-36.0); MCV 85 fL (80-95); MPV 10.8 fL (8.0-11.0); Platelet Count 331 10^3/uL (130-400); RBC 4.97 10^6/uL (3.93-5.22); RDW 14.5 % (11.7-14.6); RDW-SD 44.3 fL; WBC 5.27 10^3/uL (4.4-10.8)
[2025-03-08 11:21] LABS: Glucose 500 mg/dL (Negative)
[2025-03-08 11:32] LABS: Cannabinoids THC Negative (Negative); METHADONE URINE SCREEN Negative (Negative); Salicylate < 2.8 mg/dL (<2.8)
[2025-03-08 11:36] LABS: Acetaminophen < 2 ug/mL (10-30)
[2025-03-08 11:42] LABS: ALT 23 U/L (14-59); AST 15 U/L (15-37); Albumin 4.1 g/dL (3.4-5.0); Alkaline Phosphatase 106 U/L (46-116); Anion Gap 9.4 mmol/L (3-11); BUN 19 mg/dL (7-18); Bilirubin, Total 0.4 mg/dL (0.2-1.0); CO2 29.6 mmol/L (21.0-32.0); Calcium 9.2 mg/dL (8.5-10.1); Chloride 102 mmol/L (98-107); Estimated GFR 73.64 (mL/min/1.73m2); Glucose 81 mg/dL (74-106); Potassium 3.9 mmol/L (3.5-5.1); Sodium 141 mmol/L (136-145); TSH (W/Ref FT4) 2.64 uIU/mL (0.36-3.74); Total Protein 8.0 g/dL (6.4-8.2)
--- NOTE | 2025-03-08 12:19 | PDOC.CMPRO ---
Date of service: 03/08/25 Time of Service: 12:19 Care Management Progress Note Progress Note Text Progress Note Text: CM huddled with [facility] and [facility] staff regarding Sylvia's plan of care. Per [facility], Sylvia and clinician, Felicia created a safety plan, including follow up with [facility] in the community. She completed intake with [facility] while in zone B. Sylvia will be discharged home with close follow up by [facility]. She has a copy of her safety plan. CM will continue to follow. Social Determinants of Health Screening Social Determinants of health last assessed in clinic: 03/08/25 Will the Patient Participate in the Screening?: Yes Do you worry about having a steady place to live?: no Problems where you live: no known problems In the past 12 months, have you had to go without electric, gas, oil or water in your home?: no 1. Within the past 12 months, we worried whether our food would run out before we got money to buy more.: Don't know/refused 2. Within the past 12 months, the food we bought just didn't last and we didn't have money to get more.: Don't know/refused Has lack of transportation kept you from medical appointments or from doing things needed for daily living?: no Has anyone in your life made you feel unsafe or unsupported?: no How hard is it for you to pay for the very basics like food, housing, medical care, and heating? Would you say it is:: Not hard at all Do you want help finding or keeping work or a job?: I do not need or want help If for any reason you need help with day-to-day activities such as bathing, preparing meals, shopping, managing finances, etc., do you get the help you need?: I don?t need any help How often do you feel lonely or isolated from those around you?: Never Do you speak a language other than Estonian at home?: No Does the patient want assistance with any of the above?: No
--- NOTE | 2025-03-08 13:12 | PDOC.MHCN_ITS ---
Date of service: 03/08/25 Time of Service: 13:13 PHQ-9 Over the last 2 weeks, how often have you been bothered by any of the following problems? 1. Little interest or pleasure in doing things: several days 2. Feeling down, depressed, or hopeless: several days 3. Trouble falling or staying asleep, or sleeping too much: nearly every day 4. Feeling tired or having little energy: nearly every day 5. Poor appetite or overeating: several days 6. Feeling bad about yourself - or that you are a failure or have let yourself and your family down: several days 7. Trouble concentrating on things, such as reading the newspaper or watching television: several days 8. Moving or speaking so slowly that other people could have noticed? - Or the opposite - being so fidgety or restless that you have been moving around a lot more than usual: several days 9. Thoughts that you would be better off or of hurting yourself in some way: several days Total score: 13 If you checked off any problems, how difficult have these problems made it for you to do your work, take care of things at home, or get along with other people?: very difficult Source: Developed by Drs. Barber Escamilla, Ashanti Ballard, Carlos Spence and colleagues, with an educational killian from [employer]. Suicide Severity Rate CSSRS Have you wished you were or wished you could go to sleep and not wake up?: Yes Have you actually had any thoughts of killing yourself?: No CSSRS3 Have you ever done anything, started to do anything or prepared to do anything to end your life?: No Screening Score Total Score: 2 Screening: Positive Mental Health Emergency Note Release [facility] release signed:: Yes Reason for Visit The client is new to [facility]. She has never been hospitalized before. She was seen by her [employer] provider today for her treatment and expressed significant depression so they outreached to her PCP who suggested she come to the ED for evaluation. This clinician is familiar with the client so requested that they ask if she was okay with this clinician assessing her to which she responded yes. In the last 2 weeks has the pt presented for ES prior to today?: Unknown Client Information Client is: New Well Housed: Yes Non Suicidal Self Injury Current: No History: No Safety Risk/Harm to Self or Others Current Ideation to Harm Self or Others: Yes to self. (fleeting thoughts due to stress) Intent: no, has no intent. Plan: no.does not have a plan. History of suicide attempt: No history of suicide attempt reported Risk: Does risk to harm exist?: yes. Access to means: Yes. Types of Means: Firearms, Other weapons and Medication. Counseling provided: Yes Risk: Low Risk Duty to warn indicated: No Asssessment/Mental Status Appearance: Unremarkable Attitude: Cooperative Behavior: Unremarkable Speech: Normal Affect: Cogruent with mood Mood: Stressed, Depressed and Anxious Thought process: Goal directed Hallucinations: No Delusions: No Attention: Unremarkable Perception: Not impaired Orientation: Fully orientated Memory: Intact Insight: Good Judgement: Good Neurovegetative Symptoms Sleep: No change (As long as she uses her C-Pap) Appetitie: Disordered (Up and down depending on the day. Sometimes I can't eat and other day's I can't get enough into me. ) Interests: Decrease Energy: Decrease Libido: Not applicable Substance Use: Do you use nicotine?: No Have you used substances in the last 7 days?: No Additional Issues: Assaultive/Threatening Behavior: No Medical Concerns: No Client engaged in active self harm w/weapon: No Threatening to run away: No Child reported abuse/neglect: No Voluntarily presenting for services: Yes Domestic violence is a concern: No Extreme Psychosis or extreme behavior is present: No Impression The client is a 59-year-old, , Caucasians female who resides with her in [place], [place]. She has three adult children. The client uses She/Her pronouns and engaged in all screening tools today. All underrepresented categories were honored during this assessment. The client presents dressed in hospital mandated clothing for patients. She has long red hair that is pulled back in a hair clip. Her eyes are red and swollen from crying and continues to be tearful at times throughout the assessment. She is supported by her in the assessment. She has good insight and judgment and notes I just don't care right now and I don't want to be like that. She denied engaging in any NSSI, and denied SI and HI just wanting to feel better. Resources Reosurces reviewed and given:: 988 and Other (Front Porch) Plan/Disposition Recommended Disposition: [facility] Services [facility] Services: Therapy and Psychiatric Evaluation. Plan: Supportive counseling was offered around the significant weight she is carrying and resources through the completion of a safety plan which includes a check in call on Thursday at 9am, and accepting referrals for therapy and psychiatry. Additionally the need for self care for herself like she does with her physical health. Person reported agreement to plan: Yes Reports/communication Outcome discussed with: ED/Personnel
== END 2025-03-08 12:30 | disposition home or self-care (01) ==
PROVIDERS: Emergency Provider Nurse Practitioner Family; PCP Physician Assistant Medical
DX: F32.A Depression, unspecified (principal); R45.851 Suicidal ideations; I48.0 Paroxysmal atrial fibrillation; I10 Essential (primary) hypertension; Z95.2 Presence of prosthetic heart valve; Z79.01 Long term (current) use of anticoagulants; Z79.82 Long term (current) use of aspirin
CPT/HCPCS: 00123; 36415; 80053; 80307; 96127; 99284; 80320; 80329; 81003; 84443; 85025; 85610

== ENCOUNTER 2025-03-22 09:00 | Outpatient (RCR) | payer MEDICAID, SELFPAY ==
--- NOTE | 2025-03-08 10:26 | NUR.NOTE ---
Nursing Note: Patient requested to speak with CR staff at end of CR session. Patient informed staff that she was at a point where she stated I do not care if I live. Patient states that she took 3 melatonin on top of her scheduled doxepin. Patient stated she did not have a plan and was not a harm to herself. This nurse spoke with the cassandra nurse (Angie) at her PCP's office who noted they were not able to get the patient seen today due to scheduling but was able to schedule her for an appointment with her behavioral health specialist tomorrow morning at 0900. Patient given suicide hotline number. This nurse spoke with patient and patient agreeable to be seen urgently in ED. Report given to ED nurse and patient was escorted down to ED by CR staff who waited with patient until she was taken into ED. Called patients PCP's office and updated Angie triage nurse who stated she would keep patients appointment with behavioral health tomorrow am.
== END 2025-03-23 23:59 | disposition home or self-care (01) ==
LOC: CR 09:00
PROVIDERS: PCP Physician Assistant Medical; Visit Provider Internal Medicine Cardiovascular Disease
DX: I50.21 Acute systolic (congestive) heart failure (principal); I34.0 Nonrheumatic mitral (valve) insufficiency; Z51.89 Encounter for other specified aftercare
CPT/HCPCS: S9472

== ENCOUNTER 2025-03-31 09:40 | Emergency (ER) | payer MEDICAID, SELFPAY ==
[2025-03-31] VITALS (51 sets, daily range): BP systolic 112–135; BP diastolic 62–87; PULSE 71–82; RESP 13–30; TEMP 36.4; O2SAT 95–100
--- NOTE | 2025-03-31 09:30 | RT.EKG_ITS ---
APPROVED REPORT Exam: Resting ECG Reason for Exam: chest pain Patient Location: E HR:75 bpm ECG Measurements Heart Rate 75 AXIS AL 144 P -16 QRSd 101 QRS 41 QT 405 T 61 QTc 453 Conclusion Sinus rhythm...normal P axis, V-rate 60- 99 No Occlusion [place]
--- NOTE | 2025-03-31 09:45 | DI.RAD_ITS ---
Exam(s) XR CHEST 2V PA LATERAL EXAM: XR CHEST 2V PA LATERAL CLINICAL HISTORY: Chest pain. TECHNIQUE: 2D digital imaging was performed. COMPARISON: CR XR CHEST 2V PA LATERAL from 11/21/2024 FINDINGS: 2 views: Sternotomy wires and prosthetic mitral valve again noted. Heart size is normal. The mediastinum is not widened. Lungs are clear. No infiltrates nor pleural effusions. Pulmonary edema. IMPRESSION: No acute pulmonary findings.Prosthetic mitral valve. Sternotomy wires. No pulmonary edema. DATA REPOSITORY: RADIATION DOSE DELIVERED:
--- NOTE | 2025-03-31 09:49 | W.ED.GENAD ---
Discharge Plan Disposition Patient Disposition: Home Discharge Details Clinical Impression: Chest pain, unspecified Primary Care Provider: Nalini Riddle ED Provider: Rojelio Ayala Home Meds and New Rx's Prescriptions: Continued albuterol sulfate [ProAir HFA] 90 mcg/actuation HFA aerosol inhaler 2 puff inhalation Q6H PRN pantoprazole 40 mg tablet,delayed release (DR/EC) 40 mg PO DAILY levothyroxine 100 mcg tablet 100 mcg PO DAILY Patient Comments: TAKE 1 TABLET BY MOUTH EVERY DAY doxepin 50 mg capsule 50 mg PO HS Patient Comments: TAKE ONE CAPSULE BY MOUTH EVERY DAY furosemide 40 mg tablet 40 mg PO DAILY Patient Comments: TAKE ONE TABLET BY MOUTH EVERY DAY lorazepam 0.5 mg tablet 0.5 mg PO TID PRN Patient Comments: TAKE ONE TABLET BY MOUTH THREE TIMES A DAY NEEDED FOR ACUTE ANXIETY nitroglycerin 0.4 mg tablet, sublingual 0.4 mg sublingual PRN Patient Comments: PLACE ONE TABLET UNDER THE TONGUE EVERY 5 MINUTES FOR UP TO 3 DOSES NEEDED FOR CHEST PAIN. IF CHEST PAIN STILL PERSISTS CONTACT 911 colchicine 0.6 mg tablet 0.6 mg PO BID Patient Comments: TAKE ONE TABLET BY MOUTH TWICE A DAY losartan 25 mg tablet 25 mg PO DAILY Patient Comments: TAKE ONE TABLET BY MOUTH EVERY DAY spironolactone 25 mg tablet 25 mg PO DAILY Patient Comments: TAKE ONE TABLET BY MOUTH EVERY DAY warfarin 5 mg tablet 5 mg PO DAILY Patient Comments: Take 7.5 mg Tues, Th, Sat and 5 mg the other days venlafaxine 75 mg Capsule,Extended Release 24hr 150 mg PO DAILY Qty: 0 0RF metoprolol tartrate 25 mg tablet 50 mg PO BID Qty: 0 0RF Patient Comments: Takes 50 mg in the AM and 100 mg at HS aspirin [Children's Aspirin] 81 mg Tablet,Chewable 81 mg PO DAILY Qty: 90 0RF Jardiance 10 mg tablet 10 mg PO DAILY Patient Comments: TAKE ONE TABLET BY MOUTH EVERY DAY bupropion HCl 100 mg tablet sustained-release 12 hr 100 mg PO DAILY Patient Comments: TAKE ONE TABLET BY MOUTH EVERY DAY temazepam 7.5 mg capsule 7.5 mg PO QHS Patient Comments: TAKE 1 -2 CAPSULES AT BEDTIME NEEDED FOR INSOMNIA albuterol sulfate [Ventolin HFA] 90 mcg/actuation HFA aerosol inhaler 2 inh inhalation Q4H PRN Discharge Instructions Instructions: Chest pain Additional Instructions: You are seen in the emergency department for your chest pain. Your blood work showed no sign of heart attack nor any signs of a blood clot in your lungs. As we discussed please follow-up with your primary care provider. Please return to emergency department if your chest pain worsens or if you pass out or if you develop any sweating with your chest pain. Discharge Data Discharge Date/Time-TO BE ENTERED AT DEPARTURE: 03/31/25 11:52 HPI General Date/Time Provider Initiated Documentation: 03/31/25 09:42. HPI Narrative: MDM This is an overall very well-appearing afebrile and not tachycardic 59-year-old female with chest pain and shortness of breath for which patient will undergo assessment and monitoring for atrial fibrillation, ACS, and PE with dimer testing. ECG showing sinus rhythm at a rate of 75 with interventricular conduction delay. [place] and QTc within normal limits. Mild ST segment depression in lead V3. No ST segment elevations. Patient has not had vomiting to suggest increased risk for esophageal rupture. No rash to chest to suggest zoster. No trauma to chest to suggest pneumothorax. No tearing quality to suggest aortic dissection. Patient is not a dialysis patient and has had no recent cardiac procedure so my suspicion for tamponade is low. No fevers no cough to suggest pneumonia. Patient is on warfarin and has not had leg swelling, suspicion is low for PE. Nonetheless she is not PERC negative so we will send a D-dimer. She has reported decreased EF however she has no significant lower extremity pitting edema that is not hypoxic so I am not suspicious for acute heart failure. Will treat with aspirin. No ongoing chest pain to suggest nitroglycerin benefit. HEART SCORE Chest pain Diagnostic Protocol: [-History/Physical/Gestalt: Slightly Suspicious (0)] [- EKG: Nonspecific repolarization (+1)] [- AGE: 45-65 (+1)] [- RISK FACTORS: 1 - 2 risk factors (+1)] [-TROPONIN: <= normal limit (0)] - TOTAL SCORE: 3 - Risk Factors: DM, current or recent smoker, HTN, HLD, family hx of CAD, obesity - INTERPRETATION: With a total score of 3 or less, risk of major cardiac event within six weeks 1.7%, likely lower with two negative troponins. [I explained to the patient that the risk of subsequent major cardiac event within 1 month is not 0, however risk predicted to be less than 2%. Patient verbalized understanding, accepts this risk and shared and the decision for discharge with PCP follow-up for further evaluation and management. They understand to return to the ED immediately with any worsening symptoms, new symptoms or other concerns.] 10:45 AM Initial troponin reassuring. Negative D-dimer. Normal reassuring lipase. Comprehensive metabolic panel lacks MARCIE. No LFT abnormalities. No acute electrolyte abnormalities. CBC lacks anemia thrombocytopenia and leukocytosis. Therapeutic INR at 2.6. 3:25 PM I met with the patient. She felt improved. We discussed that I did not have an exact etiology to her symptoms. We discussed that she should return to the ED if she developed chest pain associated with diaphoresis any radiation of her chest pain to her jaw or extremities or any chest pain associated syncope. I advised PCP follow-up. She understood return indications and was discharged with an empiric trial of expectant outpatient management. HPI This is a patient with a history of atrial fibrillation (AFib) presenting with chest pain. The patient reports experiencing intermittent chest pain, which she cannot attribute to any specific cause. The pain is localized in the center of her chest and does not radiate. She has been experiencing soreness in her shoulder blades for the past week, which she initially attributed to new exercises and cardiac rehabilitation. However, she notes that the pain is similar to what she experienced during a previous episode of AFib. This morning, she had to caul fat puller while driving due to feeling unwell. After resting for a few minutes, these symptoms subsided. The patient reports no recent falls, dialysis, chest rash, temperature elevation, cough, vomiting, or stomach pain. She also reports no history of diabetes, high blood pressure, leg swelling, shortness of breath, or blood clots in her legs or lungs. Over the past week or two, she has occasionally coughed up phlegm with a small amount of blood in it. The patient underwent mitral valve repair in 09/2024 and experienced severe AFib about 3 weeks to a month post-surgery. She is currently on warfarin, and her INR was checked today, with a result of 2.9, within the target range of 2 to 3. She takes baby aspirin in the morning. She was prescribed temazepam for insomnia a few weeks ago but discontinued it due to itching. She is also on bupropion and venlafaxine for depression. PAST SURGICAL HISTORY: Mitral valve repair in 09/2024 Exam General: Well-appearing in no acute distress speaking in complete sentences. Head: Normocephalic, atraumatic. Eye: Extraocular eye movements intact. No conjunctival injection. No scleral icterus. Ear, nose, mouth, throat: Grossly normal inspection. Normal voice, handling secretions normally. Neck: Trachea midline. Cardiovascular: Well-perfused distal extremities. Regular rate and rhythm Respiratory: Nonlabored respiration. Clear lungs bilaterally. Gastrointestinal: Nondistended abdomen. Musculoskeletal: No no significant lower extremity pitting edema. Moving all 4 extremities spontaneously. No calf tenderness bilaterally. Skin: Normal for age and race, grossly normal temperature and turgor. No acute rash. Neurologic: Alert and appropriate, no apparent acute deficits. Psychiatric: Mood and manner are appropriate. Grooming and personal hygiene are appropriate. Related Data Home Medications ?Medication ?Instructions ?Recorded ?Confirmed albuterol sulfate 90 mcg/actuation 2 puff inhalation Q6H PRN 06/04/21 03/31/25 aerosol inhaler (ProAir HFA) pantoprazole 40 mg tablet,delayed 40 mg PO DAILY 06/04/21 03/31/25 release levothyroxine 100 mcg tablet 100 mcg PO DAILY 06/24/21 03/31/25 doxepin 50 mg capsule 50 mg PO HS 10/27/24 03/31/25 furosemide 40 mg tablet 40 mg PO DAILY 10/27/24 03/31/25 lorazepam 0.5 mg tablet 0.5 mg PO TID PRN 10/27/24 03/31/25 colchicine 0.6 mg tablet 0.6 mg PO BID 11/21/24 03/31/25 losartan 25 mg tablet 25 mg PO DAILY 11/21/24 03/31/25 nitroglycerin 0.4 mg sublingual 0.4 mg sublingual PRN 11/21/24 03/31/25 tablet spironolactone 25 mg tablet 25 mg PO DAILY 11/21/24 03/31/25 warfarin 5 mg tablet 5 mg PO DAILY 11/21/24 03/31/25 aspirin 81 mg chewable tablet 81 mg PO DAILY #90 tabs 11/22/24 03/31/25 (Children's Aspirin) metoprolol tartrate 25 mg tablet 50 mg (2 x 25 mg) PO BID #0 tabs 11/22/24 03/31/25 venlafaxine 75 mg capsule,extended 150 mg (2 x 75 mg) PO DAILY #0 caps 11/22/24 03/31/25 release 24 hr empagliflozin 10 mg tablet 10 mg PO DAILY 03/08/25 03/31/25 (Jardiance) albuterol sulfate 90 mcg/actuation 2 inh inhalation Q4H PRN 03/31/25 03/31/25 aerosol inhaler (Ventolin HFA) bupropion HCl 100 mg tablet,12 hr 100 mg PO DAILY 03/31/25 03/31/25 sustained-release temazepam 7.5 mg capsule 7.5 mg PO QHS 03/31/25 03/31/25 Previous Rx's ?Medication ?Instructions ?Recorded aspirin 81 mg chewable tablet 81 mg PO DAILY #90 tabs 11/22/24 (Children's Aspirin) metoprolol tartrate 25 mg tablet 50 mg (2 x 25 mg) PO BID #0 tabs 11/22/24 venlafaxine 75 mg capsule,extended 150 mg (2 x 75 mg) PO DAILY #0 caps 11/22/24 release 24 hr Allergies Allergy/AdvReac Type Severity Reaction Status Date / Time codeine Allergy Intermediate hypersensitive. Verified 03/31/25 09:51 Can't sleep. feels wired mint AdvReac Mild Skin Rash Verified 03/31/25 09:51 cephalexin (Cephalexin) AdvReac Nausea/ GI Verified 03/31/25 09:51 upset General ERNA: 2 PFSH All Active Problems (Updated 03/31/25 @ 11:34 by Rojelio Ayala MD) Chest pain, unspecified (Acute) Depression (Chronic) Hypothyroidism (Chronic) S/P mitral valve repair (Acute) Hx of mitral valve repair (Acute) Paroxysmal A-fib (Acute) Chest discomfort (Acute) Dehydration (Acute) Atrial flutter (Acute) GERD (gastroesophageal reflux disease) (Chronic) Laryngospasm (Acute) Thyromegaly (Acute) Abnormal cardiovascular stress test (Acute) History of Helicobacter pylori infection (Acute) Asthma (Chronic) Pain of left thumb (Acute) Leg numbness (Acute) Lumbar radiculopathy (Acute) Arthritis of hand, left (Acute) Arthritis of right hand (Acute) Mucous cyst of digits of both hands (Acute) Excision of RMF Mucous Cyst with Osteophyte Excision from DIP joint DOS: 01/27/23 s/p RMF, RRF and LLF cyst excisions DOS: 11/04/22 Right hip impingement syndrome (Acute) Medical History Anxiety and depression Overweight Elevated blood pressure reading Exposure to COVID-19 virus Right knee pain Hx of Diverticulosis Hemorrhoids Multiple thyroid nodules Hypertension Insomnia Urinary incontinence Snoring Positive KEITH (antinuclear antibody) Sandeep's thyroiditis Endometriosis Ovarian cyst Surgical History S/P wrist surgery History of left oophorectomy Hx of foot surgery L big toe H/O esophagogastroduodenoscopy 2015 S/P colonoscopy History of hysterectomy Family History Father Hypertension Hyperlipidemia Diabetes Brother Hypertension Mother Stroke Social History Smoking/Tobacco Use Status: Never Smoking risk assessment performed?: Yes Alcohol Intake: former Drug use: Never Substance use type: does not use Household members: spouse Housing: house Number of Children: 3 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
[2025-03-31 10:11] LABS: Abs Immature Grans 0.01 10^3/uL (0.0-0.06); HCT 41.8 % (36.0-46.0); HGB 13.1 g/dL (11.2-15.7); Immature Grans % 0.2 %; MCH 26.5 pg (27.0-33.0); MCHC 31.3 % (32.0-36.0); MCV 84 fL (80-95); MPV 10.4 fL (8.0-11.0); Platelet Count 290 10^3/uL (130-400); RBC 4.95 10^6/uL (3.93-5.22); RDW 14.4 % (11.7-14.6); RDW-SD 44.3 fL; WBC 5.01 10^3/uL (4.4-10.8)
[2025-03-31 10:23] LABS: Prothrombin Time 24.9 sec (9.1-11.1)
[2025-03-31 10:32] LABS: ALT 21 U/L (14-59); AST 16 U/L (15-37); Albumin 4.0 g/dL (3.4-5.0); Alkaline Phosphatase 100 U/L (46-116); Anion Gap 4.0 mmol/L (3-11); BUN 17 mg/dL (7-18); Bilirubin, Total 0.3 mg/dL (0.2-1.0); CO2 32.0 mmol/L (21.0-32.0); Calcium 8.7 mg/dL (8.5-10.1); Chloride 101 mmol/L (98-107); Estimated GFR 73.64 (mL/min/1.73m2); Glucose 91 mg/dL (74-106); Lipase 39 U/L (<78); Potassium 4.3 mmol/L (3.5-5.1); Sodium 137 mmol/L (136-145); Total Protein 8.0 g/dL (6.4-8.2); Troponin I 32 ng/L (<or=51)
[2025-03-31 10:33] LABS: INR 2.6 (0.9-1.1)
[2025-03-31 10:39] LABS: D-Dimer 291 ng/mlFEU (<500)
[2025-03-31] MEDS: Aspirin 81 MG CHEW 324 MG CH (10:46)
[2025-03-31 11:28] LABS: Troponin I 34 ng/L (<or=51)
== END 2025-03-31 11:52 | disposition home or self-care (01) ==
PROVIDERS: Emergency Provider Emergency Medicine; PCP Physician Assistant Medical
DX: R07.9 Chest pain, unspecified (principal); R06.02 Shortness of breath; I48.91 Unspecified atrial fibrillation
CPT/HCPCS: 99285; 99284; 36415; 96374; 80053; 83690; 93005; 71046; 84484; 85025; 85379; 85610; 93010

== ENCOUNTER 2025-04-19 09:00 | Outpatient (RCR) | payer MEDICAID, SELFPAY | END 2025-04-23 23:59 | disposition home or self-care (01) | LOC: CR 09:00 | PROVIDERS: PCP Physician Assistant Medical; Visit Provider Internal Medicine Cardiovascular Disease | DX: I25.10 Atherosclerotic heart disease of native coronary artery without angina pectoris (principal); Z51.89 Encounter for other specified aftercare | CPT/HCPCS: S9472 ==

== ENCOUNTER 2025-05-03 09:00 | Outpatient (RCR) | payer MEDICAID, SELFPAY | END 2025-05-23 23:59 | disposition home or self-care (01) | LOC: CR 09:00 | PROVIDERS: PCP Physician Assistant Medical; Visit Provider Internal Medicine Cardiovascular Disease | DX: I50.22 Chronic systolic (congestive) heart failure (principal); Z95.2 Presence of prosthetic heart valve; Z51.89 Encounter for other specified aftercare | CPT/HCPCS: S9472 ==

== ENCOUNTER 2025-05-09 08:28 | Outpatient (CLI) | payer MEDICAID, SELFPAY | END 2025-05-09 08:29 | disposition home or self-care (01) | PROVIDERS: PCP Physician Assistant Medical | DX: I48.0 Paroxysmal atrial fibrillation (principal) | CPT/HCPCS: 93246 ==

== ENCOUNTER 2025-05-30 07:07 | Outpatient (CLI) | payer MEDICAID, SELFPAY ==
--- NOTE | 2025-05-30 09:40 | W.CARDEVENT ---
Date of service: 05/30/25 Time of Service: 09:40 Cardiac Event Recorder Referring Provider:: Nalini Rdidle Indications:: Paroxysmal atrial fibrillation Cardiac Event Note: This is a cardiac event monitor. Patient was monitored for 2 days and 18 hours Rhythm throughout was sinus with an average heart rate of 78. Minimum was 60, maximum 107 There were very rare isolated atrial and ventricular ectopic beats. There was no atrial fibrillation, no high-grade AV block, no pauses greater than 3 seconds. No symptoms were reported
== END 2025-05-30 07:08 | disposition home or self-care (01) ==
LOC: CARDOPNVT 07:07
PROVIDERS: PCP Physician Assistant Medical; Visit Provider Internal Medicine Cardiovascular Disease
DX: I48.0 Paroxysmal atrial fibrillation (principal)
CPT/HCPCS: 93248

== ENCOUNTER 2025-06-22 13:01 | Emergency (ER) | payer MEDICAID, SELFPAY ==
[2025-06-22 13:05] VITALS: BP 114/76; PULSE 83; RESP 20; TEMP 37.1; O2SAT 95
[2025-06-22 13:09] VITALS: BP 114/76; PULSE 83; RESP 20; TEMP 37.1; O2SAT 95
--- NOTE | 2025-06-22 14:00 | DI.CT_ITS ---
Exam(s) CT ABDOMEN PELVIS W EXAM: CT ABDOMEN PELVIS W CLINICAL HISTORY: left abdominal wall bruising, ?hematoma TECHNIQUE: Imaging Protocol: Axial computed tomography images with coronal and sagittal reformatted images were created and reviewed. CONTRAST MATERIAL: Intravenous: Omnipaque 350 Contrast volume:100 mL Oral: No COMPARISON: CT ABD PELVIS WITH CONTRAST from 11/28/[address] ABDOMEN PELVIS W from 12/15/[address] THORAX ABD/PEL CTA from 12/17/2023 FINDINGS: ABDOMEN: Lung Bases: The nodule in the right middle lobe is unchanged. No follow-up is recommended. Liver: Normal density. No measurable mass. Portal, Superior Mesenteric, and Splenic Veins: Unremarkable. Gallbladder and Biliary Tract: No radiodense calculus or dilation. Pancreas: Normal density, no abnormal calcifications or inflammatory process. Spleen: Normal. Adrenals: The left adrenal nodule is unchanged and most consistent with an adrenal adenoma. No follow-up is recommended. Kidneys: Normal size, contour and axis. No radiodense stones or obstructive uropathy. There is a stable simple cyst in the left kidney. No follow-up is recommended. There is a circum aortic left renal vein. Abdominal Aorta: Abdominal portion non-dilated. Atherosclerotic calcification is present. Bowel: No obstruction or bowel wall thickening. There is no evidence of appendicitis. Peritoneal Cavity: No ascites, collection or mesenteric inflammatory response. No free air. Lymph Nodes: Within normal limits. Bones: Within normal limits for the patient's age. Soft Tissues: There is infiltration of the subcutaneous tissues of the left lateral abdominal wall. There is focal skin thickening which may reflect bruising. There is an underlying subcutaneous soft tissue density measuring 2 x 3.4 cm. This may represent a hematoma. No active contrast extravasation is seen. The underlying abdominal wall musculature appears intact. PELVIS: Bladder: Symmetric distention, no gross wall thickening. Reproductive Organs: Status post hysterectomy. Lymph Nodes: Within normal limits. Bones: Within normal limits for the patient's age. IMPRESSION: 1. Infiltration of the subcutaneous soft tissues along the left lateral abdominal wall. There is focal skin thickening which may represent bruising. There is a 2 x 3.4 cm subcutaneous soft tissue density which may represent a hematoma. No evidence of active contrast extravasation. The underlying ab dominal wall musculature is intact. 2. No acute intra-abdominal or pelvic process. RADIATION DOSE DELIVERED: 699.43mGy.cm Total DLP DATA REPOSITORY: All CT scans at this facility are submitted to the National Radiology Data Registry (NRDR) Dose Index Registry (DIR) with the [employer] (ACR). RADIATION OPTIMIZATION: All CT scans at this facility use at least one of these dose optimization techniques: automated exposure control; mA and/or kV adjustment per patient size (includes targeted exams where dose is matched to clinical indication); or iterative reconstruction.
--- NOTE | 2025-06-22 14:06 | W.ED.GENAD ---
Discharge Plan Disposition Patient Disposition: Home Condition: Stable Discharge Details Clinical Impression: Abdominal wall hematoma Primary Care Provider: Nalini Riddle ED Provider: Baldomero Weber Home Meds and New Rx's Prescriptions: Continued albuterol sulfate [ProAir HFA] 90 mcg/actuation HFA aerosol inhaler 2 puff inhalation Q6H PRN pantoprazole 40 mg tablet,delayed release (DR/EC) 40 mg PO DAILY levothyroxine 100 mcg tablet 100 mcg PO DAILY Patient Comments: TAKE 1 TABLET BY MOUTH EVERY DAY doxepin 50 mg capsule 50 mg PO HS Patient Comments: TAKE ONE CAPSULE BY MOUTH EVERY DAY furosemide 40 mg tablet 40 mg PO DAILY Patient Comments: TAKE ONE TABLET BY MOUTH EVERY DAY lorazepam 0.5 mg tablet 0.5 mg PO TID PRN Patient Comments: TAKE ONE TABLET BY MOUTH THREE TIMES A DAY NEEDED FOR ACUTE ANXIETY nitroglycerin 0.4 mg tablet, sublingual 0.4 mg sublingual PRN Patient Comments: PLACE ONE TABLET UNDER THE TONGUE EVERY 5 MINUTES FOR UP TO 3 DOSES NEEDED FOR CHEST PAIN. IF CHEST PAIN STILL PERSISTS CONTACT 911 losartan 25 mg tablet 25 mg PO DAILY Patient Comments: TAKE ONE TABLET BY MOUTH EVERY DAY spironolactone 25 mg tablet 25 mg PO DAILY Patient Comments: TAKE ONE TABLET BY MOUTH EVERY DAY warfarin 5 mg tablet 5 mg PO DAILY Patient Comments: Take 7.5 mg , , Sat and 5 mg the other days venlafaxine 75 mg Capsule,Extended Release 24hr 150 mg PO DAILY Qty: 0 0RF metoprolol tartrate 25 mg tablet 50 mg PO BID Qty: 0 0RF Patient Comments: Takes 50 mg in the AM and 100 mg at HS aspirin [Children's Aspirin] 81 mg Tablet,Chewable 81 mg PO DAILY Qty: 90 0RF Jardiance 10 mg tablet 10 mg PO DAILY Patient Comments: TAKE ONE TABLET BY MOUTH EVERY DAY bupropion HCl 100 mg tablet sustained-release 12 hr 100 mg PO DAILY Patient Comments: TAKE ONE TABLET BY MOUTH EVERY DAY albuterol sulfate [Ventolin HFA] 90 mcg/actuation HFA aerosol inhaler 2 inh inhalation Q4H PRN No Action colchicine 0.6 mg tablet 0.6 mg PO BID Patient Comments: TAKE ONE TABLET BY MOUTH TWICE A DAY Discharge Instructions Additional Instructions: Your blood work did not show any concerning findings at this time. You have a small hematoma which will resolve with time. Follow-up with primary care provider as needed. If you feel more ill or new symptoms such as high fevers or severe worsening pain return to the emergency department for reevaluation. HPI General Mode of arrival: ambulatory. Date/Time Provider Initiated Documentation: 06/22/25 13:41. Limitations to Documentation: no limitations. Information obtained by: patient. History of Present Illness 60 year old F presents to the emergency department with the chief complaint of left sided abdominal wall bruising/lump, described as mild, Quality is described as aching, and is localized to the abdomen. Patient reports no radiation. Patient started experiencing this day(s) (3) and it has been constant. No relieving factors improve symptom(s), No exacerbating factors reported . Patient notes no other symptoms.. Patient did receive the following treatments prior to arrival, none Related Data Home Medications Medication Instructions Recorded Confirmed albuterol sulfate 90 mcg/actuation 2 puff inhalation Q6H PRN 06/04/21 06/22/25 aerosol inhaler (ProAir HFA) pantoprazole 40 mg tablet,delayed 40 mg PO DAILY 06/04/21 06/22/25 release levothyroxine 100 mcg tablet 100 mcg PO DAILY 06/24/21 06/22/25 doxepin 50 mg capsule 50 mg PO HS 10/27/24 06/22/25 furosemide 40 mg tablet 40 mg PO DAILY 10/27/24 06/22/25 lorazepam 0.5 mg tablet 0.5 mg PO TID PRN 10/27/24 06/22/25 colchicine 0.6 mg tablet 0.6 mg PO BID 11/21/24 06/22/25 Held on 06/22/25. Instructions: Pt Stopped/Never Started losartan 25 mg tablet 25 mg PO DAILY 11/21/24 06/22/25 nitroglycerin 0.4 mg sublingual 0.4 mg sublingual PRN 11/21/24 06/22/25 tablet spironolactone 25 mg tablet 25 mg PO DAILY 11/21/24 06/22/25 warfarin 5 mg tablet 5 mg PO DAILY 11/21/24 06/22/25 aspirin 81 mg chewable tablet 81 mg PO DAILY #90 tabs 11/22/24 06/22/25 (Children's Aspirin) metoprolol tartrate 25 mg tablet 50 mg (2 x 25 mg) PO BID #0 tabs 11/22/24 06/22/25 venlafaxine 75 mg capsule,extended 150 mg (2 x 75 mg) PO DAILY #0 caps 11/22/24 06/22/25 release 24 hr empagliflozin 10 mg tablet 10 mg PO DAILY 03/08/25 06/22/25 (Jardiance) albuterol sulfate 90 mcg/actuation 2 inh inhalation Q4H PRN 03/31/25 06/22/25 aerosol inhaler (Ventolin HFA) bupropion HCl 100 mg tablet,12 hr 100 mg PO DAILY 03/31/25 06/22/25 sustained-release Previous Rx's Medication Instructions Recorded aspirin 81 mg chewable tablet 81 mg PO DAILY #90 tabs 11/22/24 (Children's Aspirin) metoprolol tartrate 25 mg tablet 50 mg (2 x 25 mg) PO BID #0 tabs 11/22/24 venlafaxine 75 mg capsule,extended 150 mg (2 x 75 mg) PO DAILY #0 caps 11/22/24 release 24 hr Allergies Allergy/AdvReac Type Severity Reaction Status Date / Time codeine Allergy Intermediate hypersensitive. Verified 06/22/25 13:10 Can't sleep. feels wired mint AdvReac Mild Skin Rash Verified 06/22/25 13:10 cephalexin (Cephalexin) AdvReac Nausea/ GI Verified 06/22/25 13:10 upset General Stated Complaint: Abd Prob ERNA: 3 Review of Systems All systems reviewed & are unremarkable except as noted in HPI and below Constitutional Constitutional: Denies chills, Denies fever(s) and Denies weakness Cardiovascular Cardiovascular: Denies chest pain and Denies dyspnea Respiratory Respiratory: Denies cough and Denies dyspnea Gastrointestinal Gastrointestinal: Denies vomiting Neurologic Neurologic: Denies weakness Exam Const General: no acute distress Orientation: alert HENMT Head: normal to inspection Ears: external ears normal General nose exam: external nose normal Mouth: moist mucous membranes Eyes General: appearance normal, both eyes and all related structures Neck Neck: normal visual inspection Resp Effort & Inspection: normal respiratory effort and able to speak in complete sentences Cardio Rate: regular rate GI Palpation: soft, not firm, no guarding and tender Neuro General: patient alert and patient oriented x3 Extrem General: normal to inspection Psych Mental Status: mental status grossly normal Course Vital Signs Vital signs: Vital Signs Temperature 37.1 C 06/22/25 13:05 Pulse 83 06/22/25 13:05 Respiratory Rate 20 06/22/25 13:05 Blood Pressure 114/76 06/22/25 13:05 Pulse Oximetry 95 06/22/25 13:05 Temperature 37.1 C 06/22/25 13:09 Pulse 83 06/22/25 13:09 Respiratory Rate 20 06/22/25 13:09 Blood Pressure 114/76 06/22/25 13:09 Blood Pressure Position Sitting 06/22/25 13:09 Pulse Oximetry 95 06/22/25 13:09 Oxygen Delivery Method Room Air 06/22/25 13:09 Oxygen Flow Rate 0 06/22/25 13:09 Medical Decision Making Plan: 60-year-old female with a history of A-fib on warfarin comes in with 2 days of left-sided abdominal bruising and a tender lump in the middle. She has not had any trauma or questioning she states that she did bend over on Thursday when reaching for something and thinks that she may have stretched her abdominal wall muscles. No fevers or chills. No vomiting. She is well-appearing. She has a 4 x 5 cm area of bruising on the left mid abdomen. There is a tender 2 x 3 cm mass in the middle to suspect is from hematoma. She has no guarding or rebound. Is no erythema or warmth. I will check a CBC CMP coagulation studies and a CT abdomen pelvis to evaluate for the extent of the likely hematoma. Labs unremarkable and CT showed a small hematoma in the abdominal musculature, though there is no acute findings. She is hemodynamically stable. Advised this will likely resolve with time. She will follow-up with PCP as needed return precautions given. Differential Diagnosis Differential Diagnosis: hematoma, elevated inr PFSH All Active Problems (Updated 06/22/25 @ 15:37 by Baldomero Weber MD) Abdominal wall hematoma (Acute) Hypothyroidism (Chronic) S/P mitral valve repair (Acute) Hx of mitral valve repair (Acute) Paroxysmal A-fib (Acute) Chest discomfort (Acute) Dehydration (Acute) Atrial flutter (Acute) GERD (gastroesophageal reflux disease) (Chronic) Laryngospasm (Acute) Thyromegaly (Acute) Abnormal cardiovascular stress test (Acute) History of Helicobacter pylori infection (Acute) Asthma (Chronic) Pain of left thumb (Acute) Leg numbness (Acute) Lumbar radiculopathy (Acute) Arthritis of hand, left (Acute) Arthritis of right hand (Acute) Mucous cyst of digits of both hands (Acute) Excision of RMF Mucous Cyst with Osteophyte Excision from DIP joint DOS: 01/27/23 s/p RMF, RRF and LLF cyst excisions DOS: 11/04/22 Right hip impingement syndrome (Acute) Medical History Anxiety and depression Overweight Elevated blood pressure reading Exposure to COVID-19 virus Right knee pain Hx of Diverticulosis Hemorrhoids Multiple thyroid nodules Hypertension Insomnia Urinary incontinence Snoring Positive KEITH (antinuclear antibody) Sandeep's thyroiditis Endometriosis Ovarian cyst Surgical History S/P wrist surgery History of left oophorectomy Hx of foot surgery L big toe H/O esophagogastroduodenoscopy 2015 S/P colonoscopy History of hysterectomy Family History Father Hypertension Hyperlipidemia Diabetes Brother Hypertension Mother Stroke Social History Smoking/Tobacco Use Status: Never Smoking risk assessment performed?: Yes Alcohol Intake: former Drug use: Never Substance use type: does not use Household members: spouse Housing: house Number of Children: 3 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
[2025-06-22 14:26] LABS: Abs Immature Grans 0.01 10^3/uL (0.0-0.06); HCT 41.5 % (36.0-46.0); HGB 12.9 g/dL (11.2-15.7); Immature Grans % 0.2 %; MCH 26.4 pg (27.0-33.0); MCHC 31.1 % (32.0-36.0); MCV 85 fL (80-95); MPV 9.8 fL (8.0-11.0); Platelet Count 309 10^3/uL (130-400); RBC 4.88 10^6/uL (3.93-5.22); RDW 14.3 % (11.7-14.6); RDW-SD 44.6 fL; WBC 5.22 10^3/uL (4.4-10.8)
[2025-06-22] MEDS: Omnipaque 350 MG/ML 100 ML BTL IJ (14:32)
[2025-06-22] MEDS: Normal Saline - Diluent 50 ML VIAL IJ (14:32)
[2025-06-22 14:47] LABS: INR 1.7 (0.9-1.1); PTT Activated 34.8 sec (20.6-30.2); Prothrombin Time 16.4 sec (9.1-11.1)
[2025-06-22 14:49] LABS: ALT 19 U/L (14-59); AST 13 U/L (15-37); Albumin 3.9 g/dL (3.4-5.0); Alkaline Phosphatase 114 U/L (46-116); Anion Gap 5.9 mmol/L (3-11); BUN 16 mg/dL (7-18); Bilirubin, Total 0.2 mg/dL (0.2-1.0); CO2 30.1 mmol/L (21.0-32.0); Calcium 8.5 mg/dL (8.5-10.1); Chloride 101 mmol/L (98-107); Glucose 89 mg/dL (74-106); Magnesium 2.3 mg/dL (1.8-2.4); Potassium 3.9 mmol/L (3.5-5.1); Sodium 137 mmol/L (136-145); Total Protein 8.0 g/dL (6.4-8.2)
[2025-06-22 16:01] VITALS: BP 133/88; PULSE 71; TEMP 36.2; O2SAT 100
== END 2025-06-22 15:59 | disposition home or self-care (01) ==
PROVIDERS: Emergency Provider Emergency Medicine; PCP Physician Assistant Medical
DX: S30.11XA Contusion of abdominal wall, initial encounter (principal); X58.XXXA Exposure to other specified factors, initial encounter
CPT/HCPCS: 99283; 99285; 36415; 80053; 86850; 86900; 86901; 74177; 83735; 85025; 85610; 85730; J3490